=== PATIENT | female | born 1940 | race Caucasian/White ===

== ENCOUNTER 2017-09-10 12:56 | Emergency (ER) | payer OTHER ==
[~2017-09-10] VITALS: Ht 167.6 cm; Wt 76.8 kg
[2017-09-10 13:12] VITALS: TEMP 36.6; Ht 167.6 cm; Wt 76.8 kg
[2017-09-10] MEDS ORDERED: SODIUM CHLORIDE 0.9% 1000ML 1,000 ML IV STA (13:24)
[2017-09-10] MEDS ORDERED: OPTIRAY 320 IV PRN (13:30)
[2017-09-10 13:48] LABS: BASO % 0.5 %; BASO ABS # 0.03 K/uL (0-0.2); EOS % 2.3 %; EOS ABS # 0.15 K/uL (0-0.5); HEMATOCRIT 26.6 % (37-47); HEMOGLOBIN 8.4 g/dL (12.0-16.0); IG# 0.01 K/uL (0.00-0.02); LYMPH % 14.5 %; LYMPH ABS # 0.96 K/uL (1.2-3.4); MEAN CELL VOLUME 86.4 fL (80-100); MEAN CORPUSCULAR HEMOGLOBIN 27.3 pg (25-34); MEAN CORPUSCULAR HGB CONC 31.6 g/dl (32-36); MEAN PLATELET VOLUME 9.2 fL (7.4-10.4); MONO % 10.1 %; MONO ABS # 0.67 K/uL (0.11-0.59); NEUT % 72.4 %; PLATELET COUNT 232 K/uL (130-400); RED CELL DISTRIBUTION WIDTH SD 51.3 fL (36.4-46.3); WHITE BLOOD COUNT 6.62 K/uL (4.8-10.8)
[2017-09-10] MEDS ORDERED: MULT-506 PO (13:53)
[2017-09-10] MEDS ORDERED: SIMV5TAB2 PO (13:53)
[2017-09-10 14:05] LABS: PTT PATIENT 22.7 SECONDS (21.0-31.0)
[2017-09-10 14:16] LABS: ALBUMIN 3.7 gm/dl (3.4-5.0); ALKALINE PHOSPHATASE 72 U/L (45-117); ALT/SGPT 18 U/L (12-78); AST/SGOT 11 U/L (15-37); BLOOD UREA NITROGEN 17 mg/dl (7-18); CALCIUM 8.7 mg/dl (8.5-10.1); CARBON DIOXIDE 22 mmol/L (21-32); CREATININE 0.68 mg/dl (0.60-1.20); GLUCOSE 93 mg/dl (70-99); LIPASE 137 U/L (73-393); POTASSIUM 3.5 mmol/L (3.5-5.1); SODIUM 143 mmol/L (136-145)
--- NOTE | 2017-09-10 14:40 | DIAGNOSTIC IMAGING REPORT ---
R VENOUS DOPP LOWER EXT UNILAT HISTORY: 76 years-old Female Pt c/o Rt leg swelling, + ddimer acute pain and swelling of the right lower extremity COMPARISON: None available TECHNIQUE: Multiple real-time sonographic images of the right lower extremity deep venous structures were obtained assessing grayscale appearance, color and spectral flow FINDINGS: There is normal flow, compressibility, phasicity and augmentation of the right lower extremity deep venous structures. IMPRESSION: No sonographic evidence of deep venous thrombosis. The above report was generated using voice recognition software. It may contain grammatical, syntax or spelling errors. Electronically signed by: Nick Owens M.D. 09/10/2017 2:38 PM Dictated Date/Time: 09/10/2017 2:37 PM
--- NOTE | 2017-09-10 15:28 | DIAGNOSTIC IMAGING REPORT ---
(CHEST FOR PE) ANGIO WITH CT DOSE: 280.16 mGy.cm HISTORY: 76 years-old Female presents with acute shortness of breath. TECHNIQUE: Multiple CTA images of the chest were obtained after the intravenous administration of 93 ml Optiray 320. Coronal and sagittal MIPS were obtained from the axial data set and were submitted for review. All measurements were obtained according to NASCET criteria. A dose lowering technique was utilized adhering to the principles of ALARA. COMPARISON: Duplex venous Doppler study of same day. FINDINGS: CTA: Mild multichamber cardiac enlargement. Three-vessel distribution of coronary arterial disease. Moderate mixed plaquing of the thoracic aorta without aneurysm or dissection identified. The pulmonary arterial tree is opacified to level of the proximal subsegmental branches and demonstrates no focal filling defects to suggest pulmonary thromboembolic disease. CT CHEST: Heterogeneous appearance of the thyroid with 10 mm right thyroid nodule. No pathologically enlarged lymph nodes identified. 9 mm right hilar and pretracheal lymph nodes are likely reactive. Moderate upper lobe predominant emphysema without pneumothorax or pleural effusion. Subsegmental dependent ground glass opacities suggest atelectasis. Subpleural cystic changes are noted within the basal lower lobes. No lobar airspace consolidation. No suspicious nodules or masses identified. 5 mm. Fissural lymph node is seen adjacent to the right middle lobe. Central airways appear patent. No acute process of the imaged upper abdomen. Mildly motion degraded exam. Asymmetric increased density about the right breast superior quadrant soft tissues are otherwise unremarkable. Bones are intact. No acute fracture identified. Multilevel discogenic degenerative changes and facet arthropathy. Levoscoliosis of the mid to lower thoracic spine. IMPRESSION: 1. Cardiomegaly without acute aortic pathology or evidence of pulmonary thromboembolic disease. 2. Emphysema without lobar airspace consolidation. 3. Subsegmental bibasilar atelectasis. The above report was generated using voice recognition software. It may contain grammatical, syntax or spelling errors. Electronically signed by: Nick Owens M.D. 09/10/2017 3:27 PM Dictated Date/Time: 09/10/2017 3:19 PM
[2017-09-10 15:45] VITALS: BP 179/68; PULSE 76; O2SAT 96
[2017-09-11 09:31] LABS: ISTAT IONIZED CALCIUM 1.17 mmol/l (1.12-1.32); ISTAT POTASSIUM 3.5 mEq/L (3.3-5.0); ISTAT SODIUM 142 mEq/L (135-144)
--- NOTE | 2017-09-22 17:05 | EMERGENCY ROOM VISIT NOTE ---
History Report prepared by Melibbree: David Neville Under the Supervision of: Dr. El Kinsey M.D. First contact with patient: 13:16 Chief Complaint: OTHER COMPLAINT Stated Complaint: LOW BLOOD LEVEL,CLOT INDICATORS HIGH History of Present Illness The patient is a 76 year old female who presents to the Emergency Room for evaluation of constant anemia. She had blood drawn yesterday due to her legs feeling weak. The patient was called today with her results. She was told that her hemoglobin was 8.4 (down from 11.3 on 08/18), and her D-dimer was elevated. The patient notes that her right foot has been swollen this week, but it improved yesterday. She currently complains of shortness of breath and a cough. She denies chest pain or abdominal pain. The patient is not on any blood thinning medication. She notes that she is on supplemental iron and typically has dark stools. Source of History: patient Onset: Yesterday Symptom Intensity: 8.4 Quality: other (Anemia) Timing: constant Associated Symptoms: + cough, + SOB, + weakness (legs), No chest pain, No abdominal pain Review of Systems See HPI for pertinent positives & negatives. A total of 10 systems reviewed and were otherwise negative. Past Medical & Surgical Medical Problems: (1) Anemia (2) HLD (hyperlipidemia) (3) HTN (hypertension) Family History No pertinent family history stated. Social History Smoking Status: Current Every Day Smoker Marital Status: Housing Status: lives with significant other Current/Historical Medications Scheduled Multivitamin (Multivitamin), 1 TAB PO DAILY Simvastatin (Zocor), Unknown Dose PO QPM Allergies Coded Allergies: No Known Allergies (Unverified , 04/15/13) Physical Exam Vital Signs Date Time Temp Pulse Resp B/P (MAP) Pulse Ox O2 Delivery O2 Flow Rate FiO2 09/10/17 15:45 76 20 179/68 96 09/10/17 15:17 74 20 174/86 96 Room Air 09/10/17 13:41 77 09/10/17 13:36 Room Air 09/10/17 13:12 36.6 90 20 178/74 96 Room Air Physical Exam GENERAL: Awake, alert, well-appearing, in no acute distress HENT: Normocephalic, atraumatic. Oropharynx unremarkable. EYES: Normal conjunctiva. Sclera non-icteric. NECK: Supple. No nuchal rigidity. FROM. No JVD. RESPIRATORY: Clear to auscultation. CARDIAC: Regular rate, normal rhythm. Extremities warm and well perfused. Pulses equal. ABDOMEN: Soft, non-distended. No tenderness to palpation. No rebound or guarding. No masses. RECTAL: Deferred. MUSCULOSKELETAL: Chest examination reveals no tenderness. The back is symmetrical on inspection without obvious abnormality. There is no CVA tenderness to palpation. No joint edema. LOWER EXTREMITIES: Calves are equal size bilaterally and non-tender. No edema. No discoloration. NEURO: Normal sensorium. No sensory or motor deficits noted. SKIN: No rash or jaundice noted. Medical Decision & Procedures ER Provider Diagnostic Interpretation: (CHEST FOR PE) ANGIO WITH CT DOSE: 280.16 mGy.cm HISTORY: 76 years-old Female presents with acute shortness of breath. TECHNIQUE: Multiple CTA images of the chest were obtained after the intravenous administration of 93 ml Optiray 320. Coronal and sagittal MIPS were obtained from the axial data set and were submitted for review. All measurements were obtained according to NASCET criteria. A dose lowering technique was utilized adhering to the principles of ALARA. COMPARISON: Duplex venous Doppler study of same day. FINDINGS: CTA: Mild multichamber cardiac enlargement. Three-vessel distribution of coronary arterial disease. Moderate mixed plaquing of the thoracic aorta without aneurysm or dissection identified. The pulmonary arterial tree is opacified to level of the proximal subsegmental branches and demonstrates no focal filling defects to suggest pulmonary thromboembolic disease. CT CHEST: Heterogeneous appearance of the thyroid with 10 mm right thyroid nodule. No pathologically enlarged lymph nodes identified. 9 mm right hilar and pretracheal lymph nodes are likely reactive. Moderate upper lobe predominant emphysema without pneumothorax or pleural effusion. Subsegmental dependent ground glass opacities suggest atelectasis. Subpleural cystic changes are noted within the basal lower lobes. No lobar airspace consolidation. No suspicious nodules or masses identified. 5 mm. Fissural lymph node is seen adjacent to the right middle lobe. Central airways appear patent. No acute process of the imaged upper abdomen. Mildly motion degraded exam. Asymmetric increased density about the right breast superior quadrant soft tissues are otherwise unremarkable. Bones are intact. No acute fracture identified. Multilevel discogenic degenerative changes and facet arthropathy. Levoscoliosis of the mid to lower thoracic spine. IMPRESSION: 1. Cardiomegaly without acute aortic pathology or evidence of pulmonary thromboembolic disease. 2. Emphysema without lobar airspace consolidation. 3. Subsegmental bibasilar atelectasis. The above report was generated using voice recognition software. It may contain grammatical, syntax or spelling errors. Electronically signed by: Nick Owens M.D. 09/10/2017 3:27 PM Dictated Date/Time: 09/10/2017 3:19 PM R VENOUS DOPP LOWER EXT UNILAT HISTORY: 76 years-old Female Pt c/o Rt leg swelling, + ddimer acute pain and swelling of the right lower extremity COMPARISON: None available TECHNIQUE: Multiple real-time sonographic images of the right lower extremity deep venous structures were obtained assessing grayscale appearance, color and spectral flow FINDINGS: There is normal flow, compressibility, phasicity and augmentation of the right lower extremity deep venous structures. IMPRESSION: No sonographic evidence of deep venous thrombosis. The above report was generated using voice recognition software. It may contain grammatical, syntax or spelling errors. Electronically signed by: Nick Owens M.D. 09/10/2017 2:38 PM Dictated Date/Time: 09/10/2017 2:37 PM Laboratory Results 09/10/17 13:37 Red Blood Count 3.08, Mean Corpuscular Volume 86.4, Mean Corpuscular Hemoglobin 27.3, Mean Corpuscular Hemoglobin Concent 31.6, Mean Platelet Volume 9.2, Neutrophils (%) (Auto) 72.4, Lymphocytes (%) (Auto) 14.5, Monocytes (%) (Auto) 10.1, Eosinophils (%) (Auto) 2.3, Basophils (%) (Auto) 0.5, Neutrophils # (Auto ) 4.80, Lymphocytes # (Auto) 0.96, Monocytes # (Auto) 0.67, Eosinophils # (Auto ) 0.15, Basophils # (Auto) 0.03 09/10/17 13:37 Test 09/10/17 13:37 09/10/17 13:41 09/10/17 15:27 White Blood Count 6.62 K/uL (4.8-10.8) Red Blood Count 3.08 M/uL (4.2-5.4) Hemoglobin 8.4 g/dL (12.0-16.0) Hematocrit 26.6 % (37-47) Mean Corpuscular Volume 86.4 fL (80-100) Mean Corpuscular Hemoglobin 27.3 pg (25-34) Mean Corpuscular Hemoglobin Concent 31.6 g/dl (32-36) Platelet Count 232 K/uL (130-400) Mean Platelet Volume 9.2 fL (7.4-10.4) Neutrophils (%) (Auto) 72.4 % Lymphocytes (%) (Auto) 14.5 % Monocytes (%) (Auto) 10.1 % Eosinophils (%) (Auto) 2.3 % Basophils (%) (Auto) 0.5 % Neutrophils # (Auto) 4.80 K/uL (1.4-6.5) Lymphocytes # (Auto) 0.96 K/uL (1.2-3.4) Monocytes # (Auto) 0.67 K/uL (0.11-0.59) Eosinophils # (Auto) 0.15 K/uL (0-0.5) Basophils # (Auto) 0.03 K/uL (0-0.2) RDW Standard Deviation 51.3 fL (36.4-46.3) RDW Coefficient of Variation 16.0 % (11.5-14.5) Immature Granulocyte % (Auto) 0.2 % Immature Granulocyte # (Auto) 0.01 K/uL (0.00-0.02) Red Blood Cell Morphology Unremarkable Prothrombin Time 10.5 SECONDS (9.0-12.0) Prothromb Time International Ratio 1.0 (0.9-1.1) Activated Partial Thromboplast Time 22.7 SECONDS (21.0-31.0) Partial Thromboplastin Ratio 0.9 Est Creatinine Clear Calc Drug Dose 75.9 ml/min Estimated GFR () 99.9 Estimated GFR (Non- 86.2 BUN/Creatinine Ratio 24.8 (10-20) Calcium Level 8.7 mg/dl (8.5-10.1) Total Bilirubin 0.3 mg/dl (0.2-1) Direct Bilirubin < 0.1 mg/dl (0-0.2) Aspartate Amino Transf (AST/SGOT) 11 U/L (15-37) Alanine Aminotransferase (ALT/SGPT) 18 U/L (12-78) Alkaline Phosphatase 72 U/L (45-117) Total Protein 7.0 gm/dl (6.4-8.2) Albumin 3.7 gm/dl (3.4-5.0) Lipase 137 U/L (73-393) Bedside Hemoglobin 8.5 g/dl (12.0-16.0) Bedside Hematocrit 25 % (37-47) Bedside Sodium 142 mEq/L (135-144) Bedside Potassium 3.5 mEq/L (3.3-5.0) Bedside Chloride 110 mEq/L (101-112) Bedside Total CO2 21 mEq/l (24-31) Anion Gap 16.0 mmol/L (16-25) Bedside Blood Urea Nitrogen 17 mg/dl (7-18) Bedside Creatinine mg/dl (0.6-1.3) Bedside Glucose (other) 98 mg/dl (70-99) Bedside Ionized Calcium ([place]) 1.17 mmol/l (1.12-1.32) Urine Color YELLOW Urine Appearance CLEAR (CLEAR) Urine pH 6.5 (4.5-7.5) Urine Specific [place] 1.025 (1.000-1.030) Urine Protein NEG (NEG) Urine Glucose (UA) NEG (NEG) Urine Ketones NEG (NEG) Urine Occult Blood TRACE (NEG) Urine Nitrite NEG (NEG) Urine Bilirubin NEG (NEG) Urine Urobilinogen NEG (NEG) Urine Leukocyte Esterase NEG (NEG) Urine WBC (Auto) 1-5 /hpf (0-5) Urine RBC (Auto) 0-4 /hpf (0-4) Urine Hyaline Casts (Auto) 0 /lpf (0-5) Urine Epithelial Cells (Auto) 5-10 /lpf (0-5) Urine Bacteria (Auto) NEG (NEG) Labs reviewed by ED physician. Medications Administered Medications (Trade) Dose Ordered Sig/Lisa Route Start Time Stop Time Status Last Admin Dose Admin Sodium Chloride 1,000 ml @ 999 mls/hr Q1H1M STAT IV 09/10/17 13:24 09/10/17 14:24 DC 09/10/17 13:24 999 MLS/HR ED Course 1317: Past medical records reviewed. The patient was evaluated in room B11A. A complete history and physical examination was performed. Medical Decision Differential diagnosis: Etiologies such as anemia, GI bleed, infections, CHF, cardiac ischemia, pulmonary embolism, musculoskeletal, gastrointestinal, as well as others were entertained. This is a 76-year-old female who presents emergency department complaining of elevation of the d-dimer. Patient was sent to the emergency room by the primary care physician over concerns about the elevation. The patient has no complaints. He was sent for an ultrasound as well as a CTA which does not show any evidence of a DVT or PE. Based on this I feel the patient can be safely discharged home follow-up with a primary care physician. Patient and family were in agreement with the treatment plan. Patient is going to follow-up with the primary care physician for her blood counts and was in agreement with the treatment plan. Medication Reconcilliation Current Medication List: was personally reviewed by me Blood Pressure Screening Patient's blood pressure: Elevated blood pressure Blood pressure disposition: Referred to PCP Impression Primary Impression: Anemia Scribe Attestation The scribe's documentation has been prepared under my direction and personally reviewed by me in its entirety. I confirm that the note above accurately reflects all work, treatment, procedures, and medical decision making performed by me. Departure Information Dispostion Home / Self-Care Referrals Jennie Oswald M.D. (PCP) Patient Instructions My [facility] Problem Qualifiers Primary Impression: Anemia Anemia type: unspecified type Qualified Codes: D64.9 - Anemia, unspecified
== END 2017-09-10 15:49 | disposition home or self-care (01) ==
LOC: C.EDB 12:57
DX: D64.9 Anemia, unspecified (principal); E78.5 Hyperlipidemia, unspecified; I10 Essential (primary) hypertension; F17.210 Nicotine dependence, cigarettes, uncomplicated; Z79.899 Other long term (current) drug therapy

== ENCOUNTER 2022-02-18 18:54 | Inpatient (IN) ==
[2022-02-18] MEDS ORDERED: MAGNESIUM SULFATE / D5W 1 GM/100 ML BAG IV STA (19:55)
[2022-02-18] MEDS ORDERED: SODIUM CHLORIDE 0.9% 1000ML 1,000 ML IV ONE (19:55)
[2022-02-18] MEDS ORDERED: ONDANSETRON INJ 2 MG/ML 2 ML VIAL IV STA (19:55)
--- NOTE | 2022-02-18 20:00 | Emergency Department Note ---
Impression & Plan Hypokalemia, Anemia, Weakness, Elevated troponin I level, Urinary tract infection ED Provider Note NAME: WENDY GANN AGE: 81 SEX: F : 1940 ARRIVES VIA: Walk-In INFORMANT: Patient, ED PROVIDER(S): René Arriaga DO CHIEF COMPLAINT: Abnormal labs HPI: The patient is a 81-year-old female who [facility] for an evaluation of weakness. The patient states that she has a history of rectal cancer. She has been having problems with nausea vomiting and diarrhea. She gets IV infusions of potassium with the cancer clinic. She was noted to have a very low potassium. They were going to do eye fusions in the cancer center but she was sent to the emergency department because of the degree of hypokalemia. She denies having any chest pain. She denies having any difficulty breathing. She states that she has been compliant with her medications otherwise. She does have a copy of her labs and her potassium this afternoon was 2.2. She does take Lasix. He states that she has been compliant with her outpatient medication otherwise. The patient also complains of lower extremity swelling. ROS: See above HPI for pertinent positives & negatives. A total of 10 systems reviewed and were otherwise negative. PAST MEDICAL HISTORY: See Below PAST SURGICAL HISTORY: See Below FAMILY HISTORY: See Below SOCIAL HISTORY: See Below HOME MEDICATIONS: See Below ALLERGIES: See Below VITALS: See Below PHYSICAL EXAMINATION: GENERAL: Patient is awake alert in no acute distress patient is resting comfortably and showing no signs of anxiety EYES: The conjunctivae are clear. The pupils are round and reactive. EARS, NOSE, MOUTH AND THROAT: The nose is without any evidence of any deformity. Mucous membranes are moist. Tongue is midline. NECK: The neck is nontender and supple. RESPIRATORY: Normal respiratory effort is noted there is no evidence of wheezing rhonchi or rales CARDIOVASCULAR: Regular rate and rhythm noted there no murmurs rubs or gallops normal S1 normal S2. GASTROINTESTINAL: The abdomen is mildly distended. There is no tenderness guarding or rigidity. SKIN: Trace pedal edema was noted bilaterally. NEUROLOGIC: Patient is awake alert and oriented x3. MEDICAL DECISION MAKING: Patient is a 81-year-old female who presented to the emergency department with generalized weakness. The patient's been having problems with diarrhea and nausea. She is currently being treated for rectal cancer. The patient was being managed as an outpatient by her primary oncology group however she was not doing well and was referred to the emergency department. She was treated with IV fluids IV magnesium and IV potassium in the emergency department. She was also started on an IV antibiotic for presumed urinary tract infection noted on urinalysis. I discussed patient's laboratory and radiographic studies with her. [facility] have agreed to evaluate the patient in the emergency department for further disposition. Triage Nursing notes reviewed. Prior medical records reviewed Vital Signs: reviewed and remarkable for her blood pressure and hypoxia. Differential diagnosis: Infection, dehydration, metabolic abnormality, hypo/hyperglycemia, electrolyte disturbance, anemia, hypoxia, cardiac sources, intracerebral event, toxicologic, neurologic, as well as other pathologies. ER treatment provided: See below Diagnostics interpreted by me: ECG: EKG was obtained in the emergency department. My interpretation is sinus bradycardia 58 bpm. There were no PVCs noted. Right bundle branch block pattern was appreciated. This was compared to a tracing from from November 04, 2019. No changes were noted. Cardiac Monitoring: An order was placed for continuous cardiac monitoring. The monitor shows a rate of 62 bpm with sinus rhythm. Laboratory studies: As stated above and show below. Imaging studies: See below Consultation(s): I discussed this case with Dr. Arreaga who [facility]. Past Med/Surg History Medical History Anemia IRON INFUSIONS, follows with [facility] heme/onc Anxiety Degenerative scoliosis Hiatal hernia HLD (hyperlipidemia) HTN (hypertension) Hx of basal cell carcinoma IgM lambda paraproteinemia Left ventricular outflow tract obstruction follows with [facility] cardio Malignant neoplasm of anus Mitral regurgitation severe, follows with [facility] cardiology Pulmonary hypertension 47 mmHg Rectal cancer NEW DX>REASON FOR PORT Spinal stenosis Surgical History History of cataract surgery RT/LEFT History of colonoscopy History of esophagogastroduodenoscopy (EGD) History of tonsillectomy History of tooth extraction Hx of section X 2 Hx of thyroid cyst Family History Mother Heart disease Hypertension Cancer Brain tumor, in-operable. 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 Feels Safe at Home: Yes Assistive Devices: Cane, Denture - Upper, Denture - Lower and Glasses Allergies Allergies Allergy/AdvReac Type Severity Reaction Status Date / Time No Known Allergies Allergy Verified 01/31/22 11:49 Home Meds Home Medications Medication Instructions Recorded Confirmed sertraline 100 mg tablet (Zoloft) 100 mg PO QAM 03/05/19 02/18/22 simvastatin 20 mg tablet (Zocor) 20 mg PO HS 03/25/19 02/18/22 indapamide 1.25 mg tablet 1.25 mg PO QAM 11/14/19 02/18/22 omeprazole 20 mg tablet,delayed 20 mg PO QAM 12/22/21 02/18/22 release acetaminophen 500 mg capsule 500 mg PO Q4 PRN Pain 12/27/21 02/18/22 metoprolol succinate 25 mg 37.5 mg PO QAM 12/30/21 02/18/22 tablet,extended release 24 hr (Toprol XL) ondansetron HCl 8 mg tablet 8 mg PO Q8H PRN Nausea 02/07/22 02/18/22 prochlorperazine maleate 10 mg 10 mg PO Q6H PRN Nausea 02/07/22 02/18/22 tablet (Compazine) dexamethasone 4 mg tablet 4 mg PO AMHS 02/18/22 02/18/22 furosemide 20 mg tablet 20 mg PO QAM PRN swelling 02/18/22 02/18/22 lidocaine 5 % topical ointment 1 applic topical TID PRN Pain 02/18/22 02/18/22 lidocaine-prilocaine 2.5 %-2.5 % 1 applic topical UD 02/18/22 02/18/22 topical cream morphine 60 mg tablet,extended 60 mg PO AMHS 02/18/22 02/18/22 release multivitamin 1 tab PO QAM 02/18/22 02/18/22 oxycodone 20 mg tablet 20 mg PO Q4 PRN Pain, Severe 02/18/22 02/18/22 polyethylene glycol 3350 17 gram 17 g PO DAILY 02/18/22 02/18/22 oral powder packet (Miralax) potassium chloride 20 mEq oral 20 meq PO QAM 02/18/22 02/18/22 packet Previous Rx's Medication Instructions Recorded silver sulfadiazine 1 % topical 1 applic topical BID PRN wound 02/14/22 cream (Silvadene) healing #85 grams Results & Data (ED) Vital Signs Vital Signs - 24 hr 02/18/22 19:09 02/18/22 20:31 02/18/22 20:31 Temperature 36.5 C Temperature Source Temporal Artery Scan Pulse Rate 55 L Pulse Rate [Finger] 64 Respiratory Rate 18 14 Respiratory Effort / Characteristics Non-Labored Spontaneous Respiratory Depth Normal Respiratory Pattern Regular Blood Pressure 125/61 Blood Pressure [Right Arm] 154/60 H Blood Pressure Mean 82 Blood Pressure Mean [Right Arm] 91 Blood Pressure Position Sitting Pulse Oximetry 97 95 96 Oxygen Delivery Method Room Air Room Air Oxygen Flow Rate Sepsis Recent Fever Within 48 Hours No Sepsis New/Unexplained Change in Mental Status N/A Sepsis Action Taken by Nursing No Action Required Oxygen Flow Rate - Titration Pulse Oximetry Post Tiitration 02/18/22 22:24 02/18/22 22:27 Temperature Temperature Source Pulse Rate Pulse Rate [Finger] 62 Respiratory Rate 16 Respiratory Effort / Characteristics Non-Labored Spontaneous Respiratory Depth Normal Respiratory Pattern Regular Blood Pressure Blood Pressure [Right Arm] 112/52 L Blood Pressure Mean Blood Pressure Mean [Right Arm] 72 Blood Pressure Position Pulse Oximetry 87 L Oxygen Delivery Method Nasal Cannula Oxygen Flow Rate 0 Sepsis Recent Fever Within 48 Hours Sepsis New/Unexplained Change in Mental Status Sepsis Action Taken by Nursing Oxygen Flow Rate - Titration 2.5 Pulse Oximetry Post Tiitration 93 Home Medications Current Medication List: was personally reviewed by me Laboratory Data Attestation: I reviewed the patient's lab results. Result diagrams: 02/18/22 20:11 02/18/22 20:11 Lab Results 11/02/18/22 02/18/22 Range/Units 20:11 20:11 20:11 WBC 3.13 L (4.8-10.8) K/ul RBC 3.03 L (3.93-5.22) M/uL Hgb 8.9 L (12.0-16.0) g/dl Hct 26.7 L (34.1-44.9) % MCV 88.1 (80.0-100.0) fL MCH 29.4 (25.0-34.0) pg MCHC 33.3 (32.0-36.0) g/dL RDW Std Deviation 57.6 H (36.4-46.3) fL RDW Coeff of Olaf 18.7 H (11.5-14.5) % Plt Count 198 (130-400) K/uL MPV 9.4 (9.4-12.3) fL Immature Gran % (Auto) 0.3 % Neut % (Auto) 95.5 % Lymph % (Auto) 1.6 % [place] % (Auto) 2.6 % Eos % (Auto) 0.0 % Baso % (Auto) 0.0 % Neut # (Auto) 2.99 (1.4-6.5) K/uL Lymph # (Auto) 0.05 L (1.2-3.4) K/uL [place] # (Auto) 0.08 L (0.24-0.82) K/uL Eos # (Auto) 0.00 (0-0.50) K/uL Baso # (Auto) 0.00 (0-0.2) K/uL Immature Gran # (Auto) 0.01 (0.00-0.02) K/uL PT 13.6 H (9.0-12.0) Seconds INR 1.3 H (0.9-1.1) APTT 27.7 (21.0-31.0) Seconds PTT Ratio 1.0 Sodium 138 (136-145) mmol/L Potassium 2.5 L* (3.5-5.1) mmol/L Chloride 98 (98-107) mmol/L Carbon Dioxide 27 (21-32) mmol/L Anion Gap 13 H (3-11) BUN 34 H (6-23) mg/dl Creatinine 1.26 H (0.6-1.2) mg/dl Est Cr Clr Drug Dosing 36.2 ml/min Est GFR ( Amer) 46.9 ml/min Est GFR (Non-Af Amer) 40.5 ml/min BUN/Creatinine Ratio 27.0 H (10-20) Glucose 124 H (70-99(Fasting)) mg/dl Lactate (0.4-2.0) mmol/L Calcium 7.3 L (8.5-10.1) mg/dl Magnesium 1.7 (1.7-2.4) mg/dl Total Bilirubin 0.6 (0.2-1.0) mg/dl AST 10 L (13-39) U/L ALT 6 L (7-52) U/L Alkaline Phosphatase 61 (34-104) U/L Total Creatine Kinase 50 (26-192) U/L Troponin I High Sens 47.2 H (0-14) pg/ml Total Protein 5.9 L (6.0-8.3) gm/dl Albumin 3.1 L (3.4-5.0) gm/dl Globulin 2.8 (2.5-4.0) gm/dl Albumin/Globulin Ratio 1.1 (0.9-2) TSH (0.300-4.500) uIu/ml Urine Color Urine Appearance (Clear) Urine pH (4.5-7.5) Ur Specific [place] (1.000-1.030) Urine Protein (Negative) Urine Glucose (UA) (Negative) Urine Ketones (Negative) Urine Blood (Negative) Urine Nitrite (Negative) Urine Bilirubin (Negative) Urine Urobilinogen (Negative) Ur Leukocyte Esterase (Negative) Urine RBC (0-4) /hpf Urine WBC (0-5) /hpf Ur Epithelial Cells (0-5) /lpf Urine Bacteria (Negative) Hyaline Casts (0-5) /lpf SARS-CoV-2, RNA, NAAT (NEGATIVE) 02/18/22 02/18/22 02/18/22 Range/Units 20:11 20:11 20:11 WBC (4.8-10.8) K/ul RBC (3.93-5.22) M/uL Hgb (12.0-16.0) g/dl Hct (34.1-44.9) % MCV (80.0-100.0) fL MCH (25.0-34.0) pg MCHC (32.0-36.0) g/dL RDW Std Deviation (36.4-46.3) fL RDW Coeff of Olaf (11.5-14.5) % Plt Count (130-400) K/uL MPV (9.4-12.3) fL Immature Gran % (Auto) % Neut % (Auto) % Lymph % (Auto) % [place] % (Auto) % Eos % (Auto) % Baso % (Auto) % Neut # (Auto) (1.4-6.5) K/uL Lymph # (Auto) (1.2-3.4) K/uL [place] # (Auto) (0.24-0.82) K/uL Eos # (Auto) (0-0.50) K/uL Baso # (Auto) (0-0.2) K/uL Immature Gran # (Auto) (0.00-0.02) K/uL PT (9.0-12.0) Seconds INR (0.9-1.1) APTT (21.0-31.0) Seconds PTT Ratio Sodium (136-145) mmol/L Potassium (3.5-5.1) mmol/L Chloride (98-107) mmol/L Carbon Dioxide (21-32) mmol/L Anion Gap (3-11) BUN (6-23) mg/dl Creatinine (0.6-1.2) mg/dl Est Cr Clr Drug Dosing ml/min Est GFR ( Amer) ml/min Est GFR (Non-Af Amer) ml/min BUN/Creatinine Ratio (10-20) Glucose (70-99(Fasting)) mg/dl Lactate 0.7 (0.4-2.0) mmol/L Calcium (8.5-10.1) mg/dl Magnesium (1.7-2.4) mg/dl Total Bilirubin (0.2-1.0) mg/dl AST (13-39) U/L ALT (7-52) U/L Alkaline Phosphatase (34-104) U/L Total Creatine Kinase (26-192) U/L Troponin I High Sens (0-14) pg/ml Total Protein (6.0-8.3) gm/dl Albumin (3.4-5.0) gm/dl Globulin (2.5-4.0) gm/dl Albumin/Globulin Ratio (0.9-2) TSH 1.425 (0.300-4.500) uIu/ml Urine Color Urine Appearance (Clear) Urine pH (4.5-7.5) Ur Specific [place] (1.000-1.030) Urine Protein (Negative) Urine Glucose (UA) (Negative) Urine Ketones (Negative) Urine Blood (Negative) Urine Nitrite (Negative) Urine Bilirubin (Negative) Urine Urobilinogen (Negative) Ur Leukocyte Esterase (Negative) Urine RBC (0-4) /hpf Urine WBC (0-5) /hpf Ur Epithelial Cells (0-5) /lpf Urine Bacteria (Negative) Hyaline Casts (0-5) /lpf SARS-CoV-2, RNA, NAAT NEGATIVE (NEGATIVE) 02/18/22 Range/Units 21:35 WBC (4.8-10.8) K/ul RBC (3.93-5.22) M/uL Hgb (12.0-16.0) g/dl Hct (34.1-44.9) % MCV (80.0-100.0) fL MCH (25.0-34.0) pg MCHC (32.0-36.0) g/dL RDW Std Deviation (36.4-46.3) fL RDW Coeff of Olaf (11.5-14.5) % Plt Count (130-400) K/uL MPV (9.4-12.3) fL Immature Gran % (Auto) % Neut % (Auto) % Lymph % (Auto) % [place] % (Auto) % Eos % (Auto) % Baso % (Auto) % Neut # (Auto) (1.4-6.5) K/uL Lymph # (Auto) (1.2-3.4) K/uL [place] # (Auto) (0.24-0.82) K/uL Eos # (Auto) (0-0.50) K/uL Baso # (Auto) (0-0.2) K/uL Immature Gran # (Auto) (0.00-0.02) K/uL PT (9.0-12.0) Seconds INR (0.9-1.1) APTT (21.0-31.0) Seconds PTT Ratio Sodium (136-145) mmol/L Potassium (3.5-5.1) mmol/L Chloride (98-107) mmol/L Carbon Dioxide (21-32) mmol/L Anion Gap (3-11) BUN (6-23) mg/dl Creatinine (0.6-1.2) mg/dl Est Cr Clr Drug Dosing ml/min Est GFR ( Amer) ml/min Est GFR (Non-Af Amer) ml/min BUN/Creatinine Ratio (10-20) Glucose (70-99(Fasting)) mg/dl Lactate (0.4-2.0) mmol/L Calcium (8.5-10.1) mg/dl Magnesium (1.7-2.4) mg/dl Total Bilirubin (0.2-1.0) mg/dl AST (13-39) U/L ALT (7-52) U/L Alkaline Phosphatase (34-104) U/L Total Creatine Kinase (26-192) U/L Troponin I High Sens (0-14) pg/ml Total Protein (6.0-8.3) gm/dl Albumin (3.4-5.0) gm/dl Globulin (2.5-4.0) gm/dl Albumin/Globulin Ratio (0.9-2) TSH (0.300-4.500) uIu/ml Urine Color [place] Urine Appearance Slightly Cloudy (Clear) Urine pH (4.5-7.5) Ur Specific [place] 1.008 (1.000-1.030) Urine Protein (Negative) Urine Glucose (UA) (Negative) Urine Ketones (Negative) Urine Blood (Negative) Urine Nitrite (Negative) Urine Bilirubin (Negative) Urine Urobilinogen (Negative) Ur Leukocyte Esterase (Negative) Urine RBC >30 H (0-4) /hpf Urine WBC >30 H (0-5) /hpf Ur Epithelial Cells 10-20 H (0-5) /lpf Urine Bacteria 2+ H (Negative) Hyaline Casts 0-5 (0-5) /lpf SARS-CoV-2, RNA, NAAT (NEGATIVE) Administered Medications Lactated Ringer's (Lr) 1,000 mls @ 50 mls/hr IV .Q20H STA Stop: 02/19/22 17:21 Last Admin: 02/18/22 21:55 Dose: 50 mls/hr Documented By: KERON Potassium Chloride (K Mario / Wtr) 10 meq in 100 mls @ 100 mls/hr IV Q1H JOHN; Protocol Stop: 02/19/22 06:14 Last Admin: 02/18/22 23:01 Dose: 100 mls/hr Documented By: TED Discontinued Medications Sodium Chloride (Nss 1000ml) 1,000 mls @ 999 mls/hr IV .Q1H1M ONE Stop: 02/18/22 20:55 Last Infusion: 02/18/22 21:55 Dose: 0 mls/hr Documented By: Admin: 02/18/22 20:15 Dose: 999 mls/hr Documented By: KERON Potassium Chloride (K Mario / Wtr) 10 meq in 100 mls @ 100 mls/hr IV Q1H JOHN; Protocol Stop: 02/18/22 21:59 Last Infusion: 02/18/22 23:00 Dose: 0 mls/hr Documented By: Admin: 02/18/22 21:25 Dose: 100 mls/hr Documented By: Infusion: 02/18/22 21:25 Dose: 0 mls/hr Documented By: Admin: 02/18/22 20:18 Dose: 100 mls/hr Documented By: KERON Magnesium Sulfate/Dextrose (Magnesium Sulfate / D5w) 1 gm in 100 mls @ 100 mls/hr IV NOW STA Stop: 02/18/22 20:54 Last Infusion: 02/18/22 21:25 Dose: 0 mls/hr Documented By: Admin: 02/18/22 20:18 Dose: 100 mls/hr Documented By: KERON Multi-Ingredient Mouthwash/Gargle (First - Mouthwash Blm 5 Ml Udp) 10 ml PO ONE ONE Stop: 02/18/22 20:25 Last Admin: 02/18/22 20:28 Dose: 10 ml Documented By: KERON Ondansetron HCl (Ondansetron Inj 2 Mg/Ml 2 Ml Vial) 4 mg IV NOW STA Stop: 02/18/22 19:56 Last Admin: 02/18/22 20:15 Dose: 4 mg Documented By: KERON Oxycodone HCl (Oxycodone Hcl Ir 5 Mg Tab (Immediate Release)) 5 mg PO NOW STA Stop: 02/18/22 20:25 Last Admin: 02/18/22 20:28 Dose: 5 mg Documented By: KERON Imaging Data Radiologist's Impression: Chest X-Ray 02/18/22 19:45 SINGLE VIEW CHEST CLINICAL HISTORY: Generalized weakness. FINDINGS: An AP, portable, upright chest radiograph is compared to study dated 12/27/2021. A right sided central venous infusion port is unchanged in position. The heart is enlarged noting atherosclerotic calcification of the thoracic aorta. The pulmonary vasculature is noncongested. Chronic interstitial thickening similar to previous. Scarring/atelectasis is noted at the lung bases. The lungs and pleural spaces are clear. No pneumothorax is seen. The skeletal structures are osteopenic. The bony thorax is grossly intact. IMPRESSION: No acute cardiopulmonary abnormality. ACT 112: Negative or not required by law. Electronically signed by: Taiwo Hinton M.D. 02/18/2022 10:07 PM Discharge Plan Visit Data Chief Complaint: Referred by Doctor Stated Complaint: SWOLLEN ANKLE, POTASSIUM INFUSION ED Provider: René Arriaga Discharge Problem: Hypokalemia, Anemia, Weakness, Elevated troponin I level, Urinary tract infection Patient Disposition: Being Evaluated by Hospitalist Forms Stand Alone Forms: My [facility] [place] [employer] Prescriptions Prescriptions: No Action simvastatin [Zocor] 20 mg tablet 20 mg PO HS ondansetron HCl 8 mg tablet 8 mg PO Q8H PRN (Reason: Nausea) prochlorperazine maleate [Compazine] 10 mg tablet 10 mg PO Q6H PRN (Reason: Nausea) silver sulfadiazine [Silvadene] 1 % cream 1 applic topical BID PRN (Reason: wound healing) Qty: 85 3RF Rx Instructions: apply a 1.5 mm thickness sertraline [Zoloft] 100 mg tablet 100 mg PO QAM indapamide 1.25 mg tablet 1.25 mg PO QAM omeprazole 20 mg Tablet,Delayed Release (Dr/Ec) 20 mg PO QAM acetaminophen 500 mg Capsule 500 mg PO Q4 PRN (Reason: Pain) Rx Instructions: alternate with ibuprofen metoprolol succinate [Toprol XL] 25 mg tablet extended release 24 hr 37.5 mg PO QAM Label Comments: TAKES 1.5 TAB QAM lidocaine-prilocaine 2.5-2.5 % cream 1 applic topical UD Rx Instructions: apply to skin over mediport and cover 1 hour prior to accessing dexamethasone 4 mg tablet 4 mg PO AMHS furosemide 20 mg tablet 20 mg PO QAM PRN (Reason: swelling) lidocaine 5 % ointment 1 applic topical TID PRN (Reason: Pain) morphine 60 mg tablet extended release 60 mg PO AMHS multivitamin [Multiple Vitamin] Tablet 1 tab PO QAM polyethylene glycol 3350 [Miralax] 17 gram Powder In Packet 17 g PO DAILY potassium chloride 20 mEq packet 20 meq PO QAM oxycodone 20 mg tablet 20 mg PO Q4 PRN (Reason: Pain, Severe) Referrals Referrals: Damian Kessler MD [Primary Care Provider] -
[2022-02-18] MEDS: POTASSIUM CHLORIDE / WTR 10 MEQ/100 ML PLCT IV SCH ×3 (20:18→23:01)
[2022-02-18 20:24] LABS: Hematocrit (blood only) 26.7 % (34.1-44.9); Hemoglobin 8.9 g/dl (12.0-16.0); Mean Corpuscular Hemoglobin 29.4 pg (25.0-34.0); Mean Corpuscular Hgb Conc 33.3 g/dL (32.0-36.0); Mean Corpuscular Volume 88.1 fL (80.0-100.0); Mean Platelet Volume 9.4 fL (9.4-12.3); Platelet Count 198 K/uL (130-400); RDW Coefficient of Variation 18.7 % (11.5-14.5); RDW Standard Deviation 57.6 fL (36.4-46.3); Red Blood Count 3.03 M/uL (3.93-5.22); White Blood Count 3.13 K/ul (4.8-10.8)
[2022-02-18] MEDS ORDERED: FIRST - Mouthwash BLM 5 ML UDP PO ONE (20:24)
[2022-02-18] MEDS ORDERED: oxyCODONE HCL IR 5 MG TAB (IMMEDIATE RELEASE) PO STA (20:24)
[2022-02-18 20:46] LABS: INR 1.3 (0.9-1.1); Partial Thromboplastin Time 27.7 Seconds (21.0-31.0); Prothrombin Time 13.6 Seconds (9.0-12.0)
[2022-02-18 20:59] LABS: Immature Granulocytes # (auto) 0.01 K/uL (0.00-0.02); Immature Granulocytes % (auto) 0.3 %; Lymphocytes # (auto) 0.05 K/uL (1.2-3.4); Lymphocytes % (auto) 1.6 %; Monocytes # (auto) 0.08 K/uL (0.24-0.82); Monocytes % (auto) 2.6 %; Neutrophils # (auto) 2.99 K/uL (1.4-6.5); Neutrophils % (auto) 95.5 %
[2022-02-18 21:07] LABS: Albumin Globulin Ratio 1.1 (0.9-2); Albumin Level 3.1 gm/dl (3.4-5.0); Bilirubin,Total 0.6 mg/dl (0.2-1.0); Calcium 7.3 mg/dl (8.5-10.1); Creatinine Clr Calc Pharmacy 36.2 ml/min; Est GFR (African American) 46.9 ml/min; Est GFR (Non-African American) 40.5 ml/min; Globulin 2.8 gm/dl (2.5-4.0); Magnesium 1.7 mg/dl (1.7-2.4); Potassium 2.5 mmol/L (3.5-5.1); Total Protein 5.9 gm/dl (6.0-8.3); Troponin I High Sensitivity 47.2 pg/ml (0-14)
[2022-02-18] MEDS ORDERED: LACTATED RINGER'S 1,000 ML IV STA (21:22)
--- NOTE | 2022-02-18 22:09 | XRay Report ---
SINGLE VIEW CHEST CLINICAL HISTORY: Generalized weakness. FINDINGS: An AP, portable, upright chest radiograph is compared to study dated 12/27/2021. A right berhane ed central venous infusion port is unchanged in position. The heart is enlarged noting atheroscleroti c calcification of the thoracic aorta. The pulmonary vasculature is noncongested. Chronic interstitia l thickening similar to previous. Scarring/atelectasis is noted at the lung bases. The lungs and pleu ral spaces are clear. No pneumothorax is seen. The skeletal structures are osteopenic. The bony thora x is grossly intact. IMPRESSION: No acute cardiopulmonary abnormality. ACT 112: Negative or not required by law. Electronically signed by: Taiwo Hinton M.D. 02/18/2022 10:07 PM
[2022-02-18 22:13] LABS: Appearance Urine Slightly Cloudy (Clear); Color Urine Orange; Specific Gravity Urine 1.008 (1.000-1.030)
[2022-02-18 22:15] LABS: Bacteria Urine 2+ (Negative); Hyaline Casts Urine 0-5 /lpf (0-5); RBC Urine >30 /hpf (0-4); WBC Urine >30 /hpf (0-5)
[2022-02-18] MEDS ORDERED: cefTRIAXone SODIUM 2,000 MG/70 ML BAG IV STA (23:04)
[2022-02-19] MEDS ORDERED: DOXYCYCLINE HYCLATE 100 MG in DEXTROSE 5% 100 ML IV STA (01:01)
--- NOTE | 2022-02-19 01:11 | History & Physical Report ---
Date of Service February 19, 2022 Assessment & Plan (1) Hypokalemia: Plan: Multifactorial : Poor p.o. intake secondary to chemo therapy related gastroenteritis, history anal cancer ongoing chemoradiation, rule out C. difficile Home diuretic Rx for hx LV outflow obstruction/valvular heart disease (severe MR, mild TR)/pulmonary hypertension contributory ARF secondary to illness, improved from last outpatient lab result Troponin elevation in the setting of abnormal kidney function, patient without chest pain/SOB symptoms Odynophagia secondary to chemotherapy rule out esophagitis Complicated UTI, no sepsis for now RLE cellulitis rule out DVT hypertension, slight elevated Hyperlipidemia on statin Rx chronic anemia, hemoglobin slightly lower than baseline Steroid-induced hyperglycemia rule out DM ongoing tobacco abuse Medical telemetry Replace potassium Stool C. difficile Monitor creatinine response to IVF Hold home diuretic for now until patient euvolemic Follow troponin, TTE if with progression GI consult Re: Odynophagia, history chemotherapy N.p.o. until patient seen by GI in anticipation of endoscopic procedure Urine CS, Ceftriaxone Doxycycline for RLE cellulitis LE Dopplers rule out DVT Check hemoglobin A1c Nicotine replacement therapy as needed DVT prophylaxis. Heparin subcu Full code Text document was generated using [employer] voice recognition software. It may contain grammatical or spelling errors. Kindly contact undersigned for clarification of any documentation item in question. History of Present Illness Chief Complaint: Nausea, vomiting, diarrhea Primary Care Provider: Damian Kessler MD History obtained from patient and records. Medical history significant for LV outflow obstruction, valvular heart disease (severe MR, mild TR), pulmonary hypertension, hypertension, hyperlipidemia, GERD, history anal cancer ongoing chemoradiation, chronic anemia (baseline hemoglobin 9), ongoing tobacco abuse. Patient started chemotherapy for anal cancer last month. Subsequent nausea, vomiting, watery diarrhea symptoms without abdominal pain. Mouth sores followed by odynophagia. No chest pain, no SOB. Hypokalemia on outpatient blood work. Patient would receive IV potassium replacement at the cancer clinic. Few days ago, patient noted increased swelling on both legs with some redness on the right leg. No weight gain as per patient. Patient also noted dysuria symptoms without fever or chills. Ceftriaxone administered at the ER for possible UTI. 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5 mg PO QAM 12/30/21 02/18/22 History tablet,extended release 24 hr (Toprol XL) ondansetron HCl 8 mg tablet 8 mg PO Q8H PRN Nausea 02/07/22 02/18/22 History prochlorperazine maleate 10 mg 10 mg PO Q6H PRN Nausea 02/07/22 02/18/22 History tablet (Compazine) silver sulfadiazine 1 % topical 1 applic topical BID PRN wound 02/14/22 02/18/22 Rx cream (Silvadene) healing #85 grams dexamethasone 4 mg tablet 4 mg PO AMHS 02/18/22 02/18/22 History furosemide 20 mg tablet 20 mg PO QAM PRN swelling 02/18/22 02/18/22 History lidocaine 5 % topical ointment 1 applic topical TID PRN Pain 02/18/22 02/18/22 History lidocaine-prilocaine 2.5 %-2.5 % 1 applic topical UD 02/18/22 02/18/22 History topical cream morphine 60 mg tablet,extended 60 mg PO AMHS 02/18/22 02/18/22 History release multivitamin 1 tab PO QAM 02/18/22 02/18/22 History oxycodone 20 mg tablet 20 mg PO Q4 PRN Pain, Severe 02/18/22 02/18/22 History polyethylene glycol 3350 17 gram 17 g PO DAILY 02/18/22 02/18/22 History oral powder packet (Miralax) potassium chloride 20 mEq oral 20 meq PO QAM 02/18/22 02/18/22 History packet Past Med/Surg History Medical History Anemia IRON INFUSIONS, follows with [facility] heme/onc Anxiety Degenerative scoliosis Hiatal hernia HLD (hyperlipidemia) HTN (hypertension) Hx of basal cell carcinoma IgM lambda paraproteinemia Left ventricular outflow tract obstruction follows with [facility] cardio Malignant neoplasm of anus Mitral regurgitation severe, follows with [facility] cardiology Pulmonary hypertension 47 mmHg Rectal cancer NEW DX>REASON FOR PORT Spinal stenosis Surgical History History of cataract surgery RT/LEFT History of colonoscopy History of esophagogastroduodenoscopy (EGD) History of tonsillectomy History of tooth extraction Hx of section X 2 Hx of thyroid cyst Family History Mother Heart disease Hypertension Cancer Brain tumor, in-operable. unsure if cancerous Father Stroke Other No family history of adverse response to anesthesia Social History Smoking Status: Current every day smoker Tobacco Type: Cigarettes packs per day: 0.5; Cigarettes Per Day: 10 CIG DAILY/ADVISED; Second Hand Exposure: No; Do You Dip or Chew Tobacco: No; Tobacco Cessation Education Requested by Patient: No Hx Alcohol Use: No Hx Substance Use: No Preferred Language: Czech Communication Ability: Effective Visual Impairment: No Limitations Hearing Ability: Normal Dry Man Required: No Beliefs That Will Affect Care: None marital status: Current Living Situation: Spouse Current Living Situation Comment: HAS END STAGE PARKINSON'S DISASE>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 Other Information That Helps Us Care for You: No Feels Safe at Home: Yes Safety Concerns: Feels Safe At This Time Assistive Devices: Cane, Denture - Upper, Denture - Lower and Glasses Review of Systems Review of Systems: As per HPI, all other systems reviewed and negative Physical Exam Physical Exam: GENERAL: uncomfortable, chronically ill, no respiratory distress SKIN: Pallor, warm HEENT: Pale palpebral conjunctivae, no ptosis, dry buccal mucosa NECK : Supple, no tenderness CHEST : Decreased breath sounds, no tenderness HEART : RRR, apical systolic murmur ABDOMEN: Some distention, nontender EXTREMITIES : Bilateral LE swelling, RLE erythema with minimal tenderness, no other conspicuous deformities noted NEUROLOGIC : Coherent, no facial asymmetry, no other gross focality Results & Data Results & Data ([facility]) Vital Signs (Past 12 Hours) Vital Signs Temp Pulse Pulse Resp BP BP Pulse Ox 02/19/22 01:00 67 02/18/22 23:05 64 16 134/54 L 96 02/18/22 22:27 87 L 02/18/22 22:24 62 16 112/52 L 02/18/22 20:31 96 02/18/22 20:31 64 14 154/60 H 95 02/18/22 19:09 36.5 C 55 L 18 125/61 97 O2 Del Method O2 Flow Rate 02/19/22 01:00 02/18/22 23:05 Nasal Cannula 2 02/18/22 22:27 Nasal Cannula 0 02/18/22 22:24 02/18/22 20:31 Room Air 02/18/22 20:31 02/18/22 19:09 Room Air Laboratory Results Laboratory Results WBC 3.13 K/ul (4.8-10.8) L 02/18/22 20:11 RBC 3.03 M/uL (3.93-5.22) L 02/18/22 20:11 Hgb 8.9 g/dl (12.0-16.0) L 02/18/22 20:11 Hct 26.7 % (34.1-44.9) L 02/18/22 20:11 MCV 88.1 fL (80.0-100.0) 02/18/22 20:11 MCH 29.4 pg (25.0-34.0) 02/18/22 20:11 MCHC 33.3 g/dL (32.0-36.0) 02/18/22 20:11 RDW Std Deviation 57.6 fL (36.4-46.3) H 02/18/22 20:11 RDW Coeff of Olaf 18.7 % (11.5-14.5) H 02/18/22 20:11 Plt Count 198 K/uL (130-400) 02/18/22 20:11 MPV 9.4 fL (9.4-12.3) 02/18/22 20:11 Immature Gran % (Auto) 0.3 % 02/18/22 20:11 Neut % (Auto) 95.5 % 02/18/22 20:11 Lymph % (Auto) 1.6 % 02/18/22 20:11 [place] % (Auto) 2.6 % 02/18/22 20:11 Eos % (Auto) 0.0 % 02/18/22 20:11 Baso % (Auto) 0.0 % 02/18/22 20:11 Neut # (Auto) 2.99 K/uL (1.4-6.5) 02/18/22 20:11 Lymph # (Auto) 0.05 K/uL (1.2-3.4) L 02/18/22 20:11 [place] # (Auto) 0.08 K/uL (0.24-0.82) L 02/18/22 20:11 Eos # (Auto) 0.00 K/uL (0-0.50) 02/18/22 20:11 Baso # (Auto) 0.00 K/uL (0-0.2) 02/18/22 20:11 Immature Gran # (Auto) 0.01 K/uL (0.00-0.02) 02/18/22 20:11 PT 13.6 Seconds (9.0-12.0) H 02/18/22 20:11 INR 1.3 (0.9-1.1) H 02/18/22 20:11 APTT 27.7 Seconds (21.0-31.0) 02/18/22 20:11 PTT Ratio 1.0 02/18/22 20:11 Sodium 138 mmol/L (136-145) 02/18/22 20:11 Potassium 2.5 mmol/L (3.5-5.1) L* 02/18/22 20:11 Chloride 98 mmol/L (98-107) 02/18/22 20:11 Carbon Dioxide 27 mmol/L (21-32) 02/18/22 20:11 Anion Gap 13 (3-11) H 02/18/22 20:11 BUN 34 mg/dl (6-23) H 02/18/22 20:11 Creatinine 1.26 mg/dl (0.6-1.2) H 02/18/22 20:11 Est Cr Clr Drug Dosing 36.2 ml/min 02/18/22 20:11 Est GFR ( Amer) 46.9 ml/min 02/18/22 20:11 Est GFR (Non-Af Amer) 40.5 ml/min 02/18/22 20:11 BUN/Creatinine Ratio 27.0 (10-20) H 02/18/22 20:11 Glucose 124 mg/dl (70-99(Fasting)) H 02/18/22 20:11 Lactate 0.7 mmol/L (0.4-2.0) 02/18/22 20:11 Calcium 7.3 mg/dl (8.5-10.1) L 02/18/22 20:11 Magnesium 1.7 mg/dl (1.7-2.4) 02/18/22 20:11 Total Bilirubin 0.6 mg/dl (0.2-1.0) 02/18/22 20:11 AST 10 U/L (13-39) L 02/18/22 20:11 ALT 6 U/L (7-52) L 02/18/22 20:11 Alkaline Phosphatase 61 U/L (34-104) 02/18/22 20:11 Total Creatine Kinase 50 U/L (26-192) 02/18/22 20:11 Troponin I High Sens 47.2 pg/ml (0-14) H 02/18/22 20:11 Total Protein 5.9 gm/dl (6.0-8.3) L 02/18/22 20:11 Albumin 3.1 gm/dl (3.4-5.0) L 02/18/22 20:11 Globulin 2.8 gm/dl (2.5-4.0) 02/18/22 20:11 Albumin/Globulin Ratio 1.1 (0.9-2) 02/18/22 20:11 TSH 1.425 uIu/ml (0.300-4.500) 02/18/22 20:11 Urine Color [place] 02/18/22 21:35 Urine Appearance Slightly Cloudy (Clear) 02/18/22 21:35 Urine pH (4.5-7.5) 02/18/22 21:35 Ur Specific [place] 1.008 (1.000-1.030) 02/18/22 21:35 Urine Protein (Negative) 02/18/22 21:35 Urine Glucose (UA) (Negative) 02/18/22 21:35 Urine Ketones (Negative) 02/18/22 21:35 Urine Blood (Negative) 02/18/22 21:35 Urine Nitrite (Negative) 02/18/22 21:35 Urine Bilirubin (Negative) 02/18/22 21:35 Urine Urobilinogen (Negative) 02/18/22 21:35 Ur Leukocyte Esterase (Negative) 02/18/22 21:35 Urine RBC >30 /hpf (0-4) H 02/18/22 21:35 Urine WBC >30 /hpf (0-5) H 02/18/22 21:35 Ur Epithelial Cells 10-20 /lpf (0-5) H 02/18/22 21:35 Urine Bacteria 2+ (Negative) H 02/18/22 21:35 Hyaline Casts 0-5 /lpf (0-5) 02/18/22 21:35 SARS-CoV-2, RNA, NAAT NEGATIVE (NEGATIVE) 02/18/22 20:11 Impressions Chest X-Ray 02/18/22 19:45 SINGLE VIEW CHEST CLINICAL HISTORY: Generalized weakness. FINDINGS: An AP, portable, upright chest radiograph is compared to study dated 12/27/2021. A right sided central venous infusion port is unchanged in position. The heart is enlarged noting atherosclerotic calcification of the thoracic aorta. The pulmonary vasculature is noncongested. Chronic interstitial thickening similar to previous. Scarring/atelectasis is noted at the lung bases. The lungs and pleural spaces are clear. No pneumothorax is seen. The skeletal structures are osteopenic. The bony thorax is grossly intact. IMPRESSION: No acute cardiopulmonary abnormality. ACT 112: Negative or not required by law. Electronically signed by: Taiwo Hinton M.D. 02/18/2022 10:07 PM Diagnostic Findings EKG as per my interpretation :rate 55, sinus bradycardia, normal axis, RBBB, T wave abnormalities inferolateral leads Code Status & VTE Plan VTE Prophylaxis Plan VTE Prophylaxis will be ordered: Yes
[2022-02-19] MEDS ORDERED: ACETAMINOPHEN SUSP 325 MG/10.15 ML UDC PO PRN (01:26)
[2022-02-19] MEDS: POTASSIUM CHLORIDE / WTR 10 MEQ/100 ML PLCT IV SCH ×9 (02:46→16:17)
[2022-02-19] MEDS: oxyCODONE HCL IR 5 MG TAB (IMMEDIATE RELEASE) PO PRN ×4 (02:47→23:19)
[2022-02-19] MEDS: FIRST - Mouthwash BLM 119 ML PO PRN ×3 (05:16→20:43)
[2022-02-19] MEDS ORDERED: HEPARIN SOD 5,000 UNIT/0.5 ML VIAL SQ SCH (06:00)
[2022-02-19 07:25] LABS: Hematocrit (blood only) 22.8 % (34.1-44.9); Hemoglobin 7.6 g/dl (12.0-16.0); Mean Corpuscular Hemoglobin 29.3 pg (25.0-34.0); Mean Corpuscular Hgb Conc 33.3 g/dL (32.0-36.0); Mean Platelet Volume 9.5 fL (9.4-12.3); Platelet Count 178 K/uL (130-400); RDW Coefficient of Variation 18.5 % (11.5-14.5); RDW Standard Deviation 56.8 fL (36.4-46.3); Red Blood Count 2.59 M/uL (3.93-5.22); White Blood Count 2.09 K/ul (4.8-10.8)
--- NOTE | 2022-02-19 07:47 | Ultrasound Report ---
BILATERAL LOWER EXTREMITY VENOUS DOPPLER CLINICAL HISTORY: leg swelling COMPARISON STUDY: Right lower extremity venous Doppler ultrasound September 10, 2017. Left lower extremit y venous Doppler ultrasound of October 31, 2015. TECHNIQUE: Sonography of the deep venous system of the bilateral lower extremities was performed. Co mpression and augmentation were evaluated. FINDINGS: The bilateral common femoral, superficial femoral and popliteal veins were compressible. A ugmentation was normal. Flow was shown within the deep calf vessels. IMPRESSION: No evidence of deep venous thrombus within the bilateral lower extremities. ACT 112: Negative or not required by law. Electronically signed by: Dion Dudley M.D. 02/19/2022 7:46 AM
[2022-02-19 07:48] LABS: BUN Creatinine Ratio 27.9 (10-20); Calcium 6.8 mg/dl (8.5-10.1); Est GFR (African American) 54.7 ml/min; Est GFR (Non-African American) 47.2 ml/min; Potassium 2.7 mmol/L (3.5-5.1)
[2022-02-19 07:51] LABS: Basophils # (auto) 0.01 K/uL (0-0.2); Basophils % (auto) 0.5 %; Eosinophils # (auto) 0.02 K/uL (0-0.50); Immature Granulocytes # (auto) 0.01 K/uL (0.00-0.02); Immature Granulocytes % (auto) 0.5 %; Lymphocytes % (auto) 4.8 %; Monocytes # (auto) 0.15 K/uL (0.24-0.82); Monocytes % (auto) 7.2 %; Poikilocytosis Present
[2022-02-19] MEDS ORDERED: NSS + 20MEQ KCL 20 MEQ/1,000 ML BAG IV SCH (08:30)
[2022-02-19] MEDS: METOPROLOL SUCC 25MG EXT REL TAB PO SCH (08:52)
[2022-02-19] MEDS: PANTOprazole 40 MG TAB PO SCH (09:00)
[2022-02-19] MEDS: MULTIVITAMIN TAB PO SCH (09:00)
[2022-02-19] MEDS: SERTRALINE HCL 100 MG TABLET PO SCH (09:00)
[2022-02-19] MEDS: dexAMETHasone 4 MG TAB PO SCH ×2 (09:00→21:11)
[2022-02-19 09:53] LABS: Estimated Average Glucose 123 mg/dl; Hemoglobin A1C 5.9 % (4.5-5.6)
[2022-02-19] MEDS: PROMETHAZINE HCL 6.25 MG in SODIUM CHLORIDE 0.9% 50 ML IV PRN ×2 (10:16→18:08)
[2022-02-19 12:36] LABS: BUN Creatinine Ratio 26.3 (10-20); Calcium 7.4 mg/dl (8.5-10.1); Est GFR (Non-African American) 45.7 ml/min; Magnesium 1.8 mg/dl (1.7-2.4); Potassium 3.4 mmol/L (3.5-5.1)
--- NOTE | 2022-02-19 13:00 | Gastrointestinal Consultation ---
Date of Consultation February 19, 2022 Assessment & Plan (1) Hypokalemia: (2) Weakness: (3) Urinary tract infection: (4) Malignant neoplasm of anus: (5) Mouth ulcers: 81 yo female on chemo for anal cancer with nausea, vomiting, diarrhea and painful mouth ulcers related to chemo. 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 She tells me that she has had ulcers in ehr mouth since starting chemo and they are painful and prevent her from wanting ot eat or drink. Using magic swizzle at home which provides some relief. Also having problems wiht edema in her legs and erythema of her right leg concerning for VTE. On abx for UTI as well. Asking for immodium for her diarrhea. Allergies Allergy/AdvReac Type Severity Reaction Status Date / Time No Known Allergies Allergy Verified 01/31/22 11:49 Home Medications Medication Instructions Recorded Confirmed Type sertraline 100 mg tablet (Zoloft) 100 mg PO QAM 03/05/19 02/18/22 History simvastatin 20 mg tablet (Zocor) 20 mg PO HS 03/25/19 02/18/22 History indapamide 1.25 mg tablet 1.25 mg PO QAM 11/14/19 02/18/22 History omeprazole 20 mg tablet,delayed 20 mg PO QAM 12/22/21 02/18/22 History release acetaminophen 500 mg capsule 500 mg PO Q4 PRN Pain 12/27/21 02/18/22 History metoprolol succinate 25 mg 37.5 mg PO QAM 12/30/21 02/18/22 History tablet,extended release 24 hr (Toprol XL) ondansetron HCl 8 mg tablet 8 mg PO Q8H PRN Nausea 02/07/22 02/18/22 History prochlorperazine maleate 10 mg 10 mg PO Q6H PRN Nausea 02/07/22 02/18/22 History tablet (Compazine) silver sulfadiazine 1 % topical 1 applic topical BID PRN wound 02/14/22 02/18/22 Rx cream (Silvadene) healing #85 grams dexamethasone 4 mg tablet 4 mg PO AMHS 02/18/22 02/18/22 History furosemide 20 mg tablet 20 mg PO QAM PRN swelling 02/18/22 02/18/22 History lidocaine 5 % topical ointment 1 applic topical TID PRN Pain 02/18/22 02/18/22 History lidocaine-prilocaine 2.5 %-2.5 % 1 applic topical UD 02/18/22 02/18/22 History topical cream morphine 60 mg tablet,extended 60 mg PO AMHS 02/18/22 02/18/22 History release multivitamin 1 tab PO QAM 02/18/22 02/18/22 History oxycodone 20 mg tablet 20 mg PO Q4 PRN Pain, Severe 02/18/22 02/18/22 History polyethylene glycol 3350 17 gram 17 g PO DAILY 02/18/22 02/18/22 History oral powder packet (Miralax) potassium chloride 20 mEq oral 20 meq PO QAM 02/18/22 02/18/22 History packet Patient History Medical History Anemia IRON INFUSIONS, follows with [facility] heme/onc Anxiety Degenerative scoliosis Hiatal hernia HLD (hyperlipidemia) HTN (hypertension) Hx of basal cell carcinoma IgM lambda paraproteinemia Left ventricular outflow tract obstruction follows with [facility] cardio Malignant neoplasm of anus Mitral regurgitation severe, follows with [facility] cardiology Pulmonary hypertension 47 mmHg Rectal cancer NEW DX>REASON FOR PORT Spinal stenosis Surgical History History of cataract surgery RT/LEFT History of colonoscopy History of esophagogastroduodenoscopy (EGD) History of tonsillectomy History of tooth extraction Hx of section X 2 Hx of thyroid cyst Family History Mother Heart disease Hypertension Cancer Brain tumor, in-operable. unsure if cancerous Father Stroke Other No family history of adverse response to anesthesia Social History Smoking Status: Current every day smoker Tobacco Type: Cigarettes packs per day: 0.5; Cigarettes Per Day: 10 CIG DAILY/ADVISED; Second Hand Exposure: No; Do You Dip or Chew Tobacco: No; Tobacco Cessation Education Requested by Patient: No Hx Alcohol Use: No Hx Substance Use: No Preferred Language: Tamazight Communication Ability: Effective Visual Impairment: No Limitations Hearing Ability: Normal Rotary Soil Stabilizer Required: No Beliefs That Will Affect Care: None marital status: Current Living Situation: Spouse Current Living Situation Comment: HAS END STAGE PARKINSON'S DISASE>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 Other Information That Helps Us Care for You: No Feels Safe at Home: Yes Safety Concerns: Feels Safe At This Time Assistive Devices: Cane, Denture - Upper, Denture - Lower and Glasses Review of Systems Review of Systems: All systems reviewed & are unremarkable except as noted in HPI & below Physical Exam Constitutional: WD/WN, vitals as above ENMT: Mouth: + oral mucosal abnormality (ulcers in posterior oropharynx) Respiratory: normal respiratory effort, lungs clear to auscultation Cardiovascular: Rate/Rhythm: regular rate + edema LE R>L Gastrointestinal (Abdomen): normal bowel sounds, soft, nontender, no hepatosplenomegaly Results & Data ([facility]) Vital Signs (Past 12 Hours) Vital Signs Temp Pulse Pulse Resp BP Pulse Ox O2 Del Method 02/19/22 10:50 36.3 C L 58 L 16 106/58 L 93 Room Air 02/19/22 07:44 36.3 C L 60 16 97/51 L 94 Room Air 02/19/22 02:15 54 L 02/19/22 02:15 Room Air 02/19/22 02:15 36.8 C 62 16 126/56 L 91 Room Air 02/19/22 01:00 67 (1) Urinary tract infection Hematuria presence: with hematuria Urinary tract infection type: site unspecified Qualified Code(s): N39.0 - Urinary tract infection, site not specified; R31.9 - Hematuria, unspecified
[2022-02-19] MEDS: POTASSIUM CHLORIDE PWD 20 MEQ PACK PO SCH (14:31)
[2022-02-19] MEDS: MoRPHine SULFATE CR 60 MG TABCR PO SCH ×2 (14:31→21:11)
--- NOTE | 2022-02-19 14:33 | Hospitalist Progress Note ---
Date of Service February 19, 2022 Assessment & Plan (1) Hypokalemia: Plan: Multifactorial : Likely secondary to nausea, vomiting, diarrhea, poor oral intake, likely secondary to chemotherapy induced side effects Home diuretic Rx for hx LV outflow obstruction/valvular heart disease (severe MR, mild TR)/pulmonary hypertension contributory -- Continue IV potassium replaced -- Creatinine 3.4 -- Gentle IV fluids -- Check stool panel, C. difficile Acute renal failure secondary to illness, improved from last outpatient lab result --Creatinine improved, now one-point Troponin elevation in the setting of abnormal kidney function, patient without chest pain/SOB symptoms --Troponin trended down from 47, now 43 Bilateral lower extremity edema, history of LV outflow obstruction/valvular heart disease -- Check echocardiogram --Possible component of cellulitis? On doxycycline IV --Possibly from Decadron? --DVT ruled out Odynophagia -- Likely secondary to chemotherapy induced mucositis --Oral care, Magic swizzle p.o. --Clear liquid diet Complicated UTI, no sepsis for now --Urine culture: Pending -- Ceftriaxone IV day #1 hypertension -- BP in the lower side Monitor closely Hyperlipidemia on statin Rx chronic anemia, hemoglobin slightly lower than baseline Neutropenia --Hemoglobin 8.9, now 7.6 Likely secondary to chemotherapy -- ANC 1800 -- Continue to monitor daily ongoing tobacco abuse DVT prophylaxis. Heparin subcu Full code Disposition Will order PT and OT evaluation plan of care discussed with patient in detail and at length all questions answered she is understanding, agreeable, comfortable with the plan of care Admission and Anticipated Discharge Date Admission Date: February 19, 2022 Subjective Follow-up for nausea, vomiting, diarrhea, hypokalemia, etc. Seen resting in bed, sleeping but easily awakened Appears weak, tired States that she is still having nausea, diarrhea, seems to be improving today the Only had 1 loose bowel movement today Still having some pain with swallowing no chest pain, dyspnea, palpitations, dizziness no fever/chills Review of Systems Review of Systems: all noted and negative except for above Physical Exam Physical Exam: General- oriented x 3, not in distress, speaks in sentences with no effort or accessory muscle use Head- atraumatic Eyes- PERRL, EOMI, anicteric ENT-positive erythematous area on the oropharyngeal region Dry tongue Neck- supple, no JVD, no adenopathy, no thyromegaly; carotids +2/2, no bruits appreciated Lungs- clear to auscultation bilaterally, no rales/wheezes Heart- normal rate, regular rhythm; positive grade 2 through 3 holosystolic murmur Abdomen- normal bowel sounds, nondistended, soft, nontender, no masses or hep atosplenomegaly Extremities-grade 1 lower leg edema, no erythema/warmth/tenderness Neuro- alert, oriented x 3; CN 2-12 grossly intact; motor 5/5 bilaterally;sensation 100% on all extremities; no other gross focal neurologic deficits Skin- warm & dry Results & Data Results & Data ([facility]) Vital Signs (Past 12 Hours) Vital Signs Temp Pulse Resp BP Pulse Ox O2 Del Method 02/19/22 10:50 36.3 C L 58 L 16 106/58 L 93 Room Air 02/19/22 07:44 36.3 C L 60 16 97/51 L 94 Room Air all noted and reviewed including below
[2022-02-19] MEDS: DOXYCYCLINE HYCLATE 100 MG in DEXTROSE 5% 100 ML IV SCH (15:14)
[2022-02-19] MEDS: HEPARIN SOD 5,000 UNIT/0.5 ML VIAL SQ SCH (17:24)
[2022-02-19] MEDS ORDERED: SIMVASTATIN 20 MG TAB PO SCH (21:00)
[2022-02-19] MEDS: LOPERAMIDE HCL 2 MG CAP PO PRN (21:11)
[2022-02-19] MEDS ORDERED: cefTRIAXone SODIUM 2,000 MG in DEXTROSE 5% 50 ML IV SCH (22:00)
[2022-02-19] MEDS ORDERED: LIDOCAINE 5% OINT 30 GM TUBE TOP PRN (22:47)
[2022-02-19] MEDS ORDERED: BENZOCAINE 20% AER SPR 82.5 GM CAN EXT PRN (23:12)
[2022-02-19] MEDS: PHENAZOPYRIDINE HCL 100 MG TAB PO PRN (23:21)
[2022-02-20] MEDS: DOXYCYCLINE HYCLATE 100 MG in DEXTROSE 5% 100 ML IV SCH ×2 (02:14→13:37)
[2022-02-20] MEDS: LOPERAMIDE HCL 2 MG CAP PO PRN ×3 (03:58→11:44)
[2022-02-20] MEDS: oxyCODONE HCL IR 5 MG TAB (IMMEDIATE RELEASE) PO PRN ×3 (04:02→17:39)
[2022-02-20] MEDS: HEPARIN SOD 5,000 UNIT/0.5 ML VIAL SQ SCH ×2 (05:36→16:54)
[2022-02-20] MEDS: FIRST - Mouthwash BLM 119 ML PO PRN ×2 (07:19→13:47)
[2022-02-20] MEDS: PROMETHAZINE HCL 6.25 MG in SODIUM CHLORIDE 0.9% 50 ML IV PRN (07:34)
[2022-02-20] MEDS: HEPARIN 100 UNIT/ML 5ML FLUSH FLUSH PRN ×2 (07:56→17:40)
[2022-02-20] MEDS: PHENAZOPYRIDINE HCL 100 MG TAB PO PRN (08:24)
[2022-02-20] MEDS: dexAMETHasone 4 MG TAB PO SCH (08:24)
[2022-02-20] MEDS: PANTOprazole 40 MG TAB PO SCH (08:24)
[2022-02-20] MEDS: METOPROLOL SUCC 25MG EXT REL TAB PO SCH (08:24)
[2022-02-20] MEDS: SERTRALINE HCL 100 MG TABLET PO SCH (08:24)
[2022-02-20] MEDS: MULTIVITAMIN TAB PO SCH (08:25)
[2022-02-20] MEDS: POTASSIUM CHLORIDE PWD 20 MEQ PACK PO SCH (08:27)
[2022-02-20 08:49] LABS: Hematocrit (blood only) 25.1 % (34.1-44.9); Hemoglobin 8.2 g/dl (12.0-16.0); Immature Granulocytes # (auto) 0.02 K/uL (0.00-0.02); Lymphocytes # (auto) 0.08 K/uL (1.2-3.4); Mean Corpuscular Hemoglobin 29.5 pg (25.0-34.0); Mean Corpuscular Hgb Conc 32.7 g/dL (32.0-36.0); Mean Corpuscular Volume 90.3 fL (80.0-100.0); Mean Platelet Volume 9.1 fL (9.4-12.3); Monocytes # (auto) 0.17 K/uL (0.24-0.82); Monocytes % (auto) 8.5 %; Neutrophils # (auto) 1.72 K/uL (1.4-6.5); Neutrophils % (auto) 86.5 %; Platelet Count 153 K/uL (130-400); RDW Coefficient of Variation 18.8 % (11.5-14.5); RDW Standard Deviation 58.7 fL (36.4-46.3); Red Blood Count 2.78 M/uL (3.93-5.22); White Blood Count 1.99 K/ul (4.8-10.8)
[2022-02-20] MEDS: MoRPHine SULFATE CR 60 MG TABCR PO SCH (09:11)
[2022-02-20 09:19] LABS: BUN Creatinine Ratio 29.9 (10-20); Calcium 6.9 mg/dl (8.5-10.1); Creatinine Clr Calc Pharmacy 57.7 ml/min; Est GFR (African American) 85.1 ml/min; Est GFR (Non-African American) 73.4 ml/min; Magnesium 1.8 mg/dl (1.7-2.4); Potassium 3.1 mmol/L (3.5-5.1)
[2022-02-20] MEDS ORDERED: POTASSIUM CHLORIDE 20 MEQ/15 ML UDC PO SCH (09:45)
--- NOTE | 2022-02-20 10:09 | Nephrology Consultation ---
Date of Consultation February 20, 2022 History of Present Illness Reason for Consultation: Hypokalemia Attending Physician: Matthew You MD History of Present Illness 81-year-old who was admitted with nausea vomiting and diarrhea. Past medical history of renal cancer with ongoing chemoradiation, valvular heart disease pulmonary hypertension hyperlipidemia GERD and ongoing tobacco use. Poor oral intake with sore mouth's and ondynophagia. Hypokalemia at least since 11/20, with potassium levels in late twos and early threes. She has been on indapamide and furosemide. Allergies Allergy/AdvReac Type Severity Reaction Status Date / Time No Known Allergies Allergy Verified 01/31/22 11:49 Home Medications Medication Instructions Recorded Confirmed Type sertraline 100 mg tablet (Zoloft) 100 mg PO QAM 03/05/19 02/18/22 History simvastatin 20 mg tablet (Zocor) 20 mg PO HS 03/25/19 02/18/22 History indapamide 1.25 mg tablet 1.25 mg PO QAM 11/14/19 02/18/22 History omeprazole 20 mg tablet,delayed 20 mg PO QAM 12/22/21 02/18/22 History release acetaminophen 500 mg capsule 500 mg PO Q4 PRN Pain 12/27/21 02/18/22 History metoprolol succinate 25 mg 37.5 mg PO QAM 12/30/21 02/18/22 History tablet,extended release 24 hr (Toprol XL) ondansetron HCl 8 mg tablet 8 mg PO Q8H PRN Nausea 02/07/22 02/18/22 History prochlorperazine maleate 10 mg 10 mg PO Q6H PRN Nausea 02/07/22 02/18/22 History tablet (Compazine) silver sulfadiazine 1 % topical 1 applic topical BID PRN wound 02/14/22 02/18/22 Rx cream (Silvadene) healing #85 grams dexamethasone 4 mg tablet 4 mg PO AMHS 02/18/22 02/18/22 History furosemide 20 mg tablet 20 mg PO QAM PRN swelling 02/18/22 02/18/22 History lidocaine 5 % topical ointment 1 applic topical TID PRN Pain 02/18/22 02/18/22 History lidocaine-prilocaine 2.5 %-2.5 % 1 applic topical UD 02/18/22 02/18/22 History topical cream morphine 60 mg tablet,extended 60 mg PO AMHS 02/18/22 02/18/22 History release multivitamin 1 tab PO QAM 02/18/22 02/18/22 History oxycodone 20 mg tablet 20 mg PO Q4 PRN Pain, Severe 02/18/22 02/18/22 History polyethylene glycol 3350 17 gram 17 g PO DAILY 02/18/22 02/18/22 History oral powder packet (Miralax) potassium chloride 20 mEq oral 20 meq PO QAM 02/18/22 02/18/22 History packet Patient History Medical History Anemia IRON INFUSIONS, follows with [facility] heme/onc Anxiety Degenerative scoliosis Hiatal hernia HLD (hyperlipidemia) HTN (hypertension) Hx of basal cell carcinoma IgM lambda paraproteinemia Left ventricular outflow tract obstruction follows with [facility] cardio Malignant neoplasm of anus Mitral regurgitation severe, follows with [facility] cardiology Pulmonary hypertension 47 mmHg Rectal cancer NEW DX>REASON FOR PORT Spinal stenosis Surgical History History of cataract surgery RT/LEFT History of colonoscopy History of esophagogastroduodenoscopy (EGD) History of tonsillectomy History of tooth extraction Hx of section X 2 Hx of thyroid cyst Family History Mother Heart disease Hypertension Cancer Brain tumor, in-operable. unsure if cancerous Father Stroke Other No family history of adverse response to anesthesia Social History Smoking Status: Current every day smoker Tobacco Type: Cigarettes packs per day: 0.5; Cigarettes Per Day: 10 CIG DAILY/ADVISED; Second Hand Exposure: No; Do You Dip or Chew Tobacco: No; Tobacco Cessation Education Requested by Patient: No Hx Alcohol Use: No Hx Substance Use: No Preferred Language: Iraqi Communication Ability: Effective Visual Impairment: No Limitations Hearing Ability: Normal Check Processor Required: No Beliefs That Will Affect Care: None marital status: Current Living Situation: Spouse Current Living Situation Comment: HAS END STAGE [employer] DISASE>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 Other Information That Helps Us Care for You: No Feels Safe at Home: Yes Safety Concerns: Feels Safe At This Time Assistive Devices: Cane and Glasses Physical Exam Physical Exam: Head- atraumatic ENT-positive erythematous area on the oropharyngeal region Neck- supple, no JVD, no adenopathy, no thyromegaly; carotids +2/2, no bruits appreciated Lungs- clear to auscultation bilaterally, no rales/wheezes Heart- normal rate, regular rhythm; positive grade 2 through 3 holosystolic murmur Abdomen- normal bowel sounds, nondistended, soft, nontender, no masses or hepatosplenomegaly Extremities-grade 1 lower leg edema, no erythema/warmth/tenderness Neuro- alert, oriented x 3; CN 2-12 grossly intact; motor 5/5 bilaterally;sensation 100% on all extremities; no other gross focal neurologic deficits Skin- warm & dry Results & Data ([facility]) Vital Signs (Past 12 Hours) Vital Signs Temp Pulse Pulse Resp BP Pulse Ox O2 Del Method 02/20/22 08:00 Room Air 02/20/22 09:00 60 02/20/22 07:41 36.7 C 60 18 118/61 92 Room Air 02/20/22 03:21 36.5 C 60 16 128/65 93 Room Air 02/20/22 01:38 52 L 02/19/22 23:56 36.3 C L 60 16 121/63 91 Room Air
[2022-02-20] MEDS: POTASSIUM CHLORIDE / WTR 10 MEQ/100 ML PLCT IV SCH ×3 (14:57→16:52)
[2022-02-20 15:21] VITALS: BP 127/71; TEMP 97.7; O2SAT 95
[2022-02-20] MEDS ORDERED: POTASSIUM CHLORIDE PWD 20 MEQ PACK PO ONE (15:48)
--- NOTE | 2022-02-20 17:25 | XRay Report ---
XR foot RT min 3V routine CLINICAL HISTORY: 2nd toe wound , r/o osteomyelitis COMPARISON STUDY: None. FINDINGS: The bones are osteopenic. No acute fracture or dislocation. The Lisfranc joint is intact. M ild degenerative changes within the interphalangeal joints and MTP joint. Soft tissue swelling within the second toe. No bony destruction to suggest an osteomyelitis. IMPRESSION: Soft tissue swelling within the right second toe. No evidence for osteomyelitis. ACT 112: Negative or not required by law. Electronically signed by: Jonas Anand M.D. 02/20/2022 5:23 PM
[2022-02-20 17:47] VITALS: PULSE 60
--- NOTE | 2022-02-20 18:17 | Hospitalist Progress Note ---
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 daily once diarrhea resolved Continue using Lasix as needed Repeat BMP and follow-up with PCP this week Diarrhea seems to be improving, as needed Imodium As needed Magic swizzle for oral mucositis ACUTE RENAL FAILURE SECONDARY TO DEHYDRATION --Creatinine back to baseline TROPONIN ELEVATION in the setting of abnormal kidney function, patient without chest pain/SOB symptoms --Troponin trended down from 47, now 43 RIGHT SECOND TOE ULCER, CELLULITIS --Wound culture: --Blood cultures: Pending -- Foot x-ray:Soft tissue swelling within the right second toe. No evidence for osteomyelitis. -- Given IV ceftriaxone plus doxycycline --Discussed extensively with patient, including need for further IV antibiotics, podiatry consultation But patient still adamantly prefers to be discharged home today, so she will be able to be with her on hospice services at home --Discussed risks involved including worsening of cellulitis, possible infection, possible amputation of toe/foot, sepsis, etc. Patient verbalized understanding and agreement, and states " I still choose to go home today" -- Discharge plan: Doxycycline 100 mg p.o. twice daily Cefdinir 30 mg p.o. twice daily Follow-up wound and blood cultures --Follow-up with PCP this week Bilateral lower extremity edema, history of LV outflow obstruction/valvular heart disease -- echocardiogram: EF more than 70%, severe pulmonary hypertension, severe mitral regurgitation --Possible component of cellulitis? Given doxycycline IV --Improving with IV antibiotics --DVT ruled out -- Management of diuretics per #1 diagnosis Odynophagia -- Likely secondary to chemotherapy induced mucositis --Oral care, Magic swizzle p.o. -- Transition to soft diet, seems to be improving gradually Possible UTI --Urine culture: Difficulty with collection -- Given ceftriaxone IV x2 days -- Discharged on cefdinir x10 days Hypertension -- Monitor as an outpatient Hyperlipidemia on statin Rx chronic anemia Neutropenia Likely secondary to chemotherapy --Hemoglobin 8.2 -- ANC 1700 -- Repeat CBC and follow-up with primary care physician this Ongoing tobacco abuse DVT prophylaxis. Heparin subcu Full code Disposition Patient prefers to be discharged to home today to be with his who is in hospice services at home Follow-up with PCP this week Follow-up with oncologist this week plan of care discussed with patient in detail and at length all questions answered she is understanding, agreeable, comfortable with the plan of care Admission and Anticipated Discharge Date Admission Date: February 19, 2022 Subjective Follow-up for nausea vomiting, diarrhea, hypokalemia, etc. Seen sitting up in bed, comfortable, not in distress States that she feels better today compared to yesterday Able to tolerate liquids today Had 4 loose bowel movements in the morning Still having some dysuria Denies fevers or chills, abdominal pain Adamantly requesting to be discharged today to be able to see her who is in hospice care at home Reevaluated in the afternoon States she continues to feel improved Able to tolerate mashed potatoes, broth Able to drink fluids Reporting second toe pain, right Reevaluated around 6 PM Still requesting to be discharged Review of Systems Review of Systems: all noted and negative except for above Physical Exam Physical Exam: General- oriented x 3, not in distress, speaks in sentences with no effort or accessory muscle use Eyes- anicteric Neck- no JVD Lungs- clear breath sounds bilaterally, no rales/wheezes Heart- normal rate, regular rhythm; no murmurs Abdomen- normal bowel sounds, nondistended, soft, nontender Extremities-mild lower extremity edema, mild erythema on the distal half of the right lower extremity Right second toe: Mild erythema, ulcer noted at lateral aspect, with whitish discharge, foul odor, Foot-mild erythema Neuro- alert, oriented x 3; no gross focal neurologic deficits Skin- warm & dry Results & Data Results & Data ([facility]) Vital Signs (Past 12 Hours) Vital Signs Temp Pulse Pulse Resp BP Pulse Ox O2 Del Method 02/20/22 18:15 36.5 C 60 18 127/71 95 02/20/22 17:44 36.5 C 60 18 127/71 95 02/20/22 15:20 52 L 02/20/22 15:20 36.5 C 60 18 127/71 95 Room Air 02/20/22 11:11 36.4 C L 52 L 16 146/68 H 93 Room Air 02/20/22 08:00 Room Air 02/20/22 09:00 60 02/20/22 07:41 36.7 C 60 18 118/61 92 Room Air all noted and reviewed including below
--- NOTE | 2022-02-20 19:40 | Discharge Summary ---
Discharge Summary Date of Service February 20, 2022 Notes For Next Care Provider Please monitor ulcer/cellulitis of right second toe CBC and BMP on follow-up with PCP this coming week Medication Changes From Visit Potassium 40 mg twice daily Aldactone 25 mg p.o. daily once diarrhea resolves Stop indapamide Cefdinir 300 mg p.o. twice daily x10 days Doxycycline 100 mg p.o. twice daily x10 days Admission HPI Per Admitting Provider History obtained from patient and records. Medical history significant for LV outflow obstruction, valvular heart disease (severe MR, mild TR), pulmonary hypertension, hypertension, hyperlipidemia, GERD, history anal cancer ongoing chemoradiation, chronic anemia (baseline hemoglobin 9), ongoing tobacco abuse. Patient started chemotherapy for anal cancer last month. Subsequent nausea, vomiting, watery diarrhea symptoms without abdominal pain. Mouth sores followed by odynophagia. No chest pain, no SOB. Hypokalemia on outpatient blood work. Patient would receive IV potassium replacement at the cancer clinic. Few days ago, patient noted increased swelling on both legs with some redness on the right leg. No weight gain as per patient. Patient also noted dysuria symptoms without fever or chills. Ceftriaxone administered at the ER for possible UTI. 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 Admission Exam Per Admitting Provider GENERAL: uncomfortable, chronically ill, no respiratory distress SKIN: Pallor, warm HEENT: Pale palpebral conjunctivae, no ptosis, dry buccal mucosa NECK : Supple, no tenderness CHEST : Decreased breath sounds, no tenderness HEART : RRR, apical systolic murmur ABDOMEN: Some distention, nontender EXTREMITIES : Bilateral LE swelling, RLE erythema with minimal tenderness, no other conspicuous deformities noted NEUROLOGIC : Coherent, no facial asymmetry, no other gross focality Principal Dx & Hospital Course #1 = Principal Diagnosis (1) Hypokalemia: HYPOKALEMIAMULTIFACTORIAL : LIKELY SECONDARY TO NAUSEA, VOMITING, DIARRHEA, POOR ORAL INTAKE, LIKELY SECONDARY TO CHEMOTHERAPY INDUCED SIDE EFFECTS HOME DIURETIC RX for hx LV outflow obstruction/valvular heart disease (severe MR, mild TR)/pulmonary hypertension contributory Given IV potassium Potassium increased to 3.1 Adamantly requesting to be discharged home Discussed with emt Recommend potassium 40 millequivalents twice a day Change indapamide to Aldactone 25 mg p.o. daily once diarrhea resolved Continue using Lasix as needed Repeat BMP and follow-up with PCP this week Diarrhea seems to be improving, as needed Imodium As needed Magic swizzle for oral mucositis ACUTE RENAL FAILURE SECONDARY TO DEHYDRATION --Creatinine back to baseline TROPONIN ELEVATION in the setting of abnormal kidney function, patient without chest pain/SOB symptoms --Troponin trended down from 47, now 43 RIGHT SECOND TOE ULCER, CELLULITIS --Wound culture: --Blood cultures: Pending -- Foot x-ray:Soft tissue swelling within the right second toe. No evidence for osteomyelitis. -- Given IV ceftriaxone plus doxycycline --Discussed extensively with patient, including need for further IV antibiotics, podiatry consultation But patient still adamantly prefers to be discharged home today, so she will be able to be with her on hospice services at home --Discussed risks involved with going home without proper evaluation and treatment as an inpatient, including worsening of cellulitis, possible bone infection, possible amputation of toe/foot, sepsis, etc. Patient verbalized understanding and agreement, and states " I still choose to go home today", " my needs me" -- Discharge plan: Doxycycline 100 mg p.o. twice daily x10 days Cefdinir 300 mg p.o. twice daily x10 days Follow-up wound and blood cultures --Follow-up with PCP this week BILATERAL LOWER EXTREMITY EDEMA, history of LV outflow obstruction/valvular heart disease -- echocardiogram: EF more than 70%, severe pulmonary hypertension, severe mitral regurgitation --Possible component of cellulitis? Given doxycycline IV --Improving with IV antibiotics --DVT ruled out -- Management of diuretics per #1 diagnosis ODYNOPHAGIA -- Likely secondary to chemotherapy induced mucositis --Oral care, Magic swizzle p.o. -- Transition to soft diet, seems to be improving gradually POSSIBLE UTI --Urine culture: Difficulty with collection -- Given ceftriaxone IV x2 days -- Discharged on cefdinir x10 days HYPERTENSION -- Monitor as an outpatient HYPERLIPIDEMIA on statin Rx CHRONIC ANEMIA NEUTROPENIA LIKELY SECONDARY TO CHEMOTHERAPY --Hemoglobin 8.2 -- ANC 1700 -- Repeat CBC and follow-up with primary care physician this DVT prophylaxis. Heparin subcu given Full code Disposition Patient prefers to be discharged to home today to be with his who is in hospice services at home Follow-up with PCP this week Follow-up with oncologist this week plan of care discussed with patient in detail and at length all questions answered she is understanding, agreeable, comfortable with the plan of care Discharge Exam General- oriented x 3, not in distress, speaks in sentences with no effort or accessory muscle use Eyes- anicteric Neck- no JVD Lungs- clear breath sounds bilaterally, no rales/wheezes Heart- normal rate, regular rhythm; no murmurs Abdomen- normal bowel sounds, nondistended, soft, nontender Extremities-mild lower extremity edema, mild erythema on the distal half of the right lower extremity Right second toe: Mild erythema, ulcer noted at lateral aspect, with whitish discharge, foul odor, Foot-mild erythema Neuro- alert, oriented x 3; no gross focal neurologic deficits Skin- warm & dry Updated Medication List Medication Instructions Recorded Confirmed Type sertraline 100 mg tablet (Zoloft) 100 mg PO QAM 03/05/19 02/18/22 History simvastatin 20 mg tablet (Zocor) 20 mg PO HS 03/25/19 02/18/22 History omeprazole 20 mg tablet,delayed 20 mg PO QAM 12/22/21 02/18/22 History release acetaminophen 500 mg capsule 500 mg PO Q4 PRN Pain 12/27/21 02/18/22 History metoprolol succinate 25 mg 37.5 mg PO QAM 12/30/21 02/18/22 History tablet,extended release 24 hr (Toprol XL) ondansetron HCl 8 mg tablet 8 mg PO Q8H PRN Nausea 02/07/22 02/18/22 History prochlorperazine maleate 10 mg 10 mg PO Q6H PRN Nausea 02/07/22 02/18/22 History tablet (Compazine) silver sulfadiazine 1 % topical 1 applic topical BID PRN wound 02/14/22 02/18/22 Rx cream (Silvadene) healing #85 grams dexamethasone 4 mg tablet 4 mg PO AMHS 02/18/22 02/18/22 History furosemide 20 mg tablet 20 mg PO QAM PRN swelling 02/18/22 02/18/22 History lidocaine 5 % topical ointment 1 applic topical TID PRN Pain 02/18/22 02/18/22 History lidocaine-prilocaine 2.5 %-2.5 % 1 applic topical UD 02/18/22 02/18/22 History topical cream morphine 60 mg tablet,extended 60 mg PO AMHS 02/18/22 02/18/22 History release multivitamin 1 tab PO QAM 02/18/22 02/18/22 History oxycodone 20 mg tablet 20 mg PO Q4 PRN Pain, Severe 02/18/22 02/18/22 History cefdinir 300 mg capsule 300 mg PO BID 10 days #20 caps 02/20/22 Rx doxycycline hyclate 100 mg capsule 100 mg PO BID 10 days #20 caps 02/20/22 Rx loperamide 2 mg capsule 2 mg PO UD PRN loose stool #20 caps 02/20/22 Rx potassium chloride 20 mEq oral 40 meq PO BID 10 days #30 ea 02/20/22 Rx packet spironolactone 25 mg tablet 25 mg PO DAILY #30 tabs 02/20/22 Rx (Aldactone) Hospital Stay Data Consultations 02/18/22 21:10 ED Decision to Admit Stat 02/19/22 01:09 Consult Gastroenterology Routine 02/20/22 16:10 Consult Podiatry Routine Diagnostic Imagining Performed Chest X-Ray 02/18/22 19:45 SINGLE VIEW CHEST CLINICAL HISTORY: Generalized weakness. FINDINGS: An AP, portable, upright chest radiograph is compared to study dated 12/27/2021. A right sided central venous infusion port is unchanged in position. The heart is enlarged noting atherosclerotic calcification of the thoracic aorta. The pulmonary vasculature is noncongested. Chronic interstitial thickening similar to previous. Scarring/atelectasis is noted at the lung bases. The lungs and pleural spaces are clear. No pneumothorax is seen. The skeletal structures are osteopenic. The bony thorax is grossly intact. IMPRESSION: No acute cardiopulmonary abnormality. ACT 112: Negative or not required by law. Electronically signed by: Taiwo Hinton M.D. 02/18/2022 10:07 PM Venous Doppler Study 02/19/22 01:02 BILATERAL LOWER EXTREMITY VENOUS DOPPLER CLINICAL HISTORY: leg swelling COMPARISON STUDY: Right lower extremity venous Doppler ultrasound September 10, 2017. Left lower extremity venous Doppler ultrasound of October 31, 2015. TECHNIQUE: Sonography of the deep venous system of the bilateral lower extremities was performed. Compression and augmentation were evaluated. FINDINGS: The bilateral common femoral, superficial femoral and popliteal veins were compressible. Augmentation was normal. Flow was shown within the deep calf vessels. IMPRESSION: No evidence of deep venous thrombus within the bilateral lower extr emities. ACT 112: Negative or not required by law. Electronically signed by: Dion Dudley M.D. 02/19/2022 7:46 AM Foot X-Ray 02/20/22 15:58 XR foot RT min 3V routine CLINICAL HISTORY: 2nd toe wound , r/o osteomyelitis COMPARISON STUDY: None. FINDINGS: The bones are osteopenic. No acute fracture or dislocation. The Lisfranc joint is intact. Mild degenerative changes within the interphalangeal joints and MTP joint. Soft tissue swelling within the second toe. No bony destruction to suggest an osteomyelitis. IMPRESSION: Soft tissue swelling within the right second toe. No evidence for osteomyelitis. ACT 112: Negative or not required by law. Electronically signed by: Jonas Anand M.D. 02/20/2022 5:23 PM Pending Results Patient Have Any Pending Studies at Discharge: Yes Discharge Instructions Given to Patient (Per Discharging Provider) PLEASE REFER TO YOUR NEW MEDICATION LIST AND FOLLOW INSTRUCTIONS CAREFULLY. YOUR NEW MEDICATIONS INCLUDE: Increase potassium powder supplement to 2 packets twice a day. Stop taking indapamide. Start Aldactone 25 mg daily instead, once you diarrhea subsides. Continue using Lasix as needed for leg swelling. Start taking doxycycline and cefdinir-antibiotics for right toe infection, possible urinary tract infection. Take a probiotic daily x1 month. You can use Imodium 1 capsule after each loose bowel movement. Do not take more than 4 capsules/day. Continue using Magic swizzle as needed for throat pain. Drink 1 bottle of boost 3 times a day. Continue to drink plenty of fluids. Stay with soft diet for at least 1 week. PLEASE CALL YOUR PRIMARY CARE PHYSICIAN OR RETURN TO THE ER IF WITH WORSENING OF SYMPTOMS, INCLUDING Persistent diarrhea, nausea/vomiting, poor oral intake, Increasing toe pain/swelling/discharge/bleeding/redness, Increasing foot or leg pain/swelling/redness, Fevers or chills, weakness, etc. FOLLOW UP WITH PRIMARY CARE PHYSICIAN THIS WEEK. THE [facility] WILL BE CALLING YOU SOON FOR THE APPOINTMENT. FOLLOW-UP WITH YOUR ONCOLOGIST SCHEDULED Total Time Total Time Spent Total Time Spent (In Minutes): >30 minutes
--- NOTE | 2022-02-20 21:48 | Electrocardiogram Report ---
Test Reason : Blood Pressure : / mmHG Vent. Rate : 058 BPM Atrial Rate : 058 BPM P-R Int : 198 ms QRS Dur : 144 ms QT Int : 532 ms P-R-T Axes : 097 072 -50 degrees QTc Int : 522 ms Poor data quality, interpretation may be adversely affected Sinus bradycardia Right bundle branch block T wave abnormality, consider inferolateral ischemia Abnormal ECG When compared with ECG of 04-NOV-2019 19:20, T wave inversion more evident in Inferior leads Confirmed by Luis Enrique Rhodes ([id number]) on 02/20/2022 9:47:41 PM Referred By: REFERRED SELF Confirmed By:Luis Enrique Rhodes
== END 2022-02-20 19:10 | disposition home or self-care (01) | DRG 641 ==
LOC: ED 18:54 → 2N 02-19 01:09
DX: E86.0 Dehydration; I10 Essential (primary) hypertension; Z95.828 Presence of other vascular implants and grafts; K13.79 Other lesions of oral mucosa; L03.031 Cellulitis of right toe; R73.9 Hyperglycemia, unspecified; C21.0 Malignant neoplasm of anus, unspecified; L97.519 Non-pressure chronic ulcer of other part of right foot with unspecified severity; T45.1X5A Adverse effect of antineoplastic and immunosuppressive drugs, initial encounter; D70.2 Other drug-induced agranulocytosis; E87.6 Hypokalemia; D64.9 Anemia, unspecified; E78.5 Hyperlipidemia, unspecified; F17.210 Nicotine dependence, cigarettes, uncomplicated; I27.20 Pulmonary hypertension, unspecified; Y92.009 Unspecified place in unspecified non-institutional (private) residence as the place of occurrence of the external cause; K52.1 Toxic gastroenteritis and colitis; N39.0 Urinary tract infection, site not specified; T38.0X5A Adverse effect of glucocorticoids and synthetic analogues, initial encounter; N17.9 Acute kidney failure, unspecified; R13.19 Other dysphagia; Z92.3 Personal history of irradiation; I08.1 Rheumatic disorders of both mitral and tricuspid valves

== ENCOUNTER 2022-03-02 17:18 | Inpatient (IN) ==
--- NOTE | 2022-03-02 17:37 | ED Triage Note ---
Date of Service March 02, 2022 History of Present Illness This patient was briefly evaluated while in triage. An abbreviated physical exam was performed. This patient is a 81-year-old Female with past medical history of anal cancer who presents to the ED for evaluation of nausea and diarrhea. Pt. found to have creatinine of 2.6 and was referred by Dr. Lester. Symptoms started 3 months ago. Physical Exam VITALS: Vitals are noted on the nurse's note and reviewed by myself. GENERAL: This is a 81 year old female, in no acute distress, nondiaphoretic, well-developed well-nourished. SKIN: No obvious rashes, edema, erythema HEAD: Normocephalic atraumatic. EYES: Conjunctivae without injection, sclerae without icterus. NECK: No JVD. LUNGS: No retractions or accessory muscle use. MUSCULOSKELETAL: Pt. presents in a wheelchair. Full ROM of all extremities. NEURO: Patient was alert and oriented to person place and time. No focal neurological deficits. Initial orders for labs and / or imaging were placed and patient was placed in the waiting area until a bed is available. Please see further documentation for the full ED course. MDM / Impression Impression Impression: KRISTIN (acute kidney injury), Malignant neoplasm of anus, Mouth ulcers, Leg swelling
[2022-03-02] MEDS ORDERED: SODIUM CHLORIDE 0.9% 1000ML 1,000 ML IV SCH (17:45)
[2022-03-02 18:10] LABS: Eosinophils # (auto) 0.06 K/uL (0-0.50); Eosinophils % (auto) 0.8 %; Hematocrit (blood only) 28.1 % (34.1-44.9); Hemoglobin 9.3 g/dl (12.0-16.0); Immature Granulocytes # (auto) 0.06 K/uL (0.00-0.02); Immature Granulocytes % (auto) 0.8 %; Lymphocytes # (auto) 0.08 K/uL (1.2-3.4); Mean Corpuscular Hemoglobin 30.1 pg (25.0-34.0); Mean Corpuscular Hgb Conc 33.1 g/dL (32.0-36.0); Mean Corpuscular Volume 90.9 fL (80.0-100.0); Mean Platelet Volume 9.2 fL (9.4-12.3); Monocytes # (auto) 0.64 K/uL (0.24-0.82); Monocytes % (auto) 8.1 %; Neutrophils # (auto) 7.11 K/uL (1.4-6.5); Neutrophils % (auto) 89.3 %; Platelet Count 159 K/uL (130-400); RDW Coefficient of Variation 22.4 % (11.5-14.5); Red Blood Count 3.09 M/uL (3.93-5.22); White Blood Count 7.95 K/ul (4.8-10.8)
[2022-03-02 18:20] LABS: INR 1.2 (0.9-1.1); Prothrombin Time 13.1 Seconds (9.0-12.0)
[2022-03-02 18:31] LABS: Acanthocytes 1+; Alanine Aminotransferase 19 U/L (7-52); Albumin Globulin Ratio 1.3 (0.9-2); Albumin Level 3.5 gm/dl (3.4-5.0); Alkaline Phosphatase 66 U/L (34-104); Anion Gap 15 (3-11); Anisocytosis Present; Aspartate Aminotransferase 26 U/L (13-39); BUN Creatinine Ratio 23.5 (10-20); Bilirubin,Total 0.6 mg/dl (0.2-1.0); Blood Urea Nitrogen 64 mg/dl (6-23); Calcium 8.2 mg/dl (8.5-10.1); Carbon Dioxide 21 mmol/L (21-32); Chloride 96 mmol/L (98-107); Echinocytes 1+; Est GFR (African American) 18.5 ml/min; Globulin 2.8 gm/dl (2.5-4.0); Glucose 107 mg/dl (70-99(Fasting)); Magnesium 2.2 mg/dl (1.7-2.4); Potassium 3.4 mmol/L (3.5-5.1); Sodium 132 mmol/L (136-145); Total Protein 6.3 gm/dl (6.0-8.3)
--- NOTE | 2022-03-02 18:49 | Emergency Department Note ---
Impression & Plan KRISTIN (acute kidney injury), Malignant neoplasm of anus, Mouth ulcers, Leg swelling ED Provider Note Provider: Elvis Stephen MD DATE OF SERVICE: 03/02/2022 CHIEF COMPLAINT: Dehydration HISTORY OF PRESENT ILLNESS: Patient is a 81-year-old female fortunate history of anal cancer recently finished chemotherapy and radiation reporting nausea and diarrhea. Referred by her doctor. Has been getting some outpatient IV fluid infusions but significant leg swelling has been hampering this. They have been trying to extend over longer times but still with some weeping of her legs. Reports mouth sores makes it difficult for her to eat or drink. Nausea but not really vomiting. Diarrhea. This has been persistent for some months. No other sick contacts. Does take Compazine and Zofran regularly at home. Pain regimen is controlling her pain and she denies any severe abdominal pain at this time. Requesting Magic swizzle for her mouth. Has not had any real solid food today. Sipping on water. No falls reported. No reports has had some dry cracking of her hands as well as some swelling and irritation to her toes. REVIEW OF SYSTEMS: A total of 10 review of systems was obtained and negative except as stated above in the HPI. PAST MEDICAL HISTORY: As noted above MEDICATIONS: Reviewed home medication list with the patient SOCIAL HISTORY: Smoker PHYSICAL EXAM: GENERAL: alert and oriented in no acute distress on stretcher Head: normocephalic and atraumatic EYES: No injection, discharge or icterus. NECK: Trachea midline. ENT: Mucous membranes pink and moist LUNGS: Airway patent. No retractions. Breath sounds clear with good air entry bilaterally. HEART: Regular rate and rhythm. With port in place and accessed. ABDOMEN: Soft and non-tender, without guarding or rebound SKIN: Acyanotic, warm, dry and as below EXTREMITIES: Patient with 1-2+ swelling of the bilateral lower extremities with some serous weeping bandage to the bilateral calves. There is some irritation to the bilateral second phalanges between the great toe and the second toe. Right great and left ulcerations with some slight erythema. No crepitus grossly appreciated. NEUROLOGICAL: No focal deficits. No aphasia. No facial droop or slurred speech. EKG: Significant baseline artifact, 54 bpm sinus bradycardia. T wave versions with some lateral ST depression noted in right bundle branch block. QTc 517. CONTINUOUS CARDIAC MONITORING: was ordered and showed a heart rate of 50s bpm in sinus bradycardia Patient's laboratory studies and imaging reviewed. Differential includes Gastroenteritis, food borne illness, infections, appendicitis, diverticulitis, inflammatory bowel disease, obstruction, GI bleed, biliary pathology, volvulus, as well as other pathologies. IMPRESSION/MEDICAL DECISION MAKING: Cancer unfortunately with significant nausea and diarrhea. Blood work today without significant leukocytosis. Mildly improved anemia. Evidence of acute kidney injury with a creatinine of 2.7 with some mild hyponatremia. Given some IV hydration 1 L normal saline but has swelling of the legs. Will give some amount of albumin to try to help prevent third spacing. Requesting Lasix will for her chronic mouth ulcerations and this was ordered as well as some Zofran. Has been chronically on this and will monitor. Given the KRISTIN discussed with her the need for further improvement of her renal status here given the difficulty she is been having and likely nephrology consultation. Does not appear septic. Fairly benign abdomen and no believe additional emergent imaging here in the ER as needed. Discussed with the hospitalist for further care. Surface culture from the toes was obtained as well as x-rays here and inflammatory markers. Prior evaluation 10 days ago while she was here has been reported. Will defer antibiotics until further testing and surface culture and x-rays without evidence by report of osteomyelitis. DIAGNOSIS: Acute kidney injury, nausea and vomiting, anal cancer, leg swelling DISPOSITION: Hospitalist will evaluate Patient was agreeable with this plan. Past Med/Surg History Medical History Anemia IRON INFUSIONS, follows with [facility] heme/onc Anxiety Degenerative scoliosis Hiatal hernia HLD (hyperlipidemia) HTN (hypertension) Hx of basal cell carcinoma IgM lambda paraproteinemia Left ventricular outflow tract obstruction follows with [facility] cardio Malignant neoplasm of anus Mitral regurgitation severe, follows with [facility] cardiology Pulmonary hypertension 47 mmHg Rectal cancer NEW DX>REASON FOR PORT Spinal stenosis Surgical History History of cataract surgery RT/LEFT History of colonoscopy History of esophagogastroduodenoscopy (EGD) History of tonsillectomy History of tooth extraction Hx of section X 2 Hx of thyroid cyst Family History Mother Heart disease Hypertension Cancer Brain tumor, in-operable. unsure if cancerous Father Stroke Other No family history of adverse response to anesthesia Social History Smoking Status: Current every day smoker Tobacco Type: Cigarettes packs per day: 0.5; Cigarettes Per Day: 5-6; Second Hand Exposure: No; Do You Dip or Chew Tobacco: No; Tobacco Cessation Education Requested by Patient: No Hx Alcohol Use: No Hx Substance Use: No Preferred Language: Fijian Communication Ability: Effective Visual Impairment: No Limitations Hearing Ability: Normal Auto Body Painter Required: No Beliefs That Will Affect Care: None marital status: Current Living Situation: Spouse Current Living Situation Comment: Lives with who is on hospice current occupational status: retired Other Information That Helps Us Care for You: No Feels Safe at Home: Yes Safety Concerns: Feels Safe At This Time Assistive Devices: Denture - Upper, Denture - Lower, Glasses and Walker Allergies Allergies Allergy/AdvReac Type Severity Reaction Status Date / Time No Known Allergies Allergy Verified 02/28/22 12:21 Home Meds Home Medications Medication Instructions Recorded Confirmed sertraline 100 mg tablet (Zoloft) 100 mg PO QAM 03/05/19 02/28/22 simvastatin 20 mg tablet (Zocor) 20 mg PO HS 03/25/19 02/28/22 omeprazole 20 mg tablet,delayed 20 mg PO QAM 12/22/21 02/28/22 release acetaminophen 500 mg capsule 500 mg PO Q4 PRN Pain 12/27/21 02/28/22 metoprolol succinate 25 mg 37.5 mg PO QAM 12/30/21 02/28/22 tablet,extended release 24 hr (Toprol XL) ondansetron HCl 8 mg tablet 8 mg PO Q8H PRN Nausea 02/07/22 02/28/22 prochlorperazine maleate 10 mg 10 mg PO Q6H PRN Nausea 02/07/22 02/28/22 tablet (Compazine) dexamethasone 4 mg tablet 4 mg PO AMHS 02/18/22 02/28/22 furosemide 20 mg tablet 20 mg PO QAM PRN swelling 02/18/22 02/28/22 lidocaine 5 % topical ointment 1 applic topical TID PRN Pain 02/18/22 02/28/22 lidocaine-prilocaine 2.5 %-2.5 % 1 applic topical UD 02/18/22 02/28/22 topical cream morphine 60 mg tablet,extended 60 mg PO AMHS 02/18/22 02/28/22 release multivitamin 1 tab PO QAM 02/18/22 02/28/22 oxycodone 20 mg tablet 20 mg PO Q4 PRN Pain, Severe 02/18/22 02/28/22 amoxicillin 500 mg capsule 500 mg PO TID 02/28/22 02/28/22 Previous Rx's Medication Instructions Recorded loperamide 2 mg capsule 2 mg PO UD PRN loose stool #20 caps 02/20/22 potassium chloride 20 mEq oral 40 meq PO BID 10 days #30 ea 02/20/22 packet spironolactone 25 mg tablet 25 mg PO DAILY #30 tabs 02/20/22 (Aldactone) silver sulfadiazine 1 % topical 1 applic topical TID PRN wound 02/28/22 cream (Silvadene) healing #85 grams Results & Data (ED) Vital Signs Vital Signs - 24 hr 03/02/22 17:36 03/02/22 19:00 03/02/22 19:29 Temperature 36.5 C Temperature Source Temporal Artery Scan Pulse Rate 54 L 56 L 56 L Pulse Rate from SpO2 Sensor 56 L Pulse Rhythm Regular Respiratory Rate 18 20 12 Respiratory Depth Normal Blood Pressure 101/48 L 137/36 L Blood Pressure Mean 65 69 Blood Pressure Position Sitting Pulse Oximetry 96 95 96 Oxygen Delivery Method Room Air Room Air Sepsis Recent Fever Within 48 Hours No Sepsis New/Unexplained Change in Mental Status No Sepsis Action Taken by Nursing No Action Required 03/02/22 19:30 03/02/22 19:30 03/02/22 20:00 Temperature Temperature Source Pulse Rate 57 L Pulse Rate from SpO2 Sensor 57 L Pulse Rhythm Respiratory Rate 12 Respiratory Depth Blood Pressure 113/46 L 119/45 L Blood Pressure Mean 68 69 Blood Pressure Position Pulse Oximetry 95 Oxygen Delivery Method Sepsis Recent Fever Within 48 Hours Sepsis New/Unexplained Change in Mental Status Sepsis Action Taken by Nursing 03/02/22 20:00 03/02/22 20:30 03/02/22 20:30 Temperature Temperature Source Pulse Rate 62 56 L Pulse Rate from SpO2 Sensor 61 56 L Pulse Rhythm Respiratory Rate 20 19 Respiratory Depth Blood Pressure 111/46 L Blood Pressure Mean 67 Blood Pressure Position Pulse Oximetry 97 98 Oxygen Delivery Method Sepsis Recent Fever Within 48 Hours Sepsis New/Unexplained Change in Mental Status Sepsis Action Taken by Nursing Laboratory Data Result diagrams: 03/02/22 17:55 03/02/22 22:54 Lab Results 03/02/22 03/02/22 03/02/22 Range/Units 17:55 17:55 17:55 WBC 7.95 (4.8-10.8) K/ul RBC 3.09 L (3.93-5.22) M/uL Hgb 9.3 L (12.0-16.0) g/dl Hct 28.1 L (34.1-44.9) % MCV 90.9 (80.0-100.0) fL MCH 30.1 (25.0-34.0) pg MCHC 33.1 (32.0-36.0) g/dL RDW Std Deviation 68.0 H (36.4-46.3) fL RDW Coeff of Olaf 22.4 H (11.5-14.5) % Plt Count 159 (130-400) K/uL MPV 9.2 L (9.4-12.3) fL Immature Gran % (Auto) 0.8 % Neut % (Auto) 89.3 % Lymph % (Auto) 1.0 % Cannon % (Auto) 8.1 % Eos % (Auto) 0.8 % Baso % (Auto) 0.0 % Neut # (Auto) 7.11 H (1.4-6.5) K/uL Lymph # (Auto) 0.08 L (1.2-3.4) K/uL Cannon # (Auto) 0.64 (0.24-0.82) K/uL Eos # (Auto) 0.06 (0-0.50) K/uL Baso # (Auto) 0.00 (0-0.2) K/uL Immature Gran # (Auto) 0.06 H (0.00-0.02) K/uL Anisocytosis Present Echinocytes 1+ Acanthocytes (Spur) 1+ ESR (0-30) mm/hr PT 13.1 H (9.0-12.0) Seconds INR 1.2 H (0.9-1.1) Sodium 132 L (136-145) mmol/L Potassium 3.4 L (3.5-5.1) mmol/L Chloride 96 L (98-107) mmol/L Carbon Dioxide 21 (21-32) mmol/L Anion Gap 15 H (3-11) BUN 64 H (6-23) mg/dl Creatinine 2.72 H (0.6-1.2) mg/dl Est Cr Clr Drug Dosing Not Reportable Est GFR ( Amer) 18.5 ml/min Est GFR (Non-Af Amer) 16.0 ml/min BUN/Creatinine Ratio 23.5 H (10-20) Glucose 107 H (70-99(Fasting)) mg/dl Calcium 8.2 L (8.5-10.1) mg/dl Magnesium 2.2 (1.7-2.4) mg/dl Total Bilirubin 0.6 (0.2-1.0) mg/dl AST 26 (13-39) U/L ALT 19 (7-52) U/L Alkaline Phosphatase 66 (34-104) U/L C-Reactive Protein (0-0.5) mg/dl Total Protein 6.3 (6.0-8.3) gm/dl Albumin 3.5 (3.4-5.0) gm/dl Globulin 2.8 (2.5-4.0) gm/dl Albumin/Globulin Ratio 1.3 (0.9-2) SARS-CoV-2, RNA, NAAT (NEGATIVE) 03/02/22 03/02/22 03/02/22 Range/Units 17:55 17:55 19:20 WBC (4.8-10.8) K/ul RBC (3.93-5.22) M/uL Hgb (12.0-16.0) g/dl Hct (34.1-44.9) % MCV (80.0-100.0) fL MCH (25.0-34.0) pg MCHC (32.0-36.0) g/dL RDW Std Deviation (36.4-46.3) fL RDW Coeff of Olaf (11.5-14.5) % Plt Count (130-400) K/uL MPV (9.4-12.3) fL Immature Gran % (Auto) % Neut % (Auto) % Lymph % (Auto) % Cannon % (Auto) % Eos % (Auto) % Baso % (Auto) % Neut # (Auto) (1.4-6.5) K/uL Lymph # (Auto) (1.2-3.4) K/uL Cannon # (Auto) (0.24-0.82) K/uL Eos # (Auto) (0-0.50) K/uL Baso # (Auto) (0-0.2) K/uL Immature Gran # (Auto) (0.00-0.02) K/uL Anisocytosis Echinocytes Acanthocytes (Spur) ESR 42 H (0-30) mm/hr PT (9.0-12.0) Seconds INR (0.9-1.1) Sodium (136-145) mmol/L Potassium (3.5-5.1) mmol/L Chloride (98-107) mmol/L Carbon Dioxide (21-32) mmol/L Anion Gap (3-11) BUN (6-23) mg/dl Creatinine (0.6-1.2) mg/dl Est Cr Clr Drug Dosing Est GFR ( Amer) ml/min Est GFR (Non-Af Amer) ml/min BUN/Creatinine Ratio (10-20) Glucose (70-99(Fasting)) mg/dl Calcium (8.5-10.1) mg/dl Magnesium (1.7-2.4) mg/dl Total Bilirubin (0.2-1.0) mg/dl AST (13-39) U/L ALT (7-52) U/L Alkaline Phosphatase (34-104) U/L C-Reactive Protein 4.73 H (0-0.5) mg/dl Total Protein (6.0-8.3) gm/dl Albumin (3.4-5.0) gm/dl Globulin (2.5-4.0) gm/dl Albumin/Globulin Ratio (0.9-2) SARS-CoV-2, RNA, NAAT NEGATIVE (NEGATIVE) Administered Medications Heparin Sodium (Porcine) (Heparin Sod 5,000 Unit/0.5 Ml Vial) 5,000 units SQ Q8 JOHN Stop: 04/01/22 21:59 Last Admin: 03/02/22 23:07 Dose: 5,000 units Documented By: BENJAMIN Lactated Ringer's (Lr) 1,000 mls @ 60 mls/hr IV .[id number] ONE Stop: 03/03/22 13:16 Last Admin: 03/02/22 21:03 Dose: 60 mls/hr Documented By: POOL Morphine Sulfate (Morphine Sulfate Cr 15 Mg Tabcr) 30 mg PO Q12 JOHN Stop: 03/16/22 22:34 Last Admin: 03/02/22 23:01 Dose: 30 mg Documented By: BENJAMIN Oxycodone HCl (Oxycodone Hcl Ir 5 Mg Tab (Immediate Release)) 5 - 10 mg PO QID PRN PRN Reason: Pain Stop: 03/16/22 22:32 Last Admin: 03/02/22 23:01 Dose: 10 mg Documented By: BENJAMIN Discontinued Medications Sodium Chloride (Nss 1000ml) 1,000 mls @ 999 mls/hr IV .[id number] JOHN Stop: 03/02/22 18:45 Last Infusion: 03/02/22 19:41 Dose: 0 mls/hr Documented By: Admin: 03/02/22 18:09 Dose: 999 mls/hr Documented By: PK Albumin Human (Albumin 25% 100 Ml) 25 gm in 100 mls @ 50 mls/hr IV ONE ONE Stop: 03/02/22 21:08 Last Infusion: 03/02/22 22:13 Dose: 0 mls/hr Documented By: Admin: 03/02/22 19:32 Dose: 50 mls/hr Documented By: POOL Multi-Ingredient Mouthwash/Gargle (First - Mouthwash Blm 5 Ml Udp) 5 ml PO ONE ONE Stop: 03/02/22 19:11 Last Admin: 03/02/22 19:32 Dose: 5 ml Documented By: POOL Ondansetron HCl (Ondansetron Inj 2 Mg/Ml 2 Ml Vial) 4 mg IV NOW STA Stop: 03/02/22 19:11 Last Admin: 03/02/22 19:32 Dose: 4 mg Documented By: POOL Potassium Chloride (Potassium Chloride Pwd 20 Meq Pack) 40 meq PO NOW STA Stop: 03/02/22 19:38 Last Admin: 03/02/22 20:25 Dose: 40 meq Documented By: POOL Imaging Data Radiologist's Impression: Chest X-Ray 03/02/22 19:39 XR chest 1V portable HISTORY: 81 years-old Female renla failure acute renal failure COMPARISON: Chest 02/18/2022 TECHNIQUE: AP view of the chest FINDINGS: Cardiac, is mildly enlarged. Right IJ Rezoyg-a-Ajim catheter appears stable. No pneumothorax, pleural effusion, airspace consolidation or overt pulmonary edema. Bones of the chest appear grossly intact. IMPRESSION: Cardiomegaly without acute process. ACT 112: Negative or not required by law. The above report was generated using voice recognition software. It may contain grammatical, syntax or spelling errors. Electronically signed by: Roberto Owens M.D. 03/02/2022 8:22 PM Foot X-Ray 03/02/22 19:55 XR foot RT min 3V routine HISTORY: 81 years-old Female wound on 2nd toe chronic wound of the right forefoot adjacent to the second toe. Clinical concern for osteomyelitis. COMPARISON: 02/20/2022 TECHNIQUE: 3 views of the right foot FINDINGS: Demineralized appearance of the bones. Mostly mild multifocal osteoarthritis. Extension of the metatarsal-phalangeal joints. Mild soft tissue swelling of the forefoot. No acute fracture, dislocation or osseous erosion. Spurring of the calcaneus. IMPRESSION: Stable exam from the 02/20/2022 study. Mild soft tissue swelling without evidence of osteomyelitis. ACT 112: Negative or not required by law. The above report was generated using voice recognition software. It may contain grammatical, syntax or spelling errors. Electronically signed by: Roberto Owens M.D. 03/02/2022 8:26 PM Discharge Plan Visit Data Chief Complaint: Referred by Doctor Stated Complaint: REFERRED BY DOC, HYDRATION, ED Provider: Elvis Stephen Discharge Problem: KRISTIN (acute kidney injury), Malignant neoplasm of anus, Mouth ulcers, Leg swelling Patient Disposition: Admitted As Inpatient Discharge Instructions Interventions: ED Discharge Assessment Last Done: 03/02/22 21:35
[2022-03-02] MEDS ORDERED: ALBUMIN 25% 100 mL 25 GM/100 ML VIAL IV ONE (19:09)
[2022-03-02] MEDS ORDERED: FIRST - Mouthwash BLM 5 ML UDP PO ONE (19:10)
[2022-03-02] MEDS ORDERED: ONDANSETRON INJ 2 MG/ML 2 ML VIAL IV STA (19:10)
[2022-03-02] MEDS ORDERED: POTASSIUM CHLORIDE PWD 20 MEQ PACK PO STA (19:37)
--- NOTE | 2022-03-02 20:24 | XRay Report ---
XR chest 1V portable HISTORY: 81 years-old Female renla failure acute renal failure COMPARISON: Chest 02/18/2022 TECHNIQUE: AP view of the chest FINDINGS: Cardiac, is mildly enlarged. Right IJ Prghcb-h-[id number] catheter appears stable. No pneumothorax, pleural effusion, airspace consolidation or overt pulmonary edema. Bones of the chest appear grossly intact. IMPRESSION: Cardiomegaly without acute process. ACT 112: Negative or not required by law. The above report was generated using voice recognition software. It may contain grammatical, syntax o r spelling errors. Electronically signed by: Roberto Owens M.D. 03/02/2022 8:22 PM
--- NOTE | 2022-03-02 20:27 | XRay Report ---
XR foot RT min 3V routine HISTORY: 81 years-old Female wound on 2nd toe chronic wound of the right forefoot adjacent to the se cond toe. Clinical concern for osteomyelitis. COMPARISON: 02/20/2022 TECHNIQUE: 3 views of the right foot FINDINGS: Demineralized appearance of the bones. Mostly mild multifocal osteoarthritis. Extension of the metata rsal-phalangeal joints. Mild soft tissue swelling of the forefoot. No acute fracture, dislocation or osseous erosion. Spurring of the calcaneus. IMPRESSION: Stable exam from the 02/20/2022 study. Mild soft tissue swelling without evidence of oste omyelitis. ACT 112: Negative or not required by law. The above report was generated using voice recognition software. It may contain grammatical, syntax o r spelling errors. Electronically signed by: Roberto Owens M.D. 03/02/2022 8:26 PM
--- NOTE | 2022-03-02 20:31 | History & Physical Report ---
Date of Service March 02, 2022 Assessment & Plan (1) KRISTIN (acute kidney injury): Plan: Multifactorial : low BP, possible ATN Decreased p.o. intake secondary to persistent nausea/dry heaving symptoms secondary to narcotics Aldactone contributory AGMA secondary to above RLE cellulitis/R second toe wound improving on current antibiotic regimen hx LV outflow obstruction/valvular heart disease (severe MR, mild TR)/pulmonary hypertension hx anal cancer status post chemotherapy/ongoing radiation Rx chronic cancer pain on narcotics daily steroid Rx for nausea symptoms hyperlipidemia on statin Rx chronic anemia, hemoglobin at baseline Prediabetes, hemoglobin A1c of 5.9 last visit ongoing tobacco abuse Medical telemetry Baseline UA, monitor creatinine response to IVF Hold BP meds and Aldactone for now given borderline BP Renal ultrasound if without improvement in kidney function Nephrology consult Re: ARF Appropriate dosing of narcotics for current kidney function. Patient informed that persistent nausea/dry heaving symptoms may be secondary to her home narcotics. Patient expressed interest in cutting down on dosage particularly long-acting morphine. Will request AM provider to discuss issue with patient's [facility] palliative care physician (Dr. Killian). Nephrology consult Re: ARF Continue amoxicillin and doxycycline course for RLE/toe cellulitis Nicotine replacement therapy as needed DVT prophylaxis. Heparin subcu Full code Text document was generated using Meican voice recognition software. It may contain grammatical or spelling errors. Kindly contact undersigned for clarification of any documentation item in question. History of Present Illness Chief Complaint: Abnormal blood work, low blood pressure Primary Care Provider: Damian Kessler MD History obtained from patient and records. Medical history significant for LV outflow obstruction, valvular heart disease (severe MR, mild TR), pulmonary hypertension, hypertension, hyperlipidemia, GERD, history anal cancer status post chemotherapy/ongoing radiation Rx, chronic cancer pain on narcotics, daily steroid Rx for nausea symptoms, chronic anemia (baseline hemoglobin 9), LE cellulitis ongoing antibiotic Rx, ongoing tobacco abuse. Last confinement 2 weeks ago for multifactorial ARF, hypokalemia and lower extremity cellulitis. Patient adamantly requested to be discharge after overnight stay be able to attend to her on home hospice. Patient discharged on doxycycline and cefdinir course for leg cellulitis Patient indapamide changed to Aldactone on discharge. Appetite okay but patient eating less from persistent nausea/dry heaving symptoms since discharge, no abdominal pain. No chest pain, no shortness of breath. Improved leg swelling with right second toe ulcer with fluid seepage. No fever, no chills. [place] [facility] [place] visits since discharge for IV hydration and potassium replacement. Patient seen by PCP at the office today. Worsening creatinine trend noted on outpatient blood work. Serum creatinine noted to be 2.6 Patient directed to ER for evaluation. 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 Normal course for R [id number] Allergies Allergy/AdvReac Type Severity Reaction Status Date / Time No Known Allergies Allergy Verified 02/28/22 12:21 Home Medications Medication Instructions Recorded Confirmed Type sertraline 100 mg tablet (Zoloft) 100 mg PO QAM 03/05/19 02/28/22 History omeprazole 20 mg tablet,delayed 20 mg PO QAM 12/22/21 02/28/22 History release acetaminophen 500 mg capsule 500 mg PO Q4 PRN Pain 12/27/21 02/28/22 History metoprolol succinate 25 mg 37.5 mg PO QAM 12/30/21 02/28/22 History tablet,extended release 24 hr (Toprol XL) ondansetron HCl 8 mg tablet 8 mg PO Q8H PRN Nausea 02/07/22 02/28/22 History prochlorperazine maleate 10 mg 10 mg PO Q6H PRN Nausea 02/07/22 02/28/22 History tablet (Compazine) dexamethasone 4 mg tablet 4 mg PO AMHS 02/18/22 02/28/22 History morphine 60 mg tablet,extended 60 mg PO AMHS 02/18/22 02/28/22 History release oxycodone 20 mg tablet 20 mg PO Q4 PRN Pain, Severe 02/18/22 02/28/22 History potassium chloride 20 mEq oral 40 meq PO BID 10 days #30 ea 02/20/22 02/28/22 Rx packet spironolactone 25 mg tablet 25 mg PO DAILY #30 tabs 02/20/22 02/28/22 Rx (Aldactone) amoxicillin 500 mg capsule 500 mg PO TID 02/28/22 02/28/22 History silver sulfadiazine 1 % topical 1 applic topical TID PRN wound 02/28/22 Rx cream (Silvadene) healing #85 grams Past Med/Surg History Medical History Anemia IRON INFUSIONS, follows with [facility] heme/onc Anxiety Degenerative scoliosis Hiatal hernia HLD (hyperlipidemia) HTN (hypertension) Hx of basal cell carcinoma IgM lambda paraproteinemia Left ventricular outflow tract obstruction follows with [facility] cardio Malignant neoplasm of anus Mitral regurgitation severe, follows with [facility] cardiology Pulmonary hypertension 47 mmHg Rectal cancer NEW DX>REASON FOR PORT Spinal stenosis Surgical History History of cataract surgery RT/LEFT History of colonoscopy History of esophagogastroduodenoscopy (EGD) History of tonsillectomy History of tooth extraction Hx of section X 2 Hx of thyroid cyst Family History Mother Heart disease Hypertension Cancer Brain tumor, in-operable. unsure if cancerous Father Stroke Other No family history of adverse response to anesthesia Social History Smoking Status: Current every day smoker Tobacco Type: Cigarettes packs per day: 0.5; Cigarettes Per Day: 5-6; Second Hand Exposure: No; Do You Dip or Chew Tobacco: No; Tobacco Cessation Education Requested by Patient: No Hx Alcohol Use: No Hx Substance Use: No Preferred Language: German Communication Ability: Effective Visual Impairment: No Limitations Hearing Ability: Normal Application Support Administrator Required: No Beliefs That Will Affect Care: None marital status: Current Living Situation: Spouse Current Living Situation Comment: Lives with who is on hospice current occupational status: retired How many Children do You have: 4 Other Information That Helps Us Care for You: No Feels Safe at Home: Yes Safety Concerns: Feels Safe At This Time Assistive Devices: Walker Review of Systems Review of Systems: As per HPI, all other systems reviewed and negative Physical Exam Physical Exam: GENERAL: chronically ill, no respiratory distress SKIN: Pallor, warm HEENT: Pale palpebral conjunctivae, no ptosis, dry buccal mucosa NECK : Supple, no tenderness CHEST : Decreased breath sounds, no tenderness HEART : Bradycardic, apical systolic murmur ABDOMEN: Some distention, nontender EXTREMITIES : Minimal bilateral LE erythema with minimal tenderness, right second toe swelling NEUROLOGIC : Coherent, no facial asymmetry, no other gross focality Results & Data Results & Data ([facility]) Vital Signs (Past 12 Hours) Vital Signs Temp Pulse Resp BP Pulse Ox O2 Del Method 03/02/22 19:29 56 L 12 137/36 L 96 03/02/22 19:00 56 L 20 95 Room Air 03/02/22 17:36 36.5 C 54 L 18 101/48 L 96 Room Air Laboratory Results Laboratory Results WBC 7.95 K/ul (4.8-10.8) 03/02/22 17:55 RBC 3.09 M/uL (3.93-5.22) L 03/02/22 17:55 Hgb 9.3 g/dl (12.0-16.0) L 03/02/22 17:55 Hct 28.1 % (34.1-44.9) L 03/02/22 17:55 MCV 90.9 fL (80.0-100.0) 03/02/22 17:55 MCH 30.1 pg (25.0-34.0) 03/02/22 17:55 MCHC 33.1 g/dL (32.0-36.0) 03/02/22 17:55 RDW Std Deviation 68.0 fL (36.4-46.3) H 03/02/22 17:55 RDW Coeff of Olaf 22.4 % (11.5-14.5) H 03/02/22 17:55 Plt Count 159 K/uL (130-400) 03/02/22 17:55 MPV 9.2 fL (9.4-12.3) L 03/02/22 17:55 Immature Gran % (Auto) 0.8 % 03/02/22 17:55 Neut % (Auto) 89.3 % 03/02/22 17:55 Lymph % (Auto) 1.0 % 03/02/22 17:55 Posey % (Auto) 8.1 % 03/02/22 17:55 Eos % (Auto) 0.8 % 03/02/22 17:55 Baso % (Auto) 0.0 % 03/02/22 17:55 Neut # (Auto) 7.11 K/uL (1.4-6.5) H 03/02/22 17:55 Lymph # (Auto) 0.08 K/uL (1.2-3.4) L 03/02/22 17:55 Posey # (Auto) 0.64 K/uL (0.24-0.82) 03/02/22 17:55 Eos # (Auto) 0.06 K/uL (0-0.50) 03/02/22 17:55 Baso # (Auto) 0.00 K/uL (0-0.2) 03/02/22 17:55 Immature Gran # (Auto) 0.06 K/uL (0.00-0.02) H 03/02/22 17:55 Anisocytosis Present 03/02/22 17:55 Echinocytes 1+ 03/02/22 17:55 Acanthocytes (Spur) 1+ 03/02/22 17:55 ESR 42 mm/hr (0-30) H 03/02/22 17:55 PT 13.1 Seconds (9.0-12.0) H 03/02/22 17:55 INR 1.2 (0.9-1.1) H 03/02/22 17:55 Sodium 132 mmol/L (136-145) L 03/02/22 17:55 Potassium 3.4 mmol/L (3.5-5.1) L 03/02/22 17:55 Chloride 96 mmol/L (98-107) L 03/02/22 17:55 Carbon Dioxide 21 mmol/L (21-32) 03/02/22 17:55 Anion Gap 15 (3-11) H 03/02/22 17:55 BUN 64 mg/dl (6-23) H 03/02/22 17:55 Creatinine 2.72 mg/dl (0.6-1.2) H 03/02/22 17:55 Est Cr Clr Drug Dosing Not Reportable 03/02/22 17:55 Est GFR ( Amer) 18.5 ml/min 03/02/22 17:55 Est GFR (Non-Af Amer) 16.0 ml/min 03/02/22 17:55 BUN/Creatinine Ratio 23.5 (10-20) H 03/02/22 17:55 Glucose 107 mg/dl (70-99(Fasting)) H 03/02/22 17:55 Calcium 8.2 mg/dl (8.5-10.1) L 03/02/22 17:55 Magnesium 2.2 mg/dl (1.7-2.4) 03/02/22 17:55 Total Bilirubin 0.6 mg/dl (0.2-1.0) 03/02/22 17:55 AST 26 U/L (13-39) 03/02/22 17:55 ALT 19 U/L (7-52) 03/02/22 17:55 Alkaline Phosphatase 66 U/L (34-104) 03/02/22 17:55 C-Reactive Protein 4.73 mg/dl (0-0.5) H 03/02/22 17:55 Total Protein 6.3 gm/dl (6.0-8.3) 03/02/22 17:55 Albumin 3.5 gm/dl (3.4-5.0) 03/02/22 17:55 Globulin 2.8 gm/dl (2.5-4.0) 03/02/22 17:55 Albumin/Globulin Ratio 1.3 (0.9-2) 03/02/22 17:55 SARS-CoV-2, RNA, NAAT NEGATIVE (NEGATIVE) 03/02/22 19:20 Impressions Chest X-Ray 03/02/22 19:39 XR chest 1V portable HISTORY: 81 years-old Female renla failure acute renal failure COMPARISON: Chest 02/18/2022 TECHNIQUE: AP view of the chest FINDINGS: Cardiac, is mildly enlarged. Right IJ [id number] catheter appears stable. No pneumothorax, pleural effusion, airspace consolidation or overt pulmonary edema. Bones of the chest appear grossly intact. IMPRESSION: Cardiomegaly without acute process. ACT 112: Negative or not required by law. The above report was generated using voice recognition software. It may contain grammatical, syntax or spelling errors. Electronically signed by: Roberto Owens M.D. 03/02/2022 8:22 PM Foot X-Ray 03/02/22 19:55 XR foot RT min 3V routine HISTORY: 81 years-old Female wound on 2nd toe chronic wound of the right forefoot adjacent to the second toe. Clinical concern for osteomyelitis. COMPARISON: 02/20/2022 TECHNIQUE: 3 views of the right foot FINDINGS: Demineralized appearance of the bones. Mostly mild multifocal osteoarthritis. Extension of the metatarsal-phalangeal joints. Mild soft tissue swelling of the forefoot. No acute fracture, dislocation or osseous erosion. Spurring of the calcaneus. IMPRESSION: Stable exam from the 02/20/2022 study. Mild soft tissue swelling without evidence of osteomyelitis. ACT 112: Negative or not required by law. The above report was generated using voice recognition software. It may contain grammatical, syntax or spelling errors. Electronically signed by: Roberto Owens M.D. 03/02/2022 8:26 PM Diagnostic Findings EKG as per my interpretation : Rate 55, sinus pericardia, SHAYLA, RBBB, T wave abnormalities inferior and lateral leads
[2022-03-02] MEDS ORDERED: LACTATED RINGER'S 1,000 ML IV ONE (20:37)
[2022-03-02] MEDS ORDERED: ACETAMINOPHEN 325 MG TAB PO PRN (21:58)
[2022-03-02] MEDS ORDERED: METOCLOPRAMIDE HCL INJ 5 MG/ML 2 ML VIAL IV PRN (22:34)
[2022-03-02] MEDS: MoRPHine SULFATE CR 15 MG TABCR PO SCH (23:01)
[2022-03-02] MEDS: oxyCODONE HCL IR 5 MG TAB (IMMEDIATE RELEASE) PO PRN (23:01)
[2022-03-02 23:04] LABS: Base Excess VBG -5.4 mEq/L; HCO3 VBG 21 mmol/L; Oxygen Saturation VBG < 60.0 %; PCO2 VBG 41 mmHg (38-50); PO2 VBG 22 mmHg; pH VBG 7.31 (7.36-7.41)
[2022-03-02] MEDS: HEPARIN SOD 5,000 UNIT/0.5 ML VIAL SQ SCH (23:07)
[2022-03-02 23:56] LABS: BUN Creatinine Ratio 23.2 (10-20); Calcium 7.8 mg/dl (8.5-10.1); Creatinine Clr Calc Pharmacy 16.7 ml/min; Est GFR (African American) 20.9 ml/min; Potassium 4.1 mmol/L (3.5-5.1)
[2022-03-03] MEDS: DICLOFENAC SOD 1% GEL 100 GM TUBE EXT PRN ×3 (02:14→20:25)
[2022-03-03] MEDS: HYDROmorphone INJ 0.5 MG/0.5 ML SYR IV PRN ×2 (03:31→19:55)
[2022-03-03] MEDS ORDERED: dexAMETHasone 4 MG in SYRINGE 0 ML IV ONE (03:45)
[2022-03-03] MEDS: HEPARIN SOD 5,000 UNIT/0.5 ML VIAL SQ SCH ×3 (04:55→23:12)
[2022-03-03] MEDS: oxyCODONE HCL IR 5 MG TAB (IMMEDIATE RELEASE) PO PRN ×5 (05:00→23:12)
[2022-03-03 08:20] LABS: Hematocrit (blood only) 24.8 % (34.1-44.9); Hemoglobin 8.2 g/dl (12.0-16.0); Mean Corpuscular Hemoglobin 29.8 pg (25.0-34.0); Mean Corpuscular Hgb Conc 33.1 g/dL (32.0-36.0); Mean Corpuscular Volume 90.2 fL (80.0-100.0); Mean Platelet Volume 9.2 fL (9.4-12.3); Platelet Count 135 K/uL (130-400); RDW Coefficient of Variation 22.6 % (11.5-14.5); Red Blood Count 2.75 M/uL (3.93-5.22); White Blood Count 5.19 K/ul (4.8-10.8)
[2022-03-03] MEDS: PROMETHAZINE HCL 12.5 MG in SODIUM CHLORIDE 0.9% 50 ML IV PRN ×2 (08:25→16:58)
[2022-03-03] MEDS: MoRPHine SULFATE CR 15 MG TABCR PO SCH ×2 (08:28→20:20)
[2022-03-03 08:44] LABS: BUN Creatinine Ratio 26.8 (10-20); Calcium 7.8 mg/dl (8.5-10.1); Creatinine Clr Calc Pharmacy 20.9 ml/min; Est GFR (African American) 24.9 ml/min; Est GFR (Non-African American) 21.5 ml/min; Potassium 3.9 mmol/L (3.5-5.1)
[2022-03-03 08:47] LABS: Echinocytes 1+; Eosinophils # (auto) 0.01 K/uL (0-0.50); Eosinophils % (auto) 0.2 %; Immature Granulocytes # (auto) 0.04 K/uL (0.00-0.02); Immature Granulocytes % (auto) 0.8 %; Lymphocytes # (auto) 0.06 K/uL (1.2-3.4); Lymphocytes % (auto) 1.2 %; Monocytes # (auto) 0.31 K/uL (0.24-0.82); Neutrophils # (auto) 4.77 K/uL (1.4-6.5); Neutrophils % (auto) 91.8 %; Polychromasia 1+
[2022-03-03] MEDS ORDERED: MoRPHine SULFATE CR 15 MG TABCR PO SCH (09:00)
[2022-03-03] MEDS: PANTOprazole 40 MG TAB PO SCH (09:07)
[2022-03-03] MEDS: DOXYCYCLINE HYCLATE 100 MG CAP PO SCH ×2 (09:07→20:20)
[2022-03-03] MEDS: SERTRALINE HCL 100 MG TABLET PO SCH (09:08)
[2022-03-03] MEDS: dexAMETHasone 4 MG TAB PO SCH ×2 (09:08→20:20)
[2022-03-03] MEDS: AMOXICILLIN 500 MG CAP PO SCH ×2 (09:08→20:20)
--- NOTE | 2022-03-03 09:15 | Nephrology Consultation ---
Date of Consultation March 03, 2022 Assessment & Plan (1) KRISTIN (acute kidney injury): improving severe KRISTIN difficult to stage b/c of progressive CKD since December in the setting of chronic hypokalemia (improving) and persistent hypotension since admission likely prerenal though challenging volume exam and complex heart disease complicate assessment Her baseline creatinine in late December was 0.8; in late January it was 1.2- 1.5; in February her creatinine has ranged 1.4-2.6 with lots of lability and K most often running in 2s. On presentation on 03/02 her creat/K were 2.7 and 3.4 respectively, improved to 2.1 and 3.9 03/03 AM -low threshold for cardiology consultation re need for diuretics and any other medical optimization given complex cardiac dz -hold diuretics for now > would continue LR at 60 ml/hr given hypotension (relative), renal function, minimal peripheral edema (though does have some dependent) -urinalysis ordered - no recent one on chart -hold diuretics now >>>pls order renal u/s History of Present Illness Reason for Consultation: KRISTIN Requesting Physician: Dr Sanders Attending Physician: Matthew You MD History of Present Illness 81 y/o F whom I'm asked to see for KRISTIN was admitted overnight for intensive management of nausea/diarrhea and lower extremity edema complicated by KRISTIN in the wake of recent chemotherapy for rectal CA. PMH includes anal cancer for which she recently finished chemotherapy and radiation, HTN, L ventricular outflow tract obstruction w/ severe MR/TR, chronic lower extremity edema from cardiac issues, plm HTN, HTN, active tobacco abuse. Admitted here 02/19-02/20 with KRISTIN, diuretic related hypokalemia, lower ex tremity swelling and cellulitis > she insisted on quick discharge d/t concerns about her who is on hospice at home. She was d/c home on aldactone and doxy/cefdinir. She has been getting IV potassium and IVF at [facility] infusion [facility]. Her baseline creatinine in late December was 0.8; in late January it was 1.2- 1.5; in February her creatinine has ranged 1.4-2.6 with lots of lability and K most often running in 2s. On presentation on 03/02 her creat/K were 2.7 and 3.4 respectively, improved to 2.1 and 3.9 this am. She had a liter of NS and a L of LR overnight She has mouth sores making it difficult to take po, including minimal po on day of admission. Also w/ chronic N and dry heaves. no abd pain, no sob, no palpitations or chest pain. noted on admission to have significant R 2nd toe ulcer Allergies Allergy/AdvReac Type Severity Reaction Status Date / Time No Known Allergies Allergy Verified 02/28/22 12:21 Home Medications Medication Instructions Recorded Confirmed Type sertraline 100 mg tablet (Zoloft) 100 mg PO QAM 03/05/19 02/28/22 History omeprazole 20 mg tablet,delayed 20 mg PO QAM 12/22/21 02/28/22 History release acetaminophen 500 mg capsule 500 mg PO Q4 PRN Pain 12/27/21 02/28/22 History metoprolol succinate 25 mg 37.5 mg PO QAM 12/30/21 02/28/22 History tablet,extended release 24 hr (Toprol XL) ondansetron HCl 8 mg tablet 8 mg PO Q8H PRN Nausea 02/07/22 02/28/22 History prochlorperazine maleate 10 mg 10 mg PO Q6H PRN Nausea 02/07/22 02/28/22 History tablet (Compazine) dexamethasone 4 mg tablet 4 mg PO AMHS 02/18/22 02/28/22 History morphine 60 mg tablet,extended 60 mg PO AMHS 02/18/22 02/28/22 History release oxycodone 20 mg tablet 20 mg PO Q4 PRN Pain, Severe 02/18/22 02/28/22 History potassium chloride 20 mEq oral 40 meq PO BID 10 days #30 ea 02/20/22 02/28/22 Rx packet spironolactone 25 mg tablet 25 mg PO DAILY #30 tabs 02/20/22 02/28/22 Rx (Aldactone) amoxicillin 500 mg capsule 500 mg PO TID 02/28/22 02/28/22 History silver sulfadiazine 1 % topical 1 applic topical TID PRN wound 02/28/22 Rx cream (Silvadene) healing #85 grams Patient History Medical History Anemia IRON INFUSIONS, follows with [facility] heme/onc Anxiety Degenerative scoliosis Hiatal hernia HLD (hyperlipidemia) HTN (hypertension) Hx of basal cell carcinoma IgM lambda paraproteinemia Left ventricular outflow tract obstruction follows with [facility] cardio Malignant neoplasm of anus Mitral regurgitation severe, follows with [facility] cardiology Pulmonary hypertension 47 mmHg Rectal cancer NEW DX>REASON FOR PORT Spinal stenosis Surgical History History of cataract surgery RT/LEFT History of colonoscopy History of esophagogastroduodenoscopy (EGD) History of tonsillectomy History of tooth extraction Hx of section X 2 Hx of thyroid cyst Family History Mother Heart disease Hypertension Cancer Brain tumor, in-operable. unsure if cancerous Father Stroke Other No family history of adverse response to anesthesia Social History Smoking Status: Current every day smoker Tobacco Type: Cigarettes packs per day: 0.5; Cigarettes Per Day: 5-6; Second Hand Exposure: No; Do You Dip or Chew Tobacco: No; Tobacco Cessation Education Requested by Patient: No Hx Alcohol Use: No Hx Substance Use: No Preferred Language: Danish Communication Ability: Effective Visual Impairment: No Limitations Hearing Ability: Normal Server Support Technician Required: No Beliefs That Will Affect Care: None marital status: Current Living Situation: Spouse Current Living Situation Comment: Lives with who is on hospice current occupational status: retired How many Children do You have: 4 Other Information That Helps Us Care for You: No Feels Safe at Home: Yes Safety Concerns: Feels Safe At This Time Assistive Devices: Walker Review of Systems Review of Systems: All systems reviewed & are unremarkable except as noted in HPI & below Physical Exam Constitutional: well developed and well nourished sitting in bed on RA Eyes: EOM intact bilaterally ENMT: Ears: no external ear abnormality Nose: no external nose abnormality Mouth: + dry oral mucous membranes Neck: no nuchal rigidity Respiratory: normal respiratory effort Auscultation: lungs clear to auscultation bilaterally and + diminished lung sounds (markedly) Cardiovascular: Rate/Rhythm: regular rate and regular rhythm Heart Sounds: + murmur Extremities: + edema (trace peripheral and 2+ dependent) Gastrointestinal (Abdomen): Inspection/Auscultation: normal bowel sounds Percussion/Palpation: abdomen soft; abdomen nontender Musculoskeletal: Extremities: strength 5/5 throughout Skin: no rashes, warm and dry + ulcer (R 2nd toe medial ) Neurologic: johnson, fluent speech, no tremor Psychiatric: Orientation: oriented x 3 Results & Data ([facility]) Vital Signs (Past 12 Hours) Vital Signs Temp Pulse Pulse Resp BP BP Pulse Ox 03/03/22 07:35 36.9 C 60 18 93/56 L 95 03/03/22 07:00 54 L 03/03/22 02:39 36.4 C L 59 L 18 109/58 L 95 03/02/22 23:50 54 L 03/02/22 22:19 36.2 C L 59 L 18 106/45 L 97 03/02/22 21:50 36.2 C L 59 L 20 106/45 L 97 03/02/22 21:35 56 L 20 96/48 L 96 03/02/22 21:02 96/38 L 03/02/22 21:02 57 L 17 100 03/02/22 21:00 58 L 11 L 99 03/02/22 21:00 93/39 L 03/02/22 21:00 56 L 20 96/38 L 100 O2 Del Method 03/03/22 07:35 Room Air 03/03/22 07:00 03/03/22 02:39 Room Air 03/02/22 23:50 03/02/22 22:19 Room Air 03/02/22 21:50 Room Air 03/02/22 21:35 Room Air 03/02/22 21:02 03/02/22 21:02 03/02/22 21:00 03/02/22 21:00 03/02/22 21:00 Room Air Laboratory Results 03/03/22 07:58 03/03/22 07:58 Diagnostic Findings cxr IMPRESSION: Cardiomegaly without acute process. R foot XR IMPRESSION: Stable exam from the 02/20/2022 study. Mild soft tissue swelling without evidence of osteomyelitis.
[2022-03-03] MEDS: ONDANSETRON INJ 2 MG/ML 2 ML VIAL IV PRN (12:53)
--- NOTE | 2022-03-03 17:06 | Hospitalist Progress Note ---
Date of Service March 03, 2022 Assessment & Plan (1) KRISTIN (acute kidney injury): Plan: Multifactorial : low BP, possible ATN Diarrhea in the setting of chemotherapy Poor intake, nausea, possibly secondary to narcotics? Aldactone contributory --Creatinine slightly improving to 2.1 -- On LR Nephrology on board -- We will discuss narcotic therapy with palliative care service at [facility] Right lower extremity edema, chronic In setting of severe mitral vegetation RLE cellulitis --Aldactone on hold secondary to acute renal failure -- On doxycycline R second toe wound improving on current antibiotic regimen -- Foot x-ray: No osteomyelitis --Podiatry service consulted --Wound care service consulted --Continue doxycycline Enterococcus UTI -- Continue amoxicillin hx LV outflow obstruction/valvular heart disease (severe MR, mild TR)/pulmonary hypertension hx anal cancer status post chemotherapy/ongoing radiation Rx chronic cancer pain on narcotics daily steroid Rx for nausea symptoms hyperlipidemia on statin Rx chronic anemia, hemoglobin at baseline Prediabetes, hemoglobin A1c of 5.9 last visit ongoing tobacco abuse DVT prophylaxis. Heparin subcu Full code Disposition Lives at home Prefers to be discharged to home when medically stable plan of care discussed with patient in detail and at length all questions answered She is understanding, agreeable, comfortable with the plan of care Admission and Anticipated Discharge Date Admission Date: March 02, 2022 Subjective Follow-up for acute renal failure, nausea/diarrhea, etc. Seen resting in bed, sitting up, not in distress, comfortable States she feels somewhat better today No diarrhea so far, no abdominal pain, nausea Tolerating food well Has bilateral lower extremity edema discomfort Denies pain over the right foot/toe no chest pain, dyspnea, palpitations, dizziness Review of Systems Review of Systems: all noted and negative except for above Physical Exam Physical Exam: General- oriented x 3, not in distress, speaks in sentences with no effort or accessory muscle use Eyes- anicteric Neck- no JVD Lungs- clear breath sounds bilaterally, no rales/wheezes Heart- normal rate, regular rhythm; no murmurs Abdomen- normal bowel sounds, nondistended, soft, nontender Extremities-bilateral lower extremity grade 1 edema; left lower leg: Mild erythema in the distal half, with open areas, seepage Right foot: Second toe-deep ulcer on the lateral aspect No bleeding, positive whitish discharge Neuro- alert, oriented x 3; no gross focal neurologic deficits Skin- warm & dry Results & Data Results & Data ([facility]) Vital Signs (Past 12 Hours) Vital Signs Temp Pulse Pulse Resp BP Pulse Ox O2 Del Method 03/03/22 16:02 36.5 C 61 16 99/48 L 94 Room Air 03/03/22 14:02 61 03/03/22 11:32 36.6 C 59 L 18 101/55 L 94 Room Air 03/03/22 07:35 36.9 C 60 18 93/56 L 95 Room Air 03/03/22 07:00 54 L all noted and reviewed including below
[2022-03-03] MEDS: LACTATED RINGER'S 1,000 ML IV SCH (18:43)
--- NOTE | 2022-03-03 19:04 | Electrocardiogram Report ---
Test Reason : Blood Pressure : / mmHG Vent. Rate : 054 BPM Atrial Rate : 054 BPM P-R Int : 110 ms QRS Dur : 178 ms QT Int : 546 ms P-R-T Axes : 101 100 241 degrees QTc Int : 517 ms Poor data quality, interpretation may be adversely affected Sinus bradycardia Right bundle branch block ST and T wave abnormality concerning for ischemia Abnormal ECG When compared with ECG of 18-FEB-2022 20:04, [place] interval has decreased QRS duration has increased Confirmed by Macario Bowen ([id number]) on 03/03/2022 7:04:06 PM Referred By: Arcelia Lester Confirmed By:Sergio Bowen
[2022-03-03] MEDS: LOPERAMIDE HCL 2 MG CAP PO PRN (20:20)
[2022-03-03] MEDS: FIRST - Mouthwash BLM 119 ML PO PRN (20:21)
[2022-03-03 20:22] LABS: Adenovirus F 40/41 PCR Not Detected (NotDetected); Astrovirus PCR Not Detected (NotDetected); Campylobacter PCR Not Detected (NotDetected); Cryptosporidium PCR Not Detected (NotDetected); Cyclospora cayetanensis PCR Not Detected (NotDetected); Entamoeba histolytica PCR Not Detected (NotDetected); Enteroaggregative E.coli(EAEC) Not Detected (NotDetected); Enteropathogenic E.coli (EPEC) Not Detected (NotDetected); Enterotoxigenic E.coli (ETEC) Not Detected (NotDetected); Giardia lamblia PCR Not Detected (NotDetected); Norovirus GI/GII PCR Not Detected (NotDetected); Plesiomonas shigelloides PCR Not Detected (NotDetected); Rotavirus A PCR Not Detected (NotDetected); Salmonella PCR Not Detected (NotDetected); Sapovirus PCR Not Detected (NotDetected); Shiga-like Toxin E.coli (STEC) Not Detected (NotDetected); Shigella/Enteroinvasive E.coli Not Detected (NotDetected); Vibrio cholerae PCR Not Detected (NotDetected); Vibrio species PCR Not Detected (NotDetected); Yersinia enterocolitica PCR Not Detected (NotDetected)
--- NOTE | 2022-03-03 20:28 | Orthopedic Consultation ---
Date of Consultation March 03, 2022 Assessment & Plan (1) Foot ulcer: Patient seen, evaluated, and treated. Patient Rx'd MRI r/o right second toe osteomyelitis. Patient may not be able to utilize contrast due to kidney disease. Patient MUST utilize inter-digital spacers for off loading at all times. Foam te mporarily dispensed between toes for off loading. Off loading is an important part of this Patients wound management. Thank you for allowing me to participate in the care of this Patient's management. History of Present Illness Attending Physician: Matthew You MD History of Present Illness Patient is a pleasant 81 year old female who is seen at bedside for bilateral foot wounds and right LE cellulitis. Patient has past medical history significant for LV outflow obstruction, valvular heart disease (severe MR, mild TR), pulmonary hypertension, hypertension, hyperlipidemia, GERD, history anal cancer status post chemotherapy/ongoing radiation Rx, chronic cancer pain on narcotics, daily steroid Rx for nausea symptoms, chronic anemia (baseline hemoglobin 9), LE cellulitis ongoing antibiotic Rx, ongoing tobacco abuse. Patient notes wounds on feet developed while undergoing chemotherapy. She was recently hospitalized 2 weeks ago and discharged on doxycycline and cefdinir course for leg cellulitis. There is concern due to right second toe wound probing to bone. Allergies Allergy/AdvReac Type Severity Reaction Status Date / Time No Known Allergies Allergy Verified 02/28/22 12:21 Home Medications Medication Instructions Recorded Confirmed Type sertraline 100 mg tablet (Zoloft) 100 mg PO QAM 03/05/19 02/28/22 History omeprazole 20 mg tablet,delayed 20 mg PO QAM 12/22/21 02/28/22 History release acetaminophen 500 mg capsule 500 mg PO Q4 PRN Pain 12/27/21 02/28/22 History metoprolol succinate 25 mg 37.5 mg PO QAM 12/30/21 02/28/22 History tablet,extended release 24 hr (Toprol XL) ondansetron HCl 8 mg tablet 8 mg PO Q8H PRN Nausea 02/07/22 02/28/22 History prochlorperazine maleate 10 mg 10 mg PO Q6H PRN Nausea 02/07/22 02/28/22 History tablet (Compazine) dexamethasone 4 mg tablet 4 mg PO AMHS 02/18/22 02/28/22 History morphine 60 mg tablet,extended 60 mg PO AMHS 02/18/22 02/28/22 History release oxycodone 20 mg tablet 20 mg PO Q4 PRN Pain, Severe 02/18/22 02/28/22 History potassium chloride 20 mEq oral 40 meq PO BID 10 days #30 ea 02/20/22 02/28/22 Rx packet spironolactone 25 mg tablet 25 mg PO DAILY #30 tabs 02/20/22 02/28/22 Rx (Aldactone) amoxicillin 500 mg capsule 500 mg PO TID 02/28/22 02/28/22 History silver sulfadiazine 1 % topical 1 applic topical TID PRN wound 02/28/22 Rx cream (Silvadene) healing #85 grams Patient History Medical History Anemia IRON INFUSIONS, follows with [facility] heme/onc Anxiety Degenerative scoliosis Hiatal hernia HLD (hyperlipidemia) HTN (hypertension) Hx of basal cell carcinoma IgM lambda paraproteinemia Left ventricular outflow tract obstruction follows with [facility] cardio Malignant neoplasm of anus Mitral regurgitation severe, follows with [facility] cardiology Pulmonary hypertension 47 mmHg Rectal cancer NEW DX>REASON FOR PORT Spinal stenosis Surgical History History of cataract surgery RT/LEFT History of colonoscopy History of esophagogastroduodenoscopy (EGD) History of tonsillectomy History of tooth extraction Hx of section X 2 Hx of thyroid cyst Family History Mother Heart disease Hypertension Cancer Brain tumor, in-operable. 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 Proximal to distal cooling. Musculoskeletal: no cyanosis or clubbing, extremities motor strength 5/5 Skin: Full thickness right and left hallux ulcerations. Full thickness right and left second toe ulcerations. Right second toe wound probes to bone. Erythema right second digit. Neurologic: Decreased epicritic sensation. Psychiatric: Orientation: alert and oriented x 3 Results & Data ([facility]) Vital Signs (Past 12 Hours) Vital Signs Temp Pulse Pulse Resp BP Pulse Ox O2 Del Method 03/03/22 16:02 36.5 C 61 16 99/48 L 94 Room Air 03/03/22 14:02 61 03/03/22 11:32 36.6 C 59 L 18 101/55 L 94 Room Air
[2022-03-04] MEDS: oxyCODONE HCL IR 5 MG TAB (IMMEDIATE RELEASE) PO PRN ×3 (05:38→21:27)
[2022-03-04] MEDS: HEPARIN SOD 5,000 UNIT/0.5 ML VIAL SQ SCH ×3 (05:46→21:28)
[2022-03-04 07:24] LABS: Appearance Urine Clear (Clear); Bilirubin Urine Negative (Negative); Blood Urine Trace (Negative); Color Urine Dark Yellow; Glucose Urine UA Negative (Negative); Ketones Urine Negative (Negative); Leukocyte Esterase Urine 2+ (Negative); Nitrite Urine Negative (Negative); Protein Urine Negative (Negative); Urobilinogen Urine Negative (Negative); WBC Urine Automated >30 /hpf (0-5)
[2022-03-04 07:50] LABS: Renal Epithelial Cells Urine 0-5 /lpf (0-5)
[2022-03-04 07:58] LABS: Bacteria Urine Automated 1+ (Negative)
--- NOTE | 2022-03-04 08:30 | Nephrology Progress Note ---
Date of Service March 04, 2022 Assessment & Plan (1) KRISTIN (acute kidney injury): Plan: improving severe KRISTIN difficult to stage b/c of progressive CKD since December in the setting of chronic hypokalemia (improving) and persistent hypotension since admission likely prerenal though challenging volume exam and complex heart disease complicate assessment Her baseline creatinine in late December was 0.8; in late January it was 1.2- 1.5; in February her creatinine has ranged 1.4-2.6 with lots of lability and K most often running in 2s. On presentation on 03/02 her creat/K were 2.7 and 3.4 respectively, improved to 2.1 and 3.9 03/03 AM -low threshold for cardiology consultation re need for diuretics and any other medical optimization given complex cardiac dz -hold diuretics for now > continue LR at 60 ml/hr given hypotension (relative), renal function, minimal peripheral edema (though does have some dependent) -urinalysis ordered - no recent one on chart; UA inflamed and possible UTI >f/u bmp from this am >> if for d/c, recommend lasix 20 mg every other day, spironolactone 12.5 mg daily, K 40 mEq po twice daily; labs per oncology every Mon / x 3 weeks bmp at least >would start diuretics tomorrow, not today >>recommend hospital d/c appt w/ nephro Cristino Diehl in 2-4 wks d/t progressive renal dysfunction >>>pls order renal u/s care coordinated w/ Dr You Admission and Anticipated Discharge Date Admission Date: March 02, 2022 Subjective no interval events. feels improved; edema controlled. concern for osteo on foot Review of Systems Review of Systems: All systems reviewed & are unremarkable except as noted in Subjective Physical Exam Constitutional: well developed and well nourished Eyes: EOM intact bilaterally ENMT: Ears: no external ear abnormality Nose: no external nose abnormality Mouth: + dry oral mucous membranes Neck: no nuchal rigidity Respiratory: normal respiratory effort Auscultation: lungs clear to auscultation bilaterally and + diminished lung sounds (markedly) Cardiovascular: Rate/Rhythm: regular rate and regular rhythm Heart Sounds: + murmur Extremities: + edema (trace peripheral and 2+ dependent) Gastrointestinal (Abdomen): Inspection/Auscultation: normal bowel sounds Percussion/Palpation: abdomen soft; abdomen nontender Musculoskeletal: Extremities: strength 5/5 throughout Skin: no rashes, warm and dry + ulcer (R 2nd toe medial ) Psychiatric: Orientation: oriented x 3 Results & Data ([facility]) Vital Signs (Past 12 Hours) Vital Signs Temp Pulse Pulse Resp BP BP Pulse Ox 03/04/22 07:00 57 L 03/04/22 07:28 36.6 C 68 20 124/64 94 03/04/22 04:00 36.8 C 64 18 108/52 L 95 03/04/22 01:35 61 03/04/22 00:34 36.2 C L 73 20 115/56 L 96 O2 Del Method 03/04/22 07:00 03/04/22 07:28 Room Air 03/04/22 04:00 Room Air 03/04/22 01:35 03/04/22 00:34 Room Air Laboratory Results 03/03/22 07:58 03/04/22 10:59
[2022-03-04] MEDS: MoRPHine SULFATE CR 15 MG TABCR PO SCH ×2 (08:45→20:17)
[2022-03-04] MEDS: LACTATED RINGER'S 1,000 ML IV SCH (08:46)
[2022-03-04] MEDS: DICLOFENAC SOD 1% GEL 100 GM TUBE EXT PRN (08:47)
[2022-03-04] MEDS: DOXYCYCLINE HYCLATE 100 MG CAP PO SCH (08:49)
[2022-03-04] MEDS: SERTRALINE HCL 100 MG TABLET PO SCH (08:49)
[2022-03-04] MEDS: dexAMETHasone 4 MG TAB PO SCH (08:49)
[2022-03-04] MEDS: PANTOprazole 40 MG TAB PO SCH (08:49)
[2022-03-04] MEDS: AMOXICILLIN 500 MG CAP PO SCH ×2 (08:49→20:18)
--- NOTE | 2022-03-04 09:16 | Magnetic Resonance Report ---
MR foot RT w/o con HISTORY: 81 years-old Female rule out osteomyelitis second toe chronic pain with soft tissue wound o f the right foot/second toe with possible osteomyelitis COMPARISON: Right foot radiographs 03/02/2022. TECHNIQUE: Multiplanar multisequence MRI of the right foot was obtained without the use of IV contras t. FINDINGS: Motion degraded exam. Diffuse atrophy of the intrinsic musculature suggestive of chronic denervation changes. Mostly mild multifocal osteoarthritis of the right foot. There is diffuse subcutaneous and d eep tissue edema of the foot. No fluid collection to suggest abscess. There is increased T2/STIR decr eased T1 signal involving the second middle phalanx. Bone marrow signal is otherwise preserved throug hout the foot. Extension of the metatarsal-phalangeal with flexion of the interphalangeal joints. The tendons and ligaments are not well evaluated. IMPRESSION: 1. Motion degraded exam. 2. Abnormal marrow signal within the second middle phalanx is suspicious for osteomyelitis. 3. Chronic denervation changes of the foot with diffuse subcutaneous and deep tissue edema. 4. No abscess. ACT 112: Negative or not required by law. The above report was generated using voice recognition software. It may contain grammatical, syntax o r spelling errors. Electronically signed by: Roberto Owens M.D. 03/04/2022 9:15 AM
[2022-03-04 12:21] LABS: BUN Creatinine Ratio 31.5 (10-20); Calcium 7.9 mg/dl (8.5-10.1); Creatinine Clr Calc Pharmacy 32.3 ml/min; Est GFR (African American) 46.5 ml/min; Est GFR (Non-African American) 40.1 ml/min; Potassium 3.6 mmol/L (3.5-5.1)
--- NOTE | 2022-03-04 14:42 | Ultrasound Report ---
US renal/blad retro comp CLINICAL HISTORY: acute renal failure TECHNIQUE: Multiple sonographic real-time images of the kidneys and bladder were obtained. COMPARISON: Comparison is made to CT abdomen pelvis 12/24/2021 FINDINGS: The right kidney measures 10.3 cm in length, and the left kidney measures 8.4 cm in length although t his may be an underestimate due to shadowing. The right kidney is normal in size, contour, cortical thickness, and echogenicity. No hydronephrosis is identified. No renal lesion is identified. No perinephric fluid collection is seen. The left renal cortex is diffusely echogenic in appearance, with diffuse cortical thinning. No hydron ephrosis is identified. No renal lesion is identified. No perinephric fluid collection is seen. The bladder is partially distended. No large intraluminal mass is seen. IMPRESSION: No evidence of hydronephrosis. The left kidney is echogenic and minimally decreased in size compared to the right, which can be seen in medical renal disease. ACT 112: Negative or not required by law. Electronically signed by: Milad Douglas M.D. 03/04/2022 2:41 PM
[2022-03-04] MEDS: DAPTOmycin 350 MG in SYRINGE 0 ML IV SCH (14:48)
--- NOTE | 2022-03-04 17:42 | Hospitalist Progress Note ---
Date of Service March 04, 2022 Assessment & Plan (1) KRISTIN (acute kidney injury): Plan: Multifactorial : low BP, possible ATN Diarrhea in the setting of chemotherapy Poor intake, nausea, possibly secondary to narcotics? Aldactone contributory --Creatinine slightly improving to 2.1--> 1.2 -- On LR Nephrology on board -- We will discuss narcotic therapy with palliative care service at [facility] Right lower extremity edema, chronic In setting of severe mitral vegetation RLE cellulitis --Aldactone on hold secondary to acute renal failure -- On doxycycline, cellulitis seems to be improving -- Outpatient diuretic recommendations per nephrology Possible right second toe osteomyelitis -- Foot x-ray: No osteomyelitis --Foot MRI: Second toe suspicious for osteomyelitis --Podiatry service consulted, recommend amputation of the toe, Dr. Vyas will discuss this with the patient --Wound care service consulted --Continue doxycycline Enterococcus UTI -- Continue amoxicillin hx LV outflow obstruction/valvular heart disease (severe MR, mild TR)/pulmonary hypertension hx anal cancer status post chemotherapy/ongoing radiation Rx chronic cancer pain on narcotics hyperlipidemia on statin Rx chronic anemia, hemoglobin at baseline Prediabetes, hemoglobin A1c of 5.9 last visit ongoing tobacco abuse DVT prophylaxis. Heparin subcu Full code Disposition Lives at home Prefers to be discharged to home when medically stable plan of care discussed with patient in detail and at length all questions answered She is understanding, agreeable, comfortable with the plan of care Admission and Anticipated Discharge Date Admission Date: March 02, 2022 Subjective Follow-up for acute renal failure, diarrhea, right toe ulcer, etc. Seen resting in bed, comfortable, not in distress States that she feels improved compared to admission Still reports right toe pain and foot pain Diarrhea improving, no nausea vomiting, tolerating food well Denies fevers or chills No other symptoms Review of Systems Review of Systems: all noted and negative except for above Physical Exam Physical Exam: General- oriented x 3, not in distress, speaks in sentences wit h no effort or accessory muscle use Eyes- anicteric Neck- no JVD Lungs- clear breath sounds bilaterally, no crackles, no wheezing Heart- normal rate, regular rhythm; no murmurs Abdomen- normal bowel sounds, nondistended, soft, nontender Extremities-mild lower extremity edema, positive erythema, warmth in the distal half of the left lower extremity, open areas with mild seepage Right foot-second toe, ulcer on the lateral aspect, no surrounding erythema/ edema Neuro- alert, oriented x 3; no gross focal neurologic deficits Skin- warm & dry Results & Data Results & Data ([facility]) Vital Signs (Past 12 Hours) Vital Signs Temp Pulse Pulse Resp BP Pulse Ox O2 Del Method 03/04/22 15:21 65 03/04/22 15:27 36.5 C 60 20 126/65 93 Room Air 03/04/22 11:10 36.5 C 64 20 115/64 93 Room Air 03/04/22 07:30 Room Air 03/04/22 07:00 57 L 03/04/22 07:28 36.6 C 68 20 124/64 94 Room Air all noted and reviewed including below
[2022-03-05] MEDS: HEPARIN SOD 5,000 UNIT/0.5 ML VIAL SQ SCH ×2 (05:04→14:50)
[2022-03-05 07:42] LABS: Hematocrit (blood only) 24.9 % (34.1-44.9); Hemoglobin 8.2 g/dl (12.0-16.0); Mean Corpuscular Hemoglobin 29.9 pg (25.0-34.0); Mean Corpuscular Hgb Conc 32.9 g/dL (32.0-36.0); Mean Corpuscular Volume 90.9 fL (80.0-100.0); Red Blood Count 2.74 M/uL (3.93-5.22); White Blood Count 4.54 K/ul (4.8-10.8)
[2022-03-05 07:43] LABS: Eosinophils # (auto) 0.13 K/uL (0-0.50); Eosinophils % (auto) 2.9 %; Immature Granulocytes # (auto) 0.07 K/uL (0.00-0.02); Immature Granulocytes % (auto) 1.5 %; Lymphocytes # (auto) 0.21 K/uL (1.2-3.4); Lymphocytes % (auto) 4.6 %; Mean Platelet Volume 9.7 fL (9.4-12.3); Monocytes # (auto) 0.56 K/uL (0.24-0.82); Monocytes % (auto) 12.3 %; Neutrophils # (auto) 3.57 K/uL (1.4-6.5); Neutrophils % (auto) 78.7 %; Platelet Count 130 K/uL (130-400); RDW Coefficient of Variation 23.7 % (11.5-14.5)
[2022-03-05] MEDS: AMOXICILLIN 500 MG CAP PO SCH ×3 (07:53→20:55)
[2022-03-05] MEDS: PANTOprazole 40 MG TAB PO SCH (07:53)
[2022-03-05] MEDS: MoRPHine SULFATE CR 15 MG TABCR PO SCH ×2 (07:53→20:55)
[2022-03-05] MEDS: SERTRALINE HCL 100 MG TABLET PO SCH (07:53)
[2022-03-05 08:07] LABS: Anisocytosis Present; Polychromasia 1+
--- NOTE | 2022-03-05 08:14 | Anesthesiology Consultation ---
Date of Service March 05, 2022 Assessment & Plan Chart Review Chart Review: Acceptable Risk for Surgery and Patient NOT seen in Pre Admission Testing Consults Requested none ASA ASA4 Proposed Anesthesia Anesthesia Type: MAC History Surgery Operation Date: 03/05/22 10:20 Proposed Procedures p Right 2nd Toe Amputation - Keenan Vyas, ESDRASM, [place] Height/Weight Height: 5 ft 5 in Weight: 64.8 kg Allergies Allergy/AdvReac Type Severity Reaction Status Date / Time No Known Allergies Allergy Verified 02/28/22 12:21 Medications Home Medications Medication Instructions Recorded Confirmed Last Taken sertraline 100 mg tablet (Zoloft) 100 mg PO QAM 03/05/19 02/28/22 12/26/21 12:00 omeprazole 20 mg tablet,delayed 20 mg PO QAM 12/22/21 02/28/22 12/26/21 12:00 release acetaminophen 500 mg capsule 500 mg PO Q4 PRN Pain 12/27/21 02/28/22 12/27/21 06:30 metoprolol succinate 25 mg 37.5 mg PO QAM 12/30/21 02/28/22 Unknown tablet,extended release 24 hr (Toprol XL) ondansetron HCl 8 mg tablet 8 mg PO Q8H PRN Nausea 02/07/22 02/28/22 Unknown prochlorperazine maleate 10 mg 10 mg PO Q6H PRN Nausea 02/07/22 02/28/22 Unknown tablet (Compazine) dexamethasone 4 mg tablet 4 mg PO AMHS 02/18/22 02/28/22 Unknown morphine 60 mg tablet,extended 60 mg PO AMHS 02/18/22 02/28/22 Unknown release oxycodone 20 mg tablet 20 mg PO Q4 PRN Pain, Severe 02/18/22 02/28/22 Unknown potassium chloride 20 mEq oral 40 meq PO BID 10 days #30 ea 02/20/22 02/28/22 Unknown packet spironolactone 25 mg tablet 25 mg PO DAILY #30 tabs 02/20/22 02/28/22 Unknown (Aldactone) amoxicillin 500 mg capsule 500 mg PO TID 02/28/22 02/28/22 Unknown silver sulfadiazine 1 % topical 1 applic topical TID PRN wound 02/28/22 Unknown cream (Silvadene) healing #85 grams Active Medications Generic Name Dose Route Start Last Admin Trade Name Freq PRN Reason Stop Dose Admin Amoxicillin 500 mg 03/04/22 21:00 03/05/22 07:53 Amoxicillin 500 Mg Cap PO 03/11/22 20:59 500 mg TID JOHN Administration Dexamethasone 4 mg 03/03/22 09:00 03/04/22 08:49 Dexamethasone 4 Mg Tab PO 04/02/22 08:59 4 mg AMHS JOHN Administration Diclofenac Sodium 2 gm 03/03/22 01:41 03/04/22 08:47 Diclofenac Sod 1% Gel 100 Gm Tube EXT 04/02/22 01:40 2 gm QID PRN Administration leg pain Protocol Heparin Sodium (Porcine) 5,000 units 03/02/22 22:00 03/05/22 05:04 Heparin Sod 5,000 Unit/0.5 Ml Vial SQ 04/01/22 21:59 Not Given Q8 JOHN Hydromorphone HCl 0.25 mg 03/03/22 01:41 03/03/22 19:55 Hydromorphone Inj 0.5 Mg/0.5 Ml Syr IV 03/17/22 01:40 0.25 mg Q6H PRN Administration Pain Promethazine HCl 12.5 mg/ 50.5 mls @ 202 mls/hr 03/03/22 03:32 03/03/22 17:13 Sodium Chloride IV 04/02/22 03:31 Infused Q6H PRN Infusion Nausea And Vomiting Daptomycin 350 mg/ Syringe 7 mls @ 3.5 mls/min 03/04/22 14:00 03/04/22 14:48 IV 04/15/22 12:59 3.5 mls/min Q24H JOHN Administration Protocol Loperamide HCl 2 mg 03/03/22 20:06 03/03/22 20:20 Loperamide Hcl 2 Mg Cap PO 04/02/22 20:05 2 mg UD PRN Administration Diarrhea Morphine Sulfate 30 mg 03/02/22 22:35 03/05/22 07:53 Morphine Sulfate Cr 15 Mg Tabcr PO 03/16/22 22:34 30 mg Q12 JOHN Administration Multi-Ingredient Mouthwash/Gargle 5 ml 03/03/22 17:07 03/03/22 20:21 First - Mouthwash Blm 119 Ml PO 04/02/22 17:14 5 ml Q6H PRN Administration pain from oral ulcers Ondansetron HCl 4 mg 03/03/22 12:37 03/03/22 12:53 Ondansetron Inj 2 Mg/Ml 2 Ml Vial IV 04/02/22 12:44 4 mg Q6H PRN Administration nausea/vomiting Oxycodone HCl 5 - 10 mg 03/02/22 22:33 03/04/22 21:27 Oxycodone Hcl Ir 5 Mg Tab (Immediate Release) PO 03/16/22 22:32 10 mg QID PRN Administration Pain Pantoprazole Sodium 40 mg 03/03/22 09:00 03/05/22 07:53 Pantoprazole 40 Mg Tab PO 04/02/22 08:59 40 mg QAM JOHN Administration Sertraline HCl 100 mg 03/03/22 09:00 03/05/22 07:53 Sertraline Hcl 100 Mg Tablet PO 04/02/22 08:59 100 mg QAM JOHN Administration Past Medical History Medical History Anemia IRON INFUSIONS, follows with [facility] heme/onc Anxiety Degenerative scoliosis Hiatal hernia HLD (hyperlipidemia) HTN (hypertension) Hx of basal cell carcinoma IgM lambda paraproteinemia Left ventricular outflow tract obstruction follows with [facility] cardio Malignant neoplasm of anus Mitral regurgitation severe, follows with [facility] cardiology Pulmonary hypertension 47 mmHg Rectal cancer NEW DX>REASON FOR PORT Spinal stenosis Exercise / Class Metabolic Activity III < 4 Walking/Shop/Light housework Past Family History Family History Mother Heart disease Hypertension Cancer Brain tumor, in-operable. unsure if cancerous Father Stroke Other No family history of adverse response to anesthesia Past Surgical History Surgical History History of cataract surgery RT/LEFT History of colonoscopy History of esophagogastroduodenoscopy (EGD) History of tonsillectomy History of tooth extraction Hx of section X 2 Hx of thyroid cyst Past Anesthesia History No Hx of Anesthesia Complications and No Family Hx of Anesthesia Complications History of PONV No Hx of PONV and No Hx of Motion Sickness Social History Smoking Status: Current every day smoker tobacco type: cigarettes Smoking cigarettes per day: 5-6 Do You Dip or Chew Tobacco: No Hx Alcohol Use: No Alcohol type: wine Hx Substance Use: No substance use type: does not use Physical Exam Vital Signs Last Vital Signs Temp 36.8 C 03/05/22 08:06 Pulse 94 H 03/05/22 08:06 Resp 18 03/05/22 08:06 BP 114/64 03/05/22 08:06 Pulse Ox 92 03/05/22 08:06 O2 Del Method 03/05/22 08:06 Testing Laboratory Results 03/05/22 07:23 PT 13.1 Seconds (9.0-12.0) H 03/02/22 17:55 INR 1.2 (0.9-1.1) H 03/02/22 17:55 Urine Color Dark Yellow 03/04/22 06:50 Urine Appearance Clear (Clear) 03/04/22 06:50 Urine pH 5.0 (4.5-7.5) 03/04/22 06:50 Ur Specific [place] 1.010 (1.000-1.030) 03/04/22 06:50 Urine Protein Negative (Negative) 03/04/22 06:50 Urine Glucose (UA) Negative (Negative) 03/04/22 06:50 Urine Ketones Negative (Negative) 03/04/22 06:50 Urine Nitrite Negative (Negative) 03/04/22 06:50 Ur Leukocyte Esterase 2+ (Negative) H 03/04/22 06:50 Urine WBC (Auto) >30 /hpf (0-5) H 03/04/22 06:50 Urine RBC (Auto) 5-10 /hpf (0-4) H 03/04/22 06:50 U Hyaline Cast (Auto) 1-5 /lpf (0-5) 03/04/22 06:50 U Epithel Cells (Auto) 10-20 /lpf (0-5) H 03/04/22 06:50 Urine Bacteria (Auto) 1+ (Negative) H 03/04/22 06:50 03/04/22 06:50 Urine Culture - Final Urine,Clean Catch Three types or organisms present, all moderate counts probable skin montrell. No further identifications or sensitivities to follow. 03/02/22 19:20 Gram Stain - Final Foot,Right Wound Culture - Preliminary Gram positive cocci Electrocardiogram Date: 03/02/22 Findings: + NSST changes, + SB @ (@ 54) and + RBBB Chest X-Ray Date: 03/02/22 Findings: + NAD Echocardiogram Date: 02/19/22 EF: > 70% hyperdynamic LV Function: normal RWMA: + none Other Findings: + atrial enlargement (LA severely dilated) and + LVH Valvular Disease: + MR (severe MR) TR-mild + dynamic outflow obstruction Peak LV outflow gradient 40 Torr + TAMELA MV severe Pulm. HTN Stress Test Date: 07/28/21 Type: nuclear Findings: + WNL Resting EF: 69%
[2022-03-05 09:04] LABS: BUN Creatinine Ratio 33.3 (10-20); Calcium 7.7 mg/dl (8.5-10.1); Creatinine Clr Calc Pharmacy 47.2 ml/min; Est GFR (African American) 73.4 ml/min; Est GFR (Non-African American) 63.4 ml/min; Potassium 3.4 mmol/L (3.5-5.1)
[2022-03-05] MEDS ORDERED: POTASSIUM CHLORIDE CRTAB 20 MEQ TABCR PO STA ×2 (09:52→12:12)
[2022-03-05] MEDS ORDERED: fentaNYL citrate 100 MCG/2 ML VIAL ONE (09:57)
[2022-03-05] MEDS ORDERED: LIDOCAINE 2% MPF LOCAL 5 ML VIAL INFIL ONE (09:57)
[2022-03-05] MEDS ORDERED: PROPOFOL IV EMULSION 10 MG/ML 20 ML VIAL IV ONE (09:57)
[2022-03-05] MEDS ORDERED: ONDANSETRON INJ 2 MG/ML 2 ML VIAL ONE (09:57)
[2022-03-05] MEDS ORDERED: PROMETHAZINE HCL INJ 25 MG/ML 1 ML VIAL ONE (10:02)
--- NOTE | 2022-03-05 10:09 | History & Physical Bridge Note ---
Date of Service March 05, 2022 History & Physical Bridge Note I have examined the patient, reviewed the History & Physical and in the interval since the performance of the History & Physical I have noted the following changes of clinical significance: no changes noted
--- NOTE | 2022-03-05 10:10 | Orthopedic Progress Note ---
Date of Service March 04, 2022 Assessment & Plan (1) Foot ulcer: Plan Patient seen, evaluated and treated. Reviewed MRI and MRI findings. Discussed recurrent right LE cellulitis and right second toe ulcer which probes to bone. Patient is actively receiving radiation therapy via oncology. At this time I am recommending amputation of second toe due to strong suspicion of osteomyelitis. I also recommend brief 2 week break from radiation therapy to allow healing from second to excision. This was discussed in detail and Patient agrees to treatment. Admission and Anticipated Discharge Date Admission Date: March 02, 2022 Subjective Patient seen at bedside this evening in no distress. She is resting comfortably and has no complaints. Review of Systems Review of Systems: All systems reviewed & are unremarkable except as noted in HPI & below Physical Exam Constitutional: WD/WN, vitals as above Musculoskeletal: no cyanosis or clubbing, extremities motor strength 5/5 Skin: Right second toe ulcer probes to bone. Psychiatric: Orientation: alert and oriented x 3 Results & Data ([facility]) Vital Signs (Past 12 Hours) Vital Signs Temp Pulse Pulse Resp BP BP Pulse Ox 03/05/22 08:35 68 03/05/22 06:16 82 03/05/22 08:06 36.8 C 94 H 18 114/64 92 03/05/22 04:25 85 03/05/22 03:39 36.3 C L 109 H 18 97/60 L 94 03/04/22 22:22 68 03/04/22 22:22 37 C 66 18 119/61 92 O2 Del Method 03/05/22 08:35 03/05/22 06:16 03/05/22 08:06 Room Air 03/05/22 04:25 03/05/22 03:39 Room Air 03/04/22 22:22 03/04/22 22:22 Room Air Diagnostic Findings FINDINGS: Motion degraded exam. Diffuse atrophy of the intrinsic musculature suggestive of chronic denervation changes. Mostly mild multifocal osteoarthritis of the right foot. There is diffuse subcutaneous and deep tissue edema of the foot. No fluid collection to suggest abscess. There is increased T2/STIR decreased T1 signal involving the second middle phalanx. Bone marrow signal is otherwise preserved throughout the foot. Extension of the metatarsal-phalangeal with flexion of the interphalangeal joints. The tendons and ligaments are not well evaluated. IMPRESSION: 1. Motion degraded exam. 2. Abnormal marrow signal within the second middle phalanx is suspicious for osteomyelitis. 3. Chronic denervation changes of the foot with diffuse subcutaneous and deep tissue edema. 4. No abscess.
[2022-03-05] MEDS ORDERED: BUPIVACAINE 0.5 % 5 MG/1 ML MPF 30ML VIAL ONE (10:19)
[2022-03-05] MEDS ORDERED: FLUMAZENIL 0.1 MG/1 ML 10 ML VIAL IV PRN (10:29)
[2022-03-05] MEDS ORDERED: HYDROmorphone INJ 1 MG/ML SYRINGE IV PRN (10:29)
[2022-03-05] MEDS ORDERED: NALOXONE HCL 0.4 MG/1 ML VIAL/CARP IV PRN (10:29)
[2022-03-05] MEDS ORDERED: LABETALOL HCL IV 5 MG/ML 20ML IV PRN (10:29)
[2022-03-05] MEDS ORDERED: ATROPINE SULFATE 0.1 MG/ML 10ML SYR IV PRN (10:29)
[2022-03-05] MEDS ORDERED: ONDANSETRON INJ 2 MG/ML 2 ML VIAL IV PRN (10:29)
[2022-03-05] MEDS ORDERED: ePHEDrine sulfate 50 MG/ML AMP IV PRN (10:29)
[2022-03-05] MEDS ORDERED: PROMETHAZINE HCL 12.5 MG in SODIUM CHLORIDE 0.9% 50 ML IV PRN (10:29)
[2022-03-05] MEDS ORDERED: fentaNYL citrate 100 MCG/2 ML VIAL IV PRN (10:29)
[2022-03-05] MEDS ORDERED: ESMOLOL HCL INJ 10 MG/ML 10ML VIAL IV ONE (10:46)
[2022-03-05] MEDS ORDERED: PHENYLEPHRINE HCL 10 MG/ML VIAL ONE (10:55)
[2022-03-05] MEDS ORDERED: METOPROLOL TARTRATE 1 MG/ML VIAL IV ONE (11:03)
--- NOTE | 2022-03-05 11:18 | Post Operative Brief Note ---
Immediate Post Op Note v1 Date of Surgery March 05, 2022 Pre & Post Diagnosis Operation Date: 03/05/22 10:20 Pre-Op Diagnosis: Right second toe osteomyelitis Post-Op Diagnosis: Right second toe osteomyelitis I identified the patient and participated in the time-out.: Yes Procedure Operation Date: 03/05/22 10:20 Actual Procedures p Right 2nd Toe Amputation(Right) - Keenan Vyas DPM, MS Surgeon Keenan Vyas DPM, MS Bottle Caser none Estimated Blood Loss 0 Findings Consistent with Post-Op Diagnosis necrotic
--- NOTE | 2022-03-05 11:48 | Anesthesiology Progress Note ---
Date of Service March 05, 2022 Anesthesia Post Procedure Vital Signs Vital Signs: Temp Pulse Pulse Pulse Resp BP BP 03/05/22 11:35 93 H 20 115/68 03/05/22 11:25 97 H 22 142/77 H 03/05/22 11:18 36.5 C 95 H 20 132/79 03/05/22 09:00 03/05/22 08:35 68 03/05/22 06:16 82 03/05/22 08:06 36.8 C 94 H 18 114/64 03/05/22 04:25 85 03/05/22 03:39 36.3 C L 109 H 18 97/60 L 03/04/22 20:00 03/04/22 22:22 68 03/04/22 22:22 37 C 66 18 119/61 03/04/22 19:31 36.6 C 66 18 115/52 L 03/04/22 15:21 65 03/04/22 15:27 36.5 C 60 20 126/65 Pulse Ox O2 Del Method O2 Flow Rate 03/05/22 11:35 94 Room Air 03/05/22 11:25 100 Oxymask 13 03/05/22 11:18 99 Oxymask 13 03/05/22 09:00 Room Air 03/05/22 08:35 03/05/22 06:16 03/05/22 08:06 92 Room Air 03/05/22 04:25 03/05/22 03:39 94 Room Air 03/04/22 20:00 Room Air 03/04/22 22:22 03/04/22 22:22 92 Room Air 03/04/22 19:31 92 Room Air 03/04/22 15:21 03/04/22 15:27 93 Room Air Pain Intensity Buttock: Pain Intensity: 8 Right Foot: Pain Intensity: 5 Transfer of Care Handoff Completed per policy Notes Mental Status: alert / awake / arousable Patient Amnestic to Procedure: Yes Nausea / Vomiting: adequately controlled Pain: adequately controlled Airway Patency, RR, SpO2: stable & adequate BP & HR: see Notes below (pt in new onset afib) Hydration State: stable & adequate Anesthetic Complications: no major complications apparent Notes: will speak w/ hospitalist
[2022-03-05] MEDS: HYDROmorphone INJ 0.5 MG/0.5 ML SYR IV PRN (12:44)
[2022-03-05] MEDS: METOPROLOL SUCC 25MG EXT REL TAB PO SCH (12:45)
[2022-03-05] MEDS ORDERED: PROMETHAZINE HCL 12.5 MG in SODIUM CHLORIDE 0.9% 50 ML IV STA (13:51)
--- NOTE | 2022-03-05 14:05 | Operative Report ---
Post Operative Report Pre & Post Diagnosis Operation Date: 03/05/22 10:20 Pre-Op Diagnosis: Right second toe osteomyelitis Post-Op Diagnosis: Right second toe osteomyelitis I identified the patient and participated in the time-out.: Yes Procedure Operation Date: 03/05/22 10:20 Actual Procedures p Right 2nd Toe Amputation(Right) - Keenan Vyas DPM, MS Surgeon Keenan Vyas DPM, MS Turnstile Attendant none Estimated Blood Loss 0 Findings Consistent with Post-Op Diagnosis none Specimens Second toe - Pathology Second toe - microbiology Description of Procedure History of present illness: Patient is a 81 year old female who is seen for treatment of osteomyelitis of the right second toe. Patient notes a second toe foot ulcer open for multiple weeks, and MRI (+) for osteomyelitis of the second toe of right foot. She consents to surgical amputation of right second toe. All questions answered. Discussed procedure in detail and postoperative recovery. All potential risks, benefits, complications, alternatives, rehab, potential for incomplete relief of symptoms, need for further surgery, DVT, PE, , persistent pain, swelling, scarring, weakness, neurovascular, wound complications and potential for amputations were discussed with patient. Unwanted outcomes such as, but not limited to were reviewed including under correction, overcorrection, return of deformity, infection. All questions were answered. Patient has decided to proceed with procedure as indicated. Preoperative diagnosis: right second toe ulcer with osteomyelitis Postoperative diagnosis: same Name of operation: 1.) Right second toe amputation Surgeon Dr. Vyas Turnstile Attendant: None Anesthesia: local with monitored anesthesia care Hemostasis: pneumatic ankle tourniquet Estimated blood loss: minimal Procedure in detail: Under mild sedation the patient was brought in the operating room placed on the operating table in supine position. A pneumatic ankle tourniquet was then placed about the patient's right ankle. Following IV sedation the foot was then prepped scrubbed and draped in usual aseptic manner. An Esmarch bandage was utilized to exsanguinate the patient's right foot and the pneumatic ankle tourniquet was then inflated. Attention was then directed to a nonhealing diabetic ulcer on the distal aspect of the right second toe. A tear drop incision was created utilizing a sharp, sterile, #15 blade. The incision which was deepened through subcutaneous tissue using sharp blunt dissection. Care was taken to identify and retract all vital neurovascular structures. All bleeders were ligated and cauterized necessary. At this time the right second toe was removed at the metatarsal phalangeal joint and placed on the back table. Exposed bone from the ulcer was sent to microbiology. The remainder of the right second toe was sent to pathology. Copious amounts of sterile normal saline were utilized to flush the incision site. The skin was then primarily closed utilizing 4-0 nylon in horizontal suture mattress techniques as well as simple suture closure. Upon completion of the procedure the incision was dressed with Betadine soaked Adaptic followed by sterile compressive dressing consisting of 4 x 4's Arnulfo Kerlix ABD the pneumatic ankle tourniquet was inflated and a prompt hyperemic response was noted to remaining digits of the right foot. An Reg wrap was then applied. The Patient tolerated the procedure and anesthesia well. She was transferred to recovery room vital signs stable and vascular status intact all toes of the right foot following. Following ostoperative monitoring the patient will be re- admitted to the floor resuming preoperative orders. Please contact Dr. Vyas for all postoperative care if any problems arise . I attest to the content of the Intraoperative Record and any orders documented therein. Any exceptions are noted below.
--- NOTE | 2022-03-05 14:48 | Electrocardiogram Report ---
Test Reason : Blood Pressure : / mmHG Vent. Rate : 093 BPM Atrial Rate : 250 BPM P-R Int : 000 ms QRS Dur : 128 ms QT Int : 384 ms P-R-T Axes : 000 062 -05 degrees QTc Int : 477 ms Poor data quality, interpretation may be adversely affected Atrial fibrillation with premature ventricular or aberrantly conducted complexes Right bundle branch block Abnormal ECG When compared with ECG of 02-MAR-2022 17:48, Significant changes have occurred Confirmed by René Baugh ([id number]) on 03/05/2022 2:48:07 PM Referred By: Arcelia Lester Confirmed By:René Baugh
[2022-03-05] MEDS: DAPTOmycin 350 MG in SYRINGE 0 ML IV SCH (14:50)
--- NOTE | 2022-03-05 14:54 | Electrocardiogram Report ---
Test Reason : Blood Pressure : / mmHG Vent. Rate : 120 BPM Atrial Rate : 129 BPM P-R Int : 080 ms QRS Dur : 132 ms QT Int : 326 ms P-R-T Axes : 084 071 -47 degrees QTc Int : 460 ms Poor data quality, interpretation may be adversely affected Atrial fibrillation with rapid ventricular response Right bundle branch block T wave abnormality, consider inferolateral ischemia Abnormal ECG When compared with ECG of 05-MAR-2022 11:29, (unconfirmed) T wave inversion more evident in Inferior leads Confirmed by René Baugh ([id number]) on 03/05/2022 2:54:14 PM Referred By: Arcelia Lester Confirmed By:Reén Baugh
--- NOTE | 2022-03-05 17:52 | Hospitalist Progress Note ---
Date of Service March 05, 2022 Assessment & Plan (1) KRISTIN (acute kidney injury): Plan: Diarrhea in the setting of chemotherapy Poor intake, nausea, possibly secondary to narcotics? In the setting of diuretic use or right lower extremity edema --Creatinine improved from 2.1, now 0.8 -- Was given IV fluids Nephrology on board -- Hold off on diuretics for now Reevaluate in the morning Right lower extremity edema, chronic In setting of severe mitral vegetation RLE cellulitis --Aldactone on hold secondary to acute renal failure -- On doxycycline, cellulitis seems to be improving -- Outpatient diuretic recommendations per nephrology Right second toe osteomyelitis --Foot MRI: Second toe suspicious for osteomyelitis -- 03/05: Status post right second toe amputation --Continue doxycycline ID consulted --PT and OT evaluation Enterococcus UTI -- Continue amoxicillin New onset atrial fibrillation, paroxysmal? hx LV outflow obstruction/valvular heart disease (severe MR, mild TR)/pulmonary hypertension --Converted to sinus rhythm this afternoon --Echocardiogram performed 2 weeks ago during previous admission --Patient usually on metoprolol succinate 37.5 mg p.o. daily Blood pressure on the lower side Reduced to 25 mg p.o. daily for now --Cardiology service consulted hx anal cancer status post chemotherapy/ongoing radiation Rx chronic cancer pain on narcotics --Morphine decreased to 30 mg to avoid side effects hyperlipidemia -- on statin Rx chronic anemia, hemoglobin at baseline Prediabetes, hemoglobin A1c of 5.9 last visit ongoing tobacco abuse DVT prophylaxis. Heparin subcu Full code Disposition Lives at home Prefers to be discharged to home when medically stable plan of care discussed with patient in detail and at length all questions answered She is understanding, agreeable, comfortable with the plan of care Admission and Anticipated Discharge Date Admission Date: March 02, 2022 Subjective Follow-up for acute kidney injury in the setting of diarrhea from chemotherapy, osteomyelitis right second toe, etc. Patient converted to A. fib heart rate 120s from 3:30 to 8:30 AM, then converted to sinus rhythm Later in the morning, as per anesthesiologist, patient also was in A. fib repeat 120 while in surgery, required metoprolol 5 mg IV Status post right second toe amputation this afternoon Upon arrival to medical surgical floor, patient again converted to normal sinus rhythm Seen resting in bed, sleeping but easily awakened States she feels okay overall except for bilateral foot pain, right greater than left Denies chest pain, shortness of breath, palpitations, dizziness Having some nausea, but no abdominal pain No diarrhea No other symptoms Review of Systems Review of Systems: all noted and negative except for above Physical Exam Physical Exam: General- oriented x 3, not in distress, speaks in sentences with no effort or accessory muscle use Eyes- anicteric Neck- no JVD Lungs- clear breath sounds bilaterally, no rales/wheezes Heart- normal rate, regular rhythm; no murmurs Abdomen- normal bowel sounds, nondistended, soft, nontender Extremities- no pretibial edema, no calf tenderness Erythema on the left lower extremity improving, Mild seepage noted Right foot: Dressing in place, no bleeding or discharge Neuro- alert, oriented x 3; no gross focal neurologic deficits Skin- warm & dry Results & Data Results & Data ([facility]) Vital Signs (Past 12 Hours) Vital Signs Temp Pulse Pulse Pulse Resp BP BP 03/05/22 16:52 69 03/05/22 15:38 36.8 C 71 19 101/50 L 03/05/22 13:30 36.7 C 71 18 96/54 L 03/05/22 13:10 67 03/05/22 12:30 126 H 03/05/22 12:30 36.8 C 108 H 18 121/70 03/05/22 12:58 36.7 C 92 H 18 112/68 03/05/22 12:15 36.7 C 120 H 19 119/62 03/05/22 12:00 87 14 101/58 L 03/05/22 11:45 36.4 C L 92 H 15 112/62 03/05/22 11:35 93 H 20 115/68 03/05/22 11:25 97 H 22 142/77 H 03/05/22 11:18 36.5 C 95 H 20 132/79 03/05/22 09:00 03/05/22 08:35 68 03/05/22 06:16 82 03/05/22 08:06 36.8 C 94 H 18 114/64 Pulse Ox O2 Del Method O2 Flow Rate 03/05/22 16:52 03/05/22 15:38 94 Room Air 03/05/22 13:30 93 Room Air 03/05/22 13:10 03/05/22 12:30 12/03/22 12:30 94 Room Air 03/05/22 12:58 95 Room Air 03/05/22 12:15 92 Room Air 03/05/22 12:00 93 Room Air 03/05/22 11:45 93 Room Air 03/05/22 11:35 94 Room Air 03/05/22 11:25 100 Oxymask 13 03/05/22 11:18 99 Oxymask 13 03/05/22 09:00 Room Air 03/05/22 08:35 03/05/22 06:16 03/05/22 08:06 92 Room Air all noted and reviewed including below
[2022-03-05] MEDS ORDERED: MAGNESIUM SULFATE / D5W 1 GM/100 ML BAG IV ONE (18:25)
[2022-03-06] MEDS: oxyCODONE HCL IR 5 MG TAB (IMMEDIATE RELEASE) PO PRN ×4 (03:09→22:55)
[2022-03-06] MEDS: HYDROmorphone INJ 0.5 MG/0.5 ML SYR IV PRN (04:12)
[2022-03-06 08:13] LABS: Basophils # (auto) 0.01 K/uL (0-0.2); Basophils % (auto) 0.2 %; Eosinophils # (auto) 0.19 K/uL (0-0.50); Eosinophils % (auto) 3.8 %; Hemoglobin 8.1 g/dl (12.0-16.0); Immature Granulocytes # (auto) 0.06 K/uL (0.00-0.02); Immature Granulocytes % (auto) 1.2 %; Lymphocytes # (auto) 0.13 K/uL (1.2-3.4); Lymphocytes % (auto) 2.6 %; Mean Corpuscular Hemoglobin 30.5 pg (25.0-34.0); Mean Corpuscular Hgb Conc 32.4 g/dL (32.0-36.0); Mean Platelet Volume 9.9 fL (9.4-12.3); Neutrophils # (auto) 3.99 K/uL (1.4-6.5); Neutrophils % (auto) 80.2 %; Platelet Count 133 K/uL (130-400); RDW Coefficient of Variation 24.5 % (11.5-14.5); RDW Standard Deviation 80.3 fL (36.4-46.3); Red Blood Count 2.66 M/uL (3.93-5.22); White Blood Count 4.98 K/ul (4.8-10.8)
[2022-03-06] MEDS: PANTOprazole 40 MG TAB PO SCH (08:33)
[2022-03-06] MEDS: SERTRALINE HCL 100 MG TABLET PO SCH (08:33)
[2022-03-06] MEDS: MoRPHine SULFATE CR 15 MG TABCR PO SCH ×2 (08:33→20:50)
[2022-03-06] MEDS: METOPROLOL SUCC 25MG EXT REL TAB PO SCH ×2 (08:34→21:08)
[2022-03-06] MEDS: AMOXICILLIN 500 MG CAP PO SCH ×3 (08:34→20:50)
[2022-03-06 08:40] LABS: BUN Creatinine Ratio 29.4 (10-20); Calcium 7.6 mg/dl (8.5-10.1); Creatinine Clr Calc Pharmacy 60.4 ml/min; Est GFR (African American) 96.4 ml/min; Est GFR (Non-African American) 83.2 ml/min
[2022-03-06 08:42] LABS: Anisocytosis Present
[2022-03-06] MEDS ORDERED: SODIUM CHLORIDE 0.9% 500 ML IV SCH (11:45)
--- NOTE | 2022-03-06 11:46 | Cardiology Consultation ---
Date of Consultation March 06, 2022 Assessment & Plan (1) Paroxysmal atrial fibrillation: (2) Hypokalemia: (3) Left ventricular outflow tract obstruction: (4) KRISTIN (acute kidney injury): Plan Very complex 81-year-old female with multiple ongoing issues including anal carcinoma with radiation therapy Chronic issues include renal insufficiency with recent acute on chronic failure Hyperdynamic LV function with LV outflow tract obstruction, mitral insufficiency and pulmonary hypertension Now referred after episode of atrial fibrillation with rapid response the postoperative setting status post right second toe amputation. Beta-puja had been held then restarted with lower dose due to transient hypotension patient hypokalemic at the time of arrhythmia 1. Paroxysmal atrial fibrillation: Now remaining in sinus rhythm status post spontaneous conversion. Complex issues and management given underlying conduction disease hypertrophic LV disease Patient with substantial risk for thromboembolic phenomena in the setting of atrial fibrillation with LV outflow tract obstruction and left atrial dilatation. Would recommend anticoagulation likely Eliquis 2.5 mg twice per day given renal insufficiency. We will need to follow closely for bleeding complications Would continue beta-puja with metoprolol succinate 25 mg a.m. 12.5 mg p.m. Keep potassium greater than 4 Patient at risk for recurrence of atrial fibrillation but would not initiate antiarrhythmic therapy at this time History of Present Illness Reason for Consultation: Paroxysmal atrial fibrillation Requesting Physician: Dr. You Attending Physician: Matthew You MD History of Present Illness Patient is a 81-year-old female with complex issues which include 1. Transient postoperative atrial fibrillation with spontaneous conversion to sinus rhythm 2. 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 Acute on chronic renal insufficiency 4. Left ventricular outflow tract obstruction, secondary to hyperdynamic left ventricular function and left ventricular hypertrophy 5. Severe mitral regurgitation secondary to dynamic LVOT obstructed and systolic anterior motion 6. Severe pulmonary hypertension secondary to valvular disease 7. Anal carcinoma with ongoing radiation therapy 8. Chronic tobacco use Patient is referred for evaluation. Complex recent hospitalizations and admissions noted with lower extremity edema, cellulitis, hypokalemia and acute renal insufficiency. Readmitted once again with renal insufficiency and multiple issues including ulcerated toe on 03/02/2022 Patient underwent toe amputation yesterday but developed atrial fibrillation postoperatively with spontaneous conversion to sinus rhythm. No prior history of arrhythmias TIA or stroke High thromboembolic risk in the setting of LV outflow tract obstruction She denies any bleeding issues. Currently no fevers or chills. Complaining of pain in her foot Marked anxiety regarding illness of her Appetite fair able to take medications without difficulty. Prior lower extremity edema improved Allergies Allergy/AdvReac Type Severity Reaction Status Date / Time No Known Allergies Allergy Verified 02/28/22 12:21 Home Medications Medication Instructions Recorded Confirmed Type sertraline 100 mg tablet (Zoloft) 100 mg PO QAM 03/05/19 02/28/22 History omeprazole 20 mg tablet,delayed 20 mg PO QAM 12/22/21 02/28/22 History release acetaminophen 500 mg capsule 500 mg PO Q4 PRN Pain 12/27/21 02/28/22 History metoprolol succinate 25 mg 37.5 mg PO QAM 12/30/21 02/28/22 History tablet,extended release 24 hr (Toprol XL) ondansetron HCl 8 mg tablet 8 mg PO Q8H PRN Nausea 02/07/22 02/28/22 History prochlorperazine maleate 10 mg 10 mg PO Q6H PRN Nausea 02/07/22 02/28/22 History tablet (Compazine) dexamethasone 4 mg tablet 4 mg PO AMHS 02/18/22 02/28/22 History morphine 60 mg tablet,extended 60 mg PO AMHS 02/18/22 02/28/22 History release oxycodone 20 mg tablet 20 mg PO Q4 PRN Pain, Severe 02/18/22 02/28/22 History potassium chloride 20 mEq oral 40 meq PO BID 10 days #30 ea 02/20/22 02/28/22 Rx packet spironolactone 25 mg tablet 25 mg PO DAILY #30 tabs 02/20/22 02/28/22 Rx (Aldactone) amoxicillin 500 mg capsule 500 mg PO TID 02/28/22 02/28/22 History silver sulfadiazine 1 % topical 1 applic topical TID PRN wound 02/28/22 Rx cream (Silvadene) healing #85 grams Patient History Medical History Anemia IRON INFUSIONS, follows with [facility] heme/onc Anxiety Degenerative scoliosis Hiatal hernia HLD (hyperlipidemia) HTN (hypertension) Hx of basal cell carcinoma 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 unsure if cancerous Father Stroke Other No family history of adverse response to anesthesia Social History Smoking Status: Current every day smoker Tobacco Type: Cigarettes packs per day: 0.5; Cigarettes Per Day: 5-6; Second Hand Exposure: No; Do You Dip or Chew Tobacco: No; Tobacco Cessation Education Requested by Patient: No Hx Alcohol Use: No Hx Substance Use: No Preferred Language: French Communication Ability: Effective Visual Impairment: No Limitations Hearing Ability: Normal Glass Loading Equipment Tender Required: No Beliefs That Will Affect Care: None marital status: Current Living Situation: Spouse Current Living Situation Comment: Lives with who is on hospice current occupational status: retired How many Children do You have: 4 Other Information That Helps Us Care for You: No Feels Safe at Home: Yes Safety Concerns: Feels Safe At This Time Assistive Devices: Walker Review of Systems Review of Systems: All systems reviewed & are unremarkable except as noted in HPI & below Physical Exam Constitutional: + ill appearing and + thin; no acute distress Eyes: PERRL, conjunctivae normal, anicteric sclerae ENMT: external ear and nose normal, oropharynx normal Neck: trachea midline, no thyromegaly Respiratory: normal respiratory effort, lungs clear to auscultation Cardiovascular: Rate/Rhythm: regular rate and regular rhythm Heart Sounds: normal S1, normal S2 and + murmur Vessels: no JVD Gastrointestinal (Abdomen): normal bowel sounds, soft, nontender, no hepatosplenomegaly Musculoskeletal: Right foot bandage Results & Data ([facility]) Vital Signs (Past 12 Hours) Vital Signs Temp Pulse Pulse Resp BP BP Pulse Ox 03/06/22 10:32 62 03/06/22 07:48 36.7 C 64 16 114/56 L 91 03/06/22 03:43 36.3 C L 62 18 112/55 L 93 O2 Del Method 03/06/22 10:32 03/06/22 07:48 Room Air 03/06/22 03:43 Room Air Laboratory Results Laboratory Results - last 24 hr 03/06/22 03/06/22 03/06/22 07:34 07:34 07:34 WBC 4.98 RBC 2.66 L Hgb 8.1 L Hct 25.0 L MCV 94.0 MCH 30.5 MCHC 32.4 RDW Std Deviation 80.3 H RDW Coeff of Olaf 24.5 H Plt Count 133 MPV 9.9 Immature Gran % (Auto) 1.2 Neut % (Auto) 80.2 Lymph % (Auto) 2.6 Merrick % (Auto) 12.0 Eos % (Auto) 3.8 Baso % (Auto) 0.2 Neut # (Auto) 3.99 Lymph # (Auto) 0.13 L Merrick # (Auto) 0.60 Eos # (Auto) 0.19 Baso # (Auto) 0.01 Immature Gran # (Auto) 0.06 H Anisocytosis Present Sodium 142 Potassium 4.0 Chloride 111 H Carbon Dioxide 27 Anion Gap 4 BUN 20 Creatinine 0.68 Est Cr Clr Drug Dosing 60.4 Est GFR ( Amer) 96.4 Est GFR (Non-Af Amer) 83.2 BUN/Creatinine Ratio 29.4 H Glucose 86 Calcium 7.6 L Magnesium 1.5 L
[2022-03-06] MEDS: DAPTOmycin 350 MG in SYRINGE 0 ML IV SCH (13:37)
[2022-03-06] MEDS: APIXABAN 2.5 MG TAB PO SCH ×2 (13:37→22:51)
--- NOTE | 2022-03-06 15:23 | Hospitalist Progress Note ---
Date of Service March 06, 2022 Assessment & Plan (1) KRISTIN (acute kidney injury): Plan: Diarrhea in the setting of chemotherapy Poor intake, nausea, possibly secondary to narcotics? In the setting of diuretic use or right lower extremity edema --Creatinine improved from 2.1, now 0.8 -- Was given IV fluids Nephrology on board -- Hold off on diuretics for now Reevaluate in the morning Right lower extremity edema, chronic In setting of severe mitral vegetation RLE cellulitis --Aldactone on hold secondary to acute renal failure -- On daptomycin, cellulitis seems to be improving -- Outpatient diuretic recommendations per nephrology Right second toe osteomyelitis --Foot MRI: Second toe suspicious for osteomyelitis -- 03/05: Status post right second toe amputation -- Continue Dapto for now ID consulted --PT and OT evaluation Enterococcus UTI -- Continue amoxicillin New onset atrial fibrillation, paroxysmal? hx LV outflow obstruction/valvular heart disease (severe MR, mild TR)/pulmonary hypertension --Converted to sinus rhythm this afternoon --Echocardiogram performed 2 weeks ago during previous admission --Patient usually on metoprolol succinate 37.5 mg p.o. daily Blood pressure on the lower side Reduced to 25 mg p.o. daily for now --Cardiology service consulted started Eliquis 2.5mg BID additional Metoprolol XL 12.5mg po at PM hx anal cancer status post chemotherapy/ongoing radiation Rx chronic cancer pain on narcotics --Morphine decreased to 30 mg to avoid side effects hyperlipidemia -- on statin Rx chronic anemia, hemoglobin at baseline Prediabetes, hemoglobin A1c of 5.9 last visit ongoing tobacco abuse DVT prophylaxis. Heparin subcu Full code Disposition Lives at home Prefers to be discharged to home when medically stable plan of care discussed with patient in detail and at length all questions answered She is understanding, agreeable, comfortable with the plan of care Admission and Anticipated Discharge Date Admission Date: March 02, 2022 Subjective ff up for acute renal failure etc seen resting in bed, sitting up states she feels fine overall has pain on BL toes no chest pain, dyspnea, palpitations, dizziness no problems voiding Review of Systems Review of Systems: all noted and negative except for above Physical Exam Physical Exam: General- oriented x 3, not in distress, speaks in sentences with no effort or accessory muscle use Eyes- anicteric Neck- no JVD Lungs- clear breath sounds bilaterally, no rales/wheezes Heart- normal rate, regular rhythm; no murmurs Abdomen- normal bowel sounds, nondistended, soft, nontender Extremities-edema resolved erythema on the LLE improving dressing on the R foot no bleeding/discharge Neuro- alert, oriented x 3; no gross focal neurologic deficits Skin- warm & dry Results & Data Results & Data ([facility]) Vital Signs (Past 12 Hours) Vital Signs Temp Pulse Pulse Resp BP BP Pulse Ox 03/06/22 14:59 36.8 C 64 19 115/57 L 94 03/06/22 13:21 64 19 94/46 L 94 03/06/22 12:15 37.1 C 62 16 87/48 L 90 03/06/22 10:32 62 03/06/22 07:48 36.7 C 64 16 114/56 L 91 03/06/22 03:43 36.3 C L 62 18 112/55 L 93 O2 Del Method 03/06/22 14:59 Room Air 03/06/22 13:21 Room Air 03/06/22 12:15 Room Air 03/06/22 10:32 03/06/22 07:48 Room Air 03/06/22 03:43 Room Air all noted and reviewed including below
[2022-03-06] MEDS ORDERED: ALBUMIN 25% 100 mL 25 GM/100 ML VIAL IV ONE (21:16)
[2022-03-07] MEDS ORDERED: dexAMETHasone 4 MG in SYRINGE 0 ML IV ONE (01:39)
--- NOTE | 2022-03-07 01:39 | Communication Note ---
Date of Service: March 07, 2022 Made aware of by RN of patient SBP 90s. Patient comfortable as per RN. BP unimproved after NSS and albumin. Lactic acid within normal limits. AP Hypotension ? New patient baseline ? Possible adrenal insufficiency (Patient on Decadron twice daily Home Rx for nausea/emesis symptoms on admission.) Decadron 1 dose now for possible adrenal insufficiency Patient may need steroid taper.
[2022-03-07] MEDS: AMOXICILLIN 500 MG CAP PO SCH ×3 (08:50→20:03)
[2022-03-07] MEDS: MoRPHine SULFATE CR 15 MG TABCR PO SCH ×2 (08:50→22:04)
[2022-03-07] MEDS: SERTRALINE HCL 100 MG TABLET PO SCH (08:51)
[2022-03-07] MEDS: METOPROLOL SUCC 25MG EXT REL TAB PO SCH ×2 (08:51→22:04)
[2022-03-07] MEDS: APIXABAN 2.5 MG TAB PO SCH ×2 (08:51→20:03)
[2022-03-07] MEDS: PANTOprazole 40 MG TAB PO SCH (08:51)
[2022-03-07 09:17] LABS: Eosinophils # (auto) 0.02 K/uL (0-0.50); Eosinophils % (auto) 0.4 %; Hematocrit (blood only) 24.8 % (34.1-44.9); Immature Granulocytes # (auto) 0.05 K/uL (0.00-0.02); Immature Granulocytes % (auto) 1.1 %; Lymphocytes # (auto) 0.06 K/uL (1.2-3.4); Lymphocytes % (auto) 1.3 %; Mean Platelet Volume 9.4 fL (9.4-12.3); Monocytes # (auto) 0.34 K/uL (0.24-0.82); Monocytes % (auto) 7.3 %; Neutrophils # (auto) 4.18 K/uL (1.4-6.5); Neutrophils % (auto) 89.9 %; Platelet Count 112 K/uL (130-400); White Blood Count 4.65 K/ul (4.8-10.8)
--- NOTE | 2022-03-07 09:29 | Radiation OncologyConsultation ---
Date of Consultation March 07, 2022 Assessment & Plan (1) Anal cancer: This is a 81-year-old woman with diagnosis of stage III anal carcinoma. Has been undergoing radiation and chemotherapy. She has received 27 of a planned 33 fractions. Chemotherapy comprised of mitomycin and 5-FU. She has been having i ssues with radiation dermatitis. She did have a break in treatment. She has had issues with diarrhea and was admitted with acute kidney injury. BUN and creatinine are improving. Radiation dermatitis is slowly improving. She does continue to have a significant amount of pain. She currently is not in favor of restarting treatment. She stated she may want to complete therapy if she improves and with further information. Instrumentation Engineer had recommended a 2-week break. This will need to be reviewed with him in regards to restarting should she decide to restart treatment. Plan ATTENDING ADDENDUM Assessment: Ms. Landa is a 81-year-old female with locally advanced anal squamous cell carcinoma. The patient has been receiving pelvic radiation therapy with concurrent chemotherapy and has received 27 out of a planned 30-33 fractions. The patient has been admitted to the hospital due to osteomyelitis involving her right foot which did lead to an amputation during this hospital course. We have been asked to evaluate the patient regarding continuation of the patient's radiation therapy. Treatment Options: 1. Discontinuation of therapy. 2. Continue radiation therapy. I did speak with Dr. Vyas from podiatry who did defer to us regarding continuation of radiation therapy. 3. Treatment break followed by continuation of radiation therapy. Plan: We will follow-up with the patient tomorrow to further discuss if the patient would like to continue to proceed with radiation therapy. I did explain to her that it is best to avoid any significant treatment breaks to derive maximal effect from treatment. However, I did explain to her that it is reasonable for her to request taking a treatment break given the fact that the patient has been through so much. I did explain to her that if she does take a treatment break, we may need to increase the overall length of her treatment course to account for a treatment gap. Although I did discourage discontinuing therapy, I did understand how the patient may feel regarding not wanting any further therapy. History of Present Illness Reason for Consultation: To discuss radiation therapy. Requesting Physician: Matthew You MD Attending Physician: Matthew You MD History of Present Illness 08/2021. Development of anal mass with associated pain. Initially treated as hemorrhoids. 11/15/2021. Colorectal surgery consultation with Dr. Hill. Exam reveals large ulcerated perianal mass extending into the anal canal. Fixed and firm. Recommendation is for concurrent chemotherapy and radiation therapy. Referrals placed. 12/08/2021. Anorectal examination under anesthesia and incisional biopsy by Dr. Hill. Findings: Perianal ulcer appears to extend into the anal canal and into the introitus anteriorly. Ulcer was involving the anterior half of the anal canal and extending on either side laterally. Biopsy revealed squamous cell carcinoma, moderately differentiated, p16 positive. 12/21/2021. Medical oncology consultation with Dr. Vick Lester. Completion of staging work-up. Recommendation of combined radiation and chemotherapy. Radiation oncology referral placed. 12/24/2021 CT of chest abdomen and pelvis. 1. Possible bone island in the T3 vertebral body. Follow-up bone scan as indicated advised to exclude metastasis. 2. Thyroid nodules as noted. 3. Otherwise no definitive measurable malignancy 4. Emphysema and possible pulmonary arterial hypertension. 5. Additional findings as noted. 1. Unchanged anal region neoplasm and metastatic inguinal adenopathy larger on the left. No other definitive measurable malignancy 2. Additional findings as noted. 12/24/2021. MRI of the pelvis. T4 anal tumor with metastatic inguinal lymphadenopathy.Stage [id number]. Stage IIIC. 01/17/2022. Initiation of combined radiation and chemotherapy. Chemotherapy comprised of mitomycin and 5-FU. Patient did develop radiation dermatitis. She had a 1 week break from 02/18/2022-02/23/2022. She resumed treatment 02/28/2022. She has had ongoing issues with ulcerations of the toes. She was admitted with osteomyelitis and had an amputation of the right second toe. This procedure took place on 12/27/2021. She has been steadily recuperating. She continues to have issues with radiation dermatitis. She can have a pain level of 5-6 in the perianal area. She also had changes of the groin. These areas have been improving. She was admitted with an acute kidney injury. BUN and creatinine steadily improving. She was having diarrhea. This has improved. Allergies Allergy/AdvReac Type Severity Reaction Status Date / Time No Known Allergies Allergy Verified 02/28/22 12:21 Home Medications Medication Instructions Recorded Confirmed Type sertraline 100 mg tablet (Zoloft) 100 mg PO QAM 03/05/19 02/28/22 History omeprazole 20 mg tablet,delayed 20 mg PO QAM 12/22/21 02/28/22 History release acetaminophen 500 mg capsule 500 mg PO Q4 PRN Pain 12/27/21 02/28/22 History metoprolol succinate 25 mg 37.5 mg PO QAM 12/30/21 02/28/22 History tablet,extended release 24 hr (Toprol XL) ondansetron HCl 8 mg tablet 8 mg PO Q8H PRN Nausea 02/07/22 02/28/22 History prochlorperazine maleate 10 mg 10 mg PO Q6H PRN Nausea 02/07/22 02/28/22 History tablet (Compazine) dexamethasone 4 mg tablet 4 mg PO AMHS 02/18/22 02/28/22 History morphine 60 mg tablet,extended 60 mg PO AMHS 02/18/22 02/28/22 History release oxycodone 20 mg tablet 20 mg PO Q4 PRN Pain, Severe 02/18/22 02/28/22 History potassium chloride 20 mEq oral 40 meq PO BID 10 days #30 ea 02/20/22 02/28/22 Rx packet spironolactone 25 mg tablet 25 mg PO DAILY #30 tabs 02/20/22 02/28/22 Rx (Aldactone) amoxicillin 500 mg capsule 500 mg PO TID 02/28/22 02/28/22 History silver sulfadiazine 1 % topical 1 applic topical TID PRN wound 02/28/22 Rx cream (Silvadene) healing #85 grams Patient History Medical History Anemia IRON INFUSIONS, follows with [facility] heme/onc Anxiety Degenerative scoliosis Hiatal hernia HLD (hyperlipidemia) HTN (hypertension) Hx of basal cell carcinoma IgM lambda paraproteinemia Left ventricular outflow tract obstruction follows with [facility] cardio Malignant neoplasm of anus Mitral regurgitation severe, follows with [facility] cardiology Pulmonary hypertension 47 mmHg Rectal cancer NEW DX>REASON FOR PORT Spinal stenosis Surgical History History of cataract surgery RT/LEFT History of colonoscopy History of esophagogastroduodenoscopy (EGD) History of tonsillectomy History of tooth extraction Hx of section X 2 Hx of thyroid cyst Family History Mother Heart disease Hypertension Cancer Brain tumor, in-operable. unsure if cancerous Father Stroke Other No family history of adverse response to anesthesia Social History Smoking Status: Current every day smoker Tobacco Type: Cigarettes packs per day: 0.5; Cigarettes Per Day: 5-6; Second Hand Exposure: No; Do You Dip or Chew Tobacco: No; Tobacco Cessation Education Requested by Patient: No Hx Alcohol Use: No Hx Substance Use: No Preferred Language: Singaporean Communication Ability: Effective Visual Impairment: No Limitations Hearing Ability: Normal Streaming Media Specialist Required: No Beliefs That Will Affect Care: None marital status: Current Living Situation: Spouse Current Living Situation Comment: Lives with who is on hospice current occupational status: retired How many Children do You have: 4 Other Information That Helps Us Care for You: No Feels Safe at Home: Yes Safety Concerns: Feels Safe At This Time Assistive Devices: Walker Review of Systems Review of Systems: 13 point review of systems completed findings negative other than what are mentioned in the history of present illness. Physical Exam Constitutional: WD/WN, vitals as above Eyes: PERRL, conjunctivae normal, anicteric sclerae Neck: trachea midline, no thyromegaly Respiratory: normal respiratory effort, lungs clear to auscultation Cardiovascular: RRR, no murmur, no edema Gastrointestinal (Abdomen): normal bowel sounds, soft, nontender, no hepatosplenomegaly Musculoskeletal: Wound dressing in place. Status post amputation of the right second toe. Skin: no rashes, warm and dry Healing radiation dermatitis of the groins. Patient declined perianal examination. Neurologic: Normal strength and coordination. Psychiatric: A+Ox3, euthymic affect Time Spent Midlevel I spent 10 minutes in preparation for this follow up evaluation including r eviewing all the clinical records, reviewing laboratory studies, pathology reports and imaging results. I spent [30] minutes with direct face to face interaction with the patient and/or family including performing a physical exam and answering all questions. I spent [10] minutes documenting this patient's visit.
[2022-03-07 09:40] LABS: Anisocytosis Present; Mean Corpuscular Hemoglobin 30.2 pg (25.0-34.0); Mean Corpuscular Hgb Conc 32.3 g/dL (32.0-36.0); Mean Corpuscular Volume 93.6 fL (80.0-100.0); RDW Coefficient of Variation 24.8 % (11.5-14.5); Red Blood Count 2.65 M/uL (3.93-5.22)
[2022-03-07 10:00] LABS: BUN Creatinine Ratio 23.9 (10-20); Calcium 7.6 mg/dl (8.5-10.1); Creatinine Clr Calc Pharmacy 57.8 ml/min; Est GFR (African American) 93.9 ml/min; Potassium 4.2 mmol/L (3.5-5.1)
--- NOTE | 2022-03-07 12:06 | Cardiology Progress Note ---
Date of Service March 07, 2022 Assessment & Plan (1) Paroxysmal atrial fibrillation: (2) Hypokalemia: (3) Left ventricular outflow tract obstruction: (4) KRISTIN (acute kidney injury): Plan Very complex 81-year-old female with multiple ongoing issues including anal carcinoma with radiation therapy Chronic issues include renal insufficiency with recent acute on chronic failure Hyperdynamic LV function with LV outflow tract obstruction, mitral insufficiency and pulmonary hypertension Now referred after episode of atrial fibrillation with rapid response the postoperative setting status post right second toe amputation. Beta-puja had been held then restarted with lower dose due to transient hypotension patient hypokalemic at the time of arrhythmia 1. Paroxysmal atrial fibrillation: Now remaining in sinus rhythm status post spontaneous conversion. Complex issues and management given underlying conduction disease hypertrophic LV disease Patient with substantial risk for thromboembolic phenomena in the setting of atrial fibrillation with LV outflow tract obstruction and left atrial dilatation. Would recommend anticoagulation likely Eliquis 2.5 mg twice per day given renal insufficiency. We will need to follow closely for bleeding complications Would continue beta-puja with metoprolol succinate 25 mg a.m. 12.5 mg p.m. Keep potassium greater than 4 Patient at risk for recurrence of atrial fibrillation but would not initiate antiarrhythmic therapy at this time 03/07/2022 Patient stable from cardiac standpoint with blood pressures to be followed closely. Does require beta-puja for control of LV outflow tract obstruction and reduce risk of atrial fibrillation Currently on anticoagulation with Eliquis Admission and Anticipated Discharge Date Admission Date: March 02, 2022 Subjective Patient seen and examined, chart, medications, telemetry reviewed. Patient denies any acute cardiac complaints though blood pressure is notably lower last night. Evening dose of metoprolol held. No significant symptoms was treated with corticosteroids due to possible adrenal insufficiency. Blood pressures improved this morning No bleeding difficulties. Telemetry without further arrhythmia no bradycardia or tachyarrhythmia Review of Systems Review of Systems: All systems reviewed & are unremarkable except as noted in Subjective Physical Exam Constitutional: + ill appearing and + thin; no acute distress Eyes: PERRL, conjunctivae normal, anicteric sclerae ENMT: external ear and nose normal, oropharynx normal Neck: trachea midline, no thyromegaly Respiratory: normal respiratory effort, lungs clear to auscultation Cardiovascular: Rate/Rhythm: regular rate and regular rhythm Heart Sounds: normal S1, normal S2 and + murmur Vessels: no JVD Gastrointestinal (Abdomen): normal bowel sounds, soft, nontender, no hepatosplenomegaly Results & Data ([facility]) Vital Signs (Past 12 Hours) Vital Signs Temp Pulse Pulse Resp BP BP Pulse Ox 03/07/22 11:23 60 03/07/22 08:02 36.3 C L 64 16 117/57 L 90 03/07/22 04:28 36.6 C 63 18 94/52 L 90 O2 Del Method 03/07/22 11:23 03/07/22 08:02 Room Air 03/07/22 04:28 Room Air Laboratory Results Laboratory Results - last 24 hr 03/06/22 03/07/22 03/07/22 21:30 08:58 08:58 WBC 4.65 L RBC 2.65 L Hgb 8.0 L Hct 24.8 L MCV 93.6 MCH 30.2 MCHC 32.3 RDW Std Deviation 81.0 H RDW Coeff of Olaf 24.8 H Plt Count 112 L MPV 9.4 Immature Gran % (Auto) 1.1 Neut % (Auto) 89.9 Lymph % (Auto) 1.3 [place] % (Auto) 7.3 Eos % (Auto) 0.4 Baso % (Auto) 0.0 Neut # (Auto) 4.18 Lymph # (Auto) 0.06 L [place] # (Auto) 0.34 Eos # (Auto) 0.02 Baso # (Auto) 0.00 Immature Gran # (Auto) 0.05 H Anisocytosis Present Sodium 141 Potassium 4.2 Chloride 110 H Carbon Dioxide 28 Anion Gap 3 BUN 17 Creatinine 0.71 Est Cr Clr Drug Dosing 57.8 Est GFR ( Amer) 93.9 Est GFR (Non-Af Amer) 81.0 BUN/Creatinine Ratio 23.9 H Glucose 141 H Lactate 1.3 Calcium 7.6 L
[2022-03-07] MEDS: oxyCODONE HCL IR 5 MG TAB (IMMEDIATE RELEASE) PO PRN ×2 (14:09→20:03)
--- NOTE | 2022-03-07 20:02 | Hospitalist Progress Note ---
Date of Service March 07, 2022 Assessment & Plan (1) KRISTIN (acute kidney injury): Plan: Diarrhea in the setting of chemotherapy Poor intake, nausea, possibly secondary to narcotics? In the setting of diuretic use or right lower extremity edema --Creatinine improved from 2.1, now 0.8 -- Was given IV fluids Nephrology on board -- Hold off on diuretics for now as patient appears to be on the dry side Reevaluate in the morning Right lower extremity edema, chronic In setting of severe mitral vegetation RLE cellulitis --Aldactone on hold secondary to acute renal failure -- Given daptomycin, cellulitis improved -- Outpatient diuretic recommendations per nephrology Right second toe osteomyelitis --Foot MRI: Second toe suspicious for osteomyelitis -- 03/05: Status post right second toe amputation -- Given daptomycin IV ID consulted, recommend DC antibiotics after toe amputation --PT and OT evaluation Enterococcus UTI -- Completed amoxicillin New onset atrial fibrillation, paroxysmal? hx LV outflow obstruction/valvular heart disease (severe MR, mild TR)/pulmonary hypertension --Converted to sinus rhythm this afternoon --Echocardiogram performed 2 weeks ago during previous admission --Patient usually on metoprolol succinate 37.5 mg p.o. daily Blood pressure on the lower side Reduced to 25 mg p.o. daily for now --Cardiology service consulted started Eliquis 2.5mg BID additional Metoprolol XL 12.5mg po at PM -- BP low last night, metoprolol at p.m. held Continue to monitor for now -- We will discuss with cardiology regarding diuretic management hx anal cancer status post chemotherapy/ongoing radiation Rx chronic cancer pain on narcotics --Morphine decreased to 30 mg to avoid side effects hyperlipidemia -- on statin Rx chronic anemia, hemoglobin at baseline Prediabetes, hemoglobin A1c of 5.9 last visit ongoing tobacco abuse DVT prophylaxis. Heparin subcu Full code Disposition Lives at home Prefers to be discharged to home when medically stable plan of care discussed with patient in detail and at length all questions answered She is understanding, agreeable, comfortable with the plan of care Admission and Anticipated Discharge Date Admission Date: March 02, 2022 Subjective Follow-up for acute renal failure, cellulitis, etc. Seen resting in bed, comfortable States bilateral foot and leg pain is improving Denies shortness of breath, cough, chest pain No diarrhea, tolerating diet well No other symptom Review of Systems Review of Systems: all noted and negative except for above Physical Exam Physical Exam: General- oriented x 3, not in distress, speaks in sentences with no effort or accessory muscle use Eyes- anicteric Neck- no JVD Lungs- clear breath sounds bilaterally, no crackles or wheezing Heart- normal rate, regular rhythm; no murmurs Abdomen- normal bowel sounds, nondistended, soft, nontender Extremities- no pretibial edema, erythema on the left lower leg much improved, no calf tenderness Right foot: Dressing in place no bleeding or discharge Left foot: Dressing in place over the right big toe, no bleeding or discharge Neuro- alert, oriented x 3; no gross focal neurologic deficits Skin- warm & dry Results & Data Results & Data ([facility]) Vital Signs (Past 12 Hours) Vital Signs Temp Pulse Pulse Resp BP BP Pulse Ox 03/07/22 19:57 36.4 C L 64 18 104/54 L 92 03/07/22 15:44 59 L 03/07/22 14:59 36.7 C 57 L 20 94/53 L 92 03/07/22 14:14 36.9 C 61 19 104/52 L 93 03/07/22 11:23 60 03/07/22 08:02 36.3 C L 64 16 117/57 L 90 O2 Del Method 03/07/22 19:57 Room Air 03/07/22 15:44 03/07/22 14:59 Room Air 03/07/22 14:14 Room Air 03/07/22 11:23 03/07/22 08:02 Room Air all noted and reviewed including below
[2022-03-08] MEDS: oxyCODONE HCL IR 5 MG TAB (IMMEDIATE RELEASE) PO PRN ×3 (03:13→19:03)
[2022-03-08] MEDS: APIXABAN 2.5 MG TAB PO SCH ×2 (08:35→19:53)
[2022-03-08] MEDS: METOPROLOL SUCC 25MG EXT REL TAB PO SCH ×3 (08:36→20:18)
[2022-03-08] MEDS: SERTRALINE HCL 100 MG TABLET PO SCH (08:36)
[2022-03-08] MEDS: AMOXICILLIN 500 MG CAP PO SCH ×3 (08:36→19:55)
[2022-03-08] MEDS: PANTOprazole 40 MG TAB PO SCH (08:36)
[2022-03-08] MEDS: MoRPHine SULFATE CR 15 MG TABCR PO SCH ×2 (08:42→21:30)
[2022-03-08 09:50] LABS: Hematocrit (blood only) 25.7 % (34.1-44.9); Hemoglobin 8.1 g/dl (12.0-16.0); Mean Corpuscular Hemoglobin 30.1 pg (25.0-34.0); Mean Corpuscular Hgb Conc 31.5 g/dL (32.0-36.0); Mean Corpuscular Volume 95.5 fL (80.0-100.0); Platelet Count 119 K/uL (130-400); RDW Standard Deviation 82.6 fL (36.4-46.3); Red Blood Count 2.69 M/uL (3.93-5.22); White Blood Count 4.94 K/ul (4.8-10.8)
[2022-03-08 10:05] LABS: Basophils # (auto) 0.01 K/uL (0-0.2); Basophils % (auto) 0.2 %; Eosinophils # (auto) 0.19 K/uL (0-0.50); Eosinophils % (auto) 3.8 %; Lymphocytes # (auto) 0.17 K/uL (1.2-3.4); Lymphocytes % (auto) 3.4 %; Monocytes # (auto) 0.53 K/uL (0.24-0.82); Monocytes % (auto) 10.7 %; Neutrophils # (auto) 3.94 K/uL (1.4-6.5); Neutrophils % (auto) 79.9 %; Polychromasia 1+
--- NOTE | 2022-03-08 10:20 | Cardiology Progress Note ---
Date of Service March 08, 2022 Assessment & Plan (1) Paroxysmal atrial fibrillation: (2) Hypokalemia: (3) Left ventricular outflow tract obstruction: (4) KRISTIN (acute kidney injury): Plan Very complex 81-year-old female with multiple ongoing issues including anal carcinoma with radiation therapy Chronic issues include renal insufficiency with recent acute on chronic failure Hyperdynamic LV function with LV outflow tract obstruction, mitral insufficiency and pulmonary hypertension Now referred after episode of atrial fibrillation with rapid response the postoperative setting status post right second toe amputation. Beta-puja had been held then restarted with lower dose due to transient hypotension patient hypokalemic at the time of arrhythmia Paroxysmal atrial fibrillation: Now remaining in sinus rhythm status post spontaneous conversion. Complex issues and management given underlying conduction disease hypertrophic LV disease Patient with substantial risk for thromboembolic phenomena in the setting of atrial fibrillation with LV outflow tract obstruction and left atrial dilatation. Would recommend anticoagulation likely Eliquis 2.5 mg twice per day given renal insufficiency. We will need to follow closely for bleeding complications Would continue beta-puja with metoprolol succinate 25 mg a.m. 12.5 mg p.m. Keep potassium greater than 4 Patient at risk for recurrence of atrial fibrillation but would not initiate antiarrhythmic therapy at this time 03/08/22: Metoprolol held for HR around 60 and borderline low BP readings last night and this morning. Discussed with nursing staff. Hold parameters changed to HR < 50. Metoprolol to be given this morning as prescribed. Continue Eliquis 2.5 mg BID. Replace magnesium. Recommend podiatry/ortho f/u prior to discharge and Needs PT/OT prior to discharge Case discussed with Dr. Blanton Admission and Anticipated Discharge Date Admission Date: March 02, 2022 Supervising Physician Co-Signing Physician Notes Patient was seen and examined, evaluation as above. Cardiac status stable but requires ongoing metoprolol/beta-puja usage due to hyperdynamic obstruction. Obstruction worsens mitral insufficiency and recurrent heart failure Would continue metoprolol succinate 25 mg daily Continue spironolactone twice weekly for additional fluid management Anticoagulation initiated due to paroxysmal atrial fibrillation with planned dosing of Eliquis 2.5 mg twice per day Orthopedic/podiatry issues will need to be addressed Subjective Patient resting in bed comfortably. She denies acute cardiac concerns. No chest pain, dyspnea, palpitations or dizziness. She is frustrated that "nothing is being done". She is concerned with her right foot since toe amputation. Still bandaged. Review of Systems Review of Systems: All systems reviewed & are unremarkable except as noted in HPI & below Physical Exam Constitutional: + ill appearing and + thin; no acute distress Eyes: PERRL, conjunctivae normal, anicteric sclerae ENMT: external ear and nose normal, oropharynx normal Neck: trachea midline, no thyromegaly Respiratory: normal respiratory effort, lungs clear to auscultation Cardiovascular: Rate/Rhythm: regular rate and regular rhythm Heart Sounds: normal S1, normal S2 and + murmur Vessels: no JVD Gastrointestinal (Abdomen): normal bowel sounds, soft, nontender, no hepatosplenomegaly Psychiatric: A+Ox3, euthymic affect Results & Data ([facility]) Vital Signs (Past 12 Hours) Vital Signs Temp Pulse Pulse Resp BP Pulse Ox O2 Del Method 03/08/22 08:00 36.5 C 60 18 117/55 L 92 Room Air 03/08/22 07:27 56 L 03/07/22 22:23 60 03/08/22 04:24 36.6 C 63 18 95/55 L 92 Room Air Laboratory Results CBC 03/08/22 Range/Units 09:07 WBC 4.94 (4.8-10.8) K/ul RBC 2.69 L (3.93-5.22) M/uL Hgb 8.1 L (12.0-16.0) g/dl Hct 25.7 L (34.1-44.9) % Plt Count 119 L (130-400) K/uL Neut # (Auto) 3.94 (1.4-6.5) K/uL Lymph # (Auto) 0.17 L (1.2-3.4) K/uL [place] # (Auto) 0.53 (0.24-0.82) K/uL Eos # (Auto) 0.19 (0-0.50) K/uL Baso # (Auto) 0.01 (0-0.2) K/uL Intake and Output 03/07/22 03/08/22 03/08/22 22:59 06:59 14:59 Intake Total 150 / 480 120 / 480 Output Total 401 / 401 Balance -251 / 79 120 / 79 Intake: Oral 150 / 480 120 / 480 Output: Urine 400 / 400 # Bowel Movements 1 / Other: Weight 68.2 kg Weight Measurement Method Built in [facility] Diagnostic Findings telemetry reviewed: NSR in the 60's. No recurrent afib Medications Administered Current Inpatient Medications Acetaminophen (Acetaminophen 325 Mg Tab) 650 mg PO Q4H PRN PRN Reason: Pain or Fever Stop: 04/01/22 21:57 Amoxicillin (Amoxicillin 500 Mg Cap) 500 mg PO TID JOHN Stop: 03/11/22 20:59 Last Admin: 03/08/22 08:36 Dose: 500 mg Apixaban (Apixaban 2.5 Mg Tab) 2.5 mg PO BID [facility] Stop: 04/05/22 12:14 Last Admin: 03/08/22 08:35 Dose: 2.5 mg Diclofenac Sodium (Diclofenac Sod 1% Gel 100 Gm Tube) 2 gm EXT QID PRN; Protocol PRN Reason: leg pain Stop: 04/02/22 01:40 Last Admin: 03/04/22 08:47 Dose: 2 gm Heparin Sodium (Porcine) (Heparin Sod 5,000 Unit/0.5 Ml Vial) 5,000 units SQ Q8 JOHN Stop: 04/01/22 21:59 Last Admin: 03/05/22 14:50 Dose: 5,000 units Hydromorphone HCl (Hydromorphone Inj 0.5 Mg/0.5 Ml Syr) 0.25 mg IV Q6H PRN PRN Reason: Pain Stop: 03/17/22 01:40 Last Admin: 03/06/22 04:12 Dose: 0.25 mg Promethazine HCl 12.5 mg/ (Sodium Chloride) 50.5 mls @ 202 mls/hr IV Q6H PRN PRN Reason: Nausea And Vomiting Stop: 04/02/22 03:31 Last Infusion: 03/03/22 17:13 Dose: Infused Loperamide HCl (Loperamide Hcl 2 Mg Cap) 2 mg PO UD PRN PRN Reason: Diarrhea Stop: 04/02/22 20:05 Last Admin: 03/03/22 20:20 Dose: 2 mg Magnesium Oxide (Magnesium Oxide 400 Mg Tab) 400 mg PO QAM [facility] Stop: 04/07/22 09:14 Metoprolol Succinate (Metoprolol Succ 25mg Ext Rel Tab) 25 mg PO QAM [facility] Stop: 04/04/22 09:59 Last Admin: 03/07/22 08:51 Dose: 25 mg Metoprolol Succinate (Metoprolol Succ 25mg Ext Rel Tab) 12.5 mg PO QPM [facility] Stop: 04/05/22 20:59 Last Admin: 03/07/22 22:04 Dose: Not Given Morphine Sulfate (Morphine Sulfate Cr 15 Mg Tabcr) 30 mg PO Q12 JOHN Stop: 03/16/22 22:34 Last Admin: 03/08/22 08:42 Dose: 30 mg Multi-Ingredient Mouthwash/Gargle (First - Mouthwash Blm 119 Ml) 5 ml PO Q6H PRN PRN Reason: pain from oral ulcers Stop: 04/02/22 17:14 Last Admin: 03/03/22 20:21 Dose: 5 ml Ondansetron HCl (Ondansetron Inj 2 Mg/Ml 2 Ml Vial) 4 mg IV Q6H PRN PRN Reason: nausea/vomiting Stop: 04/02/22 12:44 Last Admin: 03/03/22 12:53 Dose: 4 mg Oxycodone HCl (Oxycodone Hcl Ir 5 Mg Tab (Immediate Release)) 5 - 10 mg PO QID PRN PRN Reason: Pain Stop: 03/16/22 22:32 Last Admin: 03/08/22 03:13 Dose: 10 mg Pantoprazole Sodium (Pantoprazole 40 Mg Tab) 40 mg PO QAM [facility] Stop: 04/02/22 08:59 Last Admin: 03/08/22 08:36 Dose: 40 mg Sertraline HCl (Sertraline Hcl 100 Mg Tablet) [facility] Stop: 04/02/22 08:59 Last Admin: 03/08/22 08:36 Dose: 100 mg
[2022-03-08 10:43] LABS: BUN Creatinine Ratio 21.4 (10-20); Calcium 7.8 mg/dl (8.5-10.1); Creatinine Clr Calc Pharmacy 58.6 ml/min; Est GFR (African American) 95.5 ml/min; Est GFR (Non-African American) 82.4 ml/min
[2022-03-08] MEDS: MAGNESIUM OXIDE 400 MG TAB PO SCH (11:01)
--- NOTE | 2022-03-08 11:11 | Radiation Oncology Progress Nt ---
Date of Service March 08, 2022 Assessment & Plan (1) Anal cancer: Plan: Patient does feel steadily improved in regards to the radiation dermatitis. She stated that she would like to restart treatment. She wants to take this 1 day at a time. We discussed that she may stop treatment at any point in time. She has only 6 remaining fractions. Should she have development of increased pain the treatment will be stopped. She will have an on treatment visit today when she returns to our office. We discussed that should she be transferred to [facility], she could continue her treatments. We discussed the efficacy of treatment should the break be extended to more than 2 weeks. We will have her brought down today to our office for treatment. I did ask her nurse about dressing changes for her feet. They will check into that with orthopedics. Plan ATTENDING ADDENDUM I have reviewed this note and agree with plan and recommendations. Plan to continue radiation therapy on a daily basis. Admission and Anticipated Discharge Date Admission Date: March 02, 2022 Supervising Physician Co-Signing Physician Notes Midlevel I spent 5 minutes in preparation for this follow up evaluation including reviewing all the clinical records, reviewing laboratory studies, pathology reports and imaging results. I spent [20] minutes with direct face to face interaction with the patient and/or family including performing a physical exam and answering all questions. I spent 5 minutes documenting this patient's visit. Subjective 81-year-old white female admitted due to acute kidney injury. Osteomyelitis of the second toe of the right foot. Status post amputation. She had been receiving radiation therapy for anal cancer. This had been held due to radiation dermatitis. She is concerned this morning as to when she will have the dressings changed on her feet. Review of Systems Review of Systems: Unchanged. Physical Exam Constitutional: WD/WN, vitals as above Eyes: PERRL, conjunctivae normal, anicteric sclerae Neck: trachea midline, no thyromegaly Respiratory: normal respiratory effort, lungs clear to auscultation Cardiovascular: RRR, no murmur, no edema Gastrointestinal (Abdomen): normal bowel sounds, soft, nontender, no hepatosplenomegaly Musculoskeletal: Wound dressing in place. Status post amputation of the right second toe. Skin: no rashes, warm and dry Healing radiation dermatitis of the groins. Perianal examination by Dr. Lester yesterday shows improvement of radiation dermatitis. Neurologic: Normal strength and coordination. Psychiatric: A+Ox3, euthymic affect Results & Data ([facility]) Vital Signs (Past 12 Hours) Vital Signs Temp Pulse Pulse Resp BP Pulse Ox O2 Del Method 03/08/22 08:00 36.5 C 60 18 117/55 L 92 Room Air 03/08/22 07:27 56 L 03/08/22 04:24 36.6 C 63 18 95/55 L 92 Room Air
--- NOTE | 2022-03-08 13:44 | Orthopedic Progress Note ---
Date of Service March 08, 2022 Assessment & Plan (1) Foot ulcer: Plan: Patient seen, evaluated, and treated Dispensed interdigital spacers with instructions on use. Patient to keep incision site clean and dry. Patient is weight bearing as tolerated in surgical shoe. Patient will follow up in 2 weeks for suture removal or call sooner if symptoms arise. Admission and Anticipated Discharge Date Admission Date: March 02, 2022 Subjective Patient seen at bedside in no distress. She is resting comfortably and has no complaints. Review of Systems Review of Systems: All systems reviewed & are unremarkable except as noted in HPI & below Physical Exam Constitutional: WD/WN, vitals as above Musculoskeletal: no cyanosis or clubbing, extremities motor strength 5/5 No pain on palpation to calf muscles. Skin: Right foot amputation site well coapted. No signs on infection. Psychiatric: Orientation: alert and oriented x 3 Results & Data ([facility]) Vital Signs (Past 12 Hours) Vital Signs Temp Pulse Pulse Resp BP Pulse Ox O2 Del Method 03/08/22 12:00 36.7 C 73 19 107/56 L 94 Room Air 03/08/22 08:00 36.5 C 60 18 117/55 L 92 Room Air 03/08/22 07:27 56 L 03/08/22 04:24 36.6 C 63 18 95/55 L 92 Room Air
--- NOTE | 2022-03-08 19:36 | Hospitalist Progress Note ---
Date of Service March 08, 2022 delayed entry date of service noted above Assessment & Plan (1) KRISTIN (acute kidney injury): Plan: Acute kidney injury Diarrhea in the setting of chemotherapy Poor intake, nausea, possibly secondary to narcotics? In the setting of diuretic use or right lower extremity edema --Creatinine improved rather quickly with IV fluids from 2.1, now 0.8 Nephrology service consult consulted -- Diarrhea resolved Patient's oral intake also much better Morphine ER reduced to 30 mg to prevent GI symptoms Right lower extremity edema, chronic In setting of severe mitral vegetation RLE cellulitis --Aldactone held secondary to acute renal failure -- Given daptomycin, and doxycycline: cellulitis resolved --Per cardiology service, Aldactone 25 mg p.o. daily twice a week Repeat BMP in 1 week to monitor renal function and potassium Right second toe osteomyelitis --Foot MRI: Second toe suspicious for osteomyelitis -- 03/05: Status post right second toe amputation by Dr. Keenan Vyas -- Given daptomycin IV ID consulted, discussed with Dr. Hermosillo , recommend DC antibiotics after toe amputation -- Patient doing well postoperatively -- Per Dr. Keenan Vyas: Dispensed interdigital spacers with instructions on use. Patient to keep incision site clean and dry. Patient is weight bearing as tolerated in surgical shoe. Patient will follow up in 2 weeks for suture removal or call sooner if symptoms arise. Enterococcus UTI -- Completed amoxicillin course New onset atrial fibrillation, paroxysmal hx LV outflow obstruction/valvular heart disease (severe MR, mild TR)/pulmonary hypertension --Converted to sinus rhythm this afternoon --Echocardiogram performed 2 weeks ago during previous admission --Patient usually on metoprolol succinate 37.5 mg p.o. daily Blood pressure on the lower side --Cardiology service consulted started Eliquis 2.5mg BID Reduced to 25 mg p.o. daily for now -- Patient currently in sinus rhythm -- Monitor for bleeding while on Eliquis -- Follow-up with cardiology in 2 weeks hx anal cancer status post chemotherapy/ongoing radiation Rx chronic cancer pain on narcotics --Morphine decreased to 30 mg to avoid side effects hyperlipidemia -- on statin Rx chronic anemia, hemoglobin at baseline Prediabetes, hemoglobin A1c of 5.9 last visit ongoing tobacco abuse DVT prophylaxis. Heparin subcu Full code Disposition Lives at home Planning to transition to [facility], PT and OT pending plan of care discussed with patient in detail and at length all questions answered She is understanding, agreeable, comfortable with the plan of care Admission and Anticipated Discharge Date Admission Date: March 02, 2022 Subjective ff up for acute renal failure, etc Seen resting in bed, sitting up, watching TV, comfortable States she feels fine overall Bilateral feet pain is improved compared to yesterday No chest pain, shortness of breath, fevers or chills buttock area with mild discomfort No other symptom Review of Systems Review of Systems: all noted and negative except for above Physical Exam Physical Exam: General- oriented x 3, not in distress, speaks in sentences with no effort or accessory muscle use Eyes- anicteric Neck- no JVD Lungs- clear BS bilaterally, no rales/wheezes Heart- normal rate, regular rhythm; no murmurs Abdomen- normal bowel sounds, nondistended, soft, no tenderness Extremities-no lower extremity edema, erythema on the left lower extremity resolved, mild tenderness Right foot-surgical site healing well, sutures intact, no bleeding or discharge Left foot-no edema, erythema/tenderness Neuro- alert, oriented x 3; no gross focal neurologic deficits Skin- warm & dry Results & Data Results & Data ([facility]) Vital Signs (Past 12 Hours) Vital Signs Temp Pulse Resp BP Pulse Ox O2 Del Method 03/08/22 15:23 36.5 C 54 L 18 95/55 L 92 Room Air 03/08/22 12:00 36.7 C 73 19 107/56 L 94 Room Air 03/08/22 08:00 36.5 C 60 18 117/55 L 92 Room Air all noted and reviewed including below
[2022-03-09] MEDS: oxyCODONE HCL IR 5 MG TAB (IMMEDIATE RELEASE) PO PRN ×3 (01:28→17:00)
[2022-03-09] MEDS: AMOXICILLIN 500 MG CAP PO SCH (07:36)
[2022-03-09] MEDS: PANTOprazole 40 MG TAB PO SCH (07:36)
[2022-03-09] MEDS: APIXABAN 2.5 MG TAB PO SCH ×2 (07:36→22:17)
[2022-03-09] MEDS: METOPROLOL SUCC 25MG EXT REL TAB PO SCH (07:36)
[2022-03-09] MEDS: MAGNESIUM OXIDE 400 MG TAB PO SCH (07:36)
[2022-03-09] MEDS: SERTRALINE HCL 100 MG TABLET PO SCH (07:37)
[2022-03-09] MEDS: MoRPHine SULFATE CR 15 MG TABCR PO SCH ×2 (07:38→22:17)
--- NOTE | 2022-03-09 09:43 | Cardiology Progress Note ---
Date of Service March 09, 2022 Assessment & Plan (1) Paroxysmal atrial fibrillation: (2) Hypokalemia: (3) Left ventricular outflow tract obstruction: (4) KRISTIN (acute kidney injury): Plan Very complex 81-year-old female with multiple ongoing issues including anal carcinoma with radiation therapy Chronic issues include renal insufficiency with recent acute on chronic failure Hyperdynamic LV function with LV outflow tract obstruction, mitral insufficiency and pulmonary hypertension Now referred after episode of atrial fibrillation with rapid response the postoperative setting status post right second toe amputation. Beta-puja had been held then restarted with lower dose due to transient hypotension patient hypokalemic at the time of arrhythmia Paroxysmal atrial fibrillation: Now remaining in sinus rhythm status post spontaneous conversion. Complex issues and management given underlying conduction disease hypertrophic LV disease Patient with substantial risk for thromboembolic phenomena in the setting of atrial fibrillation with LV outflow tract obstruction and left atrial dilatation. Would recommend anticoagulation likely Eliquis 2.5 mg twice per day given renal insufficiency. We will need to follow closely for bleeding complications Would continue beta-puja. Evening metoprolol has been held due to bradycardia and low BP repeatedly. Continue metoprolol 25 mg in AM. Evening dose discontinued Keep potassium greater than 4. Supplement magnesium and yanet > 2.0 Patient at risk for recurrence of atrial fibrillation but would not initiate antiarrhythmic therapy at this time Resume spironolactone 25 mg on discharge 2 days per week Case discussed with Dr. Blanton. Stable cardiac symptoms and acceptable for discharge when medically stable. PT/OT recommended and consider rehab vs SNF. Will sign off. Please contact reinforcing metal worker area development consultant with additional questions or concerns. Admission and Anticipated Discharge Date Admission Date: March 02, 2022 Supervising Physician Co-Signing Physician Notes Patient was seen and examined, chart, medications telemetry reviewed. Assessment and plan as well outlined above. Cardiac status is stable without further atrial arrhythmias on telemetry. Tolerating anticoagulation to date Will continue metoprolol succinate 25 mg/day Spironolactone 2 days/week for additional diuretic Predominant limitations at this time orthopedic Call with any questions or concerns Subjective Patient resting in bed comfortably. Reports feeling "better". Anxious for discharge. Needing assistance for ambulation. She is hoping to go home as her is on hospice. She denies cardiac complaints today Review of Systems Review of Systems: All systems reviewed & are unremarkable except as noted in HPI & below Physical Exam Constitutional: + ill appearing and + thin; no acute distress Eyes: PERRL, conjunctivae normal, anicteric sclerae ENMT: external ear and nose normal, oropharynx normal Neck: trachea midline, no thyromegaly Respiratory: normal respiratory effort, lungs clear to auscultation Cardiovascular: Rate/Rhythm: regular rate and regular rhythm Heart Sounds: normal S1, normal S2 and + murmur Vessels: no JVD Gastrointestinal (Abdomen): normal bowel sounds, soft, nontender, no hepatosplenomegaly Psychiatric: A+Ox3, euthymic affect Results & Data ([facility]) Vital Signs (Past 12 Hours) Vital Signs Temp Pulse Pulse Resp BP BP Pulse Ox 03/09/22 07:42 36.7 C 59 L 18 116/74 93 03/09/22 07:03 56 L 03/09/22 04:04 36.4 C L 62 18 106/60 92 03/09/22 01:27 66 120/58 L 03/08/22 22:21 61 03/08/22 23:04 37.1 C 60 16 91/50 L 90 O2 Del Method 03/09/22 07:42 Room Air 03/09/22 07:03 03/09/22 04:04 Room Air 03/09/22 01:27 03/08/22 22:21 03/08/22 23:04 Room Air Laboratory Results CBC 03/08/22 Range/Units 09:07 WBC 4.94 (4.8-10.8) K/ul RBC 2.69 L (3.93-5.22) M/uL Hgb 8.1 L (12.0-16.0) g/dl Hct 25.7 L (34.1-44.9) % Plt Count 119 L (130-400) K/uL Neut # (Auto) 3.94 (1.4-6.5) K/uL Lymph # (Auto) 0.17 L (1.2-3.4) K/uL Dickey # (Auto) 0.53 (0.24-0.82) K/uL Eos # (Auto) 0.19 (0-0.50) K/uL Baso # (Auto) 0.01 (0-0.2) K/uL Comprehensive Metabolic Panel 03/08/22 Range/Units 09:07 Sodium 143 (136-145) mmol/L Potassium 4.0 (3.5-5.1) mmol/L Chloride 111 H (98-107) mmol/L Carbon Dioxide 26 (21-32) mmol/L BUN 15 (6-23) mg/dl Creatinine 0.70 (0.6-1.2) mg/dl Glucose 89 (70-99(Fasting)) mg/dl Calcium 7.8 L (8.5-10.1) mg/dl Intake and Output 03/08/22 03/09/22 03/09/22 22:59 06:59 14:59 Intake Total 150 / 350 100 / 350 Balance 150 / 350 100 / 350 Intake: Oral 150 / 350 100 / 350 Other: Weight 66.7 kg Weight Measurement Method Built in [facility] Diagnostic Findings Telemetry reviewed: NSR and sinus bradycardia in the 50-60 bpm range. No pauses. No recurrent atrial fibrillation Medications Administered Current Inpatient Medications Acetaminophen (Acetaminophen 325 Mg Tab) 650 mg PO Q4H PRN PRN Reason: Pain or Fever Stop: 04/01/22 21:57 Apixaban (Apixaban 2.5 Mg Tab) 2.5 mg PO BID [facility] Stop: 04/05/22 12:14 Last Admin: 03/09/22 07:36 Dose: 2.5 mg Diclofenac Sodium (Diclofenac Sod 1% Gel 100 Gm Tube) 2 gm EXT QID PRN; Protocol PRN Reason: leg pain Stop: 04/02/22 01:40 Last Admin: 03/04/22 08:47 Dose: 2 gm Heparin Sodium (Porcine) (Heparin Sod 5,000 Unit/0.5 Ml Vial) 5,000 units SQ Q8 [facility] Stop: 04/01/22 21:59 Last Admin: 03/05/22 14:50 Dose: 5,000 units Hydromorphone HCl (Hydromorphone Inj 0.5 Mg/0.5 Ml Syr) 0.25 mg IV Q6H PRN PRN Reason: Pain Stop: 03/17/22 01:40 Last Admin: 03/06/22 04:12 Dose: 0.25 mg Promethazine HCl 12.5 mg/ (Sodium Chloride) 50.5 mls @ 202 mls/hr IV Q6H PRN PRN Reason: Nausea And Vomiting Stop: 04/02/22 03:31 Last Infusion: 03/03/22 17:13 Dose: Infused Loperamide HCl (Loperamide Hcl 2 Mg Cap) 2 mg PO UD PRN PRN Reason: Diarrhea Stop: 04/02/22 20:05 Last Admin: 03/03/22 20:20 Dose: 2 mg Magnesium Oxide (Magnesium Oxide 400 Mg Tab) 400 mg PO [facility] Stop: 04/07/22 09:14 Last Admin: 03/09/22 07:36 Dose: 400 mg Metoprolol Succinate (Metoprolol Succ 25mg Ext Rel Tab) 25 mg PO [facility] Stop: 04/04/22 09:59 Last Admin: 03/09/22 07:36 Dose: 25 mg Morphine Sulfate (Morphine Sulfate Cr 15 Mg Tabcr) 30 mg PO Q12 [facility] Stop: 03/16/22 22:34 Last Admin: 03/09/22 07:38 Dose: 30 mg Multi-Ingredient Mouthwash/Gargle (First - Mouthwash Blm 119 Ml) 5 ml PO Q6H PRN PRN Reason: pain from oral ulcers Stop: 04/02/22 17:14 Last Admin: 03/03/22 20:21 Dose: 5 ml Ondansetron HCl (Ondansetron Inj 2 Mg/Ml 2 Ml Vial) 4 mg IV Q6H PRN PRN Reason: nausea/vomiting Stop: 04/02/22 12:44 Last Admin: 03/03/22 12:53 Dose: 4 mg Oxycodone HCl (Oxycodone Hcl Ir 5 Mg Tab (Immediate Release)) 5 - 10 mg PO QID PRN PRN Reason: Pain Stop: 03/16/22 22:32 Last Admin: 03/09/22 01:28 Dose: 10 mg Pantoprazole Sodium (Pantoprazole 40 Mg Tab) 40 mg PO [facility] Stop: 04/02/22 08:59 Last Admin: 03/09/22 07:36 Dose: 40 mg Sertraline HCl (Sertraline Hcl 100 Mg Tablet) 100 mg PO [facility] Stop: 04/02/22 08:59 Last Admin: 03/09/22 07:37 Dose: 100 mg
[2022-03-09 09:48] LABS: Basophils # (auto) 0.01 K/uL (0-0.2); Basophils % (auto) 0.2 %; Eosinophils # (auto) 0.18 K/uL (0-0.50); Hematocrit (blood only) 26.8 % (34.1-44.9); Hemoglobin 8.6 g/dl (12.0-16.0); Immature Granulocytes # (auto) 0.06 K/uL (0.00-0.02); Lymphocytes # (auto) 0.13 K/uL (1.2-3.4); Lymphocytes % (auto) 2.2 %; Mean Corpuscular Hemoglobin 30.5 pg (25.0-34.0); Mean Corpuscular Hgb Conc 32.1 g/dL (32.0-36.0); Mean Platelet Volume 9.9 fL (9.4-12.3); Monocytes # (auto) 0.67 K/uL (0.24-0.82); Monocytes % (auto) 11.2 %; Neutrophils # (auto) 4.91 K/uL (1.4-6.5); Neutrophils % (auto) 82.4 %; Platelet Count 128 K/uL (130-400); RDW Coefficient of Variation 24.6 % (11.5-14.5); RDW Standard Deviation 82.1 fL (36.4-46.3); Red Blood Count 2.82 M/uL (3.93-5.22); White Blood Count 5.96 K/ul (4.8-10.8)
[2022-03-09] MEDS ORDERED: SPIRONOLACTONE 25 MG TAB PO ONE (10:15)
[2022-03-09] MEDS ORDERED: SPIRONOLACTONE 12.5 MG TAB PO ONE (10:15)
[2022-03-09 10:20] LABS: BUN Creatinine Ratio 20.6 (10-20); Calcium 7.9 mg/dl (8.5-10.1); Creatinine Clr Calc Pharmacy 65.2 ml/min; Est GFR (African American) 98.9 ml/min; Est GFR (Non-African American) 85.3 ml/min; Potassium 4.2 mmol/L (3.5-5.1)
[2022-03-09 10:24] LABS: Polychromasia 1+
--- NOTE | 2022-03-09 10:43 | Hospitalist Progress Note ---
Date of Service March 09, 2022 Assessment & Plan (1) KRISTIN (acute kidney injury): Plan: Acute kidney injury Diarrhea in the setting of chemotherapy Poor intake, nausea, possibly secondary to narcotics? In the setting of diuretic use or right lower extremity edema --Creatinine improved rather quickly with IV fluids from 2.1, now 0.8 Nephrology service consult consulted -- Diarrhea resolved Patient's oral intake also much better Morphine ER reduced to 30 mg to prevent GI symptoms Right lower extremity edema, chronic In setting of severe mitral vegetation RLE cellulitis --Aldactone held secondary to acute renal failure -- Given daptomycin, and doxycycline: cellulitis resolved --Per cardiology service, Aldactone 25 mg p.o. daily twice a week Repeat BMP in 1 week to monitor renal function and potassium Right second toe osteomyelitis --Foot MRI: Second toe suspicious for osteomyelitis -- 03/05: Status post right second toe amputation by Dr. Keenan Vyas -- Given daptomycin IV ID consulted, discussed with Dr. Hermosillo , recommend DC antibiotics after toe amputation -- Patient doing well postoperatively -- Per Dr. Keenan Vyas: Dispensed interdigital spacers with instructions on use. Patient to keep incision site clean and dry. Patient is weight bearing as tolerated in surgical shoe. Patient will follow up in 2 weeks for suture removal or call sooner if symp toms arise. Enterococcus UTI -- Completed amoxicillin course New onset atrial fibrillation, paroxysmal hx LV outflow obstruction/valvular heart disease (severe MR, mild TR)/pulmonary hypertension --Converted to sinus rhythm this afternoon --Echocardiogram performed 2 weeks ago during previous admission --Patient usually on metoprolol succinate 37.5 mg p.o. daily Blood pressure on the lower side --Cardiology service consulted started Eliquis 2.5mg BID Reduced to metoprolol XL 25 mg p.o. daily for now -- Patient currently in sinus rhythm -- Monitor for bleeding while on Eliquis -- Follow-up with cardiology in 2 weeks hx anal cancer status post chemotherapy/ongoing radiation Rx chronic cancer pain on narcotics --Morphine decreased to 30 mg to avoid side effects -- Evaluated by radiation oncology service was admitted Examination revealing perineal dermatitis improving per Dr. Lester Continue daily skin care, including protective cream --Patient underwent 2 sessions of radiation while admitted, 4 more remaining sessions per radiation oncology hyperlipidemia -- on statin Rx chronic anemia, hemoglobin at baseline Prediabetes, hemoglobin A1c of 5.9 last visit ongoing tobacco abuse DVT prophylaxis. Heparin subcu Full code Disposition Lives at home Planning to transition to [facility], PT and OT pending plan of care discussed with patient in detail and at length all questions answered She is understanding, agreeable, comfortable with the plan of care Admission and Anticipated Discharge Date Admission Date: March 02, 2022 Subjective Follow-up for acute renal failure, diarrhea, second toe of the right foot osteomyelitis, status post amputation, anal cancer on chemo/radiation therapy, etc. Seen resting in bed, sitting up, watching TV, not in distress Comfortable States she feels fine overall Minimal discomfort over bilateral feet, surgical site Similar leg tenderness No shortness of breath, chest pain, palpitations, dizziness No fevers or chills Appetite is okay, tolerating food well No diarrhea No other symptoms States she is ready for discharge today, anticipating discharge to [facility] Review of Systems Review of Systems: all noted and negative except for above Physical Exam Physical Exam: General- oriented x 3, not in distress, speaks in sentences with no effort or accessory muscle use Eyes- anicteric Neck- no JVD Lungs- clear breath sounds bilaterally, no crackles or wheezing Heart- normal rate, regular rhythm; no murmurs Abdomen- normal bowel sounds, nondistended, soft, nontender Extremities- no pretibial edema, no calf tenderness Bilateral lower extremity edema-trace edema noted, skin wrinkling, no erythema, no tenderness No warmth Right foot-surgical site healing well, sutures intact, no bleeding or discharge No bipedal edema Neuro- alert, oriented x 3; no gross focal neurologic deficits Skin- warm & dry Results & Data Results & Data ([facility]) Vital Signs (Past 12 Hours) Vital Signs Temp Pulse Pulse Resp BP BP Pulse Ox 03/09/22 07:42 36.7 C 59 L 18 116/74 93 03/09/22 07:03 56 L 03/09/22 04:04 36.4 C L 62 18 106/60 92 03/09/22 01:27 66 120/58 L 03/08/22 23:04 37.1 C 60 16 91/50 L 90 O2 Del Method 03/09/22 07:42 Room Air 03/09/22 07:03 03/09/22 04:04 Room Air 03/09/22 01:27 12/06/22 23:04 Room Air all noted and reviewed including below
--- NOTE | 2022-03-09 11:13 | Discharge Summary ---
Discharge Summary Date of Service March 09, 2022 Notes For Next Care Provider Please repeat basic metabolic profile and CBC on follow-up visit 1 week postdischarge. Titrate Aldactone accordingly depending on volume status, renal function. Patient started on Eliquis for paroxysmal A. fib, monitor hemoglobin. Metoprolol XL reduced to 25 mg p.o. daily as blood pressure on the lower side. Morphine extended release reduced to to prevent GI symptoms. Medication Changes From Visit Aldactone 25 mg daily reduced to twice a week, Tuesdays and Saturdays. Metoprolol XL 37.5 mg daily reduced to 25 mg daily Morphine extended release 60 mg twice daily reduced to 30 mg twice daily New medications: Eliquis 2.5 mg p.o. twice daily Magnesium supplement daily Admission HPI Per Admitting Provider History obtained from patient and records. Medical history significant for LV outflow obstruction, valvular heart disease (severe MR, mild TR), pulmonary hypertension, hypertension, hyperlipidemia, GERD, history anal cancer status post chemotherapy/ongoing radiation Rx, chronic cancer pain on narcotics, daily steroid Rx for nausea symptoms, chronic anemia (baseline hemoglobin 9), LE cellulitis ongoing antibiotic Rx, ongoing tobacco abuse. Last confinement 2 weeks ago for multifactorial ARF, hypokalemia and lower extremity cellulitis. Patient adamantly requested to be discharge after overnight stay be able to attend to her on home hospice. Patient discharged on doxycycline and cefdinir course for leg cellulitis Patient indapamide changed to Aldactone on discharge. Appetite okay but patient eating less from persistent nausea/dry heaving symptoms since discharge, no abdominal pain. No chest pain, no shortness of breath. Improved leg swelling with right second toe ulcer with fluid seepage. No fever, no chills. Outpatient [facility] [place] Hematology/Oncology treatment unit visits since discharge for IV hydration and potassium replacement. Patient seen by PCP at the office today. Worsening creatinine trend noted on outpatient blood work. Serum creatinine noted to be 2.6 Patient directed to ER for evaluation. 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 Normal course for R [id number] Admission Exam Per Admitting Provider GENERAL: chronically ill, no respiratory distress SKIN: Pallor, warm HEENT: Pale palpebral conjunctivae, no ptosis, dry buccal mucosa NECK : Supple, no tenderness CHEST : Decreased breath sounds, no tenderness HEART : Bradycardic, apical systolic murmur ABDOMEN: Some distention, nontender EXTREMITIES : Minimal bilateral LE erythema with minimal tenderness, right second toe swelling NEUROLOGIC : Coherent, no facial asymmetry, no other gross focality Principal Dx & Hospital Course #1 = Principal Diagnosis (1) KRISTIN (acute kidney injury): Acute kidney injury Diarrhea in the setting of chemotherapy Poor intake, nausea, possibly secondary to narcotics? In the setting of diuretic use or right lower extremity edema --Creatinine improved rather quickly with IV fluids from 2.1, now 0.8 Nephrology service consult consulted -- Diarrhea resolved Patient's oral intake also much better Morphine ER reduced to 30 mg to prevent GI symptoms Right lower extremity edema, chronic In setting of severe mitral vegetation RLE cellulitis --Aldactone held secondary to acute renal failure -- Given daptomycin, and doxycycline: cellulitis resolved --Per cardiology service, Aldactone 25 mg p.o. daily twice a week Repeat BMP in 1 week to monitor renal function and potassium Right second toe osteomyelitis --Foot MRI: Second toe suspicious for osteomyelitis -- 03/05: Status post right second toe amputation by Dr. Keenan Vyas -- Given daptomycin IV ID consulted, discussed with Dr. Hermosillo , recommend DC antibiotics after toe amputation -- Patient doing well postoperatively -- Per Dr. Keenan Vyas: Dispensed interdigital spacers with instructions on use. Patient to keep incision site clean and dry. Patient is weight bearing as tolerated in surgical shoe. Patient will follow up in 2 weeks for suture removal or call sooner if symptoms arise. Enterococcus UTI -- Completed amoxicillin course New onset atrial fibrillation, paroxysmal hx LV outflow obstruction/valvular heart disease (severe MR, mild TR)/pulmonary hypertension --Patient developed atrial fibrillation while admitted --Converted to sinus rhythm with IV metoprolol --Echocardiogram performed 2 weeks ago during previous admission --Patient usually on metoprolol succinate 37.5 mg p.o. daily Blood pressure on the lower side --Cardiology service consulted started Eliquis 2.5mg BID Reduced to metoprolol XL 25 mg p.o. daily for now -- Patient currently in sinus rhythm -- Monitor for bleeding while on Eliquis -- Follow-up with cardiology in 2 weeks History of anal cancer status post chemotherapy/ongoing radiation Rx Chronic cancer pain on narcotics -- Morphine decreased to 30 mg to avoid GI side effects -- Evaluated by radiation oncology service was admitted Examination revealing perineal dermatitis improving per Dr. Lester Continue daily skin care, including protective cream --Patient underwent 2 sessions of radiation while admitted, 4 more remaining sessions per radiation oncology Chronic anemia, hemoglobin at baseline -- Monitor hemoglobin closely while on Eliquis Prediabetes -- hemoglobin A1c of 5.9 last visit ongoing tobacco abuse DVT prophylaxis. Heparin subcu Full code Disposition: Lives at home Planning to transition to [facility], PT and OT pending plan of care discussed with patient in detail and at length all questions answered She is understanding, agreeable, comfortable with the plan of care Discharge Exam General- oriented x 3, not in distress, speaks in sentences with no effort or accessory muscle use Eyes- anicteric Neck- no JVD Lungs- clear breath sounds bilaterally, no rales/wheezes Heart- normal rate, regular rhythm; no murmurs Abdomen- normal bowel sounds, nondistended, soft, nontender Extremities-bilateral lower extremity grade 1 edema; left lower leg: Mild erythema in the distal half, with open areas, seepage Right foot: Second toe-deep ulcer on the lateral aspect No bleeding, positive whitish discharge Neuro- alert, oriented x 3; no gross focal neurologic deficits Skin- warm & dry Updated Medication List Medication Instructions Recorded Confirmed Type sertraline 100 mg tablet (Zoloft) 100 mg PO QAM 03/05/19 02/28/22 History omeprazole 20 mg tablet,delayed 20 mg PO QAM 12/22/21 02/28/22 History release acetaminophen 500 mg capsule 500 mg PO Q4 PRN Pain 12/27/21 02/28/22 History metoprolol succinate 25 mg 37.5 mg PO QAM 12/30/21 02/28/22 History tablet,extended release 24 hr (Toprol XL) ondansetron HCl 8 mg tablet 8 mg PO Q8H PRN Nausea 02/07/22 02/28/22 History prochlorperazine maleate 10 mg 10 mg PO Q6H PRN Nausea 02/07/22 02/28/22 History tablet (Compazine) dexamethasone 4 mg tablet 4 mg PO AMHS 02/18/22 02/28/22 History morphine 60 mg tablet,extended 60 mg PO AMHS 02/18/22 02/28/22 History release oxycodone 20 mg tablet 20 mg PO Q4 PRN Pain, Severe 02/18/22 02/28/22 History potassium chloride 20 mEq oral 40 meq PO BID 10 days #30 ea 02/20/22 02/28/22 Rx packet spironolactone 25 mg tablet 25 mg PO DAILY #30 tabs 02/20/22 02/28/22 Rx (Aldactone) amoxicillin 500 mg capsule 500 mg PO TID 02/28/22 02/28/22 History silver sulfadiazine 1 % topical 1 applic topical TID PRN wound 02/28/22 Rx cream (Silvadene) healing #85 grams apixaban 2.5 mg tablet (Eliquis) 2.5 mg PO BID 30 days #60 tabs 03/09/22 Rx magnesium oxide 400 mg (241.3 mg 400 mg PO QAM #30 tabs 03/09/22 Rx magnesium) tablet morphine 15 mg tablet,extended 30 mg PO Q12 #14 tabs 03/09/22 Rx release Hospital Stay Data Consultations 03/02/22 19:42 ED Decision to Admit Stat 03/03/22 01:41 Consult Nephrology Routine 03/03/22 07:30 Consult Podiatry Routine 03/04/22 12:47 Consult Infectious Diseases Routine 03/05/22 14:56 Consult Cardiology Routine 03/07/22 08:13 Consult Radiation Oncology Routine Procedures Performed Operation Date: 03/05/22 10:20 Actual Procedures p Right 2nd Toe Amputation(Right) - Keenan Vyas, ESDRASM, MS Diagnostic Imagining Performed Chest X-Ray 03/02/22 19:39 XR chest 1V portable HISTORY: 81 years-old Female renla failure acute renal failure COMPARISON: Chest 02/18/2022 TECHNIQUE: AP view of the chest FINDINGS: Cardiac, is mildly enlarged. Right IJ [id number] catheter appears stable. No pneumothorax, pleural effusion, airspace consolidation or overt pulmonary edema. Bones of the chest appear grossly intact. IMPRESSION: Cardiomegaly without acute process. ACT 112: Negative or not required by law. The above report was generated using voice recognition software. It may contain grammatical, syntax or spelling errors. Electronically signed by: Roberto Owens M.D. 03/02/2022 8:22 PM Foot X-Ray 03/02/22 19:55 XR foot RT min 3V routine HISTORY: 81 years-old Female wound on 2nd toe chronic wound of the right forefoot adjacent to the second toe. Clinical concern for osteomyelitis. COMPARISON: 02/20/2022 TECHNIQUE: 3 views of the right foot FINDINGS: Demineralized appearance of the bones. Mostly mild multifocal osteoarthritis. Extension of the metatarsal-phalangeal joints. Mild soft tissue swelling of the forefoot. No acute fracture, dislocation or osseous erosion. Spurring of the calcaneus. IMPRESSION: Stable exam from the 02/20/2022 study. Mild soft tissue swelling without evidence of osteomyelitis. ACT 112: Negative or not required by law. The above report was generated using voice recognition software. It may contain grammatical, syntax or spelling errors. Electronically signed by: Roberto Owens M.D. 03/02/2022 8:26 PM Foot MRI 03/03/22 20:13 MR foot RT w/o con HISTORY: 81 years-old Female rule out osteomyelitis second toe chronic pain with soft tissue wound of the right foot/second toe with possible osteomyelitis COMPARISON: Right foot radiographs 03/02/2022. TECHNIQUE: Multiplanar multisequence MRI of the right foot was obtained without the use of IV contrast. FINDINGS: Motion degraded exam. Diffuse atrophy of the intrinsic musculature suggestive of chronic denervation changes. Mostly mild multifocal osteoarthritis of the right foot. There is diffuse subcutaneous and deep tissue edema of the foot. No fluid collection to suggest abscess. There is increased T2/STIR decreased T1 signal involving the second middle phalanx. Bone marrow signal is otherwise preserved throughout the foot. Extension of the metatarsal-phalangeal with flexion of the interphalangeal joints. The tendons and ligaments are not well evaluated. IMPRESSION: 1. Motion degraded exam. 2. Abnormal marrow signal within the second middle phalanx is suspicious for osteomyelitis. 3. Chronic denervation changes of the foot with diffuse subcutaneous and deep tissue edema. 4. No abscess. ACT 112: Negative or not required by law. The above report was generated using voice recognition software. It may contain grammatical, syntax or spelling errors. Electronically signed by: Roberto Owens M.D. 03/04/2022 9:15 AM Renal Ultrasound 03/04/22 08:42 US renal/blad retro comp CLINICAL HISTORY: acute renal failure TECHNIQUE: Multiple sonographic real-time images of the kidneys and bladder were obtained. COMPARISON: Comparison is made to CT abdomen pelvis 12/24/2021 FINDINGS: The right kidney measures 10.3 cm in length, and the left kidney measures 8.4 cm in length although this may be an underestimate due to shadowing. The right kidney is normal in size, contour, cortical thickness, and echogenicity. No hydronephrosis is identified. No renal lesion is identified. No perinephric fluid collection is seen. The left renal cortex is diffusely echogenic in appearance, with diffuse cortical thinning. No hydronephrosis is identified. No renal lesion is id entified. No perinephric fluid collection is seen. The bladder is partially distended. No large intraluminal mass is seen. IMPRESSION: No evidence of hydronephrosis. The left kidney is echogenic and minimally decreased in size compared to the right, which can be seen in medical renal disease. ACT 112: Negative or not required by law. Electronically signed by: Milad Douglas M.D. 03/04/2022 2:41 PM Pending Results Patient Have Any Pending Studies at Discharge: Yes Discharge Instructions Given to Patient (Per Discharging Provider) PLEASE REFER TO YOUR NEW MEDICATION LIST AND FOLLOW INSTRUCTIONS CAREFULLY. YOUR NEW MEDICATIONS INCLUDE: Aldactone 25 mg p.o. daily every Monday and Monday Eliquis 2.5 mg p.o. twice daily Magnesium supplement daily YOUR MEDICATION CHANGES INCLUDE: Reduce metoprolol XL to 25 mg p.o. daily Reduce morphine ER to 30 mg p.o. twice daily Please take a probiotic daily for [address] Keenan Vyas's recommendations: interdigital spacers as per instructions keep incision site clean and dry weight bearing as tolerated in surgical shoe follow up in 2 weeks for suture removal or call sooner if symptoms arise. Continue daily skin care in the perineal area for radiation dermatitis, including protective cream. PLEASE CALL YOUR PRIMARY CARE PHYSICIAN OR RETURN TO THE ER IF WITH WORSENING OF SYMPTOMS, INCLUDING Nausea and vomiting, diarrhea, poor oral intake, changes in urination, Legs or feet, perineal area swelling, redness, tenderness, Bleeding, discharge, pain on the surgical site, Shortness of breath, chest pain, dizziness, palpitations, etc. FOLLOW UP WITH PRIMARY CARE PHYSICIAN OUTLINED ABOVE. Follow-up with wrapper stripper Dr. Keenan Vyas in 2 weeks. Contact information outlined above. Follow-up with concrete pipe making machine operator Dr. Wil Blanton in 3 to 4 weeks. Contact information outlined above. Follow-up with your oncologist as scheduled. Total Time Total Time Spent Total Time Spent (In Minutes): > 30 minutes
[2022-03-09] MEDS: LOPERAMIDE HCL 2 MG CAP PO PRN ×2 (17:06→22:39)
[2022-03-09] MEDS: oxyCODONE HCL IR 5 MG TAB (IMMEDIATE RELEASE) PO SCH (21:33)
[2022-03-10 09:22] LABS: BUN Creatinine Ratio 18.5 (10-20); Creatinine Clr Calc Pharmacy 63.1 ml/min; Est GFR (African American) 97.9 ml/min; Est GFR (Non-African American) 84.4 ml/min; Potassium 3.9 mmol/L (3.5-5.1)
[2022-03-10] MEDS: METOPROLOL SUCC 25MG EXT REL TAB PO SCH (09:32)
[2022-03-10] MEDS: APIXABAN 2.5 MG TAB PO SCH ×2 (09:32→20:11)
[2022-03-10] MEDS: SERTRALINE HCL 100 MG TABLET PO SCH (09:33)
[2022-03-10] MEDS: MAGNESIUM OXIDE 400 MG TAB PO SCH (09:33)
[2022-03-10] MEDS: PANTOprazole 40 MG TAB PO SCH (09:33)
[2022-03-10] MEDS: MoRPHine SULFATE CR 15 MG TABCR PO SCH (09:36)
[2022-03-10] MEDS: oxyCODONE HCL IR 5 MG TAB (IMMEDIATE RELEASE) PO SCH (09:36)
[2022-03-10] MEDS: FIRST - Mouthwash BLM 119 ML PO PRN (09:39)
[2022-03-10] MEDS: oxyCODONE HCL IR 5 MG TAB (IMMEDIATE RELEASE) PO PRN ×2 (14:32→18:51)
--- NOTE | 2022-03-10 14:42 | Hospitalist Progress Note ---
Date of Service March 10, 2022 Assessment & Plan (1) KRISTIN (acute kidney injury): Plan: History of anal cancer status post chemotherapy/ongoing radiation Rx Chronic cancer pain on narcotics Morphine decreased to 30 mg to avoid GI side effects Evaluated by radiation oncology service Examination revealing perineal dermatitis improving per Dr. Lester Continue daily skin care, including protective cream Will have radiation therapy today and following that will need to have 3 more doses to complete the session Radiation will be completed on Monday and following that patient may be discharged Pain is not being controlled with MS Contin 30 mg twice daily, oxycodone 5 to 10 mg 4 times daily and as needed intravenous Dilaudid MS Contin has been increased to 60 mg twice daily and oxycodone decreased to 5 mg every 4 hourly as needed for better control of pain Warned against side effect of narcotics Acute kidney injury Diarrhea in the setting of chemotherapy Poor intake, nausea, possibly secondary to narcotics? In the setting of diuretic use or right lower extremity edema Creatinine improved rather quickly with IV fluids from 2.1, now 0.8 Nephrology service consult consulted Creatinine remains stable Still having occasional diarrhea Right lower extremity edema, chronic In setting of severe mitral vegetation RLE cellulitis Aldactone held secondary to acute renal failure Given daptomycin, and doxycycline: cellulitis resolved Per cardiology service, Aldactone 25 mg p.o. twice a week Repeat BMP in 1 week to monitor renal function and potassium Right second toe osteomyelitis Foot MRI: Second toe suspicious for osteomyelitis 03/05: Status post right second toe amputation by Dr. Keenan Vyas Given daptomycin IV ID consulted, discussed with Dr. Hermosillo , recommend DC antibiotics after toe amputation Patient doing well postoperatively Per Dr. Keenan Vyas: Dispensed interdigital spacers with instructions on use. Patient to keep incision site clean and dry. Patient is weight bearing as tolerated in surgical shoe. Patient will follow up in 2 weeks for suture removal or call sooner if symptoms arise. 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 daily for now decreased from 37.5 mg daily Patient currently in sinus rhythm Monitor for bleeding while on Eliquis Follow-up with cardiology in 2 weeks Chronic anemia, hemoglobin at baseline -- Monitor hemoglobin closely while on Eliquis Prediabetes -- hemoglobin A1c of 5.9 last visit ongoing tobacco abuse DVT prophylaxis. Heparin subcu Full code Disposition: Lives at home Planning to transition to [facility], PT and OT pending plan of care discussed with patient in detail and at length all questions answered She is understanding, agreeable, comfortable with the plan of care Discussed with the daughter and the patient and the pain medication was increased Admission and Anticipated Discharge Date Admission Date: March 02, 2022 Subjective 03/10/2022 The patient was seen and examined in medical telemetry unit She has been complaining of a lot of pain at the back and almost crying with the pain She is having diarrhea Does not have any drowsiness but complains to her weakness Review of Systems Review of Systems: All systems reviewed and are unremarkable except as noted below Physical Exam Physical Exam: Lying in bed with discomfort due to pain Constitutional: well developed, well nourished, + ill appearing and average body habitus Eyes: PERRL, conjunctivae normal, anicteric sclerae ENMT: external ear and nose normal, oropharynx normal Neck: trachea midline, no thyromegaly Respiratory: no respiratory distress Auscultation: lungs clear to auscultation bilaterally Cardiovascular: Rate/Rhythm: regular rate and regular rhythm; not tachycardic Heart Sounds: normal S1 and normal S2; no murmur Gastrointestinal (Abdomen): Inspection/Auscultation: normal bowel sounds; abdomen not distended Percussion/Palpation: abdomen soft; abdomen nontender Musculoskeletal: No acute arthritis involving any joint Neurologic: Alert, awake and oriented x3. Generally weak and lethargic. Lymphatic: no cervical or axillary lymphadenopathy Results & Data Results & Data ([facility]) Vital Signs (Past 12 Hours) Vital Signs Temp Pulse Resp BP Pulse Ox O2 Del Method O2 Flow Rate 03/10/22 09:00 Room Air 03/10/22 07:33 36.9 C 64 20 106/61 94 Nasal Cannula 2 Laboratory Results [facility] 03/10/22 08:24 Sodium 141 Potassium 3.9 Chloride 111 H Carbon Dioxide 26 BUN 12 Creatinine 0.65 Glucose 93 Calcium 8.0 L Medications Administered Current Inpatient Medications Acetaminophen (Acetaminophen 325 Mg Tab) 650 mg PO Q4H PRN PRN Reason: Pain or Fever Stop: 04/01/22 21:57 Apixaban (Apixaban 2.5 Mg Tab) 2.5 mg PO BID [facility] Stop: 04/05/22 12:14 Last Admin: 03/10/22 09:32 Dose: 2.5 mg Diclofenac Sodium (Diclofenac Sod 1% Gel 100 Gm Tube) 2 gm EXT QID PRN; Protocol PRN Reason: leg pain Stop: 04/02/22 01:40 Last Admin: 03/04/22 08:47 Dose: 2 gm Heparin Sodium (Porcine) (Heparin Sod 5,000 Unit/0.5 Ml Vial) 5,000 units SQ Q8 [facility] Stop: 04/01/22 21:59 Last Admin: 03/05/22 14:50 Dose: 5,000 units Hydromorphone HCl (Hydromorphone Inj 0.5 Mg/0.5 Ml Syr) 0.25 mg IV Q6H PRN PRN Reason: Pain Stop: 03/17/22 01:40 Last Admin: 03/06/22 04:12 Dose: 0.25 mg Promethazine HCl 12.5 mg/ (Sodium Chloride) 50.5 mls @ 202 mls/hr IV Q6H PRN PRN Reason: Nausea And Vomiting Stop: 04/02/22 03:31 Last Infusion: 03/03/22 17:13 Dose: Infused Loperamide HCl (Loperamide Hcl 2 Mg Cap) 2 mg PO UD PRN PRN Reason: Diarrhea Stop: 04/02/22 20:05 Last Admin: 03/09/22 22:39 Dose: 2 mg Magnesium Oxide (Magnesium Oxide 400 Mg Tab) 400 mg PO QAM [facility] Stop: 04/07/22 09:14 Last Admin: 03/10/22 09:33 Dose: 400 mg Metoprolol Succinate (Metoprolol Succ 25mg Ext Rel Tab) 25 mg PO QAM [facility] Stop: 04/04/22 09:59 Last Admin: 03/10/22 09:32 Dose: 25 mg Morphine Sulfate (Morphine Sulfate Cr 60 Mg Tabcr) 60 mg PO Q12 [facility] Stop: 03/24/22 20:59 Multi-Ingredient Mouthwash/Gargle (First - Mouthwash Blm 119 Ml) 5 ml PO Q6H PRN PRN Reason: pain from oral ulcers Stop: 04/02/22 17:14 Last Admin: 03/10/22 09:39 Dose: 5 ml Ondansetron HCl (Ondansetron Inj 2 Mg/Ml 2 Ml Vial) 4 mg IV Q6H PRN PRN Reason: nausea/vomiting Stop: 04/02/22 12:44 Last Admin: 03/03/22 12:53 Dose: 4 mg Oxycodone HCl (Oxycodone Hcl Ir 5 Mg Tab (Immediate Release)) 5 mg PO Q4H PRN PRN Reason: Pain Stop: 03/24/22 12:02 Last Admin: 03/10/22 14:32 Dose: 5 mg Pantoprazole Sodium (Pantoprazole 40 Mg Tab) 40 mg PO [facility] Stop: 04/02/22 08:59 Last Admin: 03/10/22 09:33 Dose: 40 mg Sertraline HCl (Sertraline Hcl 100 Mg Tablet) 100 mg PO [facility] Stop: 04/02/22 08:59 Last Admin: 03/10/22 09:33 Dose: 100 mg
[2022-03-10] MEDS: MoRPHine SULFATE CR 60 MG TABCR PO SCH (20:11)
[2022-03-11] MEDS: oxyCODONE HCL IR 5 MG TAB (IMMEDIATE RELEASE) PO PRN ×4 (06:32→21:52)
[2022-03-11] MEDS: MoRPHine SULFATE CR 60 MG TABCR PO SCH ×2 (08:47→21:08)
[2022-03-11] MEDS: PANTOprazole 40 MG TAB PO SCH (08:48)
[2022-03-11] MEDS: METOPROLOL SUCC 25MG EXT REL TAB PO SCH (08:48)
[2022-03-11] MEDS: MAGNESIUM OXIDE 400 MG TAB PO SCH (08:48)
[2022-03-11] MEDS: SERTRALINE HCL 100 MG TABLET PO SCH (08:48)
[2022-03-11] MEDS: APIXABAN 2.5 MG TAB PO SCH ×2 (08:49→21:35)
[2022-03-11] MEDS: HYDROmorphone INJ 0.5 MG/0.5 ML SYR IV PRN ×2 (08:49→16:12)
[2022-03-11] MEDS: FIRST - Mouthwash BLM 119 ML PO PRN (08:51)
--- NOTE | 2022-03-11 14:41 | Hospitalist Progress Note ---
Date of Service March 11, 2022 Assessment & Plan (1) KRISTIN (acute kidney injury): Plan: History of anal cancer status post chemotherapy/ongoing radiation Rx Chronic cancer pain on narcotics Morphine decreased to 30 mg to avoid GI side effects Evaluated by radiation oncology service Examination revealing perineal dermatitis improving per Dr. Lester Continue daily skin care, including protective cream Will have radiation therapy today and following that will need to have 3 more doses to complete the session Radiation will be completed on Monday and following that patient may be discharged Pain is not being controlled with MS Contin 30 mg twice daily, oxycodone 5 to 10 mg 4 times daily and as needed intravenous Dilaudid MS Contin has been increased to 60 mg twice daily and oxycodone decreased to 5 mg every 4 hourly as needed for better control of pain Warned against side effect of narcotics Pain seems to be reasonably controlled Overall condition has not been improving and the patient may need palliative care evaluation while in the hospital Acute kidney injury Diarrhea in the setting of chemotherapy Poor intake, nausea, possibly secondary to narcotics? In the setting of diuretic use or right lower extremity edema Creatinine improved rather quickly with IV fluids from 2.1, now 0.8 Nephrology service consult consulted Creatinine remains stable Still having occasional diarrhea Right lower extremity edema, chronic In setting of severe mitral vegetation RLE cellulitis Aldactone held secondary to acute renal failure Given daptomycin, and doxycycline: cellulitis resolved Per cardiology service, Aldactone 25 mg p.o. twice a week Repeat BMP in 1 week to monitor renal function and potassium Creatinine remains stable Right second toe osteomyelitis Foot MRI: Second toe suspicious for osteomyelitis 03/05: Status post right second toe amputation by Dr. Keenan Vyas Given daptomycin IV ID consulted, discussed with Dr. Hermosillo , recommend DC antibiotics after toe amputation Patient doing well postoperatively Per Dr. Keenan Vyas: Dispensed interdigital spacers with instructions on use. Patient to keep incision site clean and dry. Patient is weight bearing as tolerated in surgical shoe. Patient will follow up in 2 weeks for suture removal or call sooner if symptoms arise. 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 daily for now decreased from 37.5 mg daily Patient currently in sinus rhythm Monitor for bleeding while on Eliquis Follow-up with cardiology in 2 weeks Chronic anemia, hemoglobin at baseline -- Monitor hemoglobin closely while on Eliquis Prediabetes -- hemoglobin A1c of 5.9 last visit ongoing tobacco abuse DVT prophylaxis. Heparin subcu Full code Disposition: Lives at home Planning to transition to [facility], PT and OT pending plan of care discussed with patient in detail and at length all questions answered She is understanding, agreeable, comfortable with the plan of care Discussed with the daughter and the patient and the pain medication was increased Pain is reasonably controlled and the blood pressure remains on the lower side Admission and Anticipated Discharge Date Admission Date: March 02, 2022 Subjective 03/10/2022 The patient was seen and examined in medical telemetry unit She has been complaining of a lot of pain at the back and almost crying with the pain She is having diarrhea Does not have any drowsiness but complains to her weakness 03/11/2022 The patient was seen and examined in medical telemetry unit She remains very tearful and is in pain Pain seems to be reasonably controlled and continues to have diarrhea She is not totally aware about her current disease status Review of Systems Review of Systems: All systems reviewed and are unremarkable except as noted below Physical Exam Physical Exam: Lying in bed with discomfort due to pain Constitutional: well developed, well nourished, + ill appearing and average body habitus Eyes: PERRL, conjunctivae normal, anicteric sclerae ENMT: external ear and nose normal, oropharynx normal Neck: trachea midline, no thyromegaly Respiratory: no respiratory distress Auscultation: lungs clear to auscultation bilaterally Cardiovascular: Rate/Rhythm: regular rate and regular rhythm; not tachycardic Heart Sounds: normal S1 and normal S2; no murmur Gastrointestinal (Abdomen): Inspection/Auscultation: normal bowel sounds; abdomen not distended Percussion/Palpation: abdomen soft; abdomen nontender Musculoskeletal: No acute arthritis in any joint Neurologic: Alert, awake and oriented x3. Generally very weak and lethargy Lymphatic: no cervical or axillary lymphadenopathy Results & Data Results & Data ([facility]) Vital Signs (Past 12 Hours) Vital Signs Temp Pulse Resp BP Pulse Ox O2 Del Method 03/11/22 14:24 36.5 C 61 16 99/49 L 93 Room Air 03/11/22 12:12 99/50 L 03/11/22 11:22 36.5 C 57 L 16 91/43 L 93 Room Air 03/11/22 10:32 Room Air 03/11/22 07:43 36.7 C 57 L 16 102/53 L 94 Room Air Medications Administered Current Inpatient Medications Acetaminophen (Acetaminophen 325 Mg Tab) 650 mg PO Q4H PRN PRN Reason: Pain or Fever Stop: 04/01/22 21:57 Apixaban (Apixaban 2.5 Mg Tab) 2.5 mg PO BID [facility] Stop: 04/05/22 12:14 Last Admin: 03/11/22 08:49 Dose: 2.5 mg Diclofenac Sodium (Diclofenac Sod 1% Gel 100 Gm Tube) 2 gm EXT QID PRN; Protocol PRN Reason: leg pain Stop: 04/02/22 01:40 Last Admin: 03/04/22 08:47 Dose: 2 gm Heparin Sodium (Porcine) (Heparin Sod 5,000 Unit/0.5 Ml Vial) 5,000 units SQ Q8 JOHN Stop: 04/01/22 21:59 Last Admin: 03/05/22 14:50 Dose: 5,000 units Hydromorphone HCl (Hydromorphone Inj 0.5 Mg/0.5 Ml Syr) 0.25 mg IV Q6H PRN PRN Reason: Pain Stop: 03/17/22 01:40 Last Admin: 03/11/22 08:49 Dose: 0.25 mg Promethazine HCl 12.5 mg/ (Sodium Chloride) 50.5 mls @ 202 mls/hr IV Q6H PRN PRN Reason: Nausea And Vomiting Stop: 04/02/22 03:31 Last Infusion: 03/03/22 17:13 Dose: Infused Loperamide HCl (Loperamide Hcl 2 Mg Cap) 2 mg PO UD PRN PRN Reason: Diarrhea Stop: 04/02/22 20:05 Last Admin: 03/09/22 22:39 Dose: 2 mg Magnesium Oxide (Magnesium Oxide 400 Mg Tab) 400 mg PO QAM JOHN Stop: 04/07/22 09:14 Last Admin: 03/11/22 08:48 Dose: 400 mg Metoprolol Succinate (Metoprolol Succ 25mg Ext Rel Tab) [facility] [place] Stop: 04/04/22 09:59 Last Admin: 03/11/22 08:48 Dose: Not Given Morphine Sulfate (Morphine Sulfate Cr 60 Mg Tabcr) 60 mg PO Q12 [facility] Stop: 03/24/22 20:59 Last Admin: 03/11/22 08:47 Dose: 60 mg Multi-Ingredient Mouthwash/Gargle (First - Mouthwash Blm 119 Ml) 5 ml PO Q6H PRN PRN Reason: pain from oral ulcers Stop: 04/02/22 17:14 Last Admin: 03/11/22 08:51 Dose: 5 ml Ondansetron HCl (Ondansetron Inj 2 Mg/Ml 2 Ml Vial) 4 mg IV Q6H PRN PRN Reason: nausea/vomiting Stop: 04/02/22 12:44 Last Admin: 03/03/22 12:53 Dose: 4 mg Oxycodone HCl (Oxycodone Hcl Ir 5 Mg Tab (Immediate Release)) 5 mg PO Q4H PRN PRN Reason: Pain Stop: 03/24/22 12:02 Last Admin: 03/11/22 14:31 Dose: 5 mg Pantoprazole Sodium (Pantoprazole 40 Mg Tab) 40 mg PO [facility] Stop: 04/02/22 08:59 Last Admin: 03/11/22 08:48 Dose: 40 mg Sertraline HCl (Sertraline Hcl 100 Mg Tablet) 100 mg PO [facility] Stop: 04/02/22 08:59 Last Admin: 03/11/22 08:48 Dose: 100 mg
[2022-03-12 06:42] LABS: Basophils # (auto) 0.01 K/uL (0-0.2); Basophils % (auto) 0.2 %; Hematocrit (blood only) 22.2 % (34.1-44.9); Immature Granulocytes # (auto) 0.03 K/uL (0.00-0.02); Immature Granulocytes % (auto) 0.6 %; Mean Platelet Volume 10.2 fL (9.4-12.3); Monocytes % (auto) 10.2 %; Neutrophils # (auto) 4.14 K/uL (1.4-6.5); Platelet Count 107 K/uL (130-400); White Blood Count 4.88 K/ul (4.8-10.8)
--- NOTE | 2022-03-12 07:03 | XRay Report ---
XR chest 1V portable CLINICAL HISTORY: hypoxia COMPARISON STUDY: Chest radiograph March 02, 2022. FINDINGS: Right internal jugular [id number] is in place. There is no pneumothorax or pleural effus ion. Cardiomediastinal silhouette is stable. Mild interstitial thickening has developed. There is min imal left basilar opacity. IMPRESSION: 1. Interval development of interstitial thickening. This favors mild pulmonary edema. 2. Minimal left basilar airspace opacity which has developed since prior exam. ACT 112: Negative or not required by law. Electronically signed by: Dion Dudley M.D. 03/12/2022 7:02 AM
[2022-03-12 07:07] LABS: BUN Creatinine Ratio 32.8 (10-20); Calcium 7.9 mg/dl (8.5-10.1); Creatinine Clr Calc Pharmacy 70.8 ml/min; Est GFR (African American) 101.6 ml/min; Est GFR (Non-African American) 87.7 ml/min; Potassium 3.7 mmol/L (3.5-5.1)
[2022-03-12 07:12] LABS: Anisocytosis Present; Mean Corpuscular Hemoglobin 29.9 pg (25.0-34.0); Mean Corpuscular Hgb Conc 31.5 g/dL (32.0-36.0); Mean Corpuscular Volume 94.9 fL (80.0-100.0); Poikilocytosis Present; Polychromasia 1+; RDW Standard Deviation 79.9 fL (36.4-46.3); Red Blood Count 2.34 M/uL (3.93-5.22)
[2022-03-12] MEDS: MoRPHine SULFATE CR 60 MG TABCR PO SCH ×2 (08:56→20:31)
[2022-03-12] MEDS: APIXABAN 2.5 MG TAB PO SCH ×2 (08:57→20:31)
[2022-03-12] MEDS: FIRST - Mouthwash BLM 119 ML PO PRN (08:57)
[2022-03-12] MEDS: METOPROLOL SUCC 25MG EXT REL TAB PO SCH (08:57)
[2022-03-12] MEDS: SERTRALINE HCL 100 MG TABLET PO SCH (10:27)
[2022-03-12] MEDS: PANTOprazole 40 MG TAB PO SCH (10:27)
[2022-03-12] MEDS: MAGNESIUM OXIDE 400 MG TAB PO SCH (10:27)
[2022-03-12] MEDS ORDERED: SODIUM CHLORIDE 0.9% 250 ML IV PRN (10:55)
[2022-03-12] MEDS ORDERED: FUROSEMIDE 40 MG/4 ML VIAL IV SCH (11:00)
[2022-03-12] MEDS: HYDROmorphone INJ 0.5 MG/0.5 ML SYR IV PRN (12:35)
--- NOTE | 2022-03-12 16:52 | Hospitalist Progress Note ---
Date of Service March 12, 2022 Assessment & Plan (1) KRISTIN (acute kidney injury): Plan: History of anal cancer status post chemotherapy/ongoing radiation Rx Chronic cancer pain on narcotics Morphine decreased to 30 mg to avoid GI side effects Evaluated by radiation oncology service Examination revealing perineal dermatitis improving per Dr. Lester Continue daily skin care, including protective cream Will have radiation therapy today and following that will need to have 3 more doses to complete the session Radiation will be completed on Monday and following that patient may be discharged Pain is not being controlled with MS Contin 30 mg twice daily, oxycodone 5 to 10 mg 4 times daily and as needed intravenous Dilaudid MS Contin has been increased to 60 mg twice daily and oxycodone decreased to 5 mg every 4 hourly as needed for better control of pain Warned against side effect of narcotics Pain seems to be reasonably controlled Overall condition has not been improving and the patient may need palliative care evaluation while in the hospital Pain is controlled reasonably and will continue current regimen Will have 2 more doses of radiation treatment on Monday and Monday and after that she might be getting out of hospital Acute on chronic anemia Chronic anemia, hemoglobin at baseline -- Monitor hemoglobin closely while on Eliquis Globin dropped to 7.0 the patient is more lethargic Will give 2 units of blood transfusion Monitor CBC Acute kidney injury Diarrhea in the setting of chemotherapy Poor intake, nausea, possibly secondary to narcotics? In the setting of diuretic use or right lower extremity edema Creatinine improved rather quickly with IV fluids from 2.1, now 0.8 Nephrology service consult consulted Creatinine remains stable Still having occasional diarrhea Right lower extremity edema, chronic In setting of severe mitral vegetation RLE cellulitis Aldactone held secondary to acute renal failure Given daptomycin, and doxycycline: cellulitis resolved Per cardiology service, Aldactone 25 mg p.o. twice a week Repeat BMP in 1 week to monitor renal function and potassium Creatinine remains stable Right second toe osteomyelitis Foot MRI: Second toe suspicious for osteomyelitis 03/05: Status post right second toe amputation by Dr. Keenan Vyas Given daptomycin IV ID consulted, discussed with Dr. Hermosillo , recommend DC antibiotics after toe amputation Patient doing well postoperatively Per Dr. Keenan Vyas: Dispensed interdigital spacers with instructions on use. Patient to keep incision site clean and dry. Patient is weight bearing as tolerated in surgical shoe. Patient will follow up in 2 weeks for suture removal or call sooner if symptoms arise. 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 daily for now decreased from 37.5 mg daily Patient currently in sinus rhythm Monitor for bleeding while on Eliquis Follow-up with cardiology in 2 weeks Prediabetes -- hemoglobin A1c of 5.9 last visit ongoing tobacco abuse DVT prophylaxis. Heparin subcu Full code Disposition: Lives at home Planning to transition to [facility], PT and OT pending plan of care discussed with patient in detail and at length all questions answered She is understanding, agreeable, comfortable with the plan of care Discussed with the daughter and the patient and the pain medication was increased Pain is reasonably controlled and the blood pressure remains on the lower side The condition gets worse will get inpatient palliative care evaluation Admission and Anticipated Discharge Date Admission Date: March 02, 2022 Subjective 03/10/2022 The patient was seen and examined in medical telemetry unit She has been complaining of a lot of pain at the back and almost crying with the pain She is having diarrhea Does not have any drowsiness but complains to her weakness 03/11/2022 The patient was seen and examined in medical telemetry unit She remains very tearful and is in pain Pain seems to be reasonably controlled and continues to have diarrhea She is not totally aware about her current disease status 03/12/2022 The patient was seen and examined in medical telemetry unit She has been stable and the pain seems to be reasonably controlled Her hemoglobin dropped to 7.0 and she feels weak and lethargic She will be given 2 units of blood transfusion Review of Systems Review of Systems: All systems reviewed and are unremarkable except as noted below Physical Exam Physical Exam: Lying in bed with discomfort due to pain Constitutional: well developed, well nourished, + ill appearing and average body habitus Eyes: PERRL, conjunctivae normal, anicteric sclerae ENMT: external ear and nose normal, oropharynx normal Neck: trachea midline, no thyromegaly Respiratory: no respiratory distress Auscultation: lungs clear to auscultation bilaterally Cardiovascular: Rate/Rhythm: regular rate and regular rhythm; not tachycardic Heart Sounds: normal S1 and normal S2; no murmur Gastrointestinal (Abdomen): Inspection/Auscultation: normal bowel sounds; abdomen not distended Percussion/Palpation: abdomen soft; abdomen nontender Musculoskeletal: No acute arthritis in any joint Neurologic: Alert, awake and oriented x3. Generally weak and lethargy Lymphatic: no cervical or axillary lymphadenopathy Results & Data Results & Data ([facility]) Vital Signs (Past 12 Hours) Vital Signs Temp Pulse Pulse Resp BP BP Pulse Ox 03/12/22 16:16 36.6 C 67 18 89/44 L 86 L 03/12/22 15:00 36.6 C 65 20 103/58 L 93 03/12/22 14:30 37.6 C H 63 18 107/50 L 91 03/12/22 13:27 36.5 C 66 18 109/69 94 03/12/22 13:00 36.8 C 68 18 105/50 L 93 03/12/22 12:45 36.9 C 70 20 103/56 L 92 03/12/22 12:22 36.5 C 65 18 101/56 L 87 L 03/12/22 07:55 36.8 C 69 18 112/60 91 03/12/22 07:51 73 O2 Del Method O2 Flow Rate 03/12/22 16:16 03/12/22 15:00 03/12/22 14:30 3 03/12/22 13:27 Nasal Cannula 3 03/12/22 13:00 Nasal Cannula 3 03/12/22 12:45 Nasal Cannula 3 03/12/22 12:22 03/12/22 07:55 Room Air 03/12/22 07:51 Laboratory Results Short CBC 03/12/22 Range/Units 06:14 WBC 4.88 (4.8-10.8) K/ul Hgb 7.0 L (12.0-16.0) g/dl Hct 22.2 L (34.1-44.9) % Plt Count 107 L (130-400) K/uL BMP 03/12/22 06:14 Sodium 140 Potassium 3.7 Chloride 111 H Carbon Dioxide 25 BUN 19 Creatinine 0.58 L Glucose 94 Calcium 7.9 L Medications Administered Current Inpatient Medications Acetaminophen (Acetaminophen 325 Mg Tab) 650 mg PO Q4H PRN PRN Reason: Pain or Fever Stop: 04/01/22 21:57 Apixaban (Apixaban 2.5 Mg Tab) 2.5 mg PO BID [facility] Stop: 04/05/22 12:14 Last Admin: 03/12/22 08:57 Dose: 2.5 mg Diclofenac Sodium (Diclofenac Sod 1% Gel 100 Gm Tube) 2 gm EXT QID PRN; Protocol PRN Reason: leg pain Stop: 04/02/22 01:40 Last Admin: 03/04/22 08:47 Dose: 2 gm Furosemide (Furosemide 40 Mg/4 Ml Vial) 20 mg IV TODAY@1100 [facility] Stop: 04/11/22 16:37 Heparin Sodium (Porcine) (Heparin Sod 5,000 Unit/0.5 Ml Vial) 5,000 units SQ Q8 [facility] Stop: 04/01/22 21:59 Last Admin: 03/05/22 14:50 Dose: 5,000 units Hydromorphone HCl (Hydromorphone Inj 0.5 Mg/0.5 Ml Syr) 0.25 mg IV Q6H PRN PRN Reason: Pain Stop: 03/17/22 01:40 Last Admin: 03/12/22 12:35 Dose: 0.25 mg Promethazine HCl 12.5 mg/ (Sodium Chloride) 50.5 mls @ 202 mls/hr IV Q6H PRN PRN Reason: Nausea And Vomiting Stop: 04/02/22 03:31 Last Infusion: 03/03/22 17:13 Dose: Infused Sodium Chloride (Nss) 250 mls @ 15 mls/hr IV .[id number] PRN PRN Reason: For Transfusion Duration Stop: 03/12/22 20:56 Loperamide HCl (Loperamide Hcl 2 Mg Cap) 2 mg PO UD PRN PRN Reason: Diarrhea Stop: 04/02/22 20:05 Last Admin: 03/09/22 22:39 Dose: 2 mg Magnesium Oxide (Magnesium Oxide 400 Mg Tab) [facility] [place] Stop: 04/07/22 09:14 Last Admin: 03/12/22 10:27 Dose: 400 mg Metoprolol Succinate (Metoprolol Succ 25mg Ext Rel Tab) 25 mg PO [facility] Stop: 04/04/22 09:59 Last Admin: 03/12/22 08:57 Dose: 25 mg Morphine Sulfate (Morphine Sulfate Cr 60 Mg Tabcr) 60 mg PO Q12 [facility] Stop: 03/24/22 20:59 Last Admin: 03/12/22 08:56 Dose: 60 mg Multi-Ingredient Mouthwash/Gargle (First - Mouthwash Blm 119 Ml) 5 ml PO Q6H PRN PRN Reason: pain from oral ulcers Stop: 04/02/22 17:14 Last Admin: 03/12/22 08:57 Dose: 5 ml Ondansetron HCl (Ondansetron Inj 2 Mg/Ml 2 Ml Vial) 4 mg IV Q6H PRN PRN Reason: nausea/vomiting Stop: 04/02/22 12:44 Last Admin: 03/03/22 12:53 Dose: 4 mg Oxycodone HCl (Oxycodone Hcl Ir 5 Mg Tab (Immediate Release)) 5 mg PO Q4H PRN PRN Reason: Pain Stop: 03/24/22 12:02 Last Admin: 03/11/22 21:52 Dose: 5 mg Pantoprazole Sodium (Pantoprazole 40 Mg Tab) [facility] [place] Stop: 04/02/22 08:59 Last Admin: 03/12/22 10:27 Dose: 40 mg Sertraline HCl (Sertraline Hcl 100 Mg Tablet) [facility] [place] Stop: 04/02/22 08:59 Last Admin: 03/12/22 10:27 Dose: 100 mg
[2022-03-12] MEDS: FUROSEMIDE 40 MG/4 ML VIAL IV SCH (17:12)
[2022-03-12] MEDS: DICLOFENAC SOD 1% GEL 100 GM TUBE EXT PRN (20:32)
[2022-03-13] MEDS: LOPERAMIDE HCL 2 MG CAP PO PRN ×4 (07:20→20:51)
[2022-03-13] MEDS: METOPROLOL SUCC 25MG EXT REL TAB PO SCH (07:21)
[2022-03-13] MEDS: APIXABAN 2.5 MG TAB PO SCH ×2 (07:25→20:50)
[2022-03-13] MEDS: SERTRALINE HCL 100 MG TABLET PO SCH (07:25)
[2022-03-13] MEDS: PANTOprazole 40 MG TAB PO SCH (07:25)
[2022-03-13] MEDS: MAGNESIUM OXIDE 400 MG TAB PO SCH (07:25)
[2022-03-13] MEDS: MoRPHine SULFATE CR 60 MG TABCR PO SCH ×2 (07:26→20:50)
[2022-03-13 07:33] LABS: Basophils # (auto) 0.02 K/uL (0-0.2); Basophils % (auto) 0.4 %; Eosinophils # (auto) 0.14 K/uL (0-0.50); Eosinophils % (auto) 2.6 %; Hematocrit (blood only) 27.7 % (34.1-44.9); Hemoglobin 9.1 g/dl (12.0-16.0); Immature Granulocytes # (auto) 0.04 K/uL (0.00-0.02); Immature Granulocytes % (auto) 0.7 %; Lymphocytes % (auto) 1.8 %; Mean Corpuscular Hemoglobin 29.8 pg (25.0-34.0); Mean Corpuscular Hgb Conc 32.9 g/dL (32.0-36.0); Mean Corpuscular Volume 90.8 fL (80.0-100.0); Mean Platelet Volume 10.4 fL (9.4-12.3); Monocytes # (auto) 0.49 K/uL (0.24-0.82); Neutrophils # (auto) 4.68 K/uL (1.4-6.5); Neutrophils % (auto) 85.5 %; Platelet Count 111 K/uL (130-400); RDW Coefficient of Variation 21.8 % (11.5-14.5); RDW Standard Deviation 69.1 fL (36.4-46.3); Red Blood Count 3.05 M/uL (3.93-5.22); White Blood Count 5.47 K/ul (4.8-10.8)
[2022-03-13 07:54] LABS: BUN Creatinine Ratio 36.8 (10-20); Calcium 7.8 mg/dl (8.5-10.1); Est GFR (African American) 102.2 ml/min; Est GFR (Non-African American) 88.2 ml/min; Potassium 3.6 mmol/L (3.5-5.1)
[2022-03-13 08:03] LABS: Acanthocytes 1+; Anisocytosis Present; Ovalocytes 1+
[2022-03-13] MEDS: FIRST - Mouthwash BLM 119 ML PO PRN ×2 (11:01→21:25)
--- NOTE | 2022-03-13 12:58 | Hospitalist Progress Note ---
Date of Service March 13, 2022 Assessment & Plan (1) KRISTIN (acute kidney injury): Plan: History of anal cancer status post chemotherapy/ongoing radiation Rx Chronic cancer pain on narcotics Morphine decreased to 30 mg to avoid GI side effects Evaluated by radiation oncology service Examination revealing perineal dermatitis improving per Dr. Lester Continue daily skin care, including protective cream Will have radiation therapy today and following that will need to have 3 more doses to complete the session Radiation will be completed on Monday and following that patient may be discharged Pain is not being controlled with MS Contin 30 mg twice daily, oxycodone 5 to 10 mg 4 times daily and as needed intravenous Dilaudid MS Contin has been increased to 60 mg twice daily and oxycodone decreased to 5 mg every 4 hourly as needed for better control of pain Warned against side effect of narcotics Pain seems to be reasonably controlled Overall condition has not been improving and the patient may need palliative care evaluation while in the hospital Pain is controlled reasonably and will continue current regimen Will have 2 more doses of radiation treatment on Monday and Monday and after that she might be getting out of hospital Awaiting further radiation treatment before plan for discharge Has been having diarrhea Likely secondary to radiation May need Imodium Acute on chronic anemia Chronic anemia, hemoglobin at baseline -- Monitor hemoglobin closely while on Eliquis Globin dropped to 7.0 the patient is more lethargic Will give 2 units of blood transfusion Hemoglobin went up to more than 9 patient remains reasonably stable Acute kidney injury Diarrhea in the setting of chemotherapy Poor intake, nausea, possibly secondary to narcotics? In the setting of diuretic use or right lower extremity edema Creatinine improved rather quickly with IV fluids from 2.1, now 0.8 Nephrology service consult consulted Creatinine remains stable Still having occasional diarrhea Right lower extremity edema, chronic In setting of severe mitral vegetation RLE cellulitis Aldactone held secondary to acute renal failure Given daptomycin, and doxycycline: cellulitis resolved Per cardiology service, Aldactone 25 mg p.o. twice a week Repeat BMP in 1 week to monitor renal function and potassium Creatinine remains stable Right second toe osteomyelitis Foot MRI: Second toe suspicious for osteomyelitis 03/05: Status post right second toe amputation by Dr. Keenan Vyas Given daptomycin IV ID consulted, discussed with Dr. Hermosillo , recommend DC antibiotics after toe amputation Patient doing well postoperatively Per Dr. Keenan Vyas: Dispensed interdigital spacers with instructions on use. Patient to keep incision site clean and dry. Patient is weight bearing as tolerated in surgical shoe. Patient will follow up in 2 weeks for suture removal or call sooner if symptoms arise. 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 daily for now decreased from 37.5 mg daily Patient currently in sinus rhythm Monitor for bleeding while on Eliquis Follow-up with cardiology in 2 weeks Prediabetes -- hemoglobin A1c of 5.9 last visit ongoing tobacco abuse DVT prophylaxis. Heparin subcu Full code Disposition: Lives at home Planning to transition to [facility], PT and OT pending plan of care discussed with patient in detail and at length all questions answered She is understanding, agreeable, comfortable with the plan of care Discussed with the daughter and the patient and the pain medication was increased Pain is reasonably controlled and the blood pressure remains on the lower side The condition gets worse will get inpatient palliative care evaluation Admission and Anticipated Discharge Date Admission Date: March 02, 2022 Subjective 03/10/2022 The patient was seen and examined in medical telemetry unit She has been complaining of a lot of pain at the back and almost crying with the pain She is having diarrhea Does not have any drowsiness but complains to her weakness 03/11/2022 The patient was seen and examined in medical telemetry unit She remains very tearful and is in pain Pain seems to be reasonably controlled and continues to have diarrhea She is not totally aware about her current disease status 03/12/2022 The patient was seen and examined in medical telemetry unit She has been stable and the pain seems to be reasonably controlled Her hemoglobin dropped to 7.0 and she feels weak and lethargic She will be given 2 units of blood transfusion 03/13/2022 The patient was seen and examined in medical telemetry unit She has been having diarrhea and some discomfort locally around the perineal area Her pain seems to be controlled She is very depressed Review of Systems Review of Systems: All systems reviewed and are unremarkable except as noted below Physical Exam Physical Exam: Lying in bed with discomfort due to pain Constitutional: well developed, well nourished, + ill appearing and average body habitus Eyes: PERRL, conjunctivae normal, anicteric sclerae ENMT: external ear and nose normal, oropharynx normal Neck: trachea midline, no thyromegaly Respiratory: no respiratory distress Auscultation: lungs clear to auscultation bilaterally Cardiovascular: Rate/Rhythm: regular rate and regular rhythm; not tachycardic Heart Sounds: normal S1 and normal S2; no murmur Gastrointestinal (Abdomen): Inspection/Auscultation: normal bowel sounds; abdomen not distended Percussion/Palpation: abdomen soft; abdomen nontender Musculoskeletal: No acute arthritis in any joint Neurologic: Alert, awake and oriented x3. Generally very weak and lethargic Lymphatic: no cervical or axillary lymphadenopathy Results & Data Results & Data ([facility]) Vital Signs (Past 12 Hours) Vital Signs Temp Pulse Pulse Resp BP BP Pulse Ox 03/13/22 11:42 36.3 C L 56 L 18 106/51 L 94 03/13/22 06:03 55 L 03/13/22 08:55 03/13/22 07:31 36.8 C 68 114/53 L 91 03/13/22 03:44 36.5 C 57 L 18 109/66 95 03/13/22 03:12 53 L 16 100/55 L 90 O2 Del Method O2 Flow Rate 03/13/22 11:42 Nasal Cannula 2 03/13/22 06:03 03/13/22 08:55 Nasal Cannula 2 03/13/22 07:31 Nasal Cannula 2 03/13/22 03:44 Nasal Cannula 3 03/13/22 03:12 Nasal Cannula 3 Laboratory Results Short CBC 03/13/22 Range/Units 06:56 WBC 5.47 (4.8-10.8) K/ul Hgb 9.1 L (12.0-16.0) g/dl Hct 27.7 L (34.1-44.9) % Plt Count 111 L (130-400) K/uL BMP 03/13/22 06:56 Sodium 140 Potassium 3.6 Chloride 109 H Carbon Dioxide 24 BUN 21 Creatinine 0.57 L Glucose 92 Calcium 7.8 L Medications Administered Current Inpatient Medications Acetaminophen (Acetaminophen 325 Mg Tab) 650 mg PO Q4H PRN PRN Reason: Pain or Fever Stop: 12/30/22 21:57 Apixaban (Apixaban 2.5 Mg Tab) 2.5 mg PO BID [facility] Stop: 04/05/22 12:14 Last Admin: 03/13/22 07:25 Dose: 2.5 mg Diclofenac Sodium (Diclofenac Sod 1% Gel 100 Gm Tube) 2 gm EXT QID PRN; Protocol PRN Reason: leg pain Stop: 04/02/22 01:40 Last Admin: 03/12/22 20:32 Dose: 2 gm Furosemide (Furosemide 40 Mg/4 Ml Vial) 20 mg IV TODAY@1100 [facility] Stop: 04/11/22 16:37 Last Admin: 03/12/22 17:12 Dose: 20 mg Heparin Sodium (Porcine) (Heparin Sod 5,000 Unit/0.5 Ml Vial) 5,000 units SQ Q8 [facility] Stop: 04/01/22 21:59 Last Admin: 03/05/22 14:50 Dose: 5,000 units Hydromorphone HCl (Hydromorphone Inj 0.5 Mg/0.5 Ml Syr) 0.25 mg IV Q6H PRN PRN Reason: Pain Stop: 03/17/22 01:40 Last Admin: 03/12/22 12:35 Dose: 0.25 mg Promethazine HCl 12.5 mg/ (Sodium Chloride) 50.5 mls @ 202 mls/hr IV Q6H PRN PRN Reason: Nausea And Vomiting Stop: 04/02/22 03:31 Last Infusion: 03/03/22 17:13 Dose: Infused Loperamide HCl (Loperamide Hcl 2 Mg Cap) 2 mg PO UD PRN PRN Reason: Diarrhea Stop: 04/02/22 20:05 Last Admin: 03/13/22 11:12 Dose: 2 mg Magnesium Oxide (Magnesium Oxide 400 Mg Tab) 400 mg PO QAM [facility] Stop: 04/07/22 09:14 Last Admin: 03/13/22 07:25 Dose: 400 mg Metoprolol Succinate (Metoprolol Succ 25mg Ext Rel Tab) 25 mg PO QAM [facility] Stop: 04/04/22 09:59 Last Admin: 03/13/22 07:21 Dose: 25 mg Morphine Sulfate (Morphine Sulfate Cr 60 Mg Tabcr) 60 mg PO Q12 [facility] Stop: 03/24/22 20:59 Last Admin: 03/13/22 07:26 Dose: 60 mg Multi-Ingredient Mouthwash/Gargle (First - Mouthwash Blm 119 Ml) 5 ml PO Q6H PRN PRN Reason: pain from oral ulcers Stop: 04/02/22 17:14 Last Admin: 03/13/22 11:01 Dose: 5 ml Ondansetron HCl (Ondansetron Inj 2 Mg/Ml 2 Ml Vial) 4 mg IV Q6H PRN PRN Reason: nausea/vomiting Stop: 04/02/22 12:44 Last Admin: 03/03/22 12:53 Dose: 4 mg Oxycodone HCl (Oxycodone Hcl Ir 5 Mg Tab (Immediate Release)) 5 mg PO Q4H PRN PRN Reason: Pain Stop: 03/24/22 12:02 Last Admin: 03/11/22 21:52 Dose: 5 mg Pantoprazole Sodium (Pantoprazole 40 Mg Tab) [facility] [place]: 04/02/22 08:59 Last Admin: 03/13/22 07:25 Dose: 40 mg Sertraline HCl (Sertraline Hcl 100 Mg Tablet) 100 mg PO [facility] Stop: 04/02/22 08:59 Last Admin: 03/13/22 07:25 Dose: 100 mg
[2022-03-13] MEDS: HYDROmorphone INJ 0.5 MG/0.5 ML SYR IV PRN ×2 (14:02→21:28)
[2022-03-14] MEDS: HYDROmorphone INJ 0.5 MG/0.5 ML SYR IV PRN (07:39)
[2022-03-14] MEDS: LOPERAMIDE HCL 2 MG CAP PO PRN ×3 (07:39→21:27)
[2022-03-14] MEDS: MAGNESIUM OXIDE 400 MG TAB PO SCH (07:40)
[2022-03-14] MEDS: APIXABAN 2.5 MG TAB PO SCH ×2 (07:40→21:27)
[2022-03-14] MEDS: SERTRALINE HCL 100 MG TABLET PO SCH (07:40)
[2022-03-14] MEDS: PANTOprazole 40 MG TAB PO SCH (07:41)
[2022-03-14] MEDS: MoRPHine SULFATE CR 60 MG TABCR PO SCH ×2 (07:41→21:27)
[2022-03-14] MEDS: METOPROLOL SUCC 25MG EXT REL TAB PO SCH (07:42)
[2022-03-14] MEDS: FIRST - Mouthwash BLM 119 ML PO PRN ×2 (07:46→21:27)
[2022-03-14] MEDS ORDERED: oxyCODONE HCL IR 5 MG TAB (IMMEDIATE RELEASE) PO STA (10:30)
[2022-03-14] MEDS ORDERED: oxyCODONE HCL IR 5 MG TAB (IMMEDIATE RELEASE) ONE (10:35)
--- NOTE | 2022-03-14 12:06 | Hospitalist Progress Note ---
Date of Service March 14, 2022 Assessment & Plan (1) KRISTIN (acute kidney injury): Plan: History of anal cancer status post chemotherapy/ongoing radiation Rx Chronic cancer pain on narcotics Morphine decreased to 30 mg to avoid GI side effects Evaluated by radiation oncology service Examination revealing perineal dermatitis improving per Dr. Lester Continue daily skin care, including protective cream Will have radiation therapy today and following that will need to have 3 more doses to complete the session Radiation will be completed on Monday and following that patient may be discharged Pain is not being controlled with MS Contin 30 mg twice daily, oxycodone 5 to 10 mg 4 times daily and as needed intravenous Dilaudid MS Contin has been increased to 60 mg twice daily and oxycodone decreased to 5 mg every 4 hourly as needed for better control of pain Warned against side effect of narcotics Pain seems to be reasonably controlled Overall condition has not been improving and the patient may need palliative care evaluation while in the hospital Pain is controlled reasonably and will continue current regimen Will have 2 more doses of radiation treatment on Monday and Monday and after that she might be getting out of hospital Awaiting further radiation treatment before plan for discharge Will need further adjustment of pain medications prior to discharge Radiation treatment today and tomorrow and discharge decision after the radiation is completed Has been having diarrhea Likely secondary to radiation May need Imodium-ordered as needed as needed Acute on chronic anemia Chronic anemia, hemoglobin at baseline -- Monitor hemoglobin closely while on Eliquis Globin dropped to 7.0 the patient is more lethargic Will give 2 units of blood transfusion Hemoglobin went up to more than 9 patient remains reasonably stable Acute kidney injury Diarrhea in the setting of chemotherapy Poor intake, nausea, possibly secondary to narcotics? In the setting of diuretic use or right lower extremity edema Creatinine improved rather quickly with IV fluids from 2.1, now 0.8 Nephrology service consult consulted Creatinine remains stable Still having occasional diarrhea Right lower extremity edema, chronic In setting of severe mitral vegetation RLE cellulitis Aldactone held secondary to acute renal failure Given daptomycin, and doxycycline: cellulitis resolved Per cardiology service, Aldactone 25 mg p.o. twice a week Repeat BMP in 1 week to monitor renal function and potassium Creatinine remains stable Right second toe osteomyelitis Foot MRI: Second toe suspicious for osteomyelitis 03/05: Status post right second toe amputation by Dr. Keenan Vyas Given daptomycin IV ID consulted, discussed with Dr. Hermosillo , recommend DC antibiotics after toe amputation Patient doing well postoperatively Per Dr. Keenan Vyas: Dispensed interdigital spacers with instructions on use. Patient to keep incision site clean and dry. Patient is weight bearing as tolerated in surgical shoe. Patient will follow up in 2 weeks for suture removal or call sooner if symptoms arise. Sutures are looking good and that can be removed on 03/19/2022 Stitches are stable without any infection locally Enterococcus UTI -- Completed amoxicillin course New onset atrial fibrillation, paroxysmal hx LV outflow obstruction/valvular heart disease (severe MR, mild TR)/pulmonary hypertension --Patient developed atrial fibrillation while admitted --Converted to sinus rhythm with IV metoprolol --Echocardiogram performed 2 weeks ago during previous admission --Cardiology service consulted started Eliquis 2.5mg BID Reduced to metoprolol XL 25 mg p.o. daily for now decreased from 37.5 mg daily Patient currently in sinus rhythm Monitor for bleeding while on Eliquis Follow-up with cardiology in 2 weeks following discharge from the hospital Prediabetes -- hemoglobin A1c of 5.9 last visit ongoing tobacco abuse DVT prophylaxis. Heparin subcu Full code Disposition: Lives at home Planning to transition to [facility], PT and OT pending plan of care discussed with patient in detail and at length all questions answered She is understanding, agreeable, comfortable with the plan of care Discussed with the daughter and the patient and the pain medication was increased Pain is reasonably controlled and the blood pressure remains on the lower side The condition gets worse will get inpatient palliative care evaluation Admission and Anticipated Discharge Date Admission Date: March 02, 2022 Subjective 03/10/2022 The patient was seen and examined in medical telemetry unit She has been complaining of a lot of pain at the back and almost crying with the pain She is having diarrhea Does not have any drowsiness but complains to her weakness 03/11/2022 The patient was seen and examined in medical telemetry unit She remains very tearful and is in pain Pain seems to be reasonably controlled and continues to have diarrhea She is not totally aware about her current disease status 03/12/2022 The patient was seen and examined in medical telemetry unit She has been stable and the pain seems to be reasonably controlled Her hemoglobin dropped to 7.0 and she feels weak and lethargic She will be given 2 units of blood transfusion 03/13/2022 The patient was seen and examined in medical telemetry unit She has been having diarrhea and some discomfort locally around the perineal area Her pain seems to be controlled She is very depressed 03/14/2022 The patient was seen and examined in medical telemetry unit She has been stable and the pain is not well controlled as of yet She will have radiation treatment today and tomorrow Still having occasional diarrhea Review of Systems Review of Systems: All systems reviewed and are unremarkable except as noted below Physical Exam Physical Exam: Lying in bed with discomfort due to pain Constitutional: well developed, well nourished, + ill appearing and average body habitus Eyes: PERRL, conjunctivae normal, anicteric sclerae ENMT: external ear and nose normal, oropharynx normal Neck: trachea midline, no thyromegaly Respiratory: no respiratory distress Auscultation: lungs clear to auscultation bilaterally Cardiovascular: Rate/Rhythm: regular rate and regular rhythm; not tachycardic Heart Sounds: normal S1 and normal S2; no murmur Gastrointestinal (Abdomen): Inspection/Auscultation: normal bowel sounds; abdomen not distended Percussion/Palpation: abdomen soft; abdomen nontender Musculoskeletal: No acute arthritis in any joint Neurologic: Alert, awake and oriented x3. Remains very weak and lethargic Lymphatic: no cervical or axillary lymphadenopathy Results & Data Results & Data ([facility]) Vital Signs (Past 12 Hours) Vital Signs Temp Pulse Pulse Resp BP BP Pulse Ox 03/14/22 06:01 58 L 03/14/22 08:00 03/14/22 07:51 36.6 C 57 L 17 123/55 L 91 03/14/22 02:56 36.7 C 63 20 103/63 91 O2 Del Method O2 Flow Rate 03/14/22 06:01 03/14/22 08:00 Nasal Cannula 3 03/14/22 07:51 Nasal Cannula 3 03/14/22 02:56 Nasal Cannula 3 Medications Administered Current Inpatient Medications Acetaminophen (Acetaminophen 325 Mg Tab) 650 mg PO Q4H PRN PRN Reason: Pain or Fever Stop: 04/01/22 21:57 Apixaban (Apixaban 2.5 Mg Tab) 2.5 mg PO BID [facility] Stop: 04/05/22 12:14 Last Admin: 03/14/22 07:40 Dose: 2.5 mg Diclofenac Sodium (Diclofenac Sod 1% Gel 100 Gm Tube) 2 gm EXT QID PRN; Protocol PRN Reason: leg pain Stop: 04/02/22 01:40 Last Admin: 03/12/22 20:32 Dose: 2 gm Furosemide (Furosemide 40 Mg/4 Ml Vial) 20 mg IV TODAY@1100 [facility] Stop: 04/11/22 16:37 Last Admin: 03/12/22 17:12 Dose: 20 mg Heparin Sodium (Porcine) (Heparin Sod 5,000 Unit/0.5 Ml Vial) 5,000 units SQ Q8 [facility] Stop: 04/01/22 21:59 Last Admin: 03/05/22 14:50 Dose: 5,000 units Heparin Sodium (Porcine) (Heparin 100 Unit/Ml 5ml Flush) 5 ml FLUSH PRN PRN PRN Reason: Flush Stop: 04/13/22 01:42 Hydromorphone HCl (Hydromorphone Inj 0.5 Mg/0.5 Ml Syr) 0.25 mg IV Q6H PRN PRN Reason: Pain Stop: 03/17/22 01:40 Last Admin: 03/14/22 07:39 Dose: 0.25 mg Promethazine HCl 12.5 mg/ (Sodium Chloride) 50.5 mls @ 202 mls/hr IV Q6H PRN PRN Reason: Nausea And Vomiting Stop: 04/02/22 03:31 Last Infusion: 03/03/22 17:13 Dose: Infused Loperamide HCl (Loperamide Hcl 2 Mg Cap) 2 mg PO UD PRN PRN Reason: Diarrhea Stop: 04/02/22 20:05 Last Admin: 03/14/22 07:39 Dose: 2 mg Magnesium Oxide (Magnesium Oxide 400 Mg Tab) 400 mg PO QAM [facility] Stop: 04/07/22 09:14 Last Admin: 03/14/22 07:40 Dose: 400 mg Metoprolol Succinate (Metoprolol Succ 25mg Ext Rel Tab) 25 mg PO QAM [facility] Stop: 04/04/22 09:59 Last Admin: 03/14/22 07:42 Dose: 25 mg Morphine Sulfate (Morphine Sulfate Cr 60 Mg Tabcr) 60 mg PO Q12 [facility] Stop: 03/24/22 20:59 Last Admin: 03/14/22 07:41 Dose: 60 mg Multi-Ingredient Mouthwash/Gargle (First - Mouthwash Blm 119 Ml) 5 ml PO Q6H PRN PRN Reason: pain from oral ulcers Stop: 04/02/22 17:14 Last Admin: 03/14/22 07:46 Dose: 5 ml Ondansetron HCl (Ondansetron Inj 2 Mg/Ml 2 Ml Vial) 4 mg IV Q6H PRN PRN Reason: nausea/vomiting Stop: 04/02/22 12:44 Last Admin: 03/03/22 12:53 Dose: 4 mg Oxycodone HCl (Oxycodone Hcl Ir 5 Mg Tab (Immediate Release)) 5 mg PO Q4H PRN PRN Reason: Pain Stop: 03/24/22 12:02 Last Admin: 03/11/22 21:52 Dose: 5 mg Pantoprazole Sodium (Pantoprazole 40 Mg Tab) 40 mg PO [facility] Stop: 04/02/22 08:59 Last Admin: 03/14/22 07:41 Dose: 40 mg Sertraline HCl (Sertraline Hcl 100 Mg Tablet) 100 mg PO [facility] Stop: 04/02/22 08:59 Last Admin: 03/14/22 07:40 Dose: 100 mg
[2022-03-14] MEDS: FUROSEMIDE 40 MG/4 ML VIAL IV SCH (12:40)
[2022-03-15] MEDS: LOPERAMIDE HCL 2 MG CAP PO PRN ×2 (00:07→20:56)
[2022-03-15] MEDS: oxyCODONE HCL IR 5 MG TAB (IMMEDIATE RELEASE) PO PRN (00:08)
[2022-03-15] MEDS: APIXABAN 2.5 MG TAB PO SCH ×2 (08:44→20:56)
[2022-03-15] MEDS: SERTRALINE HCL 100 MG TABLET PO SCH (08:45)
[2022-03-15] MEDS: METOPROLOL SUCC 25MG EXT REL TAB PO SCH (08:45)
[2022-03-15] MEDS: PANTOprazole 40 MG TAB PO SCH (08:45)
[2022-03-15] MEDS: MAGNESIUM OXIDE 400 MG TAB PO SCH (08:45)
[2022-03-15] MEDS: MoRPHine SULFATE CR 60 MG TABCR PO SCH ×2 (08:47→20:57)
[2022-03-15] MEDS: FUROSEMIDE 40 MG/4 ML VIAL IV SCH (11:31)
--- NOTE | 2022-03-15 13:46 | Hospitalist Progress Note ---
Date of Service March 15, 2022 Assessment & Plan (1) KRISTIN (acute kidney injury): Plan: History of anal cancer status post chemotherapy/ongoing radiation Rx Chronic cancer pain on narcotics Morphine decreased to 30 mg to avoid GI side effects Evaluated by radiation oncology service Examination revealing perineal dermatitis improving per Dr. Lester Continue daily skin care, including protective cream Will have radiation therapy today and following that will need to have 3 more doses to complete the session Radiation will be completed on Monday and following that patient may be discharged Pain is not being controlled with MS Contin 30 mg twice daily, oxycodone 5 to 10 mg 4 times daily and as needed intravenous Dilaudid MS Contin has been increased to 60 mg twice daily and oxycodone decreased to 5 mg every 4 hourly as needed for better control of pain Warned against side effect of narcotics Pain seems to be reasonably controlled Overall condition has not been improving and the patient may need palliative care evaluation while in the hospital Pain is controlled reasonably and will continue current regimen Will have 2 more doses of radiation treatment on Monday and Monday and after that she might be getting out of hospital Awaiting further radiation treatment before plan for discharge Will need further adjustment of pain medications prior to discharge Radiation treatment today and tomorrow and discharge decision after the radiation is completed We will get PT and OT evaluation and awaiting placement Has been having diarrhea Likely secondary to radiation May need Imodium-ordered as needed as needed Diarrhea seems to be controlled Acute on chronic anemia Chronic anemia, hemoglobin at baseline -- Monitor hemoglobin closely while on Eliquis Globin dropped to 7.0 the patient is more lethargic Will give 2 units of blood transfusion Hemoglobin went up to more than 9 patient remains reasonably stable Hemoglobin remained stable at 9.1 status post 2 unit of blood transfusion Acute kidney injury Diarrhea in the setting of chemotherapy Poor intake, nausea, possibly secondary to narcotics? In the setting of diuretic use or right lower extremity edema Creatinine improved rather quickly with IV fluids from 2.1, now 0.8 Nephrology service consult consulted Creatinine remains stable Still having occasional diarrhea Right lower extremity edema, chronic In setting of severe mitral vegetation RLE cellulitis Aldactone held secondary to acute renal failure Given daptomycin, and doxycycline: cellulitis resolved Per cardiology service, Aldactone 25 mg p.o. twice a week Repeat BMP in 1 week to monitor renal function and potassium Creatinine remains stable Right second toe osteomyelitis Foot MRI: Second toe suspicious for osteomyelitis 03/05: Status post right second toe amputation by Dr. Keenan Vyas Given daptomycin IV ID consulted, discussed with Dr. Hermosillo , recommend DC antibiotics after toe amputation Patient doing well postoperatively Per Dr. Keenan Vyas: Dispensed interdigital spacers with instructions on use. Patient to keep incision site clean and dry. Patient is weight bearing as tolerated in surgical shoe. Patient will follow up in 2 weeks for suture removal or call sooner if symptoms arise. Sutures are looking good and that can be removed on 03/19/2022 Stitches are stable without any infection locally Stitches can be taken out on of this month Enterococcus UTI -- Completed amoxicillin course New onset atrial fibrillation, paroxysmal hx LV outflow obstruction/valvular heart disease (severe MR, mild TR)/pulmonary hypertension --Patient developed atrial fibrillation while admitted --Converted to sinus rhythm with IV metoprolol --Echocardiogram performed 2 weeks ago during previous admission --Cardiology service consulted started Eliquis 2.5mg BID Reduced to metoprolol XL 25 mg p.o. daily for now decreased from 37.5 mg daily Patient currently in sinus rhythm Monitor for bleeding while on Eliquis Follow-up with cardiology in 2 weeks following discharge from the hospital Prediabetes -- hemoglobin A1c of 5.9 last visit ongoing tobacco abuse DVT prophylaxis. Heparin subcu Full code Disposition: Lives at home Planning to transition to [facility], PT and OT pending plan of care discussed with patient in detail and at length all questions answered She is understanding, agreeable, comfortable with the plan of care Discussed with the daughter and the patient and the pain medication was increased Pain is reasonably controlled and the blood pressure remains on the lower side The condition gets worse will get inpatient palliative care evaluation Likely to be discharged to facility to continue physical therapy Admission and Anticipated Discharge Date Admission Date: March 02, 2022 Subjective 03/10/2022 The patient was seen and examined in medical telemetry unit She has been complaining of a lot of pain at the back and almost crying with the pain She is having diarrhea Does not have any drowsiness but complains to her weakness 03/11/2022 The patient was seen and examined in medical telemetry unit She remains very tearful and is in pain Pain seems to be reasonably controlled and continues to have diarrhea She is not totally aware about her current disease status 03/12/2022 The patient was seen and examined in medical telemetry unit She has been stable and the pain seems to be reasonably controlled Her hemoglobin dropped to 7.0 and she feels weak and lethargic She will be given 2 units of blood transfusion 03/13/2022 The patient was seen and examined in medical telemetry unit She has been having diarrhea and some discomfort locally around the perineal area Her pain seems to be controlled She is very depressed 03/14/2022 The patient was seen and examined in medical telemetry unit She has been stable and the pain is not well controlled as of yet She will have radiation treatment today and tomorrow Still having occasional diarrhea 03/15/2022 The patient was seen and examined in presence of the family members specially the daughter and the [id number] She has been stable today denies any significant pain She is done with her radiation treatment Will have PT and OT evaluation before she was transferred to a facility for rehab Review of Systems Review of Systems: All systems reviewed and are unremarkable except as noted below Physical Exam Physical Exam: Lying in bed with discomfort due to pain Constitutional: well developed, well nourished, + ill appearing and average body habitus Eyes: PERRL, conjunctivae normal, anicteric sclerae ENMT: external ear and nose normal, oropharynx normal Neck: trachea midline, no thyromegaly Respiratory: no respiratory distress Auscultation: lungs clear to auscultation bilaterally Cardiovascular: Rate/Rhythm: regular rate and regular rhythm; not tachycardic Heart Sounds: normal S1 and normal S2; no murmur Gastrointestinal (Abdomen): Inspection/Auscultation: normal bowel sounds; abdomen not distended Percussion/Palpation: abdomen soft; abdomen nontender Musculoskeletal: No acute arthritis involving any joint Neurologic: normal touch/pain/proprioception and moves all extremities; no focal motor deficits Remains generally very weak and lethargic Lymphatic: no cervical or axillary lymphadenopathy Results & Data Results & Data ([facility]) Vital Signs (Past 12 Hours) Vital Signs Temp Pulse Pulse Resp BP Pulse Ox O2 Del Method 03/15/22 08:28 36.6 C 64 18 111/71 92 Nasal Cannula 03/15/22 07:27 53 L 03/15/22 04:00 36.7 C 70 19 138/68 93 Nasal Cannula O2 Flow Rate 03/15/22 08:28 3 03/15/22 07:27 03/15/22 04:00 3 Medications Administered Current Inpatient Medications Acetaminophen (Acetaminophen 325 Mg Tab) 650 mg PO Q4H PRN PRN Reason: Pain or Fever Stop: 04/01/22 21:57 Apixaban (Apixaban 2.5 Mg Tab) 2.5 mg PO BID [facility] Stop: 04/05/22 12:14 Last Admin: 03/15/22 08:44 Dose: 2.5 mg Diclofenac Sodium (Diclofenac Sod 1% Gel 100 Gm Tube) 2 gm EXT QID PRN; Protocol PRN Reason: leg pain Stop: 04/02/22 01:40 Last Admin: 03/12/22 20:32 Dose: 2 gm Furosemide (Furosemide 40 Mg/4 Ml Vial) 20 mg IV TODAY@1100 [facility] Stop: 04/11/22 16:37 Last Admin: 03/14/22 12:40 Dose: Not Given Heparin Sodium (Porcine) (Heparin Sod 5,000 Unit/0.5 Ml Vial) 5,000 units SQ Q8 [facility] Stop: 04/01/22 21:59 Last Admin: 03/05/22 14:50 Dose: 5,000 units Heparin Sodium (Porcine) (Heparin 100 Unit/Ml 5ml Flush) 5 ml FLUSH PRN PRN PRN Reason: Flush Stop: 04/13/22 01:42 Hydromorphone HCl (Hydromorphone Inj 0.5 Mg/0.5 Ml Syr) 0.25 mg IV Q6H PRN PRN Reason: Pain Stop: 03/17/22 01:40 Last Admin: 03/14/22 07:39 Dose: 0.25 mg Promethazine HCl 12.5 mg/ (Sodium Chloride) 50.5 mls @ 202 mls/hr IV Q6H PRN PRN Reason: Nausea And Vomiting Stop: 04/02/22 03:31 Last Infusion: 03/03/22 17:13 Dose: Infused Loperamide HCl (Loperamide Hcl 2 Mg Cap) 2 mg PO UD PRN PRN Reason: Diarrhea Stop: 04/02/22 20:05 Last Admin: 03/15/22 00:07 Dose: 2 mg Magnesium Oxide (Magnesium Oxide 400 Mg Tab) 400 mg PO QAM [facility] Stop: 04/07/22 09:14 Last Admin: 03/15/22 08:45 Dose: 400 mg Metoprolol Succinate (Metoprolol Succ 25mg Ext Rel Tab) 25 mg PO QA [facility] Stop: 04/04/22 09:59 Last Admin: 03/15/22 08:45 Dose: 25 mg Morphine Sulfate (Morphine Sulfate Cr 60 Mg Tabcr) 60 mg PO Q12 [facility] Stop: 03/24/22 20:59 Last Admin: 03/15/22 08:47 Dose: 60 mg Multi-Ingredient Mouthwash/Gargle (First - Mouthwash Blm 119 Ml) 5 ml PO Q6H PRN PRN Reason: pain from oral ulcers Stop: 04/02/22 17:14 Last Admin: 03/14/22 21:27 Dose: 5 ml Ondansetron HCl (Ondansetron Inj 2 Mg/Ml 2 Ml Vial) 4 mg IV Q6H PRN PRN Reason: nausea/vomiting Stop: 04/02/22 12:44 Last Admin: 03/03/22 12:53 Dose: 4 mg Oxycodone HCl (Oxycodone Hcl Ir 5 Mg Tab (Immediate Release)) 5 mg PO Q4H PRN PRN Reason: Pain Stop: 03/24/22 12:02 Last Admin: 03/15/22 00:08 Dose: 5 mg Pantoprazole Sodium (Pantoprazole 40 Mg Tab) [facility] [place]: 04/02/22 08:59 Last Admin: 03/15/22 08:45 Dose: 40 mg Sertraline HCl (Sertraline Hcl 100 Mg Tablet) 100 [facility] [place] [place]: 04/02/22 08:59 Last Admin: 03/15/22 08:45 Dose: 100 mg
[2022-03-15] MEDS: HEPARIN 100 UNIT/ML 5ML FLUSH FLUSH PRN (14:13)
[2022-03-15] MEDS: FIRST - Mouthwash BLM 119 ML PO PRN (20:57)
[2022-03-15] MEDS: HYDROmorphone INJ 0.5 MG/0.5 ML SYR IV PRN (21:11)
[2022-03-16] MEDS: LOPERAMIDE HCL 2 MG CAP PO PRN (06:43)
[2022-03-16 07:34] LABS: Calcium 7.4 mg/dl (8.5-10.1); Creatinine Clr Calc Pharmacy 82.1 ml/min; Est GFR (African American) 106.7 ml/min; Est GFR (Non-African American) 92.1 ml/min; Potassium 3.2 mmol/L (3.5-5.1)
[2022-03-16 07:37] LABS: Basophils # (auto) 0.02 K/uL (0-0.2); Basophils % (auto) 0.5 %; Eosinophils # (auto) 0.13 K/uL (0-0.50); Eosinophils % (auto) 3.2 %; Hematocrit (blood only) 25.8 % (34.1-44.9); Hemoglobin 8.3 g/dl (12.0-16.0); Immature Granulocytes # (auto) 0.02 K/uL (0.00-0.02); Immature Granulocytes % (auto) 0.5 %; Lymphocytes # (auto) 0.11 K/uL (1.2-3.4); Lymphocytes % (auto) 2.7 %; Mean Corpuscular Hemoglobin 30.2 pg (25.0-34.0); Mean Corpuscular Hgb Conc 32.2 g/dL (32.0-36.0); Mean Corpuscular Volume 93.8 fL (80.0-100.0); Mean Platelet Volume 10.5 fL (9.4-12.3); Monocytes # (auto) 0.34 K/uL (0.24-0.82); Monocytes % (auto) 8.5 %; Neutrophils % (auto) 84.6 %; Platelet Count 109 K/uL (130-400); RDW Coefficient of Variation 21.2 % (11.5-14.5); RDW Standard Deviation 71.8 fL (36.4-46.3); Red Blood Count 2.75 M/uL (3.93-5.22); White Blood Count 4.02 K/ul (4.8-10.8)
[2022-03-16] MEDS: FIRST - Mouthwash BLM 119 ML PO PRN ×2 (07:49→14:00)
[2022-03-16] MEDS: METOPROLOL SUCC 25MG EXT REL TAB PO SCH (08:46)
[2022-03-16] MEDS: SERTRALINE HCL 100 MG TABLET PO SCH (08:47)
[2022-03-16] MEDS: MoRPHine SULFATE CR 60 MG TABCR PO SCH ×2 (08:47→21:37)
[2022-03-16] MEDS: APIXABAN 2.5 MG TAB PO SCH ×2 (08:47→21:36)
[2022-03-16] MEDS: MAGNESIUM OXIDE 400 MG TAB PO SCH (08:47)
[2022-03-16] MEDS: PANTOprazole 40 MG TAB PO SCH (08:47)
[2022-03-16] MEDS ORDERED: POTASSIUM CHLORIDE CRTAB 20 MEQ TABCR PO STA (08:52)
[2022-03-16] MEDS: oxyCODONE HCL IR 5 MG TAB (IMMEDIATE RELEASE) PO PRN (09:54)
--- NOTE | 2022-03-16 12:04 | Hospitalist Progress Note ---
Date of Service March 16, 2022 Assessment & Plan (1) KRISTIN (acute kidney injury): Plan: Per Dr. Snowden's notes with addendum: History of anal cancer status post chemotherapy/ongoing radiation Rx Chronic cancer pain on narcotics -- Currently back on morphine 60 mg twice daily Pain well controlled Completed course of radiation therapy 03/15 Acute on chronic anemia Chronic anemia -- Status post 2 units packed RBCs -- Hemoglobin improved from 7-8.3 No signs of active bleeding Acute kidney injury Diarrhea in the setting of chemotherapy -- Poor intake, nausea, possibly secondary to narcotics? In the setting of diuretic use or right lower extremity edema Creatinine improved rather quickly with IV fluids from 2.1, now 0.8 --Creatinine stable Diarrhea resolved Right lower extremity edema, chronic In setting of severe mitral vegetation RLE cellulitis Aldactone held secondary to acute renal failure Given daptomycin, and doxycycline: cellulitis resolved Per cardiology service, Aldactone 25 mg p.o. twice a week Repeat BMP in 1 week to monitor renal function and potassium Creatinine remains stable -- No leg edema Will need Aldactone 25 mg p.o. twice a week Right second toe osteomyelitis Foot MRI: Second toe suspicious for osteomyelitis 03/05: Status post right second toe amputation by Dr. Keenan Vyas Given daptomycin IV ID consulted, discussed with Dr. Hermosillo , recommend DC antibiotics after toe amputation Patient doing well postoperatively Per Dr. Keenan Vyas: Dispensed interdigital spacers with instructions on use. Patient to keep incision site clean and dry. Patient is weight bearing as tolerated in surgical shoe. Patient will follow up in 2 weeks for suture removal or call sooner if symptoms arise. -- Wound healing well For suture removal 03/19/2022 Enterococcus UTI -- Completed amoxicillin course New onset atrial fibrillation, paroxysmal hx LV outflow obstruction/valvular heart disease (severe MR, mild TR)/pulmonary hypertension --Patient developed atrial fibrillation while admitted --Converted to sinus rhythm with IV metoprolol --Echocardiogram performed 2 weeks ago during previous admission --Cardiology service consulted started Eliquis 2.5mg BID Reduced to metoprolol XL 25 mg p.o. daily for now decreased from 37.5 mg daily --Remains in sinus rhythm Prediabetes -- hemoglobin A1c of 5.9 last visit ongoing tobacco abuse DVT prophylaxis. Heparin subcu Full code Disposition: Lives at home Planning to transition to [facility], PT and OT pending plan of care discussed with patient in detail and at length all questions answered she is understanding, agreeable, comfortable with the plan of care Admission and Anticipated Discharge Date Admission Date: March 02, 2022 Subjective Follow-up for acute kidney injury, right second toe osteomyelitis, etc. Seen resting in bed, sitting up, watching TV, comfortable, On 2 L of oxygen States that she feels much better overall Denies shortness of breath, chest pain, palpitations, dizziness Leg pain has improved, no foot pain No other new symptoms Review of Systems Review of Systems: all noted and negative except for above Physical Exam Physical Exam: General- oriented x 3, not in distress, speaks in sentences with no effort or accessory muscle use Eyes- anicteric Neck- no JVD Lungs- clear breath sounds bilaterally, no rales/wheezes Heart- normal rate, regular rhythm; positive grade 2-3 holosystolic murmur Abdomen- normal bowel sounds, nondistended, soft, nontender Extremities- no pretibial edema, no calf tenderness Right foot-wound healing well Neuro- alert, oriented x 3; no gross focal neurologic deficits Skin- warm & dry Results & Data Results & Data ([facility]) Vital Signs (Past 12 Hours) Vital Signs Temp Pulse Pulse Resp BP BP Pulse Ox 03/16/22 11:18 36.3 C L 56 L 17 110/46 L 93 03/16/22 07:50 03/16/22 06:07 52 L 03/16/22 08:01 36.5 C 56 L 16 108/52 L 03/16/22 03:00 36.7 C 65 20 130/54 L 93 O2 Del Method O2 Flow Rate 03/16/22 11:18 Nasal Cannula 3 03/16/22 07:50 Nasal Cannula 3 03/16/22 06:07 03/16/22 08:01 Nasal Cannula 3 03/16/22 03:00 Nasal Cannula 3 all noted and reviewed including below
[2022-03-16] MEDS: HYDROmorphone INJ 0.5 MG/0.5 ML SYR IV PRN (12:21)
[2022-03-17] MEDS: FIRST - Mouthwash BLM 119 ML PO PRN ×2 (01:23→08:00)
[2022-03-17] MEDS: oxyCODONE HCL IR 5 MG TAB (IMMEDIATE RELEASE) PO PRN ×3 (01:23→17:36)
[2022-03-17] MEDS ORDERED: HYDROmorphone INJ 0.5 MG/0.5 ML SYR IV PRN (01:48)
[2022-03-17 09:07] LABS: Basophils # (auto) 0.02 K/uL (0-0.2); Basophils % (auto) 0.5 %; Eosinophils # (auto) 0.16 K/uL (0-0.50); Eosinophils % (auto) 4.2 %; Hematocrit (blood only) 26.9 % (34.1-44.9); Hemoglobin 8.7 g/dl (12.0-16.0); Immature Granulocytes # (auto) 0.05 K/uL (0.00-0.02); Immature Granulocytes % (auto) 1.3 %; Lymphocytes # (auto) 0.14 K/uL (1.2-3.4); Lymphocytes % (auto) 3.7 %; Mean Platelet Volume 10.1 fL (9.4-12.3); Monocytes # (auto) 0.36 K/uL (0.24-0.82); Monocytes % (auto) 9.5 %; Neutrophils # (auto) 3.04 K/uL (1.4-6.5); Neutrophils % (auto) 80.8 %; Platelet Count 114 K/uL (130-400); White Blood Count 3.77 K/ul (4.8-10.8)
[2022-03-17] MEDS: MAGNESIUM OXIDE 400 MG TAB PO SCH (09:17)
[2022-03-17] MEDS: APIXABAN 2.5 MG TAB PO SCH ×2 (09:17→20:26)
[2022-03-17] MEDS: MoRPHine SULFATE CR 60 MG TABCR PO SCH ×2 (09:17→20:27)
[2022-03-17] MEDS: PANTOprazole 40 MG TAB PO SCH (09:17)
[2022-03-17] MEDS: METOPROLOL SUCC 25MG EXT REL TAB PO SCH (09:17)
[2022-03-17] MEDS: SERTRALINE HCL 100 MG TABLET PO SCH (09:18)
[2022-03-17 09:28] LABS: BUN Creatinine Ratio 39.2 (10-20); Calcium 7.4 mg/dl (8.5-10.1); Creatinine Clr Calc Pharmacy 80.5 ml/min; Est GFR (Non-African American) 91.5 ml/min; Potassium 3.6 mmol/L (3.5-5.1)
[2022-03-17 09:33] LABS: Acanthocytes 1+; Anisocytosis Present; Mean Corpuscular Hgb Conc 32.3 g/dL (32.0-36.0); Mean Corpuscular Volume 92.8 fL (80.0-100.0); Polychromasia 1+; RDW Coefficient of Variation 21.2 % (11.5-14.5); RDW Standard Deviation 71.6 fL (36.4-46.3)
--- NOTE | 2022-03-17 13:40 | Hospitalist Progress Note ---
Date of Service March 17, 2022 Assessment & Plan (1) KRISTIN (acute kidney injury): Plan: Per Dr. Snowden's notes with addendum: History of anal cancer status post chemotherapy/ongoing radiation Rx Chronic cancer pain on narcotics -- Currently back on morphine 60 mg twice daily Pain well controlled Completed course of radiation therapy 03/15 Acute on chronic anemia Chronic anemia -- Status post 2 units packed RBCs -- Hemoglobin improved from 7-8.3 No signs of active bleeding --Hemoglobin stable at 8.7 Acute kidney injury Diarrhea in the setting of chemotherapy -- Poor intake, nausea, possibly secondary to narcotics? In the setting of diuretic use or right lower extremity edema Creatinine improved rather quickly with IV fluids from 2.1, now 0.8 --Creatinine stable Diarrhea resolved Right lower extremity edema, chronic In setting of severe mitral vegetation RLE cellulitis Aldactone held secondary to acute renal failure Given daptomycin, and doxycycline: cellulitis resolved Per cardiology service, Aldactone 25 mg p.o. twice a week Repeat BMP in 1 week to monitor renal function and potassium Creatinine remains stable -- No leg edema Aldactone 25 mg p.o. twice a week Right second toe osteomyelitis Foot MRI: Second toe suspicious for osteomyelitis 03/05: Status post right second toe amputation by Dr. Keenan Vyas Given daptomycin IV ID consulted, discussed with Dr. Hermosillo , recommend DC antibiotics after toe amputation Patient doing well postoperatively Per Dr. Keenan Vyas: Dispensed interdigital spacers with instructions on use. Patient to keep incision site clean and dry. Patient is weight bearing as tolerated in surgical shoe. Patient will follow up in 2 weeks for suture removal or call sooner if symptoms arise. -- Wound healing well For suture removal 03/19/2022 Enterococcus UTI -- Completed amoxicillin course New onset atrial fibrillation, paroxysmal hx LV outflow obstruction/valvular heart disease (severe MR, mild TR)/pulmonary hypertension --Patient developed atrial fibrillation while admitted --Converted to sinus rhythm with IV metoprolol --Echocardiogram performed 2 weeks ago during previous admission --Cardiology service consulted started Eliquis 2.5mg BID Reduced to metoprolol XL 25 mg p.o. daily for now decreased from 37.5 mg daily --Remains in sinus rhythm Prediabetes -- hemoglobin A1c of 5.9 last visit ongoing tobacco abuse DVT prophylaxis. Heparin subcu Full code Disposition: Lives at home Planning to transition to [facility], PT and OT pending plan of care discussed with patient in detail and at length all questions answered she is understanding, agreeable, comfortable with the plan of care Admission and Anticipated Discharge Date Admission Date: March 02, 2022 Subjective Follow-up for acute kidney injury, osteomyelitis of the right second toe, etc. Seen resting in bed, sitting, watching TV, on 2 L of oxygen Comfortable, in good spirits States she feels fine overall No changes with breathing, no cough, shortness of breath Denies leg or foot pain Still having some pain over the buttock area No other symptoms Review of Systems Review of Systems: all noted and negative except for above Physical Exam Physical Exam: General- oriented x 3, not in distress, speaks in sentences with no effort or accessory muscle use Eyes- anicteric Neck- no JVD Lungs- clear breath sounds bilaterally, No crackles or wheezing Heart- normal rate, regular rhythm; no murmurs Abdomen- normal bowel sounds, nondistended, soft, nontender Extremities- no pretibial edema, no calf tenderness Right foot: Surgical wound healing well, no discharge, sutures intact Patient declined examination of the buttock and perineal area Neuro- alert, oriented x 3; no gross focal neurologic deficits Skin- warm & dry Results & Data Results & Data ([facility]) Vital Signs (Past 12 Hours) Vital Signs Temp Pulse Pulse Resp BP BP Pulse Ox 03/17/22 11:00 03/17/22 07:00 58 L 03/17/22 07:42 36.5 C 67 16 116/56 L 93 03/17/22 03:54 36.1 C L 85 20 126/64 92 O2 Del Method O2 Flow Rate 03/17/22 11:00 Nasal Cannula 2 03/17/22 07:00 03/17/22 07:42 Nasal Cannula 2.5 03/17/22 03:54 Nasal Cannula 3 all noted and reviewed including below
[2022-03-18] MEDS: MoRPHine SULFATE CR 60 MG TABCR PO SCH ×2 (07:55→20:49)
[2022-03-18] MEDS: METOPROLOL SUCC 25MG EXT REL TAB PO SCH (07:56)
[2022-03-18] MEDS: SERTRALINE HCL 100 MG TABLET PO SCH (07:56)
[2022-03-18] MEDS: PANTOprazole 40 MG TAB PO SCH (07:56)
[2022-03-18] MEDS: MAGNESIUM OXIDE 400 MG TAB PO SCH (07:56)
[2022-03-18] MEDS: APIXABAN 2.5 MG TAB PO SCH ×2 (07:56→20:49)
[2022-03-18] MEDS: FIRST - Mouthwash BLM 119 ML PO PRN ×2 (07:57→20:48)
--- NOTE | 2022-03-18 18:06 | Hospitalist Progress Note ---
Date of Service March 18, 2022 Assessment & Plan (1) KRISTIN (acute kidney injury): Plan: Per Dr. Snowden's notes with addendum: History of anal cancer status post chemotherapy/ongoing radiation Rx Chronic cancer pain on narcotics -- Currently back on morphine 60 mg twice daily Pain well controlled Completed course of radiation therapy 03/15 Acute on chronic anemia Chronic anemia -- Status post 2 units packed RBCs -- Hemoglobin improved from 7-8.3 --Hemoglobin stable at 8.7 No signs of active bleeding Acute kidney injury Diarrhea in the setting of chemotherapy -- Poor intake, nausea, possibly secondary to narcotics? In the setting of diuretic use or right lower extremity edema Creatinine improved rather quickly with IV fluids from 2.1, now 0.8 --Creatinine stable Diarrhea resolved Right lower extremity edema, chronic In setting of severe mitral vegetation RLE cellulitis Aldactone held secondary to acute renal failure Given daptomycin, and doxycycline: cellulitis resolved Per cardiology service, Aldactone 25 mg p.o. twice a week Repeat BMP in 1 week to monitor renal function and potassium Creatinine remains stable -- No leg edema Aldactone 25 mg p.o. twice a week Received Lasix 20 mg IV 3 days ago, appears euvolemic today Monitor Right second toe osteomyelitis Foot MRI: Second toe suspicious for osteomyelitis 03/05: Status post right second toe amputation by Dr. Keenan Vyas Given daptomycin IV ID consulted, discussed with Dr. Hermosillo , recommend DC antibiotics after toe amputation Patient doing well postoperatively Per Dr. Keenan Vyas: Dispensed interdigital spacers with instructions on use. Patient to keep incision site clean and dry. Patient is weight bearing as tolerated in surgical shoe. Patient will follow up in 2 weeks for suture removal or call sooner if symptoms arise. -- Wound healing well For suture removal 03/19/2022 Enterococcus UTI -- Completed amoxicillin course New onset atrial fibrillation, paroxysmal hx LV outflow obstruction/valvular heart disease (severe MR, mild TR)/pulmonary hypertension --Patient developed atrial fibrillation while admitted --Converted to sinus rhythm with IV metoprolol --Echocardiogram performed 2 weeks ago during previous admission --Cardiology service consulted started Eliquis 2.5mg BID Reduced to metoprolol XL 25 mg p.o. daily for now decreased from 37.5 mg daily --Remains in sinus rhythm Hypoxia Likely from atelectasis? Incentive spirometry encouraged Wean of oxygen accordingly Prediabetes -- hemoglobin A1c of 5.9 last visit ongoing tobacco abuse DVT prophylaxis. Heparin subcu Full code Disposition: Lives at home Planning to transition to [facility], PT and OT pending plan of care discussed with patient in detail and at length all questions answered she is understanding, agreeable, comfortable with the plan of care Admission and Anticipated Discharge Date Admission Date: March 02, 2022 Subjective Follow-up for acute kidney injury, etc. Seen sleeping but easily awakened States she feels fine overall No shortness of breath, cough, fevers or chills Denies leg pain or foot pain Still having some buttock pain, but improving as per patient No other symptoms Review of Systems Review of Systems: all noted and negative except for above Physical Exam Physical Exam: General- oriented x 3, not in distress, speaks in sentences with no effort or accessory muscle use Eyes- anicteric Neck- no JVD Lungs- clear breath sounds bilaterally, no crackles or wheezing Heart- normal rate, regular rhythm; no murmurs Abdomen- normal bowel sounds, nondistended, soft, nontender Buttocks-erythematous area with opening on the right buttock area No active bleeding or discharge No tenderness or warmth Extremities- no pretibial edema, no calf tenderness Right foot-surgical site healing well, sutures intact Neuro- alert, oriented x 3; no gross focal neurologic deficits Skin- warm & dry Results & Data Results & Data ([facility]) Vital Signs (Past 12 Hours) Vital Signs Temp Pulse Pulse Resp BP Pulse Ox O2 Del Method 03/18/22 15:23 37.1 C 64 19 90/53 L 92 Nasal Cannula 03/18/22 14:57 56 L 03/18/22 11:35 36.5 C 57 L 19 108/57 L 94 Nasal Cannula 03/18/22 11:08 Nasal Cannula 03/18/22 10:49 85 L Room Air, Nasal Cannula 03/18/22 07:57 36.7 C 101 H 19 125/57 L 93 Nasal Cannula 03/18/22 07:05 73 O2 Flow Rate 03/18/22 15:23 2 03/18/22 14:57 03/18/22 11:35 2 03/18/22 11:08 2 03/18/22 10:49 03/18/22 07:57 2 03/18/22 07:05 all noted and reviewed including below
[2022-03-19] MEDS: MoRPHine SULFATE CR 60 MG TABCR PO SCH ×2 (09:39→20:04)
[2022-03-19] MEDS: oxyCODONE HCL IR 5 MG TAB (IMMEDIATE RELEASE) PO PRN ×2 (09:39→14:30)
[2022-03-19] MEDS: APIXABAN 2.5 MG TAB PO SCH ×2 (10:06→20:04)
[2022-03-19] MEDS: MAGNESIUM OXIDE 400 MG TAB PO SCH (10:06)
[2022-03-19] MEDS: PANTOprazole 40 MG TAB PO SCH (10:06)
[2022-03-19] MEDS: SERTRALINE HCL 100 MG TABLET PO SCH (10:06)
[2022-03-19] MEDS: METOPROLOL SUCC 25MG EXT REL TAB PO SCH (10:07)
[2022-03-19] MEDS: HEPARIN 100 UNIT/ML 5ML FLUSH FLUSH PRN ×2 (10:23→18:42)
[2022-03-19] MEDS ORDERED: SPIRONOLACTONE 25 MG TAB PO ONE (14:00)
--- NOTE | 2022-03-19 14:25 | Hospitalist Progress Note ---
Date of Service March 19, 2022 Assessment & Plan (1) KRISTIN (acute kidney injury): Plan: Per Dr. Snowden's notes with addendum: History of anal cancer status post chemotherapy/ongoing radiation Rx Chronic cancer pain on narcotics -- Currently back on morphine 60 mg twice daily Pain well controlled Completed course of radiation therapy 03/15 Radiation Dermatitis -- no signs of infection per exam yesterday continue Protective cream will request wound care team to evaluate patient again on Monday when they are back Acute on chronic anemia Chronic anemia -- Status post 2 units packed RBCs -- Hemoglobin improved from 7-8.3 --Hemoglobin stable at 8.7 No signs of active bleeding Acute kidney injury Diarrhea in the setting of chemotherapy -- Poor intake, nausea, possibly secondary to narcotics? In the setting of diuretic use or right lower extremity edema Creatinine improved rather quickly with IV fluids from 2.1, now 0.8 --Creatinine stable Diarrhea resolved Right lower extremity edema, chronic In setting of severe mitral vegetation RLE cellulitis Aldactone held secondary to acute renal failure Given daptomycin, and doxycycline: cellulitis resolved Per cardiology service, Aldactone 25 mg p.o. twice a week Repeat BMP in 1 week to monitor renal function and potassium Creatinine remains stable -- No leg edema Aldactone 25 mg p.o. twice a week--> start today, Sat and Wed Received Lasix 20 mg IV 3 days ago Right second toe osteomyelitis Foot MRI: Second toe suspicious for osteomyelitis 03/05: Status post right second toe amputation by Dr. Keenan Vyas Given daptomycin IV ID consulted, discussed with Dr. Hermosillo , recommend DC antibiotics after toe amputation Patient doing well postoperatively Per Dr. Keenan Vyas: Dispensed interdigital spacers with instructions on use. Patient to keep incision site clean and dry. Patient is weight bearing as tolerated in surgical shoe. Patient will follow up in 2 weeks for suture removal or call sooner if symptoms arise. -- Wound healing well For suture removal 03/19/2022--> Dr. Vyas requested Enterococcus UTI -- Completed amoxicillin course New onset atrial fibrillation, paroxysmal hx LV outflow obstruction/valvular heart disease (severe MR, mild TR)/pulmonary hypertension --Patient developed atrial fibrillation while admitted --Converted to sinus rhythm with IV metoprolol --Echocardiogram performed 2 weeks ago during previous admission --Cardiology service consulted started Eliquis 2.5mg BID Reduced to metoprolol XL 25 mg p.o. daily for now decreased from 37.5 mg daily --Remains in sinus rhythm Hypoxia Likely from atelectasis? Incentive spirometry encouraged Wean of oxygen accordingly Prediabetes -- hemoglobin A1c of 5.9 last visit ongoing tobacco abuse DVT prophylaxis. Heparin subcu Full code Disposition: Lives at home Planning to transition to [facility], PT and OT pending plan of care discussed with patient in detail and at length all questions answered she is understanding, agreeable, comfortable with the plan of care Admission and Anticipated Discharge Date Admission Date: March 02, 2022 Subjective ff up for acute kidney injury, osteomyelitis of the right second toe, etc. Seen sitting up in bed on 2 L of oxygen Comfortable, not in distress States she feels fine overall Still having some pain over the buttocks No leg or foot pain Denies shortness of breath, cough, chest pain, palpitations No other symptoms Review of Systems Review of Systems: all noted and negative except for above Physical Exam Physical Exam: General- oriented x 3, not in distress, speaks in sentences with no effort or accessory muscle use Eyes- anicteric Neck- no JVD Lungs- clear BS BL Heart- normal rate, regular rhythm; no murmurs Abdomen- normal bowel sounds, nondistended, soft, nontender Extremities- no pretibial edema, no calf tenderness R foot- wound healing well sutures intact Neuro- alert, oriented x 3; no gross focal neurologic deficits Skin- warm & dry Results & Data Results & Data ([facility]) Vital Signs (Past 12 Hours) Vital Signs Temp Pulse Pulse Resp BP Pulse Ox O2 Del Method 03/19/22 11:42 36.5 C 60 20 121/67 90 Room Air 03/19/22 11:38 Nasal Cannula 03/19/22 07:51 58 L 03/19/22 07:33 36.4 C L 65 20 130/72 95 Nasal Cannula 03/19/22 03:15 36.6 C 70 16 137/78 92 Nasal Cannula O2 Flow Rate 03/19/22 11:42 03/19/22 11:38 2 03/19/22 07:51 03/19/22 07:33 2 03/19/22 03:15 2 all noted and reviewed including below
[2022-03-19] MEDS: FIRST - Mouthwash BLM 119 ML PO PRN (14:29)
--- NOTE | 2022-03-19 20:28 | Orthopedic Progress Note ---
Date of Service March 19, 2022 Assessment & Plan (1) Foot ulcer: Plan: Patient seen, evaluated, and treated Sutures removed with out incident. Patient is weight bearing as tolerated. There are no restrictions. Thank you for allowing me to participate in the care of this Patient. Admission and Anticipated Discharge Date Admission Date: March 02, 2022 Subjective Patient seen at bedside in no distress. She is resting comfortably. Son is present in room. Patient relates no complaints. Review of Systems Review of Systems: All systems reviewed & are unremarkable except as noted in HPI & below Physical Exam Constitutional: WD/WN, vitals as above Cardiovascular: Capillary refill time within normal limits. Musculoskeletal: no cyanosis or clubbing, extremities motor strength 5/5 Skin: Skin in well co-apted. There are no signs on infection. Sutures intact. Neurologic: No deficits noted. Psychiatric: Orientation: alert and oriented x 3 Results & Data ([facility]) Vital Signs (Past 12 Hours) Vital Signs Temp Pulse Pulse Resp BP Pulse Ox O2 Del Method 03/19/22 19:16 36.5 C 59 L 20 134/64 92 Nasal Cannula 03/19/22 15:39 36.2 C L 58 L 20 143/64 H 92 Nasal Cannula 03/19/22 14:59 58 L 03/19/22 11:42 36.5 C 60 20 121/67 90 Room Air 03/19/22 11:38 Nasal Cannula O2 Flow Rate 03/19/22 19:16 2 03/19/22 15:39 2 03/19/22 14:59 03/19/22 11:42 03/19/22 11:38 2
[2022-03-20] MEDS: APIXABAN 2.5 MG TAB PO SCH ×2 (08:04→20:18)
[2022-03-20] MEDS: METOPROLOL SUCC 25MG EXT REL TAB PO SCH (08:04)
[2022-03-20] MEDS: MAGNESIUM OXIDE 400 MG TAB PO SCH (08:04)
[2022-03-20] MEDS: SERTRALINE HCL 100 MG TABLET PO SCH (08:04)
[2022-03-20] MEDS: PANTOprazole 40 MG TAB PO SCH (08:04)
[2022-03-20] MEDS: MoRPHine SULFATE CR 60 MG TABCR PO SCH ×2 (08:05→20:18)
[2022-03-20] MEDS: oxyCODONE HCL IR 5 MG TAB (IMMEDIATE RELEASE) PO PRN ×2 (10:10→19:23)
--- NOTE | 2022-03-20 11:52 | XRay Report ---
XR chest 1V portable CLINICAL HISTORY: hypoxia TECHNIQUE: Single frontal radiograph of the chest was obtained. Comparison: Comparison is made to chest radiograph 03/12/2022 FINDINGS: A port catheter is seen. Calcified aortic knob is seen. Reticular interstitial opacities are seen. In addition there is multifocal airspace opacity most prominently in the right lower lung, increased fr om prior exam. No evidence of pleural effusion or pneumothorax. IMPRESSION: Increased airspace opacity most prominent in the right lower lung, concerning for pneumonia and/or as piration. ACT 112: Negative or not required by law. Electronically signed by: Milad Douglas M.D. 03/20/2022 11:50 AM
[2022-03-20] MEDS: HEPARIN 100 UNIT/ML 5ML FLUSH FLUSH PRN ×2 (12:44→13:43)
[2022-03-20] MEDS: ADVANCED PROBIOTIC 1250 MG CAPSULE PO SCH (13:42)
[2022-03-20] MEDS: CEFEPIME 2,000 MG in SYRINGE 0 ML IV SCH ×2 (13:43→20:18)
[2022-03-20] MEDS: SILVER SULFADIAZINE 1% CR 50 GM JAR EXT SCH ×2 (13:49→20:18)
--- NOTE | 2022-03-20 17:01 | Hospitalist Progress Note ---
Date of Service March 20, 2022 Assessment & Plan (1) KRISTIN (acute kidney injury): Plan: Per Dr. Snowden's notes with addendum: R lower Lobe pneumonia - Cefepime 2g IV q8h started monitor closely - wean off oxygen accordingly History of anal cancer status post chemotherapy/ongoing radiation Rx Chronic cancer pain on narcotics -- Currently back on morphine 60 mg twice daily Pain well controlled Completed course of radiation therapy 03/15 Radiation Dermatitis -- no signs of infection per exam yesterday continue Protective cream will request wound care team to evaluate patient again on Monday when they are back - Silver sulfadiazene cream BID Acute on chronic anemia Chronic anemia -- Status post 2 units packed RBCs -- Hemoglobin improved from 7-8.3 --Hemoglobin stable at 8.7 No signs of active bleeding Acute kidney injury Diarrhea in the setting of chemotherapy -- Poor intake, nausea, possibly secondary to narcotics? In the setting of diuretic use or right lower extremity edema Creatinine improved rather quickly with IV fluids from 2.1, now 0.8 --Creatinine stable Diarrhea resolved Right lower extremity edema, chronic In setting of severe mitral vegetation RLE cellulitis Aldactone held secondary to acute renal failure Given daptomycin, and doxycycline: cellulitis resolved Per cardiology service, Aldactone 25 mg p.o. twice a week Repeat BMP in 1 week to monitor renal function and potassium Creatinine remains stable -- No leg edema Aldactone 25 mg p.o. twice a week-->Sat and Wed Received Lasix 20 mg IV 3 days ago Right second toe osteomyelitis Foot MRI: Second toe suspicious for osteomyelitis 03/05: Status post right second toe amputation by Dr. Keenan Vyas Given daptomycin IV ID consulted, discussed with Dr. Hermosillo , recommend DC antibiotics after toe amputation Patient doing well postoperatively Per Dr. Keenan Vyas: Dispensed interdigital spacers with instructions on use. Patient to keep incision site clean and dry. Patient is weight bearing as tolerated in surgical shoe. Patient will follow up in 2 weeks for suture removal or call sooner if symptoms arise. -- Wound healing well s/p suture removal 03/19/2022--> Dr. Vyas Enterococcus UTI -- Completed amoxicillin course New onset atrial fibrillation, paroxysmal hx LV outflow obstruction/valvular heart disease (severe MR, mild TR)/pulmonary hypertension --Patient developed atrial fibrillation while admitted --Converted to sinus rhythm with IV metoprolol --Echocardiogram performed 2 weeks ago during previous admission --Cardiology service consulted started Eliquis 2.5mg BID Reduced to metoprolol XL 25 mg p.o. daily for now decreased from 37.5 mg daily --Remains in sinus rhythm Prediabetes -- hemoglobin A1c of 5.9 last visit ongoing tobacco abuse DVT prophylaxis. Eliquis Full code Disposition: Lives at home Planning to transition to [facility], PT and OT plan of care discussed with patient in detail and at length all questions answered she is understanding, agreeable, comfortable with the plan of care Admission and Anticipated Discharge Date Admission Date: March 02, 2022 Subjective ff up for acute kidney injury, etc seen sitting up in bed on 2 L [place] states she feels off today no cough, SOB, chest pain, leg pain no other symptoms Review of Systems Review of Systems: all noted and negative except for above Physical Exam Physical Exam: General- oriented x 3, not in distress, speaks in sentences with no effort or accessory muscle use Eyes- anicteric Neck- no JVD Lungs- mild rhonchi R base Heart- normal rate, regular rhythm; no murmurs Abdomen- normal bowel sounds, nondistended, soft, nontender Extremities- no pretibial edema, no calf tenderness R foot: surgical site healing well Neuro- alert, oriented x 3; no gross focal neurologic deficits Skin- warm & dry Results & Data Results & Data ([facility]) Vital Signs (Past 12 Hours) Vital Signs Temp Pulse Pulse Resp BP BP Pulse Ox 03/20/22 15:20 36.5 C 60 20 125/68 94 03/20/22 15:15 62 03/20/22 11:55 36.3 C L 58 L 20 118/61 94 03/20/22 10:22 03/20/22 08:00 58 L 03/20/22 07:21 36.3 C L 62 18 128/64 93 O2 Del Method O2 Flow Rate 03/20/22 15:20 Nasal Cannula 2 03/20/22 15:15 03/20/22 11:55 Nasal Cannula 2 03/20/22 10:22 Nasal Cannula 2 03/20/22 08:00 03/20/22 07:21 Nasal Cannula 2 all noted and reviewed including below
[2022-03-20] MEDS: ONDANSETRON INJ 2 MG/ML 2 ML VIAL IV PRN (22:51)
[2022-03-21] MEDS: CEFEPIME 2,000 MG in SYRINGE 0 ML IV SCH ×3 (04:04→19:56)
[2022-03-21] MEDS: PANTOprazole 40 MG TAB PO SCH (09:24)
[2022-03-21] MEDS: SERTRALINE HCL 100 MG TABLET PO SCH (09:24)
[2022-03-21] MEDS: MAGNESIUM OXIDE 400 MG TAB PO SCH (09:24)
[2022-03-21] MEDS: METOPROLOL SUCC 25MG EXT REL TAB PO SCH (09:24)
[2022-03-21] MEDS: APIXABAN 2.5 MG TAB PO SCH ×2 (09:24→19:56)
[2022-03-21] MEDS: MoRPHine SULFATE CR 60 MG TABCR PO SCH ×2 (09:24→19:55)
[2022-03-21] MEDS: ADVANCED PROBIOTIC 1250 MG CAPSULE PO SCH (09:24)
[2022-03-21] MEDS: SILVER SULFADIAZINE 1% CR 50 GM JAR EXT SCH ×2 (09:25→19:57)
[2022-03-21 09:54] LABS: Basophils # (auto) 0.02 K/uL (0-0.2); Basophils % (auto) 0.4 %; Eosinophils # (auto) 0.19 K/uL (0-0.50); Eosinophils % (auto) 4.1 %; Hematocrit (blood only) 28.9 % (34.1-44.9); Hemoglobin 9.3 g/dl (12.0-16.0); Immature Granulocytes % (auto) 2.1 %; Lymphocytes # (auto) 0.25 K/uL (1.2-3.4); Lymphocytes % (auto) 5.3 %; Mean Corpuscular Hgb Conc 32.2 g/dL (32.0-36.0); Mean Corpuscular Volume 93.2 fL (80.0-100.0); Mean Platelet Volume 10.3 fL (9.4-12.3); Monocytes # (auto) 0.49 K/uL (0.24-0.82); Monocytes % (auto) 10.5 %; Neutrophils # (auto) 3.63 K/uL (1.4-6.5); Neutrophils % (auto) 77.6 %; Platelet Count 203 K/uL (130-400); RDW Coefficient of Variation 21.2 % (11.5-14.5); White Blood Count 4.68 K/ul (4.8-10.8)
[2022-03-21 10:30] LABS: BUN Creatinine Ratio 37.5 (10-20); Creatinine Clr Calc Pharmacy 85.5 ml/min; Est GFR (African American) 108.1 ml/min; Est GFR (Non-African American) 93.3 ml/min; Potassium 4.1 mmol/L (3.5-5.1)
[2022-03-21 10:44] LABS: Acanthocytes 1+; Ovalocytes 1+; Polychromasia 1+
[2022-03-21] MEDS: oxyCODONE HCL IR 5 MG TAB (IMMEDIATE RELEASE) PO PRN ×2 (12:52→20:15)
--- NOTE | 2022-03-21 16:58 | Hospitalist Progress Note ---
Date of Service March 21, 2022 Assessment & Plan (1) KRISTIN (acute kidney injury): Plan: Per Dr. Snowden's notes with addendum: R lower Lobe pneumonia -Still on 2 L of oxygen via nasal cannula -Continue with cefepime 2g IV q8h day #2 monitor closely - wean off oxygen accordingly History of anal cancer status post chemotherapy/ongoing radiation Rx Chronic cancer pain on narcotics -- Currently back on morphine 60 mg twice daily Pain well controlled Completed course of radiation therapy 03/15 Radiation Dermatitis -- no signs of infection per exam yesterday continue Protective cream Requested wound care team to evaluate patient - Silver sulfadiazene cream BID Acute on chronic anemia Chronic anemia -- Status post 2 units packed RBCs -- Hemoglobin improved from 7-8.3 --Hemoglobin stable at 8.7 No signs of active bleeding Acute kidney injury Diarrhea in the setting of chemotherapy -- Poor intake, nausea, possibly secondary to narcotics? In the setting of diuretic use or right lower extremity edema Creatinine improved rather quickly with IV fluids from 2.1, now 0.8 --Creatinine stable Diarrhea resolved Right lower extremity edema, chronic In setting of severe mitral vegetation RLE cellulitis Aldactone held secondary to acute renal failure Given daptomycin, and doxycycline: cellulitis resolved Per cardiology service, Aldactone 25 mg p.o. twice a week Repeat BMP in 1 week to monitor renal function and potassium Creatinine remains stable -- No leg edema Aldactone 25 mg p.o. twice a week-->Sat and Wed Received Lasix 20 mg IV 3 days ago Right second toe osteomyelitis Foot MRI: Second toe suspicious for osteomyelitis 03/05: Status post right second toe amputation by Dr. Keenan Vyas Given daptomycin IV ID consulted, discussed with Dr. Hermosillo , recommend DC antibiotics after toe amputation Patient doing well postoperatively Per Dr. Keenan Vyas: Dispensed interdigital spacers with instructions on use. Patient to keep incision site clean and dry. Patient is weight bearing as tolerated in surgical shoe. Patient will follow up in 2 weeks for suture removal or call sooner if symptoms arise. -- Wound healing well s/p suture removal 03/19/2022--> Dr. Vyas Enterococcus UTI -- Completed amoxicillin course New onset atrial fibrillation, paroxysmal hx LV outflow obstruction/valvular heart disease (severe MR, mild TR)/pulmonary hypertension --Patient developed atrial fibrillation while admitted --Converted to sinus rhythm with IV metoprolol --Echocardiogram performed 2 weeks ago during previous admission --Cardiology service consulted started Eliquis 2.5mg BID Reduced to metoprolol XL 25 mg p.o. daily for now decreased from 37.5 mg daily --Remains in sinus rhythm Prediabetes -- hemoglobin A1c of 5.9 last visit ongoing tobacco abuse DVT prophylaxis. Eliquis Full code Disposition: Lives at home Planning to transition to [facility], PT and OT plan of care discussed with patient in detail and at length all questions answered she is understanding, agreeable, comfortable with the plan of care Admission and Anticipated Discharge Date Admission Date: March 02, 2022 Subjective Follow-up for acute kidney injury, right toe osteomyelitis, etc. Seen sitting up at bedside chair, watching TV, on 2 L of oxygen She feels slightly better yesterday but still feels a little bit of Denies shortness of breath, cough, chest pain No leg pain or foot pain No other symptoms Review of Systems Review of Systems: all noted and negative except for above Physical Exam Physical Exam: General- oriented x 3, not in distress, speaks in sentences with no effort or accessory muscle use Eyes- anicteric Neck- no JVD Lungs- clear breath sounds bilaterally, no rales, no wheezing noted Heart- normal rate, regular rhythm; no murmurs Abdomen- normal bowel sounds, nondistended, soft, nontender Extremities- no pretibial edema, no calf tenderness Right foot-wound healing well Neuro- alert, oriented x 3; no gross focal neurologic deficits Skin- warm & dry Results & Data Results & Data ([facility]) Vital Signs (Past 12 Hours) Vital Signs Temp Pulse Pulse Resp BP Pulse Ox O2 Del Method 03/21/22 15:23 36.7 C 56 L 16 144/68 H 93 Nasal Cannula 03/21/22 14:51 62 03/21/22 11:31 36.5 C 63 16 142/60 H 95 Room Air 03/21/22 09:30 Nasal Cannula 03/21/22 07:37 36.5 C 76 16 132/64 93 Nasal Cannula 03/21/22 07:30 53 L O2 Flow Rate 03/21/22 15:23 2 03/21/22 14:51 03/21/22 11:31 03/21/22 09:30 2 03/21/22 07:37 2 03/21/22 07:30
[2022-03-21] MEDS: FIRST - Mouthwash BLM 119 ML PO PRN (19:58)
[2022-03-22] MEDS: oxyCODONE HCL IR 5 MG TAB (IMMEDIATE RELEASE) PO PRN ×3 (00:31→17:47)
[2022-03-22] MEDS: CEFEPIME 2,000 MG in SYRINGE 0 ML IV SCH ×3 (05:49→20:11)
[2022-03-22] MEDS: FIRST - Mouthwash BLM 119 ML PO PRN (08:22)
[2022-03-22] MEDS: METOPROLOL SUCC 25MG EXT REL TAB PO SCH (08:23)
[2022-03-22] MEDS: PANTOprazole 40 MG TAB PO SCH (08:23)
[2022-03-22] MEDS: MoRPHine SULFATE CR 60 MG TABCR PO SCH ×2 (08:23→20:11)
[2022-03-22] MEDS: SERTRALINE HCL 100 MG TABLET PO SCH (08:23)
[2022-03-22] MEDS: APIXABAN 2.5 MG TAB PO SCH ×2 (08:24→20:11)
[2022-03-22] MEDS: ADVANCED PROBIOTIC 1250 MG CAPSULE PO SCH (08:24)
[2022-03-22] MEDS: MAGNESIUM OXIDE 400 MG TAB PO SCH (08:24)
[2022-03-22] MEDS: SILVER SULFADIAZINE 1% CR 50 GM JAR EXT SCH ×2 (08:25→20:12)
[2022-03-22] MEDS: ONDANSETRON INJ 2 MG/ML 2 ML VIAL IV PRN (09:13)
--- NOTE | 2022-03-22 16:52 | Hospitalist Progress Note ---
Date of Service March 22, 2022 Assessment & Plan (1) KRISTIN (acute kidney injury): Plan: 81-year-old female with history of anal cancer, status postchemotherapy, radiation therapy Presenting with acute kidney injury secondary to nausea/vomiting and diarrhea secondary to radiation therapy-resolved, Found to have right second toe osteomyelitis, status post amputation-healing well, now being treated for right lower lobe pneumonia with hypoxia. Acute Kidney Injury Diarrhea in the setting of chemotherapy -- Poor intake, nausea, possibly secondary to narcotics? In the setting of diuretic use or right lower extremity edema Creatinine improved rather quickly with IV fluids from 2.1, now 0.8 --Creatinine stable Diarrhea resolved Right second toe Osteomyelitis Foot MRI: Second toe suspicious for osteomyelitis 03/05: Status post right second toe amputation by Dr. Keenan Vyas Given daptomycin IV ID consulted, discussed with Dr. Hermosillo , recommend DC antibiotics after toe amputation Patient doing well postoperatively Per Dr. Keenan Vyas: Dispensed interdigital spacers with instructions on use. Patient to keep incision site clean and dry. Patient is weight bearing as tolerated in surgical shoe. Patient will follow up in 2 weeks for suture removal or call sooner if symptoms arise. -- Wound healing well s/p suture removal 03/19/2022--> Dr. Vyas New onset atrial fibrillation, paroxysmal hx LV outflow obstruction/valvular heart disease (severe MR, mild TR)/pulmonary hypertension --Patient developed atrial fibrillation while admitted --Converted to sinus rhythm with IV metoprolol --Echocardiogram performed 2 weeks ago during previous admission --Cardiology service consulted started Eliquis 2.5mg BID Reduced to metoprolol XL 25 mg p.o. daily for now decreased from 37.5 mg daily --Remains in sinus rhythm Right lower Lobe pneumonia - Still on 2 L of oxygen via nasal cannula - Continue with cefepime 2g IV q8h day #3 monitor closely - wean off oxygen accordingly History of anal cancer status post chemotherapy/ongoing radiation Rx Chronic cancer pain on narcotics -- Currently back on morphine 60 mg twice daily Pain well controlled Completed course of radiation therapy 03/15 Radiation Dermatitis -- no signs of infection per exam yesterday continue Protective cream Requested wound care team to evaluate patient - Silver sulfadiazene cream BID Acute on chronic anemia Chronic anemia -- Status post 2 units packed RBCs -- Hemoglobin improved from 7-8.3 --Hemoglobin stable at 8.7 No signs of active bleeding Bilateral lower extremity edema, chronic In setting of severe mitral vegetation RLE cellulitis Aldactone held secondary to acute renal failure Given daptomycin, and doxycycline: cellulitis resolved Per cardiology service, Aldactone 25 mg p.o. twice a week Creatinine remains stable -- No leg edema Aldactone 25 mg p.o. twice a week-->Sat and Wed Received Lasix 20 mg IV last week Enterococcus UTI -- Completed amoxicillin course Prediabetes -- hemoglobin A1c of 5.9 last visit ongoing tobacco abuse DVT prophylaxis. Lora Full code Disposition: Lives at home Planning to transition to [facility], when medically stable, plan of care discussed with patient in detail and at length all questions answered she is understanding, agreeable, comfortable with the plan of care Admission and Anticipated Discharge Date Admission Date: March 02, 2022 Subjective Follow-up for acute kidney injury, second toe right foot osteomyelitis, etc. Seen resting in bed, sleeping but easily awakened Not in distress, on 2 L of oxygen via nasal cannula States she feels about the same as yesterday No shortness of breath or cough Pain over the radiation dermatitis, buttocks about the same No fevers, chills Appetite is okay No other symptoms Review of Systems Review of Systems: all noted and negative except for above Physical Exam Physical Exam: General- oriented x 2, not in distress, speaks in sentences with no effort or accessory muscle use Eyes- anicteric Neck- no JVD Lungs- clear breath sounds bilaterally, mild rhonchi at the right base, no wheezing Heart- normal rate, regular rhythm; positive grade 3/6 murmur Abdomen- normal bowel sounds, nondistended, soft, nontender Extremities- no pretibial edema, no calf tenderness Right foot-surgical wound healing well Neuro- alert, oriented x 3; no gross focal neurologic deficits Skin- warm & dry Results & Data Results & Data ([facility]) Vital Signs (Past 12 Hours) Vital Signs Temp Pulse Pulse Resp BP BP Pulse Ox 03/22/22 16:03 58 L 03/22/22 15:54 36.5 C 56 L 18 124/54 L 95 03/22/22 14:09 59 L 03/22/22 11:34 36.5 C 61 18 113/49 L 92 03/22/22 10:05 03/22/22 07:54 36.4 C 69 18 131/74 96 O2 Del Method O2 Flow Rate 03/22/22 16:03 03/22/22 15:54 Nasal Cannula 2 03/22/22 14:09 03/22/22 11:34 Nasal Cannula 2 03/22/22 10:05 Nasal Cannula 2 03/22/22 07:54 Nasal Cannula 2 all noted and reviewed including below
[2022-03-22] MEDS: HEPARIN 100 UNIT/ML 5ML FLUSH FLUSH PRN (20:16)
[2022-03-23] MEDS: CEFEPIME 2,000 MG in SYRINGE 0 ML IV SCH ×3 (04:51→21:10)
[2022-03-23] MEDS: MoRPHine SULFATE CR 60 MG TABCR PO SCH ×2 (08:28→21:09)
[2022-03-23] MEDS: ADVANCED PROBIOTIC 1250 MG CAPSULE PO SCH (08:29)
[2022-03-23] MEDS: SPIRONOLACTONE 25 MG TAB PO SCH (08:29)
[2022-03-23] MEDS: APIXABAN 2.5 MG TAB PO SCH ×2 (08:29→21:10)
[2022-03-23] MEDS: METOPROLOL SUCC 25MG EXT REL TAB PO SCH (08:29)
[2022-03-23] MEDS: PANTOprazole 40 MG TAB PO SCH (08:29)
[2022-03-23] MEDS: SERTRALINE HCL 100 MG TABLET PO SCH (08:29)
[2022-03-23] MEDS: MAGNESIUM OXIDE 400 MG TAB PO SCH (08:29)
[2022-03-23] MEDS: SILVER SULFADIAZINE 1% CR 50 GM JAR EXT SCH ×2 (08:30→22:55)
[2022-03-23] MEDS: ALBUT/IPRATROP 3MG/0.5MG NEB 3 ML VIAL NEB SCH ×2 (11:28→19:41)
--- NOTE | 2022-03-23 12:29 | Hospitalist Progress Note ---
Date of Service March 23, 2022 Assessment & Plan (1) KRISTIN (acute kidney injury): Plan: 81-year-old female with history of anal cancer, status postchemotherapy, radiation therapy Presenting with acute kidney injury secondary to nausea/vomiting and diarrhea secondary to radiation therapy-resolved, Found to have right second toe osteomyelitis, status post amputation-healing well, now being treated for right lower lobe pneumonia with hypoxia. Acute Kidney Injury Diarrhea in the setting of chemotherapy -- Poor intake, nausea, possibly secondary to narcotics? In the setting of diuretic use or right lower extremity edema KRISTIN resolved. Right second toe Osteomyelitis Foot MRI: Second toe suspicious for osteomyelitis 03/05: Status post right second toe amputation by Dr. Keenan Vyas Given daptomycin IV ID consulted, discussed with Dr. Hermosillo , recommend DC antibiotics after toe amputation Patient doing well postoperatively Per Dr. Keenan Vyas: Dispensed interdigital spacers with instructions on use. Patient to keep incision site clean and dry. Patient is weight bearing as tolerated in surgical shoe. Patient will follow up in 2 weeks for suture removal or call sooner if symptoms arise. -- Wound healing well s/p suture removal 03/19/2022--> Dr. Vyas New onset atrial fibrillation, paroxysmal hx LV outflow obstruction/valvular heart disease (severe MR, mild TR)/pulmonary hypertension --Patient developed atrial fibrillation while admitted --Converted to sinus rhythm with IV metoprolol --Echocardiogram performed 2 weeks ago during previous admission --Cardiology service consulted started Eliquis 2.5mg BID Reduced to metoprolol XL 25 mg p.o. daily for now decreased from 37.5 mg daily --Remains in sinus rhythm Right lower Lobe pneumonia - Still on 2 L of oxygen via nasal cannula -On cefepime day 4; completed 7-day course. Will change to oral on discharge. -Duo nebs and hypertonic saline for airway clearance. -Swallow eval to rule out silent aspiration. History of anal cancer status post chemotherapy/ongoing radiation Rx Chronic cancer pain on narcotics -- Currently back on morphine 60 mg twice daily Pain well controlled Completed course of radiation therapy 03/15 Radiation Dermatitis continue Protective cream Requested wound care team to evaluate patient - Silver sulfadiazene cream BID Acute on chronic anemia Chronic anemia -- Status post 2 units packed RBCs -- Hemoglobin improved from 7-8.3 --Hemoglobin stable at 8.7 No signs of active bleeding Bilateral lower extremity edema, chronic In setting of severe mitral vegetation RLE cellulitis Creatinine remains stable -- No leg edema Aldactone 25 mg p.o. twice a week-->Sat and Wed Received Lasix 20 mg IV last week Enterococcus UTI -- Completed amoxicillin course Prediabetes -- hemoglobin A1c of 5.9 last visit ongoing tobacco abuse DVT prophylaxis. Lora Full code Disposition: Lives at home. 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 She would prefer to be placed at a [facility] with her . CM on board. Admission and Anticipated Discharge Date Admission Date: March 02, 2022 Subjective Patient seen and examined at bedside. She is comfortably sitting up on the bed; not in any distress. She denies any increasing shortness of breath, chest pain or palpitations. Afebrile overnight. She is on 2 L of oxygen by nasal cannula. Review of Systems Review of Systems: All systems reviewed & are unremarkable except as noted in Subjective Physical Exam Physical Exam: Constitutional: WD/WN, vitals as above, NAD, sitting up in bed, pleasant, conversing easily Respiratory: Decreased breath sound at bilateral bases. Cardiovascular: RRR, no murmur, no edema Vessels: no JVD or carotid bruit Chest: normal inspection of chest Abdomen: normal bowel sounds, soft, nontender, no hepatosplenomegaly Musculoskeletal: Blackish discoloration at the amputated site on right feet; no pain or discomfort. Skin: no rashes, warm and dry normal turgor Neurologic: PERRL, EOMI, accommodation nl, no face palsy, no dysarthria CN's II- XI intact bilaterally and moves all extremities Psychiatric: A+Ox3, euthymic affect Lymphatic: no cervical or axillary lymphadenopathy : deferred Results & Data Results & Data ([facility]) Vital Signs (Past 12 Hours) Vital Signs Temp Pulse Pulse Resp BP BP Pulse Ox 03/23/22 11:32 57 L 18 115/71 98 03/23/22 11:28 61 17 88 L 03/23/22 07:45 03/23/22 06:03 56 L 03/23/22 07:39 36.4 C L 69 18 153/71 H 94 03/23/22 04:00 36.5 C 60 18 134/70 91 O2 Del Method O2 Flow Rate 03/23/22 11:32 Nebulizer 97 03/23/22 11:28 Room Air 03/23/22 07:45 Nasal Cannula 2 03/23/22 06:03 03/23/22 07:39 Nasal Cannula 2 03/23/22 04:00 Nasal Cannula 1 Laboratory Results Laboratory Results WBC 4.68 K/ul (4.8-10.8) L 03/21/22 09:29 RBC 3.10 M/uL (3.93-5.22) L 03/21/22 09:29 Hgb 9.3 g/dl (12.0-16.0) L 03/21/22 09:29 Hct 28.9 % (34.1-44.9) L 03/21/22 09:29 MCV 93.2 fL (80.0-100.0) 03/21/22 09:29 MCH 30.0 pg (25.0-34.0) 03/21/22 09:29 MCHC 32.2 g/dL (32.0-36.0) 03/21/22 09:29 RDW Std Deviation 71.0 fL (36.4-46.3) H 03/21/22 09:29 RDW Coeff of Olaf 21.2 % (11.5-14.5) H 03/21/22 09:29 Plt Count 203 K/uL (130-400) 03/21/22 09:29 MPV 10.3 fL (9.4-12.3) 03/21/22 09:29 Immature Gran % (Auto) 2.1 % 03/21/22 09:29 Neut % (Auto) 77.6 % 03/21/22 09:29 Lymph % (Auto) 5.3 % 03/21/22 09:29 Leake % (Auto) 10.5 % 03/21/22 09:29 Eos % (Auto) 4.1 % 03/21/22 09:29 Baso % (Auto) 0.4 % 03/21/22 09:29 Neut # (Auto) 3.63 K/uL (1.4-6.5) 03/21/22 09:29 Lymph # (Auto) 0.25 K/uL (1.2-3.4) L 03/21/22 09:29 Leake # (Auto) 0.49 K/uL (0.24-0.82) 03/21/22 09:29 Eos # (Auto) 0.19 K/uL (0-0.50) 03/21/22 09:29 Baso # (Auto) 0.02 K/uL (0-0.2) 03/21/22 09:29 Immature Gran # (Auto) 0.10 K/uL (0.00-0.02) H 03/21/22 09:29 Polychromasia 1+ 03/21/22 09:29 Poikilocytosis Present 03/12/22 06:14 Anisocytosis Present 03/17/22 08:44 Ovalocytes 1+ 03/21/22 09:29 Echinocytes 1+ 03/03/22 07:58 Acanthocytes (Spur) 1+ 03/21/22 09:29 ESR 42 mm/hr (0-30) H 03/02/22 17:55 PT 13.1 Seconds (9.0-12.0) H 03/02/22 17:55 INR 1.2 (0.9-1.1) H 03/02/22 17:55 VBG pH 7.31 (7.36-7.41) L 03/02/22 22:54 VBG pCO2 41 mmHg (38-50) 03/02/22 22:54 VBG pO2 22 mmHg 03/02/22 22:54 VBG HCO3 21 mmol/L 03/02/22 22:54 VBG O2 Saturation < 60.0 % 03/02/22 22:54 VBG Base Excess -5.4 mEq/L 03/02/22 22:54 Sodium 141 mmol/L (136-145) 03/21/22 09:29 Potassium 4.1 mmol/L (3.5-5.1) 03/21/22 09:29 Chloride 111 mmol/L (98-107) H 03/21/22 09:29 Carbon Dioxide 25 mmol/L (21-32) 03/21/22 09:29 Anion Gap 5 (3-11) 03/21/22 09:29 BUN 18 mg/dl (6-23) 03/21/22 09:29 Creatinine 0.48 mg/dl (0.6-1.2) L 03/21/22 09:29 Est Cr Clr Drug Dosing 85.5 ml/min 03/21/22 09:29 Est GFR ( Amer) 108.1 ml/min 03/21/22 09:29 Est GFR (Non-Af Amer) 93.3 ml/min 03/21/22 09:29 BUN/Creatinine Ratio 37.5 (10-20) H 03/21/22 09:29 Glucose 93 mg/dl (70-99(Fasting)) 03/21/22 09:29 Lactate 1.3 mmol/L (0.4-2.0) 03/06/22 21:30 Calcium 8.0 mg/dl (8.5-10.1) L 03/21/22 09:29 Magnesium 1.5 mg/dl (1.7-2.4) L 03/06/22 07:34 Total Bilirubin 0.6 mg/dl (0.2-1.0) 03/02/22 17:55 AST 26 U/L (13-39) 03/02/22 17:55 ALT 19 U/L (7-52) 03/02/22 17:55 Alkaline Phosphatase 66 U/L (34-104) 03/02/22 17:55 Total Creatine Kinase 156 U/L (26-192) 03/03/22 07:58 Total Creatine Kinase Cancelled 03/03/22 07:58 C-Reactive Protein 4.73 mg/dl (0-0.5) H 03/02/22 17:55 Total Protein 6.3 gm/dl (6.0-8.3) 03/02/22 17:55 Albumin 3.5 gm/dl (3.4-5.0) 03/02/22 17:55 Globulin 2.8 gm/dl (2.5-4.0) 03/02/22 17:55 Albumin/Globulin Ratio 1.3 (0.9-2) 03/02/22 17:55 Urine Color Dark Yellow 03/04/22 06:50 Urine Appearance Clear (Clear) 03/04/22 06:50 Urine pH 5.0 (4.5-7.5) 03/04/22 06:50 Ur Specific [place] 1.010 (1.000-1.030) 03/04/22 06:50 Urine Protein Negative (Negative) 03/04/22 06:50 Urine Glucose (UA) Negative (Negative) 03/04/22 06:50 Urine Ketones Negative (Negative) 03/04/22 06:50 Urine Blood Trace (Negative) H 03/04/22 06:50 Urine Nitrite Negative (Negative) 03/04/22 06:50 Urine Bilirubin Negative (Negative) 03/04/22 06:50 Urine Urobilinogen Negative (Negative) 03/04/22 06:50 Ur Leukocyte Esterase 2+ (Negative) H 03/04/22 06:50 Urine WBC (Auto) >30 /hpf (0-5) H 03/04/22 06:50 Urine RBC (Auto) 5-10 /hpf (0-4) H 03/04/22 06:50 U Hyaline Cast (Auto) 1-5 /lpf (0-5) 03/04/22 06:50 U Epithel Cells (Auto) 10-20 /lpf (0-5) H 03/04/22 06:50 Urine Bacteria (Auto) 1+ (Negative) H 03/04/22 06:50 Ur Renal Epithelial Cell 0-5 /lpf (0-5) 03/04/22 06:50 Stl C. cayetanensis PCR Not Detected (NotDetected) 03/03/22 18:40 Stool Rotavirus A PCR Not Detected (NotDetected) 03/03/22 18:40 Stl Adenov F 40/41 PCR Not Detected (NotDetected) 03/03/22 18:40 Stool Astrovirus (PCR) Not Detected (NotDetected) 03/03/22 18:40 Stool Campylobacter PCR Not Detected (NotDetected) 03/03/22 18:40 Stl C. diff Tox B Gene Negative Cdiff Gene (Neg) 03/03/22 18:40 Stool Cryptosporidium PCR Not Detected (NotDetected) 03/03/22 18:40 Stl E.coli Shiga Tox PCR Not Detected (NotDetected) 03/03/22 18:40 Stl Enterotoxigenic E PCR Not Detected (NotDetected) 03/03/22 18:40 Stool EPEC (PCR) Not Detected (NotDetected) 03/03/22 18:40 Stool EAEC (PCR) Not Detected (NotDetected) 03/03/22 18:40 Stl E. histolytica PCR Not Detected (NotDetected) 03/03/22 18:40 Stool Giardia Lamblia PCR Not Detected (NotDetected) 03/03/22 18:40 Stool Salmonella PCR Not Detected (NotDetected) 03/03/22 18:40 Stool Sapovirus (PCR) Not Detected (NotDetected) 03/03/22 18:40 Stl P. shigelloides PCR Not Detected (NotDetected) 03/03/22 18:40 Stl Shigella/EIEC PCR Not Detected (NotDetected) 03/03/22 18:40 St Y.enterocolitica PCR Not Detected (NotDetected) 03/03/22 18:40 Stool Vibrio (PCR) Not Detected (NotDetected) 03/03/22 18:40 Stl Vibrio cholerae PCR Not Detected (NotDetected) 03/03/22 18:40 Stl Norovirus GI/GII PCR Not Detected (NotDetected) 03/03/22 18:40 SARS-CoV-2, RNA, NAAT NEGATIVE (NEGATIVE) 03/02/22 19:20 Blood Type O Positive 03/12/22 11:02 Antibody Screen NEGATIVE 03/12/22 11:02 Crossmatch See Detail 03/12/22 11:02 Impressions Foot X-Ray 03/02/22 19:55 XR foot RT min 3V routine HISTORY: 81 years-old Female wound on 2nd toe chronic wound of the right forefoot adjacent to the second toe. Clinical concern for osteomyelitis. COMPARISON: 02/20/2022 TECHNIQUE: 3 views of the right foot FINDINGS: Demineralized appearance of the bones. Mostly mild multifocal osteoarthritis. Extension of the metatarsal-phalangeal joints. Mild soft tissue swelling of the forefoot. No acute fracture, dislocation or osseous erosion. Spurring of the calcaneus. IMPRESSION: Stable exam from the 02/20/2022 study. Mild soft tissue swelling without evidence of osteomyelitis. ACT 112: Negative or not required by law. The above report was generated using voice recognition software. It may contain grammatical, syntax or spelling errors. Electronically signed by: Roberto Owens M.D. 03/02/2022 8:26 PM Foot MRI 03/03/22 20:13 MR foot RT w/o con HISTORY: 81 years-old Female rule out osteomyelitis second toe chronic pain with soft tissue wound of the right foot/second toe with possible osteomyelitis COMPARISON: Right foot radiographs 03/02/2022. TECHNIQUE: Multiplanar multisequence MRI of the right foot was obtained without the use of IV contrast. FINDINGS: Motion degraded exam. Diffuse atrophy of the intrinsic musculature suggestive of chronic denervation changes. Mostly mild multifocal osteoarthritis of the right foot. There is diffuse subcutaneous and deep tissue edema of the foot. No fluid collection to suggest abscess. There is increased T2/STIR decreased T1 signal involving the second middle phalanx. Bone marrow signal is otherwise preserved throughout the foot. Extension of the metatarsal-phalangeal with flexion of the interphalangeal joints. The tendons and ligaments are not well evaluated. IMPRESSION: 1. Motion degraded exam. 2. Abnormal marrow signal within the second middle phalanx is suspicious for osteomyelitis. 3. Chronic denervation changes of the foot with diffuse subcutaneous and deep tissue edema. 4. No abscess. ACT 112: Negative or not required by law. The above report was generated using voice recognition software. It may contain grammatical, syntax or spelling errors. Electronically signed by: Roberto Owens M.D. 03/04/2022 9:15 AM Renal Ultrasound 03/04/22 08:42 US renal/blad retro comp CLINICAL HISTORY: acute renal failure TECHNIQUE: Multiple sonographic real-time images of the kidneys and bladder were obtained. COMPARISON: Comparison is made to CT abdomen pelvis 12/24/2021 FINDINGS: The right kidney measures 10.3 cm in length, and the left kidney measures 8.4 cm in length although this may be an underestimate due to shadowing. The right kidney is normal in size, contour, cortical thickness, and echogenicity. No hydronephrosis is identified. No renal lesion is identified. No perinephric fluid collection is seen. The left renal cortex is diffusely echogenic in appearance, with diffuse cortical thinning. No hydronephrosis is identified. No renal lesion is identified. No perinephric fluid collection is seen. The bladder is partially distended. No large intraluminal mass is seen. IMPRESSION: No evidence of hydronephrosis. The left kidney is echogenic and minimally decreased in size compared to the right, which can be seen in medical renal disease. ACT 112: Negative or not required by law. Electronically signed by: Milad Douglas M.D. 03/04/2022 2:41 PM Chest X-Ray 03/20/22 10:21 XR chest 1V portable CLINICAL HISTORY: hypoxia TECHNIQUE: Single frontal radiograph of the chest was obtained. Comparison: Comparison is made to chest radiograph 03/12/2022 FINDINGS: A port catheter is seen. Calcified aortic knob is seen. Reticular interstitial opacities are seen. In addition there is multifocal airspace opacity most prominently in the right lower lung, increased from prior exam. No evidence of pleural effusion or pneumothorax. IMPRESSION: Increased airspace opacity most prominent in the right lower lung, concerning for pneumonia and/or aspiration. ACT 112: Negative or not required by law. Electronically signed by: Milad Douglas M.D. 03/20/2022 11:50 AM
[2022-03-23] MEDS: oxyCODONE HCL IR 5 MG TAB (IMMEDIATE RELEASE) PO PRN ×2 (12:42→17:12)
[2022-03-23] MEDS: ONDANSETRON INJ 2 MG/ML 2 ML VIAL IV PRN (12:48)
[2022-03-23] MEDS: SODIUM CHLOR 7% 4 ML NEB NEB SCH (19:42)
[2022-03-24] MEDS: oxyCODONE HCL IR 5 MG TAB (IMMEDIATE RELEASE) PO PRN ×2 (01:31→13:32)
[2022-03-24] MEDS: CEFEPIME 2,000 MG in SYRINGE 0 ML IV SCH ×3 (05:28→20:57)
[2022-03-24 06:42] LABS: Basophils # (auto) 0.03 K/uL (0-0.2); Basophils % (auto) 0.5 %; Eosinophils # (auto) 0.19 K/uL (0-0.50); Eosinophils % (auto) 3.4 %; Immature Granulocytes # (auto) 0.15 K/uL (0.00-0.02); Immature Granulocytes % (auto) 2.7 %; Lymphocytes # (auto) 0.21 K/uL (1.2-3.4); Lymphocytes % (auto) 3.8 %; Mean Corpuscular Hemoglobin 29.7 pg (25.0-34.0); Mean Corpuscular Volume 92.9 fL (80.0-100.0); Mean Platelet Volume 9.6 fL (9.4-12.3); Monocytes # (auto) 0.62 K/uL (0.24-0.82); Monocytes % (auto) 11.2 %; Neutrophils # (auto) 4.33 K/uL (1.4-6.5); Neutrophils % (auto) 78.4 %; Platelet Count 196 K/uL (130-400); RDW Coefficient of Variation 20.9 % (11.5-14.5); RDW Standard Deviation 71.5 fL (36.4-46.3); Red Blood Count 2.69 M/uL (3.93-5.22); White Blood Count 5.53 K/ul (4.8-10.8)
[2022-03-24 07:03] LABS: BUN Creatinine Ratio 52.4 (10-20); Calcium 7.4 mg/dl (8.5-10.1); Creatinine Clr Calc Pharmacy 97.7 ml/min; Est GFR (Non-African American) 97.5 ml/min; Potassium 3.7 mmol/L (3.5-5.1)
[2022-03-24] MEDS: ALBUT/IPRATROP 3MG/0.5MG NEB 3 ML VIAL NEB SCH (07:09)
[2022-03-24] MEDS: SODIUM CHLOR 7% 4 ML NEB NEB SCH (07:09)
[2022-03-24 07:24] LABS: Acanthocytes 1+; Anisocytosis Present; Polychromasia 1+
[2022-03-24] MEDS: METOPROLOL SUCC 25MG EXT REL TAB PO SCH (08:00)
[2022-03-24] MEDS: ADVANCED PROBIOTIC 1250 MG CAPSULE PO SCH (08:00)
[2022-03-24] MEDS: MAGNESIUM OXIDE 400 MG TAB PO SCH (08:00)
[2022-03-24] MEDS: PANTOprazole 40 MG TAB PO SCH (08:00)
[2022-03-24] MEDS: FIRST - Mouthwash BLM 119 ML PO PRN ×2 (08:00→12:16)
[2022-03-24] MEDS: APIXABAN 2.5 MG TAB PO SCH ×2 (08:00→20:57)
[2022-03-24] MEDS: SERTRALINE HCL 100 MG TABLET PO SCH (08:00)
[2022-03-24] MEDS: SILVER SULFADIAZINE 1% CR 50 GM JAR EXT SCH ×2 (08:01→20:58)
[2022-03-24] MEDS: MoRPHine SULFATE CR 60 MG TABCR PO SCH ×2 (08:03→20:57)
[2022-03-24] MEDS: HEPARIN 100 UNIT/ML 5ML FLUSH FLUSH PRN (12:17)
--- NOTE | 2022-03-24 13:01 | Hospitalist Progress Note ---
Date of Service March 24, 2022 Assessment & Plan (1) KRISTIN (acute kidney injury): Plan: 81-year-old female with history of anal cancer, status postchemotherapy, radiation therapy Presenting with acute kidney injury secondary to nausea/vomiting and diarrhea secondary to radiation therapy-resolved, Found to have right second toe osteomyelitis, status post amputation-healing well, now being treated for right lower lobe pneumonia with hypoxia. Acute Kidney Injury Diarrhea in the setting of chemotherapy -- Poor intake, nausea, possibly secondary to narcotics? In the setting of diuretic use or right lower extremity edema KRISTIN resolved. Right second toe Osteomyelitis Foot MRI: Second toe suspicious for osteomyelitis 03/05: Status post right second toe amputation by Dr. Keenan Vyas Given daptomycin IV ID consulted, discussed with Dr. Hermosillo , recommend DC antibiotics after toe amputation Patient doing well postoperatively Per Dr. Keenan Vyas: Dispensed interdigital spacers with instructions on use. Patient to keep incision site clean and dry. Patient is weight bearing as tolerated in surgical shoe. Patient will follow up in 2 weeks for suture removal or call sooner if symptoms arise. -- Wound healing well s/p suture removal 03/19/2022--> Dr. Vyas New onset atrial fibrillation, paroxysmal hx LV outflow obstruction/valvular heart disease (severe MR, mild TR)/pulmonary hypertension --Patient developed atrial fibrillation while admitted --Converted to sinus rhythm with IV metoprolol --Echocardiogram performed 2 weeks ago during previous admission --Cardiology service consulted started Eliquis 2.5mg BID Reduced to metoprolol XL 25 mg p.o. daily for now decreased from 37.5 mg daily --Remains in sinus rhythm Right lower Lobe pneumonia - Still on 2 L of oxygen via nasal cannula -On cefepime day 5; completed 7-day course. Will change to oral on discharge. -Swallow eval done; no sign of aspiration on bedside evaluation History of anal cancer status post chemotherapy/ongoing radiation Rx Chronic cancer pain on narcotics -- Currently back on morphine 60 mg twice daily Pain well controlled Completed course of radiation therapy 03/15 Radiation Dermatitis continue Protective cream Requested wound care team to evaluate patient - Silver sulfadiazene cream BID Acute on chronic anemia Chronic anemia -- Status post 2 units packed RBCs -- Hemoglobin improved from 7-8.3 --Hemoglobin stable No signs of active bleeding Bilateral lower extremity edema, chronic In setting of severe mitral vegetation RLE cellulitis Creatinine remains stable -- No leg edema Aldactone 25 mg p.o. twice a week-->Sat and Wed Received Lasix 20 mg IV during the hospitalization Enterococcus UTI -- Completed amoxicillin course Prediabetes -- hemoglobin A1c of 5.9 last visit ongoing tobacco abuse DVT prophylaxis. Lora Full code Disposition: Lives at home. 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 She would prefer to be placed at a [facility] with her . CM on board. Admission and Anticipated Discharge Date Admission Date: March 02, 2022 Subjective Patient seen and examined at bedside. She is comfortable; denies any shortness of breath or chest pain. Afebrile overnight. Review of Systems Review of Systems: All systems reviewed & are unremarkable except as noted in Subjective Physical Exam Physical Exam: Constitutional: WD/WN, vitals as above, NAD, sitting up in bed, pleasant, conversing easily Respiratory: Decreased breath sound at bilateral bases. Cardiovascular: RRR, no murmur, no edema Vessels: no JVD or carotid bruit Chest: normal inspection of chest Abdomen: normal bowel sounds, soft, nontender, no hepatosplenomegaly Musculoskeletal: Blackish discoloration at the amputated site on right feet; no pain or discomfort. Skin: no rashes, warm and dry normal turgor Neurologic: PERRL, EOMI, accommodation nl, no face palsy, no dysarthria CN's II- XI intact bilaterally and moves all extremities Psychiatric: A+Ox3, euthymic affect Lymphatic: no cervical or axillary lymphadenopathy : deferred Results & Data Results & Data ([facility]) Vital Signs (Past 12 Hours) Vital Signs Temp Pulse Pulse Resp BP BP Pulse Ox 03/24/22 12:24 36.6 C 64 17 124/67 92 03/24/22 10:57 03/24/22 09:54 61 03/24/22 08:18 36.5 C 67 18 124/61 90 03/24/22 07:11 65 18 97 03/24/22 04:00 36.7 C 64 18 115/60 96 O2 Del Method O2 Flow Rate 03/24/22 12:24 Nasal Cannula 2 03/24/22 10:57 Nasal Cannula 2 03/24/22 09:54 03/24/22 08:18 Nasal Cannula 2 03/24/22 07:11 Nasal Cannula 2 03/24/22 04:00 Nasal Cannula 2 Laboratory Results Laboratory Results WBC 5.53 K/ul (4.8-10.8) 03/24/22 06:20 RBC 2.69 M/uL (3.93-5.22) L 03/24/22 06:20 Hgb 8.0 g/dl (12.0-16.0) L 03/24/22 06:20 Hct 25.0 % (34.1-44.9) L 03/24/22 06:20 MCV 92.9 fL (80.0-100.0) 03/24/22 06:20 MCH 29.7 pg (25.0-34.0) 03/24/22 06:20 MCHC 32.0 g/dL (32.0-36.0) 03/24/22 06:20 RDW Std Deviation 71.5 fL (36.4-46.3) H 03/24/22 06:20 RDW Coeff of Olaf 20.9 % (11.5-14.5) H 03/24/22 06:20 Plt Count 196 K/uL (130-400) 03/24/22 06:20 MPV 9.6 fL (9.4-12.3) 03/24/22 06:20 Immature Gran % (Auto) 2.7 % 03/24/22 06:20 Neut % (Auto) 78.4 % 03/24/22 06:20 Lymph % (Auto) 3.8 % 03/24/22 06:20 [place] % (Auto) 11.2 % 03/24/22 06:20 Eos % (Auto) 3.4 % 03/24/22 06:20 Baso % (Auto) 0.5 % 03/24/22 06:20 Neut # (Auto) 4.33 K/uL (1.4-6.5) 03/24/22 06:20 Lymph # (Auto) 0.21 K/uL (1.2-3.4) L 03/24/22 06:20 [place] # (Auto) 0.62 K/uL (0.24-0.82) 03/24/22 06:20 Eos # (Auto) 0.19 K/uL (0-0.50) 03/24/22 06:20 Baso # (Auto) 0.03 K/uL (0-0.2) 03/24/22 06:20 Immature Gran # (Auto) 0.15 K/uL (0.00-0.02) H 03/24/22 06:20 Polychromasia 1+ 03/24/22 06:20 Poikilocytosis Present 03/12/22 06:14 Anisocytosis Present 03/24/22 06:20 Ovalocytes 1+ 03/21/22 09:29 Echinocytes 1+ 03/03/22 07:58 Acanthocytes (Spur) 1+ 03/24/22 06:20 ESR 42 mm/hr (0-30) H 03/02/22 17:55 PT 13.1 Seconds (9.0-12.0) H 03/02/22 17:55 INR 1.2 (0.9-1.1) H 03/02/22 17:55 VBG pH 7.31 (7.36-7.41) L 03/02/22 22:54 VBG pCO2 41 mmHg (38-50) 03/02/22 22:54 VBG pO2 22 mmHg 03/02/22 22:54 VBG HCO3 21 mmol/L 03/02/22 22:54 VBG O2 Saturation < 60.0 % 03/02/22 22:54 VBG Base Excess -5.4 mEq/L 03/02/22 22:54 Sodium 140 mmol/L (136-145) 03/24/22 06:20 Potassium 3.7 mmol/L (3.5-5.1) 03/24/22 06:20 Chloride 111 mmol/L (98-107) H 03/24/22 06:20 Carbon Dioxide 26 mmol/L (21-32) 03/24/22 06:20 Anion Gap 3 (3-11) 03/24/22 06:20 BUN 22 mg/dl (6-23) 03/24/22 06:20 Creatinine 0.42 mg/dl (0.6-1.2) L 03/24/22 06:20 Est Cr Clr Drug Dosing 97.7 ml/min 03/24/22 06:20 Est GFR ( Amer) 113.0 ml/min 03/24/22 06:20 Est GFR (Non-Af Amer) 97.5 ml/min 03/24/22 06:20 BUN/Creatinine Ratio 52.4 (10-20) H 03/24/22 06:20 Glucose 93 mg/dl (70-99(Fasting)) 03/24/22 06:20 Lactate 1.3 mmol/L (0.4-2.0) 03/06/22 21:30 Calcium 7.4 mg/dl (8.5-10.1) L 03/24/22 06:20 Magnesium 1.5 mg/dl (1.7-2.4) L 03/06/22 07:34 Total Bilirubin 0.6 mg/dl (0.2-1.0) 03/02/22 17:55 AST 26 U/L (13-39) 03/02/22 17:55 ALT 19 U/L (7-52) 03/02/22 17:55 Alkaline Phosphatase 66 U/L (34-104) 03/02/22 17:55 Total Creatine Kinase 156 U/L (26-192) 03/03/22 07:58 Total Creatine Kinase Cancelled 03/03/22 07:58 C-Reactive Protein 4.73 mg/dl (0-0.5) H 03/02/22 17:55 Total Protein 6.3 gm/dl (6.0-8.3) 03/02/22 17:55 Albumin 3.5 gm/dl (3.4-5.0) 03/02/22 17:55 Globulin 2.8 gm/dl (2.5-4.0) 03/02/22 17:55 Albumin/Globulin Ratio 1.3 (0.9-2) 03/02/22 17:55 Procalcitonin 0.05 ng/ml (0-0.5) 03/23/22 12:49 Urine Color Dark Yellow 03/04/22 06:50 Urine Appearance Clear (Clear) 03/04/22 06:50 Urine pH 5.0 (4.5-7.5) 03/04/22 06:50 Ur Specific [place] 1.010 (1.000-1.030) 03/04/22 06:50 Urine Protein Negative (Negative) 03/04/22 06:50 Urine Glucose (UA) Negative (Negative) 03/04/22 06:50 Urine Ketones Negative (Negative) 03/04/22 06:50 Urine Blood Trace (Negative) H 03/04/22 06:50 Urine Nitrite Negative (Negative) 03/04/22 06:50 Urine Bilirubin Negative (Negative) 03/04/22 06:50 Urine Urobilinogen Negative (Negative) 03/04/22 06:50 Ur Leukocyte Esterase 2+ (Negative) H 03/04/22 06:50 Urine WBC (Auto) >30 /hpf (0-5) H 03/04/22 06:50 Urine RBC (Auto) 5-10 /hpf (0-4) H 03/04/22 06:50 U Hyaline Cast (Auto) 1-5 /lpf (0-5) 03/04/22 06:50 U Epithel Cells (Auto) 10-20 /lpf (0-5) H 03/04/22 06:50 Urine Bacteria (Auto) 1+ (Negative) H 03/04/22 06:50 Ur Renal Epithelial Cell 0-5 /lpf (0-5) 03/04/22 06:50 Stl C. cayetanensis PCR Not Detected (NotDetected) 03/03/22 18:40 Stool Rotavirus A PCR Not Detected (NotDetected) 03/03/22 18:40 Stl Adenov F 40/41 PCR Not Detected (NotDetected) 03/03/22 18:40 Stool Astrovirus (PCR) Not Detected (NotDetected) 03/03/22 18:40 Stool Campylobacter PCR Not Detected (NotDetected) 03/03/22 18:40 Stl C. diff Tox B Gene Negative Cdiff Gene (Neg) 03/03/22 18:40 Stool Cryptosporidium PCR Not Detected (NotDetected) 03/03/22 18:40 Stl E.coli Shiga Tox PCR Not Detected (NotDetected) 03/03/22 18:40 Stl Enterotoxigenic E PCR Not Detected (NotDetected) 03/03/22 18:40 Stool EPEC (PCR) Not Detected (NotDetected) 03/03/22 18:40 Stool EAEC (PCR) Not Detected (NotDetected) 03/03/22 18:40 Stl E. histolytica PCR Not Detected (NotDetected) 03/03/22 18:40 Stool Giardia Lamblia PCR Not Detected (NotDetected) 03/03/22 18:40 Stool Salmonella PCR Not Detected (NotDetected) 03/03/22 18:40 Stool Sapovirus (PCR) Not Detected (NotDetected) 03/03/22 18:40 Stl P. shigelloides PCR Not Detected (NotDetected) 03/03/22 18:40 Stl Shigella/EIEC PCR Not Detected (NotDetected) 03/03/22 18:40 St Y.enterocolitica PCR Not Detected (NotDetected) 03/03/22 18:40 Stool Vibrio (PCR) Not Detected (NotDetected) 03/03/22 18:40 Stl Vibrio cholerae PCR Not Detected (NotDetected) 03/03/22 18:40 Stl Norovirus GI/GII PCR Not Detected (NotDetected) 03/03/22 18:40 SARS-CoV-2, RNA, NAAT NEGATIVE (NEGATIVE) 03/02/22 19:20 Blood Type O Positive 03/12/22 11:02 Antibody Screen NEGATIVE 03/12/22 11:02 Crossmatch See Detail 03/12/22 11:02 Impressions Foot X-Ray 03/02/22 19:55 XR foot RT min 3V routine HISTORY: 81 years-old Female wound on 2nd toe chronic wound of the right forefoot adjacent to the second toe. Clinical concern for osteomyelitis. COMPARISON: 02/20/2022 TECHNIQUE: 3 views of the right foot FINDINGS: Demineralized appearance of the bones. Mostly mild multifocal osteoarthritis. Extension of the metatarsal-phalangeal joints. Mild soft tissue swelling of the forefoot. No acute fracture, dislocation or osseous erosion. Spurring of the calcaneus. IMPRESSION: Stable exam from the 02/20/2022 study. Mild soft tissue swelling without evidence of osteomyelitis. ACT 112: Negative or not required by law. The above report was generated using voice recognition software. It may contain grammatical, syntax or spelling errors. Electronically signed by: Roberto Owens M.D. 03/02/2022 8:26 PM Foot MRI 03/03/22 20:13 MR foot RT w/o con HISTORY: 81 years-old Female rule out osteomyelitis second toe chronic pain with soft tissue wound of the right foot/second toe with possible osteomyelitis COMPARISON: Right foot radiographs 03/02/2022. TECHNIQUE: Multiplanar multisequence MRI of the right foot was obtained without the use of IV contrast. FINDINGS: Motion degraded exam. Diffuse atrophy of the intrinsic musculature suggestive of chronic denervation changes. Mostly mild multifocal osteoarthritis of the right foot. There is diffuse subcutaneous and deep tissue edema of the foot. No fluid collection to suggest abscess. There is increased T2/STIR decreased T1 signal involving the second middle phalanx. Bone marrow signal is otherwise preserved throughout the foot. Extension of the metatarsal-phalangeal with flexion of the interphalangeal joints. The tendons and ligaments are not well evaluated. IMPRESSION: 1. Motion degraded exam. 2. Abnormal marrow signal within the second middle phalanx is suspicious for osteomyelitis. 3. Chronic denervation changes of the foot with diffuse subcutaneous and deep tissue edema. 4. No abscess. ACT 112: Negative or not required by law. The above report was generated using voice recognition software. It may contain grammatical, syntax or spelling errors. Electronically signed by: Roberto Owens M.D. 03/04/2022 9:15 AM Renal Ultrasound 03/04/22 08:42 US renal/blad retro comp CLINICAL HISTORY: acute renal failure TECHNIQUE: Multiple sonographic real-time images of the kidneys and bladder were obtained. COMPARISON: Comparison is made to CT abdomen pelvis 12/24/2021 FINDINGS: The right kidney measures 10.3 cm in length, and the left kidney measures 8.4 cm in length although this may be an underestimate due to shadowing. The right kidney is normal in size, contour, cortical thickness, and echogenicity. No hydronephrosis is identified. No renal lesion is identified. No perinephric fluid collection is seen. The left renal cortex is diffusely echogenic in appearance, with diffuse cortical thinning. No hydronephrosis is identified. No renal lesion is identified. No perinephric fluid collection is seen. The bladder is partially distended. No large intraluminal mass is seen. IMPRESSION: No evidence of hydronephrosis. The left kidney is echogenic and minimally decreased in size compared to the right, which can be seen in medical renal disease. ACT 112: Negative or not required by law. Electronically signed by: Milad Douglas M.D. 03/04/2022 2:41 PM Chest X-Ray 03/20/22 10:21 XR chest 1V portable CLINICAL HISTORY: hypoxia TECHNIQUE: Single frontal radiograph of the chest was obtained. Comparison: Comparison is made to chest radiograph 03/12/2022 FINDINGS: A port catheter is seen. Calcified aortic knob is seen. Reticular interstitial opacities are seen. In addition there is multifocal airspace opacity most prominently in the right lower lung, increased from prior exam. No evidence of pleural effusion or pneumothorax. IMPRESSION: Increased airspace opacity most prominent in the right lower lung, concerning for pneumonia and/or aspiration. ACT 112: Negative or not required by law. Electronically signed by: Milad Douglas M.D. 03/20/2022 11:50 AM
[2022-03-25] MEDS: CEFEPIME 2,000 MG in SYRINGE 0 ML IV SCH (05:52)
[2022-03-25] MEDS: HEPARIN 100 UNIT/ML 5ML FLUSH FLUSH PRN (05:52)
[2022-03-25] MEDS: APIXABAN 2.5 MG TAB PO SCH ×2 (07:45→20:05)
[2022-03-25] MEDS: ADVANCED PROBIOTIC 1250 MG CAPSULE PO SCH (07:45)
[2022-03-25] MEDS: METOPROLOL SUCC 25MG EXT REL TAB PO SCH (07:46)
[2022-03-25] MEDS: PANTOprazole 40 MG TAB PO SCH (07:46)
[2022-03-25] MEDS: MAGNESIUM OXIDE 400 MG TAB PO SCH (07:46)
[2022-03-25] MEDS: SERTRALINE HCL 100 MG TABLET PO SCH (07:46)
[2022-03-25] MEDS: SILVER SULFADIAZINE 1% CR 50 GM JAR EXT SCH ×2 (07:47→20:05)
[2022-03-25] MEDS: MoRPHine SULFATE CR 60 MG TABCR PO SCH ×2 (07:50→20:05)
[2022-03-25] MEDS: cefTRIAXone SODIUM 2,000 MG in DEXTROSE 5% 50 ML IV SCH (12:09)
--- NOTE | 2022-03-25 13:09 | Hospitalist Progress Note ---
Date of Service March 25, 2022 Assessment & Plan (1) KRISTIN (acute kidney injury): Plan: 81-year-old female with history of anal cancer, status postchemotherapy, radiation therapy Presenting with acute kidney injury secondary to nausea/vomiting and diarrhea secondary to radiation therapy-resolved, Found to have right second toe osteomyelitis, status post amputation-healing well, now being treated for right lower lobe pneumonia with hypoxia. Acute Kidney Injury Diarrhea in the setting of chemotherapy -- Poor intake, nausea, possibly secondary to narcotics? In the setting of diuretic use or right lower extremity edema KRISTIN resolved. Right second toe Osteomyelitis Foot MRI: Second toe suspicious for osteomyelitis 03/05: Status post right second toe amputation by Dr. Keenan Vyas Given daptomycin IV ID consulted, discussed with Dr. Hermosillo , recommend DC antibiotics after toe amputation Patient doing well postoperatively Per Dr. Keenan Vyas: Dispensed interdigital spacers with instructions on use. Patient to keep incision site clean and dry. Patient is weight bearing as tolerated in surgical shoe. Patient will follow up in 2 weeks for suture removal or call sooner if symptoms arise. -- Wound healing well s/p suture removal 03/19/2022--> Dr. Vyas New onset atrial fibrillation, paroxysmal hx LV outflow obstruction/valvular heart disease (severe MR, mild TR)/pulmonary hypertension --Patient developed atrial fibrillation while admitted --Converted to sinus rhythm with IV metoprolol --Echocardiogram performed 2 weeks ago during previous admission --Cardiology service consulted started Eliquis 2.5mg BID Reduced to metoprolol XL 25 mg p.o. daily for now decreased from 37.5 mg daily --Remains in sinus rhythm Right lower Lobe pneumonia - Still on 2 L of oxygen via nasal cannula -On antibiotics; completed 7-day course. Will change to oral on discharge. -Swallow eval done; no sign of aspiration on bedside evaluation History of anal cancer status post chemotherapy/ongoing radiation Rx Chronic cancer pain on narcotics -- Currently back on morphine 60 mg twice daily Pain well controlled Completed course of radiation therapy 03/15 Radiation Dermatitis continue Protective cream Requested wound care team to evaluate patient - Silver sulfadiazene cream BID Acute on chronic anemia Chronic anemia -- Status post 2 units packed RBCs -- Hemoglobin improved from 7-8.3 --Hemoglobin stable No signs of active bleeding Bilateral lower extremity edema, chronic In setting of severe mitral vegetation RLE cellulitis Creatinine remains stable -- No leg edema Aldactone 25 mg p.o. twice a week-->Sat and Wed Received Lasix 20 mg IV during the hospitalization Enterococcus UTI -- Completed amoxicillin course Prediabetes -- hemoglobin A1c of 5.9 last visit ongoing tobacco abuse DVT prophylaxis. Lora Full code Disposition: Lives at home. 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 She would prefer to be placed at a [facility] with her . CM on board. Admission and Anticipated Discharge Date Admission Date: March 02, 2022 Subjective Patient seen and examined at bedside. She is sitting up on the bed comfortably; not in any distress. She denies any shortness of breath, fever or chills. Review of Systems Review of Systems: All systems reviewed & are unremarkable except as noted in Subjective Physical Exam Physical Exam: Constitutional: WD/WN, vitals as above, NAD, sitting up in bed, pleasant, conversing easily Respiratory: Decreased breath sound at bilateral bases. Cardiovascular: RRR, no murmur, no edema Vessels: no JVD or carotid bruit Chest: normal inspection of chest Abdomen: normal bowel sounds, soft, nontender, no hepatosplenomegaly Musculoskeletal: Blackish discoloration at the amputated site on right feet; no pain or discomfort. Skin: no rashes, warm and dry normal turgor Neurologic: PERRL, EOMI, accommodation nl, no face palsy, no dysarthria CN's II- XI intact bilaterally and moves all extremities Psychiatric: A+Ox3, euthymic affect Lymphatic: no cervical or axillary lymphadenopathy : deferred Results & Data Results & Data ([facility]) Vital Signs (Past 12 Hours) Vital Signs Temp Pulse Pulse Resp BP BP Pulse Ox 03/25/22 09:58 03/25/22 06:05 57 L 03/25/22 07:44 36.9 C 61 16 138/67 95 03/25/22 03:47 36.6 C 60 18 112/65 95 03/25/22 02:20 O2 Del Method O2 Flow Rate 03/25/22 09:58 Nasal Cannula 2 03/25/22 06:05 03/25/22 07:44 Nasal Cannula 2 03/25/22 03:47 Nasal Cannula 2 03/25/22 02:20 Nasal Cannula 2 Laboratory Results Laboratory Results WBC 5.53 K/ul (4.8-10.8) 03/24/22 06:20 RBC 2.69 M/uL (3.93-5.22) L 03/24/22 06:20 Hgb 8.0 g/dl (12.0-16.0) L 03/24/22 06:20 Hct 25.0 % (34.1-44.9) L 03/24/22 06:20 MCV 92.9 fL (80.0-100.0) 03/24/22 06:20 MCH 29.7 pg (25.0-34.0) 03/24/22 06:20 MCHC 32.0 g/dL (32.0-36.0) 03/24/22 06:20 RDW Std Deviation 71.5 fL (36.4-46.3) H 03/24/22 06:20 RDW Coeff of Olaf 20.9 % (11.5-14.5) H 03/24/22 06:20 Plt Count 196 K/uL (130-400) 03/24/22 06:20 MPV 9.6 fL (9.4-12.3) 03/24/22 06:20 Immature Gran % (Auto) 2.7 % 03/24/22 06:20 Neut % (Auto) 78.4 % 03/24/22 06:20 Lymph % (Auto) 3.8 % 03/24/22 06:20 [place]away % (Auto) 11.2 % 03/24/22 06:20 Eos % (Auto) 3.4 % 03/24/22 06:20 Baso % (Auto) 0.5 % 03/24/22 06:20 Neut # (Auto) 4.33 K/uL (1.4-6.5) 03/24/22 06:20 Lymph # (Auto) 0.21 K/uL (1.2-3.4) L 03/24/22 06:20 [place] # (Auto) 0.62 K/uL (0.24-0.82) 03/24/22 06:20 Eos # (Auto) 0.19 K/uL (0-0.50) 03/24/22 06:20 Baso # (Auto) 0.03 K/uL (0-0.2) 03/24/22 06:20 Immature Gran # (Auto) 0.15 K/uL (0.00-0.02) H 03/24/22 06:20 Polychromasia 1+ 03/24/22 06:20 Poikilocytosis Present 03/12/22 06:14 Anisocytosis Present 03/24/22 06:20 Ovalocytes 1+ 03/21/22 09:29 Echinocytes 1+ 03/03/22 07:58 Acanthocytes (Spur) 1+ 03/24/22 06:20 ESR 42 mm/hr (0-30) H 03/02/22 17:55 PT 13.1 Seconds (9.0-12.0) H 03/02/22 17:55 INR 1.2 (0.9-1.1) H 03/02/22 17:55 VBG pH 7.31 (7.36-7.41) L 03/02/22 22:54 VBG pCO2 41 mmHg (38-50) 03/02/22 22:54 VBG pO2 22 mmHg 03/02/22 22:54 VBG HCO3 21 mmol/L 03/02/22 22:54 VBG O2 Saturation < 60.0 % 03/02/22 22:54 VBG Base Excess -5.4 mEq/L 03/02/22 22:54 Sodium 140 mmol/L (136-145) 03/24/22 06:20 Potassium 3.7 mmol/L (3.5-5.1) 03/24/22 06:20 Chloride 111 mmol/L (98-107) H 03/24/22 06:20 Carbon Dioxide 26 mmol/L (21-32) 03/24/22 06:20 Anion Gap 3 (3-11) 03/24/22 06:20 BUN 22 mg/dl (6-23) 03/24/22 06:20 Creatinine 0.42 mg/dl (0.6-1.2) L 03/24/22 06:20 Est Cr Clr Drug Dosing 97.7 ml/min 03/24/22 06:20 Est GFR ( Amer) 113.0 ml/min 03/24/22 06:20 Est GFR (Non-Af Amer) 97.5 ml/min 03/24/22 06:20 BUN/Creatinine Ratio 52.4 (10-20) H 03/24/22 06:20 Glucose 93 mg/dl (70-99(Fasting)) 03/24/22 06:20 Lactate 1.3 mmol/L (0.4-2.0) 03/06/22 21:30 Calcium 7.4 mg/dl (8.5-10.1) L 03/24/22 06:20 Magnesium 1.5 mg/dl (1.7-2.4) L 03/06/22 07:34 Total Bilirubin 0.6 mg/dl (0.2-1.0) 03/02/22 17:55 AST 26 U/L (13-39) 03/02/22 17:55 ALT 19 U/L (7-52) 03/02/22 17:55 Alkaline Phosphatase 66 U/L (34-104) 03/02/22 17:55 Total Creatine Kinase 156 U/L (26-192) 03/03/22 07:58 Total Creatine Kinase Cancelled 03/03/22 07:58 C-Reactive Protein 4.73 mg/dl (0-0.5) H 03/02/22 17:55 Total Protein 6.3 gm/dl (6.0-8.3) 03/02/22 17:55 Albumin 3.5 gm/dl (3.4-5.0) 03/02/22 17:55 Globulin 2.8 gm/dl (2.5-4.0) 03/02/22 17:55 Albumin/Globulin Ratio 1.3 (0.9-2) 03/02/22 17:55 Procalcitonin 0.05 ng/ml (0-0.5) 03/23/22 12:49 Urine Color Dark Yellow 03/04/22 06:50 Urine Appearance Clear (Clear) 03/04/22 06:50 Urine pH 5.0 (4.5-7.5) 03/04/22 06:50 Ur Specific [place] 1.010 (1.000-1.030) 03/04/22 06:50 Urine Protein Negative (Negative) 03/04/22 06:50 Urine Glucose (UA) Negative (Negative) 03/04/22 06:50 Urine Ketones Negative (Negative) 03/04/22 06:50 Urine Blood Trace (Negative) H 03/04/22 06:50 Urine Nitrite Negative (Negative) 03/04/22 06:50 Urine Bilirubin Negative (Negative) 03/04/22 06:50 Urine Urobilinogen Negative (Negative) 03/04/22 06:50 Ur Leukocyte Esterase 2+ (Negative) H 03/04/22 06:50 Urine WBC (Auto) >30 /hpf (0-5) H 03/04/22 06:50 Urine RBC (Auto) 5-10 /hpf (0-4) H 03/04/22 06:50 U Hyaline Cast (Auto) 1-5 /lpf (0-5) 03/04/22 06:50 U Epithel Cells (Auto) 10-20 /lpf (0-5) H 03/04/22 06:50 Urine Bacteria (Auto) 1+ (Negative) H 03/04/22 06:50 Ur Renal Epithelial Cell 0-5 /lpf (0-5) 03/04/22 06:50 Stl C. cayetanensis PCR Not Detected (NotDetected) 03/03/22 18:40 Stool Rotavirus A PCR Not Detected (NotDetected) 03/03/22 18:40 Stl Adenov F 40/41 PCR Not Detected (NotDetected) 03/03/22 18:40 Stool Astrovirus (PCR) Not Detected (NotDetected) 03/03/22 18:40 Stool Campylobacter PCR Not Detected (NotDetected) 03/03/22 18:40 Stl C. diff Tox B Gene Negative Cdiff Gene (Neg) 03/03/22 18:40 Stool Cryptosporidium PCR Not Detected (NotDetected) 03/03/22 18:40 Stl E.coli Shiga Tox PCR Not Detected (NotDetected) 03/03/22 18:40 Stl Enterotoxigenic E PCR Not Detected (NotDetected) 03/03/22 18:40 Stool EPEC (PCR) Not Detected (NotDetected) 03/03/22 18:40 Stool EAEC (PCR) Not Detected (NotDetected) 03/03/22 18:40 Stl E. histolytica PCR Not Detected (NotDetected) 03/03/22 18:40 Stool Giardia Lamblia PCR Not Detected (NotDetected) 03/03/22 18:40 Stool Salmonella PCR Not Detected (NotDetected) 03/03/22 18:40 Stool Sapovirus (PCR) Not Detected (NotDetected) 12/01/22 18:40 Stl P. shigelloides PCR Not Detected (NotDetected) 03/03/22 18:40 Stl Shigella/EIEC PCR Not Detected (NotDetected) 03/03/22 18:40 St Y.enterocolitica PCR Not Detected (NotDetected) 03/03/22 18:40 Stool Vibrio (PCR) Not Detected (NotDetected) 03/03/22 18:40 Stl Vibrio cholerae PCR Not Detected (NotDetected) 03/03/22 18:40 Stl Norovirus GI/GII PCR Not Detected (NotDetected) 03/03/22 18:40 SARS-CoV-2, RNA, NAAT NEGATIVE (NEGATIVE) 03/02/22 19:20 Blood Type O Positive 03/12/22 11:02 Antibody Screen NEGATIVE 03/12/22 11:02 Crossmatch See Detail 03/12/22 11:02 Impressions Foot X-Ray 03/02/22 19:55 XR foot RT min 3V routine HISTORY: 81 years-old Female wound on 2nd toe chronic wound of the right forefoot adjacent to the second toe. Clinical concern for osteomyelitis. COMPARISON: 02/20/2022 TECHNIQUE: 3 views of the right foot FINDINGS: Demineralized appearance of the bones. Mostly mild multifocal osteoarthritis. Extension of the metatarsal-phalangeal joints. Mild soft tissue swelling of the forefoot. No acute fracture, dislocation or osseous erosion. Spurring of the calcaneus. IMPRESSION: Stable exam from the 02/20/2022 study. Mild soft tissue swelling without evidence of osteomyelitis. ACT 112: Negative or not required by law. The above report was generated using voice recognition software. It may contain grammatical, syntax or spelling errors. Electronically signed by: Roberto Owens M.D. 03/02/2022 8:26 PM Foot MRI 03/03/22 20:13 MR foot RT w/o con HISTORY: 81 years-old Female rule out osteomyelitis second toe chronic pain with soft tissue wound of the right foot/second toe with possible osteomyelitis COMPARISON: Right foot radiographs 03/02/2022. TECHNIQUE: Multiplanar multisequence MRI of the right foot was obtained without the use of IV contrast. FINDINGS: Motion degraded exam. Diffuse atrophy of the intrinsic musculature suggestive of chronic denervation changes. Mostly mild multifocal osteoarthritis of the right foot. There is diffuse subcutaneous and deep tissue edema of the foot. No fluid collection to suggest abscess. There is increased T2/STIR decreased T1 signal involving the second middle phalanx. Bone marrow signal is otherwise preserved throughout the foot. Extension of the metatarsal-phalangeal with flexion of the interphalangeal joints. The tendons and ligaments are not well evaluated. IMPRESSION: 1. Motion degraded exam. 2. Abnormal marrow signal within the second middle phalanx is suspicious for osteomyelitis. 3. Chronic denervation changes of the foot with diffuse subcutaneous and deep tissue edema. 4. No abscess. ACT 112: Negative or not required by law. The above report was generated using voice recognition software. It may contain grammatical, syntax or spelling errors. Electronically signed by: Roberto Owens M.D. 03/04/2022 9:15 AM Renal Ultrasound 03/04/22 08:42 US renal/blad retro comp CLINICAL HISTORY: acute renal failure TECHNIQUE: Multiple sonographic real-time images of the kidneys and bladder were obtained. COMPARISON: Comparison is made to CT abdomen pelvis 12/24/2021 FINDINGS: The right kidney measures 10.3 cm in length, and the left kidney measures 8.4 cm in length although this may be an underestimate due to shadowing. The right kidney is normal in size, contour, cortical thickness, and echogenicity. No hydronephrosis is identified. No renal lesion is identified. No perinephric fluid collection is seen. The left renal cortex is diffusely echogenic in appearance, with diffuse cortical thinning. No hydronephrosis is identified. No renal lesion is identified. No perinephric fluid collection is seen. The bladder is partially distended. No large intraluminal mass is seen. IMPRESSION: No evidence of hydronephrosis. The left kidney is echogenic and minimally decreased in size compared to the right, which can be seen in medical renal disease. ACT 112: Negative or not required by law. Electronically signed by: Milad Douglas M.D. 03/04/2022 2:41 PM Chest X-Ray 03/20/22 10:21 XR chest 1V portable CLINICAL HISTORY: hypoxia TECHNIQUE: Single frontal radiograph of the chest was obtained. Comparison: Comparison is made to chest radiograph 03/12/2022 FINDINGS: A port catheter is seen. Calcified aortic knob is seen. Reticular interstitial opacities are seen. In addition there is multifocal airspace opacity most prominently in the right lower lung, increased from prior exam. No evidence of pleural effusion or pneumothorax. IMPRESSION: Increased airspace opacity most prominent in the right lower lung, concerning for pneumonia and/or aspiration. ACT 112: Negative or not required by law. Electronically signed by: Milad Douglas M.D. 03/20/2022 11:50 AM
[2022-03-25] MEDS: ONDANSETRON INJ 2 MG/ML 2 ML VIAL IV PRN (16:56)
[2022-03-26] MEDS: MoRPHine SULFATE CR 60 MG TABCR PO SCH ×2 (07:44→19:29)
[2022-03-26] MEDS: METOPROLOL SUCC 25MG EXT REL TAB PO SCH (08:03)
[2022-03-26] MEDS: MAGNESIUM OXIDE 400 MG TAB PO SCH (08:03)
[2022-03-26] MEDS: SERTRALINE HCL 100 MG TABLET PO SCH (08:03)
[2022-03-26] MEDS: ADVANCED PROBIOTIC 1250 MG CAPSULE PO SCH (08:03)
[2022-03-26] MEDS: SPIRONOLACTONE 25 MG TAB PO SCH (08:03)
[2022-03-26] MEDS: PANTOprazole 40 MG TAB PO SCH (08:03)
[2022-03-26] MEDS: FIRST - Mouthwash BLM 119 ML PO PRN (08:03)
[2022-03-26] MEDS: SILVER SULFADIAZINE 1% CR 50 GM JAR EXT SCH ×2 (08:04→19:33)
[2022-03-26] MEDS: ONDANSETRON INJ 2 MG/ML 2 ML VIAL IV PRN (08:07)
[2022-03-26] MEDS: HEPARIN 100 UNIT/ML 5ML FLUSH FLUSH PRN ×2 (08:09→10:51)
[2022-03-26] MEDS: APIXABAN 2.5 MG TAB PO SCH ×2 (08:57→19:30)
[2022-03-26] MEDS ORDERED: MAGNESIUM HYDROXIDE SUSP 30 ML UDC PO ONE (09:11)
[2022-03-26] MEDS: POLYETHYLENE (MIRALAX) 17 GM PACK PO SCH (10:36)
--- NOTE | 2022-03-26 12:05 | Hospitalist Progress Note ---
Date of Service March 26, 2022 Assessment & Plan (1) KRISTIN (acute kidney injury): Plan: 81-year-old female with history of anal cancer, status postchemotherapy, radiation therapy Presenting with acute kidney injury secondary to nausea/vomiting and diarrhea secondary to radiation therapy-resolved, Found to have right second toe osteomyelitis, status post amputation-healing well, now being treated for right lower lobe pneumonia with hypoxia. Stable for Discharge to rehab. Acute Kidney Injury Diarrhea in the setting of chemotherapy -- Poor intake, nausea, possibly secondary to narcotics? In the setting of diuretic use for right lower extremity edema KRISTIN resolved. Right second toe Osteomyelitis Foot MRI: Second toe suspicious for osteomyelitis 03/05: Status post right second toe amputation by Dr. Keenan Vyas Given daptomycin IV ID consulted, discussed with Dr. Hermosillo , recommend DC antibiotics after toe amputation Patient doing well postoperatively Per Dr. Keenan Vyas: Dispensed interdigital spacers with instructions on use. Patient to keep incision site clean and dry. Patient is weight bearing as tolerated in surgical shoe. Patient will follow up in 2 weeks for suture removal or call sooner if symptoms arise. -- Wound healing well s/p suture removal 03/19/2022--> Dr. Vyas New onset atrial fibrillation, paroxysmal hx LV outflow obstruction/valvular heart disease (severe MR, mild TR)/pulmonary hypertension --Patient developed atrial fibrillation while admitted --Converted to sinus rhythm with IV metoprolol --Echocardiogram performed 2 weeks ago during previous admission --Cardiology service consulted started Eliquis 2.5mg BID Reduced to metoprolol XL 25 mg p.o. daily for now decreased from 37.5 mg daily --Remains in sinus rhythm Right lower Lobe pneumonia - Still on 2 L of oxygen via nasal cannula -On antibiotics. -Swallow eval done; no sign of aspiration on bedside evaluation History of anal cancer status post chemotherapy/ongoing radiation Rx Chronic cancer pain on narcotics -- Currently back on morphine 60 mg twice daily Pain well controlled Completed course of radiation therapy 03/15 Radiation Dermatitis continue Protective cream Requested wound care team to evaluate patient - Silver sulfadiazene cream BID Acute on chronic anemia Chronic anemia -- Status post 2 units packed RBCs -- Hemoglobin improved from 7-8.3 --Hemoglobin stable No signs of active bleeding Bilateral lower extremity edema, chronic In setting of severe mitral vegetation RLE cellulitis Creatinine remains stable -- No leg edema Aldactone 25 mg p.o. twice a week-->Sat and Wed Received Lasix 20 mg IV during the hospitalization Enterococcus UTI -- Completed amoxicillin course Prediabetes -- hemoglobin A1c of 5.9 last visit ongoing tobacco abuse DVT prophylaxis. Lora Full code Disposition: Lives at home. 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 She would prefer to be placed at a [facility] with her . CM on board. patient stable for discharge. Admission and Anticipated Discharge Date Admission Date: March 02, 2022 Subjective Patient seen and examined at bedside. She is sitting up on the bed; not in any distress. She denies any fever, chills, shortness of breath or chest pain. No overnight events. Review of Systems Review of Systems: All systems reviewed & are unremarkable except as noted in Subjective Physical Exam Physical Exam: Constitutional: WD/WN, vitals as above, NAD, sitting up in bed, pleasant, conversing easily Respiratory: crackles heard on base of right lung. Cardiovascular: RRR, no murmur, no edema Vessels: no JVD or carotid bruit Chest: normal inspection of chest Abdomen: normal bowel sounds, soft, nontender, no hepatosplenomegaly Musculoskeletal: Blackish discoloration at the amputated site on right feet; no pain or discomfort. Skin: no rashes, warm and dry normal turgor Neurologic: PERRL, EOMI, accommodation nl, no face palsy, no dysarthria CN's II- XI intact bilaterally and moves all extremities Psychiatric: A+Ox3, euthymic affect Lymphatic: no cervical or axillary lymphadenopathy : deferred Results & Data Results & Data ([facility]) Vital Signs (Past 12 Hours) Vital Signs Temp Pulse Pulse Resp BP Pulse Ox O2 Del Method 03/26/22 11:10 36.7 C 58 L 18 115/70 94 Nasal Cannula 03/26/22 10:00 Nasal Cannula 03/26/22 08:00 36.2 C L 60 18 119/54 L 91 Nasal Cannula 03/26/22 07:01 61 03/26/22 03:13 63 20 144/69 H 97 Nasal Cannula O2 Flow Rate 03/26/22 11:10 2 03/26/22 10:00 2 03/26/22 08:00 2 03/26/22 07:01 03/26/22 03:13 2
[2022-03-26] MEDS: cefTRIAXone SODIUM 2,000 MG in DEXTROSE 5% 50 ML IV SCH (12:44)
[2022-03-26] MEDS: oxyCODONE HCL IR 5 MG TAB (IMMEDIATE RELEASE) PO PRN ×2 (13:41→22:58)
[2022-03-26] MEDS: DICLOFENAC SOD 1% GEL 100 GM TUBE EXT PRN (19:30)
[2022-03-27 06:51] LABS: Basophils # (auto) 0.02 K/uL (0-0.2); Basophils % (auto) 0.4 %; Eosinophils % (auto) 4.1 %; Hematocrit (blood only) 24.4 % (34.1-44.9); Hemoglobin 7.7 g/dl (12.0-16.0); Lymphocytes # (auto) 0.24 K/uL (1.2-3.4); Lymphocytes % (auto) 4.9 %; Mean Corpuscular Hemoglobin 29.7 pg (25.0-34.0); Mean Corpuscular Hgb Conc 31.6 g/dL (32.0-36.0); Mean Corpuscular Volume 94.2 fL (80.0-100.0); Mean Platelet Volume 9.9 fL (9.4-12.3); Monocytes # (auto) 0.66 K/uL (0.24-0.82); Monocytes % (auto) 13.5 %; Neutrophils # (auto) 3.68 K/uL (1.4-6.5); Neutrophils % (auto) 75.1 %; Platelet Count 176 K/uL (130-400); RDW Standard Deviation 71.3 fL (36.4-46.3); Red Blood Count 2.59 M/uL (3.93-5.22)
[2022-03-27 07:10] LABS: BUN Creatinine Ratio 54.1 (10-20); Calcium 7.5 mg/dl (8.5-10.1); Creatinine Clr Calc Pharmacy 110.9 ml/min; Est GFR (African American) 117.8 ml/min; Est GFR (Non-African American) 101.6 ml/min; Potassium 3.9 mmol/L (3.5-5.1)
[2022-03-27 07:23] LABS: Anisocytosis Present
[2022-03-27] MEDS: PANTOprazole 40 MG TAB PO SCH (08:13)
[2022-03-27] MEDS: MoRPHine SULFATE CR 60 MG TABCR PO SCH ×2 (08:13→19:44)
[2022-03-27] MEDS: APIXABAN 2.5 MG TAB PO SCH ×2 (08:13→19:45)
[2022-03-27] MEDS: SERTRALINE HCL 100 MG TABLET PO SCH (08:13)
[2022-03-27] MEDS: ADVANCED PROBIOTIC 1250 MG CAPSULE PO SCH (08:13)
[2022-03-27] MEDS: METOPROLOL SUCC 25MG EXT REL TAB PO SCH (08:13)
[2022-03-27] MEDS: MAGNESIUM OXIDE 400 MG TAB PO SCH (08:14)
[2022-03-27] MEDS: SILVER SULFADIAZINE 1% CR 50 GM JAR EXT SCH ×2 (08:14→22:59)
[2022-03-27] MEDS: POLYETHYLENE (MIRALAX) 17 GM PACK PO SCH (08:15)
[2022-03-27] MEDS: ONDANSETRON INJ 2 MG/ML 2 ML VIAL IV PRN (08:21)
--- NOTE | 2022-03-27 11:31 | Hospitalist Progress Note ---
Date of Service March 27, 2022 Assessment & Plan (1) KRISTIN (acute kidney injury): Plan: 81-year-old female with history of anal cancer, status postchemotherapy, radiation therapy Presenting with acute kidney injury secondary to nausea/vomiting and diarrhea secondary to radiation therapy-resolved, Found to have right second toe osteomyelitis, status post amputation-healing well, now being treated for right lower lobe pneumonia with hypoxia. Completed course of antibiotics. Stable for Discharge to rehab. Acute Kidney Injury Diarrhea in the setting of chemotherapy -- Poor intake, nausea, possibly secondary to narcotics? In the setting of diuretic use for right lower extremity edema KRISTIN resolved. Right second toe Osteomyelitis Foot MRI: Second toe suspicious for osteomyelitis 03/05: Status post right second toe amputation by Dr. Keenan Vyas Given daptomycin IV ID consulted, discussed with Dr. Hermosillo , recommend DC antibiotics after toe amputation Patient doing well postoperatively Per Dr. Keenan Vyas: Dispensed interdigital spacers with instructions on use. Patient to keep incision site clean and dry. Patient is weight bearing as tolerated in surgical shoe. Patient will follow up in 2 weeks for suture removal or call sooner if symptoms arise. -- Wound healing well s/p suture removal 03/19/2022--> Dr. Vyas New onset atrial fibrillation, paroxysmal hx LV outflow obstruction/valvular heart disease (severe MR, mild TR)/pulmonary hypertension --Patient developed atrial fibrillation while admitted --Converted to sinus rhythm with IV metoprolol --Echocardiogram performed 2 weeks ago during previous admission --Cardiology service consulted started Eliquis 2.5mg BID Reduced to metoprolol XL 25 mg p.o. daily for now decreased from 37.5 mg daily --Remains in sinus rhythm Right lower Lobe pneumonia -On antibiotics. -Swallow eval done; no sign of aspiration on bedside evaluation -Flutter valve, incentive spirometry History of anal cancer status post chemotherapy/ongoing radiation Rx Chronic cancer pain on narcotics -- Currently back on morphine 60 mg twice daily Pain well controlled Completed course of radiation therapy 03/15 Radiation Dermatitis continue Protective cream Requested wound care team to evaluate patient - Silver sulfadiazene cream BID Acute on chronic anemia Chronic anemia -- Status post 2 units packed RBCs -- Hemoglobin improved from 7-8.3 --Hemoglobin stable No signs of active bleeding Bilateral lower extremity edema, chronic In setting of severe mitral vegetation RLE cellulitis Creatinine remains stable -- No leg edema Aldactone 25 mg p.o. twice a week-->Sat and Wed Received Lasix 20 mg IV during the hospitalization Enterococcus UTI -- Completed amoxicillin course Prediabetes -- hemoglobin A1c of 5.9 last visit ongoing tobacco abuse DVT prophylaxis. Lora Full code Disposition: Lives at home. 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 She would prefer to be placed at a [facility] with her . CM on board. patient stable for discharge. Admission and Anticipated Discharge Date Admission Date: March 02, 2022 Subjective Patient seen and examined at bedside. She is lying in the bed comfortably; not in any distress. She denies any chest pain, fever or shortness of breath. Review of Systems Review of Systems: All systems reviewed & are unremarkable except as noted in Subjective Physical Exam Physical Exam: Constitutional: WD/WN, vitals as above, NAD, sitting up in bed, pleasant, conversing easily Respiratory: crackles heard on base of right lung. Cardiovascular: RRR, no murmur, no edema Vessels: no JVD or carotid bruit Chest: normal inspection of chest Abdomen: normal bowel sounds, soft, nontender, no hepatosplenomegaly Musculoskeletal: Blackish discoloration at the amputated site on right feet; no pain or discomfort. Skin: no rashes, warm and dry normal turgor Neurologic: PERRL, EOMI, accommodation nl, no face palsy, no dysarthria CN's II- XI intact bilaterally and moves all extremities Psychiatric: A+Ox3, euthymic affect Lymphatic: no cervical or axillary lymphadenopathy : deferred Results & Data Results & Data ([facility]) Vital Signs (Past 12 Hours) Vital Signs Temp Pulse Resp BP BP Pulse Ox O2 Del Method 03/27/22 07:49 36.6 C 61 18 125/70 94 Nasal Cannula 03/27/22 03:20 63 16 152/74 H 96 Nasal Cannula O2 Flow Rate 03/27/22 07:49 2 03/27/22 03:20 2 Laboratory Results Laboratory Results WBC 4.90 K/ul (4.8-10.8) 03/27/22 06:22 RBC 2.59 M/uL (3.93-5.22) L 03/27/22 06:22 Hgb 7.7 g/dl (12.0-16.0) L 03/27/22 06:22 Hct 24.4 % (34.1-44.9) L 03/27/22 06:22 MCV 94.2 fL (80.0-100.0) 03/27/22 06:22 MCH 29.7 pg (25.0-34.0) 03/27/22 06:22 MCHC 31.6 g/dL (32.0-36.0) L 03/27/22 06: RDW Std Deviation 71.3 fL (36.4-46.3) H 03/27/22 06:22 RDW Coeff of Olaf 21.0 % (11.5-14.5) H 03/27/22 06:22 Plt Count 176 K/uL (130-400) 03/27/22 06:22 MPV 9.9 fL (9.4-12.3) 03/27/22 06:22 Immature Gran % (Auto) 2.0 % 03/27/22 06:22 Neut % (Auto) 75.1 % 03/27/22 06:22 Lymph % (Auto) 4.9 % 03/27/22 06:22 [place] % (Auto) 13.5 % 03/27/22 06:22 Eos % (Auto) 4.1 % 03/27/22 06:22 Baso % (Auto) 0.4 % 03/27/22 06:22 Neut # (Auto) 3.68 K/uL (1.4-6.5) 03/27/22 06:22 Lymph # (Auto) 0.24 K/uL (1.2-3.4) L 03/27/22 06:22 [place] # (Auto) 0.66 K/uL (0.24-0.82) 03/27/22 06:22 Eos # (Auto) 0.20 K/uL (0-0.50) 03/27/22 06:22 Baso # (Auto) 0.02 K/uL (0-0.2) 03/27/22 06:22 Immature Gran # (Auto) 0.10 K/uL (0.00-0.02) H 03/27/22 06:22 Polychromasia 1+ 03/24/22 06:20 Poikilocytosis Present 03/12/22 06:14 Anisocytosis Present 03/27/22 06:22 Ovalocytes 1+ 03/21/22 09:29 Echinocytes 1+ 03/03/22 07:58 Acanthocytes (Spur) 1+ 03/24/22 06:20 ESR 42 mm/hr (0-30) H 03/02/22 17:55 PT 13.1 Seconds (9.0-12.0) H 03/02/22 17:55 INR 1.2 (0.9-1.1) H 03/02/22 17:55 VBG pH 7.31 (7.36-7.41) L 03/02/22 22:54 VBG pCO2 41 mmHg (38-50) 03/02/22 22:54 VBG pO2 22 mmHg 03/02/22 22:54 VBG HCO3 21 mmol/L 03/02/22 22:54 VBG O2 Saturation < 60.0 % 03/02/22 22:54 VBG Base Excess -5.4 mEq/L 03/02/22 22:54 Sodium 141 mmol/L (136-145) 03/27/22 06:22 Potassium 3.9 mmol/L (3.5-5.1) 03/27/22 06:22 Chloride 110 mmol/L (98-107) H 03/27/22 06:22 Carbon Dioxide 29 mmol/L (21-32) 03/27/22 06:22 Anion Gap 2 (3-11) L 03/27/22 06:22 BUN 20 mg/dl (6-23) 03/27/22 06:22 Creatinine 0.37 mg/dl (0.6-1.2) L 03/27/22 06:22 Est Cr Clr Drug Dosing 110.9 ml/min 03/27/22 06:22 Est GFR ( Amer) 117.8 ml/min 03/27/22 06:22 Est GFR (Non-Af Amer) 101.6 ml/min 03/27/22 06:22 BUN/Creatinine Ratio 54.1 (10-20) H 03/27/22 06:22 Glucose 98 mg/dl (70-99(Fasting)) 03/27/22 06:22 Lactate 1.3 mmol/L (0.4-2.0) 03/06/22 21:30 Calcium 7.5 mg/dl (8.5-10.1) L 03/27/22 06:22 Magnesium 1.5 mg/dl (1.7-2.4) L 03/06/22 07:34 Total Bilirubin 0.6 mg/dl (0.2-1.0) 03/02/22 17:55 AST 26 U/L (13-39) 03/02/22 17:55 ALT 19 U/L (7-52) 03/02/22 17:55 Alkaline Phosphatase 66 U/L (34-104) 03/02/22 17:55 Total Creatine Kinase 156 U/L (26-192) 03/03/22 07:58 Total Creatine Kinase Cancelled 03/03/22 07:58 C-Reactive Protein 4.73 mg/dl (0-0.5) H 03/02/22 17:55 Total Protein 6.3 gm/dl (6.0-8.3) 03/02/22 17:55 Albumin 3.5 gm/dl (3.4-5.0) 03/02/22 17:55 Globulin 2.8 gm/dl (2.5-4.0) 03/02/22 17:55 Albumin/Globulin Ratio 1.3 (0.9-2) 03/02/22 17:55 Procalcitonin 0.05 ng/ml (0-0.5) 03/23/22 12:49 Urine Color Dark Yellow 03/04/22 06:50 Urine Appearance Clear (Clear) 03/04/22 06:50 Urine pH 5.0 (4.5-7.5) 03/04/22 06:50 Ur Specific [place] 1.010 (1.000-1.030) 03/04/22 06:50 Urine Protein Negative (Negative) 03/04/22 06:50 Urine Glucose (UA) Negative (Negative) 03/04/22 06:50 Urine Ketones Negative (Negative) 03/04/22 06:50 Urine Blood Trace (Negative) H 03/04/22 06:50 Urine Nitrite Negative (Negative) 03/04/22 06:50 Urine Bilirubin Negative (Negative) 03/04/22 06:50 Urine Urobilinogen Negative (Negative) 03/04/22 06:50 Ur Leukocyte Esterase 2+ (Negative) H 03/04/22 06:50 Urine WBC (Auto) >30 /hpf (0-5) H 03/04/22 06:50 Urine RBC (Auto) 5-10 /hpf (0-4) H 03/04/22 06:50 U Hyaline Cast (Auto) 1-5 /lpf (0-5) 03/04/22 06:50 U Epithel Cells (Auto) 10-20 /lpf (0-5) H 03/04/22 06:50 Urine Bacteria (Auto) 1+ (Negative) H 03/04/22 06:50 Ur Renal Epithelial Cell 0-5 /lpf (0-5) 03/04/22 06:50 Stl C. cayetanensis PCR Not Detected (NotDetected) 03/03/22 18:40 Stool Rotavirus A PCR Not Detected (NotDetected) 03/03/22 18:40 Stl Adenov F 41 PCR Not Detected (NotDetected) 03/03/22 18:40 Stool Astrovirus (PCR) Not Detected (NotDetected) 03/03/22 18:40 Stool Campylobacter PCR Not Detected (NotDetected) 03/03/22 18:40 Stl C. diff Tox B Gene Negative Cdiff Gene (Neg) 03/03/22 18:40 Stool Cryptosporidium PCR Not Detected (NotDetected) 03/03/22 18:40 Stl E.coli Shiga Tox PCR Not Detected (NotDetected) 03/03/22 18:40 Stl Enterotoxigenic E PCR Not Detected (NotDetected) 03/03/22 18:40 Stool EPEC (PCR) Not Detected (NotDetected) 03/03/22 18:40 Stool EAEC (PCR) Not Detected (NotDetected) 03/03/22 18:40 Stl E. histolytica PCR Not Detected (NotDetected) 03/03/22 18:40 Stool Giardia Lamblia PCR Not Detected (NotDetected) 03/03/22 18:40 Stool Salmonella PCR Not Detected (NotDetected) 03/03/22 18:40 Stool Sapovirus (PCR) Not Detected (NotDetected) 03/03/22 18:40 Stl P. shigelloides PCR Not Detected (NotDetected) 03/03/22 18:40 Stl Shigella/EIEC PCR Not Detected (NotDetected) 03/03/22 18:40 St Y.enterocolitica PCR Not Detected (NotDetected) 03/03/22 18:40 Stool Vibrio (PCR) Not Detected (NotDetected) 03/03/22 18:40 Stl Vibrio cholerae PCR Not Detected (NotDetected) 03/03/22 18:40 Stl Norovirus GI/GII PCR Not Detected (NotDetected) 03/03/22 18:40 SARS-CoV-2, RNA, NAAT NEGATIVE (NEGATIVE) 03/02/22 19:20 Blood Type O Positive 03/12/22 11:02 Antibody Screen NEGATIVE 03/12/22 11:02 Crossmatch See Detail 03/12/22 11:02 Impressions Foot X-Ray 03/02/22 19:55 XR foot RT min 3V routine HISTORY: 81 years-old Female wound on 2nd toe chronic wound of the right forefoot adjacent to the second toe. Clinical concern for osteomyelitis. COMPARISON: 02/20/2022 TECHNIQUE: 3 views of the right foot FINDINGS: Demineralized appearance of the bones. Mostly mild multifocal osteoarthritis. Extension of the metatarsal-phalangeal joints. Mild soft tissue swelling of the forefoot. No acute fracture, dislocation or osseous erosion. Spurring of the calcaneus. IMPRESSION: Stable exam from the 02/20/2022 study. Mild soft tissue swelling without evidence of osteomyelitis. ACT 112: Negative or not required by law. The above report was generated using voice recognition software. It may contain grammatical, syntax or spelling errors. Electronically signed by: Roberto Owens M.D. 03/02/2022 8:26 PM Foot MRI 03/03/22 20:13 MR foot RT w/o con HISTORY: 81 years-old Female rule out osteomyelitis second toe chronic pain with soft tissue wound of the right foot/second toe with possible osteomyelitis COMPARISON: Right foot radiographs 03/02/2022. TECHNIQUE: Multiplanar multisequence MRI of the right foot was obtained without the use of IV contrast. FINDINGS: Motion degraded exam. Diffuse atrophy of the intrinsic musculature suggestive of chronic denervation changes. Mostly mild multifocal osteoarthritis of the right foot. There is diffuse subcutaneous and deep tissue edema of the foot. No fluid collection to suggest abscess. There is increased T2/STIR decreased T1 signal involving the second middle phalanx. Bone marrow signal is otherwise preserved throughout the foot. Extension of the metatarsal-phalangeal with flexion of the interphalangeal joints. The tendons and ligaments are not well evaluated. IMPRESSION: 1. Motion degraded exam. 2. Abnormal marrow signal within the second middle phalanx is suspicious for osteomyelitis. 3. Chronic denervation changes of the foot with diffuse subcutaneous and deep tissue edema. 4. No abscess. ACT 112: Negative or not required by law. The above report was generated using voice recognition software. It may contain grammatical, syntax or spelling errors. Electronically signed by: Roberto Owens M.D. 03/04/2022 9:15 AM Renal Ultrasound 03/04/22 08:42 US renal/blad retro comp CLINICAL HISTORY: acute renal failure TECHNIQUE: Multiple sonographic real-time images of the kidneys and bladder were obtained. COMPARISON: Comparison is made to CT abdomen pelvis 12/24/2021 FINDINGS: The right kidney measures 10.3 cm in length, and the left kidney measures 8.4 cm in length although this may be an underestimate due to shadowing. The right kidney is normal in size, contour, cortical thickness, and echogenicity. No hydronephrosis is identified. No renal lesion is identified. No perinephric fluid collection is seen. The left renal cortex is diffusely echogenic in appearance, with diffuse cortical thinning. No hydronephrosis is identified. No renal lesion is identified. No perinephric fluid collection is seen. The bladder is partially distended. No large intraluminal mass is seen. IMPRESSION: No evidence of hydronephrosis. The left kidney is echogenic and minimally decreased in size compared to the right, which can be seen in medical renal disease. ACT 112: Negative or not required by law. Electronically signed by: Milad Douglas M.D. 03/04/2022 2:41 PM Chest X-Ray 03/20/22 10:21 XR chest 1V portable CLINICAL HISTORY: hypoxia TECHNIQUE: Single frontal radiograph of the chest was obtained. Comparison: Comparison is made to chest radiograph 03/12/2022 FINDINGS: A port catheter is seen. Calcified aortic knob is seen. Reticular interstitial opacities are seen. In addition there is multifocal airspace opacity most prominently in the right lower lung, increased from prior exam. No evidence of pleural effusion or pneumothorax. IMPRESSION: Increased airspace opacity most prominent in the right lower lung, concerning for pneumonia and/or aspiration. ACT 112: Negative or not required by law. Electronically signed by: Milad Douglas M.D. 03/20/2022 11:50 AM
[2022-03-27] MEDS: oxyCODONE HCL IR 5 MG TAB (IMMEDIATE RELEASE) PO PRN (15:14)
[2022-03-28 06:20] LABS: Basophils # (auto) 0.02 K/uL (0-0.2); Basophils % (auto) 0.4 %; Eosinophils % (auto) 3.8 %; Hematocrit (blood only) 22.9 % (34.1-44.9); Hemoglobin 7.3 g/dl (12.0-16.0); Immature Granulocytes # (auto) 0.06 K/uL (0.00-0.02); Immature Granulocytes % (auto) 1.1 %; Lymphocytes # (auto) 0.23 K/uL (1.2-3.4); Lymphocytes % (auto) 4.4 %; Mean Corpuscular Hemoglobin 29.6 pg (25.0-34.0); Mean Corpuscular Hgb Conc 31.9 g/dL (32.0-36.0); Mean Corpuscular Volume 92.7 fL (80.0-100.0); Monocytes # (auto) 0.65 K/uL (0.24-0.82); Monocytes % (auto) 12.4 %; Neutrophils # (auto) 4.08 K/uL (1.4-6.5); Neutrophils % (auto) 77.9 %; Platelet Count 162 K/uL (130-400); RDW Coefficient of Variation 20.9 % (11.5-14.5); RDW Standard Deviation 70.1 fL (36.4-46.3); Red Blood Count 2.47 M/uL (3.93-5.22); White Blood Count 5.24 K/ul (4.8-10.8)
[2022-03-28 06:46] LABS: Anisocytosis Present; Polychromasia 1+
[2022-03-28 07:03] LABS: Albumin Globulin Ratio 0.9 (0.9-2); Albumin Level 2.3 gm/dl (3.4-5.0); BUN Creatinine Ratio 57.1 (10-20); Bilirubin,Total 0.4 mg/dl (0.2-1.0); Calcium 7.7 mg/dl (8.5-10.1); Creatinine Clr Calc Pharmacy 126.9 ml/min; Est GFR (Non-African American) 103.5 ml/min; Globulin 2.6 gm/dl (2.5-4.0); Total Protein 4.9 gm/dl (6.0-8.3)
[2022-03-28] MEDS: POLYETHYLENE (MIRALAX) 17 GM PACK PO SCH (08:37)
[2022-03-28] MEDS: HEPARIN 100 UNIT/ML 5ML FLUSH FLUSH PRN (08:37)
[2022-03-28] MEDS: SERTRALINE HCL 100 MG TABLET PO SCH (08:38)
[2022-03-28] MEDS: MoRPHine SULFATE CR 60 MG TABCR PO SCH ×2 (08:38→19:35)
[2022-03-28] MEDS: APIXABAN 2.5 MG TAB PO SCH ×2 (08:38→19:35)
[2022-03-28] MEDS: ONDANSETRON INJ 2 MG/ML 2 ML VIAL IV PRN (08:38)
[2022-03-28] MEDS: MAGNESIUM OXIDE 400 MG TAB PO SCH (08:38)
[2022-03-28] MEDS: PANTOprazole 40 MG TAB PO SCH (08:38)
[2022-03-28] MEDS: ADVANCED PROBIOTIC 1250 MG CAPSULE PO SCH (08:38)
[2022-03-28] MEDS: METOPROLOL SUCC 25MG EXT REL TAB PO SCH (08:38)
[2022-03-28] MEDS: SILVER SULFADIAZINE 1% CR 50 GM JAR EXT SCH ×2 (08:39→22:11)
[2022-03-28] MEDS: SENNA 8.6 MG TAB PO SCH (10:48)
[2022-03-28] MEDS: MAGNESIUM HYDROXIDE SUSP 30 ML UDC PO SCH ×2 (10:48→19:35)
--- NOTE | 2022-03-28 11:39 | Hospitalist Progress Note ---
Date of Service March 28, 2022 Assessment & Plan (1) KRISTIN (acute kidney injury): Plan: 81-year-old female with history of anal cancer, status postchemotherapy, radiation therapy Presenting with acute kidney injury secondary to nausea/vomiting and diarrhea secondary to radiation therapy-resolved, Found to have right second toe osteomyelitis, status post amputation-healing well, now being treated for right lower lobe pneumonia with hypoxia. Completed course of antibiotics. Stable for Discharge to rehab. Acute Kidney Injury Diarrhea in the setting of chemotherapy -- Poor intake, nausea, possibly secondary to narcotics? In the setting of diuretic use for right lower extremity edema KRISTIN resolved. Right second toe Osteomyelitis Foot MRI: Second toe suspicious for osteomyelitis 03/05: Status post right second toe amputation by Dr. Keenan Vyas Given daptomycin IV ID consulted, discussed with Dr. Hermosillo , recommend DC antibiotics after toe amputation Patient doing well postoperatively Per Dr. Keenan Vyas: Dispensed interdigital spacers with instructions on use. Patient to keep incision site clean and dry. Patient is weight bearing as tolerated in surgical shoe. Patient will follow up in 2 weeks for suture removal or call sooner if symptoms arise. -- Wound healing well s/p suture removal 03/19/2022--> Dr. Vyas New onset atrial fibrillation, paroxysmal hx LV outflow obstruction/valvular heart disease (severe MR, mild TR)/pulmonary hypertension --Patient developed atrial fibrillation while admitted --Converted to sinus rhythm with IV metoprolol --Echocardiogram performed 2 weeks ago during previous admission --Cardiology service consulted started Eliquis 2.5mg BID Reduced to metoprolol XL 25 mg p.o. daily for now decreased from 37.5 mg daily --Remains in sinus rhythm Right lower Lobe pneumonia -Completed course of antibiotics. -Swallow eval done; no sign of aspiration on bedside evaluation -Flutter valve, incentive spirometry History of anal cancer status post chemotherapy/ongoing radiation Rx Chronic cancer pain on narcotics -- Currently on morphine 60 mg twice daily Pain well controlled Completed course of radiation therapy 03/15 Radiation Dermatitis continue Protective cream Requested wound care team to evaluate patient - Silver sulfadiazene cream BID Acute on chronic anemia Chronic anemia -- Status post 2 units packed RBCs -- Hemoglobin around 7 --Hemoglobin stable No signs of active bleeding Bilateral lower extremity edema, chronic In setting of severe mitral vegetation RLE cellulitis Creatinine remains stable -- No leg edema Aldactone 25 mg p.o. twice a week-->Sat and Wed Received Lasix 20 mg IV during the hospitalization Enterococcus UTI -- Completed amoxicillin course Prediabetes -- hemoglobin A1c of 5.9 last visit ongoing tobacco abuse DVT prophylaxis. Lora Full code Disposition: Lives at home. 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 She would prefer to be placed at a [facility] with her . CM on board. patient stable for discharge. Admission and Anticipated Discharge Date Admission Date: March 02, 2022 Subjective COmfortably sitting up on the chair; not in any distress. Weaned off oxygen; currently in Nasal cannula. Physical Exam Physical Exam: Constitutional: WD/WN, vitals as above, NAD, sitting up in bed, pleasant, conversing easily Respiratory: crackles heard on base of right lung; improved compared to yesterday. Cardiovascular: RRR, no murmur, no edema Vessels: no JVD or carotid bruit Chest: normal inspection of chest Abdomen: normal bowel sounds, soft, nontender, no hepatosplenomegaly Musculoskeletal: Blackish discoloration at the amputated site on right feet; no pain or discomfort. Skin: no rashes, warm and dry normal turgor Neurologic: PERRL, EOMI, accommodation nl, no face palsy, no dysarthria CN's II- XI intact bilaterally and moves all extremities Psychiatric: A+Ox3, euthymic affect Lymphatic: no cervical or axillary lymphadenopathy : deferred Results & Data Results & Data ([facility]) Vital Signs (Past 12 Hours) Vital Signs Temp Pulse Pulse Resp BP BP Pulse Ox 03/28/22 11:11 36.7 C 61 18 98/60 L 90 03/28/22 08:00 74 03/28/22 08:00 03/28/22 07:32 36.7 C 64 20 108/65 92 03/28/22 03:30 36.8 C 77 20 114/69 92 03/28/22 01:59 03/28/22 01:42 66 O2 Del Method 03/28/22 11:11 Room Air 03/28/22 08:00 03/28/22 08:00 Room Air 03/28/22 07:32 Room Air 03/28/22 03:30 Room Air 03/28/22 01:59 Room Air 03/28/22 01:42 Laboratory Results Laboratory Results WBC 5.24 K/ul (4.8-10.8) 03/28/22 05:57 RBC 2.47 M/uL (3.93-5.22) L 03/28/22 05:57 Hgb 7.3 g/dl (12.0-16.0) L 03/28/22 05:57 Hct 22.9 % (34.1-44.9) L 03/28/22 05:57 MCV 92.7 fL (80.0-100.0) 03/28/22 05:57 MCH 29.6 pg (25.0-34.0) 03/28/22 05:57 MCHC 31.9 g/dL (32.0-36.0) L 03/28/22 05:57 RDW Std Deviation 70.1 fL (36.4-46.3) H 03/28/22 05:57 RDW Coeff of Olaf 20.9 % (11.5-14.5) H 03/28/22 05:57 Plt Count 162 K/uL (130-400) 03/28/22 05:57 MPV 10.0 fL (9.4-12.3) 03/28/22 05:57 Immature Gran % (Auto) 1.1 % 03/28/22 05:57 Neut % (Auto) 77.9 % 03/28/22 05:57 Lymph % (Auto) 4.4 % 03/28/22 05:57 [place] % (Auto) 12.4 % 03/28/22 05:57 Eos % (Auto) 3.8 % 03/28/22 05:57 Baso % (Auto) 0.4 % 03/28/22 05:57 Neut # (Auto) 4.08 K/uL (1.4-6.5) 03/28/22 05:57 Lymph # (Auto) 0.23 K/uL (1.2-3.4) L 03/28/22 05:57 [place] # (Auto) 0.65 K/uL (0.24-0.82) 03/28/22 05:57 Eos # (Auto) 0.20 K/uL (0-0.50) 03/28/22 05:57 Baso # (Auto) 0.02 K/uL (0-0.2) 03/28/22 05:57 Immature Gran # (Auto) 0.06 K/uL (0.00-0.02) H 03/28/22 05:57 Polychromasia 1+ 03/28/22 05:57 Poikilocytosis Present 03/12/22 06:14 Anisocytosis Present 03/28/22 05:57 Ovalocytes 1+ 03/21/22 09:29 Echinocytes 1+ 03/03/22 07:58 Acanthocytes (Spur) 1+ 03/24/22 06:20 ESR 42 mm/hr (0-30) H 03/02/22 17:55 PT 13.1 Seconds (9.0-12.0) H 03/02/22 17:55 INR 1.2 (0.9-1.1) H 03/02/22 17:55 VBG pH 7.31 (7.36-7.41) L 03/02/22 22:54 VBG pCO2 41 mmHg (38-50) 03/02/22 22:54 VBG pO2 22 mmHg 03/02/22 22:54 VBG HCO3 21 mmol/L 03/02/22 22:54 VBG O2 Saturation < 60.0 % 03/02/22 22:54 VBG Base Excess -5.4 mEq/L 03/02/22 22:54 Sodium 138 mmol/L (136-145) 03/28/22 05:57 Potassium 4.0 mmol/L (3.5-5.1) 03/28/22 05:57 Chloride 108 mmol/L (98-107) H 03/28/22 05:57 Carbon Dioxide 28 mmol/L (21-32) 03/28/22 05:57 Anion Gap 2 (3-11) L 03/28/22 05:57 BUN 20 mg/dl (6-23) 03/28/22 05:57 Creatinine 0.35 mg/dl (0.6-1.2) L 03/28/22 05:57 Est Cr Clr Drug Dosing 126.9 ml/min 03/28/22 05:57 Est GFR ( Amer) 120.0 ml/min 03/28/22 05:57 Est GFR (Non-Af Amer) 103.5 ml/min 03/28/22 05:57 BUN/Creatinine Ratio 57.1 (10-20) H 03/28/22 05:57 Glucose 91 mg/dl (70-99(Fasting)) 03/28/22 05:57 Lactate 1.3 mmol/L (0.4-2.0) 03/06/22 21:30 Calcium 7.7 mg/dl (8.5-10.1) L 03/28/22 05:57 Magnesium 1.5 mg/dl (1.7-2.4) L 03/06/22 07:34 Total Bilirubin 0.4 mg/dl (0.2-1.0) 03/28/22 05:57 AST 9 U/L (13-39) L 03/28/22 05:57 ALT 5 U/L (7-52) L 03/28/22 05:57 Alkaline Phosphatase 57 U/L (34-104) 03/28/22 05:57 Total Creatine Kinase 156 U/L (26-192) 03/03/22 07:58 Total Creatine Kinase Cancelled 03/03/22 07:58 C-Reactive Protein 4.73 mg/dl (0-0.5) H 03/02/22 17:55 Total Protein 4.9 gm/dl (6.0-8.3) L 03/28/22 05:57 Albumin 2.3 gm/dl (3.4-5.0) L 03/28/22 05:57 Globulin 2.6 gm/dl (2.5-4.0) 03/28/22 05:57 Albumin/Globulin Ratio 0.9 (0.9-2) 03/28/22 05:57 Procalcitonin 0.05 ng/ml (0-0.5) 03/23/22 12:49 Urine Color Dark Yellow 03/04/22 06:50 Urine Appearance Clear (Clear) 03/04/22 06:50 Urine pH 5.0 (4.5-7.5) 03/04/22 06:50 Ur Specific [place] 1.010 (1.000-1.030) 03/04/22 06:50 Urine Protein Negative (Negative) 03/04/22 06:50 Urine Glucose (UA) Negative (Negative) 03/04/22 06:50 Urine Ketones Negative (Negative) 03/04/22 06:50 Urine Blood Trace (Negative) H 03/04/22 06:50 Urine Nitrite Negative (Negative) 03/04/22 06:50 Urine Bilirubin Negative (Negative) 03/04/22 06:50 Urine Urobilinogen Negative (Negative) 03/04/22 06:50 Ur Leukocyte Esterase 2+ (Negative) H 03/04/22 06:50 Urine WBC (Auto) >30 /hpf (0-5) H 03/04/22 06:50 Urine RBC (Auto) 5-10 /hpf (0-4) H 03/04/22 06:50 U Hyaline Cast (Auto) 1-5 /lpf (0-5) 03/04/22 06:50 U Epithel Cells (Auto) 10-20 /lpf (0-5) H 03/04/22 06:50 Urine Bacteria (Auto) 1+ (Negative) H 03/04/22 06:50 Ur Renal Epithelial Cell 0-5 /lpf (0-5) 03/04/22 06:50 Stl C. cayetanensis PCR Not Detected (NotDetected) 03/03/22 18:40 Stool Rotavirus A PCR Not Detected (NotDetected) 03/03/22 18:40 Stl Adenov F 40/41 PCR Not Detected (NotDetected) 03/03/22 18:40 Stool Astrovirus (PCR) Not Detected (NotDetected) 03/03/22 18:40 Stool Campylobacter PCR Not Detected (NotDetected) 03/03/22 18:40 Stl C. diff Tox B Gene Negative Cdiff Gene (Neg) 03/03/22 18:40 Stool Cryptosporidium PCR Not Detected (NotDetected) 03/03/22 18:40 Stl E.coli Shiga Tox PCR Not Detected (NotDetected) 03/03/22 18:40 Stl Enterotoxigenic E PCR Not Detected (NotDetected) 03/03/22 18:40 Stool EPEC (PCR) Not Detected (NotDetected) 03/03/22 18:40 Stool EAEC (PCR) Not Detected (NotDetected) 03/03/22 18:40 Stl E. histolytica PCR Not Detected (NotDetected) 03/03/22 18:40 Stool Giardia Lamblia PCR Not Detected (NotDetected) 03/03/22 18:40 Stool Salmonella PCR Not Detected (NotDetected) 03/03/22 18:40 Stool Sapovirus (PCR) Not Detected (NotDetected) 03/03/22 18:40 Stl P. shigelloides PCR Not Detected (NotDetected) 03/03/22 18:40 Stl Shigella/EIEC PCR Not Detected (NotDetected) 03/03/22 18:40 St Y.enterocolitica PCR Not Detected (NotDetected) 03/03/22 18:40 Stool Vibrio (PCR) Not Detected (NotDetected) 03/03/22 18:40 Stl Vibrio cholerae PCR Not Detected (NotDetected) 03/03/22 18:40 Stl Norovirus GI/GII PCR Not Detected (NotDetected) 03/03/22 18:40 SARS-CoV-2, RNA, NAAT NEGATIVE (NEGATIVE) 03/02/22 19:20 Blood Type O Positive 03/12/22 11:02 Antibody Screen NEGATIVE 03/12/22 11:02 Crossmatch See Detail 03/12/22 11:02 Impressions Foot X-Ray 03/02/22 19:55 XR foot RT min 3V routine HISTORY: 81 years-old Female wound on 2nd toe chronic wound of the right forefoot adjacent to the second toe. Clinical concern for osteomyelitis. COMPARISON: 02/20/2022 TECHNIQUE: 3 views of the right foot FINDINGS: Demineralized appearance of the bones. Mostly mild multifocal osteoarthritis. Extension of the metatarsal-phalangeal joints. Mild soft tissue swelling of the forefoot. No acute fracture, dislocation or osseous erosion. Spurring of the calcaneus. IMPRESSION: Stable exam from the 02/20/2022 study. Mild soft tissue swelling without evidence of osteomyelitis. ACT 112: Negative or not required by law. The above report was generated using voice recognition software. It may contain grammatical, syntax or spelling errors. Electronically signed by: Roberto Owens M.D. 03/02/2022 8:26 PM Foot MRI 03/03/22 20:13 MR foot RT w/o con HISTORY: 81 years-old Female rule out osteomyelitis second toe chronic pain with soft tissue wound of the right foot/second toe with possible osteomyelitis COMPARISON: Right foot radiographs 03/02/2022. TECHNIQUE: Multiplanar multisequence MRI of the right foot was obtained without the use of IV contrast. FINDINGS: Motion degraded exam. Diffuse atrophy of the intrinsic musculature suggestive of chronic denervation changes. Mostly mild multifocal osteoarthritis of the right foot. There is diffuse subcutaneous and deep tissue edema of the foot. No fluid collection to suggest abscess. There is increased T2/STIR decreased T1 signal involving the second middle phalanx. Bone marrow signal is otherwise preserved throughout the foot. Extension of the metatarsal-phalangeal with flexion of the interphalangeal joints. The tendons and ligaments are not well evaluated. IMPRESSION: 1. Motion degraded exam. 2. Abnormal marrow signal within the second middle phalanx is suspicious for osteomyelitis. 3. Chronic denervation changes of the foot with diffuse subcutaneous and deep tissue edema. 4. No abscess. ACT 112: Negative or not required by law. The above report was generated using voice recognition software. It may contain grammatical, syntax or spelling errors. Electronically signed by: Roberto Owens M.D. 03/04/2022 9:15 AM Renal Ultrasound 03/04/22 08:42 US renal/blad retro comp CLINICAL HISTORY: acute renal failure TECHNIQUE: Multiple sonographic real-time images of the kidneys and bladder were obtained. COMPARISON: Comparison is made to CT abdomen pelvis 12/24/2021 FINDINGS: The right kidney measures 10.3 cm in length, and the left kidney measures 8.4 cm in length although this may be an underestimate due to shadowing. The right kidney is normal in size, contour, cortical thickness, and echogenicity. No hydronephrosis is identified. No renal lesion is identified. No perinephric fluid collection is seen. The left renal cortex is diffusely echogenic in appearance, with diffuse cortical thinning. No hydronephrosis is identified. No renal lesion is identified. No perinephric fluid collection is seen. The bladder is partially distended. No large intraluminal mass is seen. IMPRESSION: No evidence of hydronephrosis. The left kidney is echogenic and minimally decreased in size compared to the right, which can be seen in medical renal d isease. ACT 112: Negative or not required by law. Electronically signed by: Milad Douglas M.D. 03/04/2022 2:41 PM Chest X-Ray 03/20/22 10:21 XR chest 1V portable CLINICAL HISTORY: hypoxia TECHNIQUE: Single frontal radiograph of the chest was obtained. Comparison: Comparison is made to chest radiograph 03/12/2022 FINDINGS: A port catheter is seen. Calcified aortic knob is seen. Reticular interstitial opacities are seen. In addition there is multifocal airspace opacity most prominently in the right lower lung, increased from prior exam. No evidence of pleural effusion or pneumothorax. IMPRESSION: Increased airspace opacity most prominent in the right lower lung, concerning for pneumonia and/or aspiration. ACT 112: Negative or not required by law. Electronically signed by: Milad Douglas M.D. 03/20/2022 11:50 AM
[2022-03-28] MEDS: oxyCODONE HCL IR 5 MG TAB (IMMEDIATE RELEASE) PO PRN (13:28)
[2022-03-29] MEDS ORDERED: bisacodyL 10 MG SUPP PR STA (00:53)
[2022-03-29] MEDS: oxyCODONE HCL IR 5 MG TAB (IMMEDIATE RELEASE) PO PRN ×2 (01:38→13:36)
[2022-03-29 07:55] VITALS: O2SAT 91
[2022-03-29] MEDS: MAGNESIUM HYDROXIDE SUSP 30 ML UDC PO SCH (09:22)
[2022-03-29] MEDS: SILVER SULFADIAZINE 1% CR 50 GM JAR EXT SCH (09:23)
[2022-03-29] MEDS: MAGNESIUM OXIDE 400 MG TAB PO SCH (09:23)
[2022-03-29] MEDS: PANTOprazole 40 MG TAB PO SCH (09:23)
[2022-03-29] MEDS: APIXABAN 2.5 MG TAB PO SCH (09:23)
[2022-03-29] MEDS: METOPROLOL SUCC 25MG EXT REL TAB PO SCH (09:23)
[2022-03-29] MEDS: SENNA 8.6 MG TAB PO SCH (09:23)
[2022-03-29] MEDS: ADVANCED PROBIOTIC 1250 MG CAPSULE PO SCH (09:23)
[2022-03-29] MEDS: SERTRALINE HCL 100 MG TABLET PO SCH (09:23)
[2022-03-29] MEDS: POLYETHYLENE (MIRALAX) 17 GM PACK PO SCH (09:23)
[2022-03-29] MEDS: MoRPHine SULFATE CR 60 MG TABCR PO SCH (09:24)
[2022-03-29] MEDS: ONDANSETRON INJ 2 MG/ML 2 ML VIAL IV PRN (10:21)
[2022-03-29 11:28] VITALS: BP 110/68; PULSE 65; TEMP 97.7
[2022-03-29] MEDS ORDERED: SOD PHOSPHATE/SOD BIPHOSPHATE ENEMA 132 ML BTL PR STA (13:00)
[2022-03-29] MEDS: HEPARIN 100 UNIT/ML 5ML FLUSH FLUSH PRN (14:54)
--- NOTE | 2022-03-29 17:34 | Discharge Summary ---
Date of Service March 29, 2022 Admission HPI Per Admitting Provider History obtained from patient and records. Medical history significant for LV outflow obstruction, valvular heart disease (severe MR, mild TR), pulmonary hypertension, hypertension, hyperlipidemia, GERD, history anal cancer status post chemotherapy/ongoing radiation Rx, chronic cancer pain on narcotics, daily steroid Rx for nausea symptoms, chronic anemia (baseline hemoglobin 9), LE cellulitis ongoing antibiotic Rx, ongoing tobacco abuse. Last confinement 2 weeks ago for multifactorial ARF, hypokalemia and lower extremity cellulitis. Patient adamantly requested to be discharge after overnight stay be able to attend to her on home hospice. Patient discharged on doxycycline and cefdinir course for leg cellulitis Patient indapamide changed to Aldactone on discharge. Appetite okay but patient eating less from persistent nausea/dry heaving symptoms since discharge, no abdominal pain. No chest pain, no shortness of breath. Improved leg swelling with right second toe ulcer with fluid seepage. No fever, no chills. [place] [facility] [place] visits since discharge for IV hydration and potassium replacement. Patient seen by PCP at the office today. Worsening creatinine trend noted on outpatient blood work. Serum creatinine noted to be 2.6 Patient directed to ER for evaluation. 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 Normal course for R [id number] Admission Exam Per Admitting Provider GENERAL: chronically ill, no respiratory distress SKIN: Pallor, warm HEENT: Pale palpebral conjunctivae, no ptosis, dry buccal mucosa NECK : Supple, no tenderness CHEST : Decreased breath sounds, no tenderness HEART : Bradycardic, apical systolic murmur ABDOMEN: Some distention, nontender EXTREMITIES : Minimal bilateral LE erythema with minimal tenderness, right second toe swelling NEUROLOGIC : Coherent, no facial asymmetry, no other gross focality Principal Diagnosis 1 KRISTIN (acute kidney injury) 2 Right second toe Osteomyelitis 3.New onset atrial fibrillation, paroxysmal 4. Right Lower lobe pneumonia Discharge Exam Constitutional: WD/WN, vitals as above, NAD, sitting up in bed, pleasant, conversing easily Respiratory: crackles heard on base of right lung; improved compared to yesterday. Cardiovascular: RRR, no murmur, no edema Vessels: no JVD or carotid bruit Chest: normal inspection of chest Abdomen: normal bowel sounds, soft, nontender, no hepatosplenomegaly Musculoskeletal: Blackish discoloration at the amputated site on right feet; no pain or discomfort. Skin: no rashes, warm and dry normal turgor Neurologic: PERRL, EOMI, accommodation nl, no face palsy, no dysarthria CN's II- XI intact bilaterally and moves all extremities Psychiatric: A+Ox3, euthymic affect Lymphatic: no cervical or axillary lymphadenopathy : deferred Discharge Data Allergies Allergy/AdvReac Type Severity Reaction Status Date / Time No Known Allergies Allergy Verified 02/28/22 12:21 Consultations 03/02/22 19:42 ED Decision to Admit Stat 03/03/22 01:41 Consult Nephrology Routine 03/03/22 07:30 Consult Podiatry Routine 03/04/22 12:47 Consult Infectious Diseases Routine 03/05/22 14:56 Consult Cardiology Routine 03/07/22 08:13 Consult Radiation Oncology Routine Procedures Performed Operation Date: 03/05/22 10:20 Actual Procedures p Right 2nd Toe Amputation(Right) - Keenan Vyas, ESDRASM, MS Ordered Studies 03/03/22 20:13 MR foot RT w/o con Stat 03/04/22 08:42 US Renal Bladder [US renal/blad retro comp] Routine Hospital Course (1) KRISTIN (acute kidney injury): 81-year-old female with history of anal cancer, status postchemotherapy, radiation therapy presented with acute kidney injury. She was managed for following medical issues during the hospitalization. Acute Kidney Injury Diarrhea in the setting of chemotherapy Due to poor intake, nausea, possibly secondary to narcotics? KRISTIN improved with IV hydration; creatinine at baseline on discharge. Right second toe Osteomyelitis Foot MRI: Second toe suspicious for osteomyelitis 03/05: Status post right second toe amputation by Dr. Keenan Vyas Received antibiotics; which was stopped as per ID recommendation after amputation. Suture was taken off by Dr. Vyas on 03/19. New onset atrial fibrillation, paroxysmal hx LV outflow obstruction/valvular heart disease (severe MR, mild TR)/pulmonary hypertension Patient developed atrial fibrillation while admitted Converted to sinus rhythm with IV metoprolol Cardiology consulted; was started on Eliquis 2.5 twice daily. On metoprolol. Remained in sinus rhythm throughout Right lower Lobe pneumonia -Completed course of antibiotics. -Swallow eval done; no sign of aspiration on bedside evaluation -Flutter valve, incentive spirometry History of anal cancer status post chemotherapy/ongoing radiation Rx Chronic cancer pain on narcotics -- Currently on morphine 60 mg twice daily Completed course of radiation therapy 03/15 Developed constipation; placed on bowel regimen on discharge Radiation Dermatitis continue Protective cream Requested wound care team to evaluate patient - Silver sulfadiazene cream BID Acute on chronic anemia Chronic anemia -- Status post 2 units packed RBCs -- Hemoglobin around 7 --Hemoglobin stable No signs of active bleeding Bilateral lower extremity edema, chronic In setting of severe mitral vegetation RLE cellulitis Creatinine remains stable No leg edema Aldactone 25 mg p.o. twice a week-->Sat and Wed Received Lasix 20 mg IV during the hospitalization Enterococcus UTI -- Completed amoxicillin course Prediabetes -- hemoglobin A1c of 5.9 last visit ongoing tobacco abuse Patient was from home and was taking care of her who was on hospice. Patient was discharged to subacute rehab with plan for her to join her in the rehab. Her vitals were stable on discharge. Total Time Total Time Spent Total Time Spent (In Minutes): 45 Total Time Includes: Examination of the Patient, Discharge Planning, Medication Reconciliation, Communication With Other Providers and Other Discharge Plan Discharge Items Patient Disposition: Transfer Jail Fac Reason For Visit: ARF Discharge Diagnosis: Acute renal failure in the setting of diarrhea, poor oral intake, on chemotherapy and radiation therapy for anal cancer Right foot second toe osteomyelitis, status post amputation 03/02/[address] Keenan Vyas Paroxysmal atrial fibrillation Bilateral lower extremity cellulitis, resolved Urinary tract infection, resolved Pneumonia Activity: As commented below Activity Comment: Continue PT and OT, always ambulate with assistance, fall precautions Lifting: Wait until after follow-up appointment Exercise/Sports: Wait until after follow-up appointment Driving/Machine Use: No driving until reevaluated and allowed by primary care malik chau Non-emergency contact: Primary Care Provider and Surgeon Call non-emergency contact if: you have any medication questions, your symptoms worsen, your pain is not controlled, your pain is worsening, your pain is unusual for you, your pain is concerning for you and you have a fever Follow-up/Referrals: [facility] [Other] ([facility] will place a call to you to make arrangements for a home visit. ) Norma Lester MD [Physician] - (Follow up appointment in Radiation Oncology on Wednesday June 29, 2022 at 2:30pm. If unable to keep appointment, please call our office at [phone]. ) Damian Kessler MD [Primary Care Provider] - Wil Blanton MD [Physician] - Leticia Killian MD [Outside Practitioners] - Keenan Vyas, ESDRASM, MS [Physician] - Diet: Heart Healthy and Low Sodium (2gm) Addtl Attending Provider Instructions: PLEASE REFER TO YOUR NEW MEDICATION LIST AND FOLLOW INSTRUCTIONS CAREFULLY. Per Dr. Keenan Vyas (Podiatry) recommendations: interdigital spacers as per instructions keep incision site clean and dry weight bearing as tolerated in surgical shoe Continue daily skin care in the perineal area for radiation dermatitis, including protective cream. PLEASE CALL YOUR PRIMARY CARE PHYSICIAN OR RETURN TO THE ER IF WITH WORSENING OF SYMPTOMS, INCLUDING Nausea and vomiting, diarrhea, poor oral intake, changes in urination, Legs or feet, perineal area swelling, redness, tenderness, Bleeding, discharge, pain on the surgical site, Shortness of breath, chest pain, dizziness, palpitations, etc. FOLLOW UP WITH PRIMARY CARE PHYSICIAN after discharge from the Rehab. Follow-up with senior construction manager Dr. Keenan Vyas in 2 weeks. Contact information outlined above. Follow-up with raschel knitting machine operator Dr. Wil Blanton in 3 to 4 weeks. Contact information outlined above. Follow-up with your oncologist as scheduled. Pending Studies at Discharge: No Studies:: Repeat blood work-CBC and BMP, magnesium 1 week post discharge Stand-Alone Forms: My [facility] Skilled Items Patient informed of condition?: Yes DNR: No Discharge Level of Care: Skilled Communicable Disease: No Discharge Prognosis: Stable Lines: None Urinary Catheter: No Medications and DC Order Prescriptions: New magnesium oxide 400 mg (241.3 mg magnesium) Tablet 400 mg PO QAM Qty: 30 0RF diclofenac sodium [Voltaren Arthritis Pain] 1 % Gel 2 g EXT QID PRN (Reason: pain) Qty: 100 0RF oxycodone 5 mg Tablet 5 mg PO Q4H PRN (Reason: severe ) Qty: 14 0RF magnesium hydroxide [Milk of Magnesia] 400 mg/5 mL Suspension 30 ml PO BID PRN (Reason: constipation) Qty: 355 0RF polyethylene glycol 3350 [Miralax] 17 gram Powder In Packet 17 g PO DAILY Qty: 30 0RF sennosides [Senokot] 8.6 mg Tablet 17.2 mg PO QAM Qty: 30 0RF Eliquis 2.5 mg tablet 2.5 mg PO BID Qty: 60 0RF Continued silver sulfadiazine [Silvadene] 1 % cream 1 applic topical TID PRN (Reason: wound healing) Qty: 85 3RF Rx Instructions: apply a 1.5 mm thickness ondansetron HCl 8 mg tablet 8 mg PO Q8H PRN (Reason: Nausea) Qty: 30 0RF sertraline 100 mg tablet 100 mg PO QAM Qty: 30 0RF morphine 60 mg tablet extended release 60 mg PO AMHS Qty: 20 0RF acetaminophen 500 mg Capsule 500 mg PO Q4 PRN (Reason: Pain) Qty: 30 0RF Rx Instructions: alternate with ibuprofen omeprazole 20 mg Tablet,Delayed Release (Dr/Ec) 20 mg PO QAM Qty: 30 0RF Changed spironolactone [Aldactone] 25 mg tablet 25 mg PO UD Qty: 30 1RF Rx Instructions: take twice a week- Tuesdays and Saturdays metoprolol succinate [Toprol XL] 25 mg tablet extended release 24 hr 25 mg PO QAM Qty: 30 0RF Label Comments: TAKES 1.5 TAB QAM Discontinued prochlorperazine maleate [Compazine] 10 mg tablet 10 mg PO Q6H PRN (Reason: Nausea) amoxicillin 500 mg capsule 500 mg PO TID dexamethasone 4 mg tablet 4 mg PO AMHS oxycodone 20 mg tablet 20 mg PO Q4 PRN (Reason: Pain, Severe) potassium chloride 20 mEq packet 40 meq PO BID 10 Days Qty: 30 1RF Discharge Orders: Discharge Order (Routine); Ordered 03/29/22 Ordered By: Fletcher Haines Admission Data Admit Date/Time: 03/02/22 20:33 Attending Provider: Fletcher Haines Admit Provider: Bethel Sanders Primary Care Provider: Damian Kessler Other Providers: Bethel Sanders ; Keenan Vyas ; Amandeep Lazaro ; Lauryn Hermosillo ; Abdifatah Molina I. ; Marino Wiley II ; Shilpa Smith ; Valentín Turner ; Patrick Ch ; Sue Massey ; Wil Blanton ; Norma Lester ; Namrata [facility] ; Matthew You ; [facility] ; [facility] Other Interventions: Discharge Summary Assessment (RN) Last Done: 03/29/22 14:47
== END 2022-03-29 16:12 | DRG 981 ==
LOC: ED 17:18 → 2W 20:33 → SUATTDRO 20:33 → 2W 21:35
DX: Y92.019 Unspecified place in single-family (private) house as the place of occurrence of the external cause; Z92.3 Personal history of irradiation; N39.0 Urinary tract infection, site not specified; Z95.828 Presence of other vascular implants and grafts; I10 Essential (primary) hypertension; G89.3 Neoplasm related pain (acute) (chronic); I48.0 Paroxysmal atrial fibrillation; L97.516 Non-pressure chronic ulcer of other part of right foot with bone involvement without evidence of necrosis; N17.9 Acute kidney failure, unspecified; E27.40 Unspecified adrenocortical insufficiency; E87.6 Hypokalemia; E87.20 Acidosis, unspecified; L59.8 Other specified disorders of the skin and subcutaneous tissue related to radiation; E87.1 Hypo-osmolality and hyponatremia; C20 Malignant neoplasm of rectum; I27.20 Pulmonary hypertension, unspecified; J18.9 Pneumonia, unspecified organism; B95.2 Enterococcus as the cause of diseases classified elsewhere; Q21.3 Tetralogy of Fallot; D64.9 Anemia, unspecified; M86.8X7 Other osteomyelitis, ankle and foot; I08.1 Rheumatic disorders of both mitral and tricuspid valves; E78.5 Hyperlipidemia, unspecified; E86.0 Dehydration; C21.0 Malignant neoplasm of anus, unspecified; F17.210 Nicotine dependence, cigarettes, uncomplicated; R09.02 Hypoxemia; R73.03 Prediabetes; L03.115 Cellulitis of right lower limb; T40.605A Adverse effect of unspecified narcotics, initial encounter

== ENCOUNTER 2022-04-09 15:26 | Inpatient (IN) ==
[2022-04-09] MEDS ORDERED: SODIUM CHLORIDE 0.9% 1000ML 1,000 ML IV ONE (15:42)
--- NOTE | 2022-04-09 15:46 | Emergency Department Note ---
Impression & Plan Symptomatic anemia, Hypoxia, CHF (congestive heart failure) ED Provider Note NAME: WENDY GANN AGE: 81 SEX: F : 1940 ARRIVES VIA: Ambulance INFORMANT: Patient, Son, EMS ED PROVIDER(S): Juan Bojorquez DO CHIEF COMPLAINT: confusion HPI: Patient is a 81-year-old female who is currently at [facility] who was found to be intermittently vomiting once last night and once the night before. They found her to be confused today hypoxic and her blood pressure was low. [place] brought her in via EMS. Patient denies any headache or change in vision. No chest pain but admits to shortness of breath. No belly pain. No nausea, vomiting, or diarrhea. She admits to dysuria, urgency, and frequency which started last night. No other exacerbating or remitting factors. PAST MEDICAL HISTORY:See Below PAST SURGICAL HISTORY:See Below FAMILY HISTORY:See Below SOCIAL HISTORY:See Below HOME MEDICATIONS:See Below ALLERGIES:See Below VITALS:See Below PHYSICAL EXAMINATION: GENERAL: Sitting up in bed, alert, chronically ill-appearing, disheveled, cachectic EYE EXAM: normal conjunctiva. OROPHARYNX: no exudate, no erythema, lips, buccal mucosa, and tongue normal and mucous membranes are moist LUNGS: Wheezing bilaterally. Normal chest wall mechanics HEART: no murmurs, S1 normal and S2 normal ABDOMEN: abdomen soft, non-tender, normo-active bowel sounds, no masses, no rebound or guarding. UPPER EXTREMITIES: upper extremities are grossly normal. LOWER EXTREMITIES: No pitting edema. NEURO EXAM: Normal sensorium, cranial nerves II-XII grossly intact, normal speech, no gross weakness of arms, no gross weakness of legs. MEDICAL DECISION MAKING: Patient is a 77-year-old female who presents the ER for the boasting complaint. IV was established blood work is obtained. Labs show no significant leukocytosis. Marked anemia at 6.1 which is likely contributing to her symptoms. I do favor this is likely from a GI bleed as she does have a known rectal cancer and is currently getting chemo. Rectal was not performed due to the known cancer. BMP was unremarkable. Calcium slightly low at 7.6. BNP was elevated at 600. Chest x-ray with infiltrates for CHF per radiology. Influenza COVID and RSV were negative. Patient was typed and crossed for 2 units PRBCs. She was hypoxic and remained on 2 L nasal cannula. Updated at bedside. Discussed with the son. Discussed with the hospitalist in regards to presentation work-up and treatment and patient was admitted to Dr. Aiken. External records were reviewed. Triage Nursing notes reviewed. Limited review of prior medical records performed Vital Signs: reviewed and remarkable for hypoxia Differential diagnosis: Differential diagnoses includes but is not limited to pneumonia, bronchitis, COPD/Asthma exacerbation, pneumothorax, pulmonary embolism, congestive heart failure, acute coronary syndrome ER treatment provided: See below Diagnostics interpreted by me include EKG and cardiac monitoring as listed below: -Cardiac Monitoring: An order was placed for continuous cardiac monitoring. The monitor shows a rate of 70 with sinus rhythm. -ECG: Sinus rhythm rate 61 Normal axis No PVCs Right bundle branch block QTC 450 -Laboratory studies:Interpreted by me as stated above in MDM and shown below. Imaging studies: Xrays: As interpreted by me: Portable AP upright 1 view per my read shows cephalization with bilateral infiltrates CTs show: none Consultation(s): As described in [facility] Procedures:none Critical Care: I have personally spent 31 minutes of critical care time in the direct management of this patient. This includes bedside care, interpretation of diagnostic studies, and testing, discussion with consultants, patient, and family members, and other required patient management activities. This 31 minutes is in excess of all separately billable procedures. Past Med/Surg History Medical History Anemia IRON INFUSIONS, follows with [facility] heme/onc Anxiety Degenerative scoliosis Hiatal hernia HLD (hyperlipidemia) HTN (hypertension) Hx of basal cell carcinoma IgM lambda paraproteinemia Left ventricular outflow tract obstruction follows with [facility] cardio Malignant neoplasm of anus Mitral regurgitation severe, follows with [facility] cardiology Pulmonary hypertension 47 mmHg Rectal cancer NEW DX>REASON FOR PORT Spinal stenosis Surgical History History of cataract surgery RT/LEFT History of colonoscopy History of esophagogastroduodenoscopy (EGD) History of tonsillectomy History of tooth extraction Hx of section X 2 Hx of thyroid cyst Family History Mother Heart disease Hypertension Cancer Brain tumor, in-operable. unsure if cancerous Father Stroke Other No family history of adverse response to anesthesia Social History Smoking Status: Former smoker Tobacco Type: Cigarettes packs per day: 0.5; Cigarettes Per Day: 5-6; Second Hand Exposure: No; Hx Alcohol Use: No Hx Substance Use: No Preferred Language: Korean Communication Ability: Effective Visual Impairment: No Limitations Hearing Ability: Normal Research Epidemiologist Required: No Beliefs That Will Affect Care: None marital status: Current Living Situation: Spouse Current Living Situation Comment: Lives with who is on hospice current occupational status: retired How many Children do You have: 4 Feels Safe at Home: Yes Assistive Devices: Walker Allergies Allergies Allergy/AdvReac Type Severity Reaction Status Date / Time No Known Allergies Allergy Verified 04/09/22 19:06 Home Meds Home Medications Medication Instructions Recorded Confirmed Magic Mouthwash 15 ml PO QID 04/09/22 04/09/22 acetaminophen 325 mg tablet 650 mg PO Q6H PRN Fever Or Pain 04/09/22 04/09/22 (Tylenol) diclofenac sodium 1 % topical gel 4 g topical QID PRN Pain 04/09/22 04/09/22 magnesium hydroxide 400 mg/5 mL 30 ml PO DAILY PRN constipation 04/09/22 04/09/22 oral suspension (Milk of Magnesia) megestrol 400 mg/10 mL (40 mg/mL) 400 mg PO QAM 04/09/22 04/09/22 oral suspension metoprolol succinate 25 mg 12.5 mg PO QAM 04/09/22 04/09/22 tablet,extended release 24 hr (Toprol XL) multivitamin 1 tab PO DAILY 04/09/22 04/09/22 oxycodone 5 mg tablet 5 mg PO Q4H PRN Pain 04/09/22 04/09/22 promethazine 25 mg/mL injection 12.5 mg IM Q6H PRN Nausea And 04/09/22 04/09/22 solution (Phenergan) Vomiting silver sulfadiazine 1 % topical 1 applic topical BID 04/09/22 04/09/22 cream (Silvadene) spironolactone 25 mg tablet 25 mg PO 2XWK 04/09/22 04/09/22 (Aldactone) Previous Rx's Medication Instructions Recorded magnesium oxide 400 mg (241.3 mg 400 mg PO QAM #30 tabs 03/09/22 magnesium) tablet apixaban 2.5 mg tablet (Eliquis) 2.5 mg PO BID #60 tabs 03/29/22 morphine 60 mg tablet,extended 60 mg PO AMHS pain #20 tabs 03/29/22 release omeprazole 20 mg tablet,delayed 20 mg PO QAM #30 tabs 03/29/22 release ondansetron HCl 8 mg tablet 8 mg PO Q8H PRN Nausea #30 tabs 03/29/22 polyethylene glycol 3350 17 gram 17 g PO DAILY #30 ea 03/29/22 oral powder packet (Miralax) sennosides 8.6 mg tablet (Senokot) 17.2 mg PO QAM #30 tabs 03/29/22 sertraline 100 mg tablet 100 mg PO QAM #30 tabs 03/29/22 Results & Data (ED) Vital Signs Vital Signs - 24 hr 04/09/22 15:32 04/09/22 15:32 04/09/22 16:16 Temperature 36.4 C L Temperature Source Oral Pulse Rate 64 65 Pulse Rate [Apical] Pulse Rhythm Regular Respiratory Rate 18 Respiratory Effort / Characteristics Non-Labored Respiratory Depth Shallow Blood Pressure 124/55 L Blood Pressure [Right Arm] Blood Pressure Mean 78 Blood Pressure Mean [Right Arm] Pulse Oximetry 95 97 96 Oxygen Delivery Method Nasal Cannula Nasal Cannula Nasal Cannula Oxygen Flow Rate 3 3 3 Sepsis Recent Fever Within 48 Hours No Sepsis New/Unexplained Change in Mental Status No Sepsis Action Taken by Nursing No Action Required 04/09/22 16:55 04/09/22 19:02 04/09/22 18:00 Temperature 36.9 C Temperature Source Oral Pulse Rate 68 Pulse Rate [Apical] 65 64 Pulse Rhythm Respiratory Rate 16 18 18 Respiratory Effort / Characteristics Respiratory Depth Blood Pressure 123/62 Blood Pressure [Right Arm] 120/53 L 123/62 Blood Pressure Mean 82 Blood Pressure Mean [Right Arm] 75 82 Pulse Oximetry 98 96 98 Oxygen Delivery Method Nasal Cannula Nasal Cannula Oxygen Flow Rate 3 3 3 Sepsis Recent Fever Within 48 Hours Sepsis New/Unexplained Change in Mental Status Sepsis Action Taken by Nursing 04/09/22 19:19 04/09/22 19:34 04/09/22 20:04 Temperature 36.7 C 37.5 C 36.4 C L Temperature Source Oral Oral Oral Pulse Rate 66 65 65 Pulse Rate [Apical] Pulse Rhythm Respiratory Rate 18 18 18 Respiratory Effort / Characteristics Respiratory Depth Blood Pressure 114/70 138/60 129/54 L Blood Pressure [Right Arm] Blood Pressure Mean 84 86 79 Blood Pressure Mean [Right Arm] Pulse Oximetry 93 98 99 Oxygen Delivery Method Oxygen Flow Rate 3 3 3 Sepsis Recent Fever Within 48 Hours Sepsis New/Unexplained Change in Mental Status Sepsis Action Taken by Nursing 04/09/22 21:01 Temperature 37.1 C Temperature Source Oral Pulse Rate 68 Pulse Rate [Apical] Pulse Rhythm Respiratory Rate 18 Respiratory Effort / Characteristics Respiratory Depth Blood Pressure 136/61 Blood Pressure [Right Arm] Blood Pressure Mean 86 Blood Pressure Mean [Right Arm] Pulse Oximetry 96 Oxygen Delivery Method Oxygen Flow Rate Sepsis Recent Fever Within 48 Hours Sepsis New/Unexplained Change in Mental Status Sepsis Action Taken by Nursing Laboratory Data 04/09/22 16:37 04/09/22 16:16 Lab Results 04/09/22 04/09/22 04/09/22 Range/Units 16:15 16:15 16:15 WBC (4.8-10.8) K/ul RBC (3.93-5.22) M/uL Hgb (12.0-16.0) g/dl Hct (34.1-44.9) % MCV (80.0-100.0) fL MCH (25.0-34.0) pg MCHC (32.0-36.0) g/dL RDW Std Deviation (36.4-46.3) fL RDW Coeff of Olaf (11.5-14.5) % Plt Count (130-400) K/uL MPV (9.4-12.3) fL Immature Gran % (Auto) % Neut % (Auto) % Lymph % (Auto) % Kimble % (Auto) % Eos % (Auto) % Baso % (Auto) % Neut # (Auto) (1.4-6.5) K/uL Lymph # (Auto) (1.2-3.4) K/uL Kimble # (Auto) (0.24-0.82) K/uL Eos # (Auto) (0-0.50) K/uL Baso # (Auto) (0-0.2) K/uL Immature Gran # (Auto) (0.00-0.02) K/uL Polychromasia Anisocytosis Acanthocytes (Spur) Rouleaux Sodium (136-145) mmol/L Potassium (3.5-5.1) mmol/L Chloride (98-107) mmol/L Carbon Dioxide (21-32) mmol/L Anion Gap (3-11) BUN (6-23) mg/dl Creatinine (0.6-1.2) mg/dl Est Cr Clr Drug Dosing Est GFR ( Amer) ml/min Est GFR (Non-Af Amer) ml/min BUN/Creatinine Ratio (10-20) Glucose (70-99(Fasting)) mg/dl Calcium (8.5-10.1) mg/dl Total Bilirubin (0.2-1.0) mg/dl AST (13-39) U/L ALT (7-52) U/L Alkaline Phosphatase (34-104) U/L B-Natriuretic Peptide 598 H (0-100) pg/ml Total Protein (6.0-8.3) gm/dl Albumin (3.4-5.0) gm/dl Globulin (2.5-4.0) gm/dl Albumin/Globulin Ratio (0.9-2) Lipase (11-82) U/L Procalcitonin 0.06 (0-0.5) ng/ml SARS-CoV-2 (PCR) NEGATIVE (Negative) Influenza Type A (PCR) Negative (Neg) Influenza Type B (PCR) Negative (Neg) RSV (RT-PCR) Negative (Neg) Blood Type Antibody Screen Crossmatch 04/09/22 04/09/22 04/09/22 Range/Units 16:16 16:37 16:58 WBC 5.78 (4.8-10.8) K/ul RBC 1.99 L (3.93-5.22) M/uL Hgb 6.1 L* (12.0-16.0) g/dl Hct 19.3 L* (34.1-44.9) % MCV 97.0 (80.0-100.0) fL MCH 30.7 (25.0-34.0) pg MCHC 31.6 L (32.0-36.0) g/dL RDW Std Deviation 75.0 H (36.4-46.3) fL RDW Coeff of Olaf 21.5 H (11.5-14.5) % Plt Count 149 (130-400) K/uL MPV 9.6 (9.4-12.3) fL Immature Gran % (Auto) 0.7 % Neut % (Auto) 78.4 % Lymph % (Auto) 4.2 % Kimble % (Auto) 13.5 % Eos % (Auto) 2.9 % Baso % (Auto) 0.3 % Neut # (Auto) 4.53 (1.4-6.5) K/uL Lymph # (Auto) 0.24 L (1.2-3.4) K/uL Kimble # (Auto) 0.78 (0.24-0.82) K/uL Eos # (Auto) 0.17 (0-0.50) K/uL Baso # (Auto) 0.02 (0-0.2) K/uL Immature Gran # (Auto) 0.04 H (0.00-0.02) K/uL Polychromasia 1+ Anisocytosis Present Acanthocytes (Spur) 1+ Rouleaux 1+ Sodium 136 (136-145) mmol/L Potassium 4.0 (3.5-5.1) mmol/L Chloride 110 H (98-107) mmol/L Carbon Dioxide 23 (21-32) mmol/L Anion Gap 3 (3-11) BUN 20 (6-23) mg/dl Creatinine 0.53 L (0.6-1.2) mg/dl Est Cr Clr Drug Dosing Not Reportable Est GFR ( Amer) 104.7 ml/min Est GFR (Non-Af Amer) 90.3 ml/min BUN/Creatinine Ratio 37.7 H (10-20) Glucose 102 H (70-99(Fasting)) mg/dl Calcium 7.6 L (8.5-10.1) mg/dl Total Bilirubin 0.5 (0.2-1.0) mg/dl AST 9 L (13-39) U/L ALT 6 L (7-52) U/L Alkaline Phosphatase 56 (34-104) U/L B-Natriuretic Peptide (0-100) pg/ml Total Protein 5.6 L (6.0-8.3) gm/dl Albumin 2.6 L (3.4-5.0) gm/dl Globulin 3.0 (2.5-4.0) gm/dl Albumin/Globulin Ratio 0.9 (0.9-2) Lipase 3 L (11-82) U/L Procalcitonin (0-0.5) ng/ml SARS-CoV-2 (PCR) (Negative) Influenza Type A (PCR) (Neg) Influenza Type B (PCR) (Neg) RSV (RT-PCR) (Neg) Blood Type O Positive Antibody Screen NEGATIVE Crossmatch See Detail Administered Medications Discontinued Medications Sodium Chloride (Nss 1000ml) 1,000 mls @ 999 mls/hr IV .Q1H1M ONE Stop: 04/09/22 16:42 Last Infusion: 04/09/22 19:08 Dose: 0 mls/hr Documented By: Admin: 04/09/22 16:24 Dose: 999 mls/hr Documented By: GERRI Ceftriaxone Sodium (Rocephin) 2,000 mg in 70 mls @ 140 mls/hr IV NOW STA Stop: 04/09/22 18:05 Last Infusion: 04/09/22 19:08 Dose: 0 mls/hr Documented By: Admin: 04/09/22 18:15 Dose: 140 mls/hr Documented By: GERRI Imaging Data Radiologist's Impression: Chest X-Ray 04/09/22 15:42 XR chest 1V portable HISTORY: 81 years-old Female sob acute shortness of breath COMPARISON: Chest radiograph 03/20/2022 TECHNIQUE: Portable AP view of the chest FINDINGS: Cardiac silhouette is enlarged. Mixed interstitial and alveolar opacities re demonstrated, progressively worsened within the left lung. No pneumothorax. Probable trace pleural effusions. Right IJ [id number] catheter is unchanged. Bones appear grossly intact. IMPRESSION: 1. Cardiomegaly with pulmonary vascular congestion and intermixed interstitial and alveolar opacities suggestive of pulmonary edema. Multifocal pneumonia could appear similarly. 2. Trace pleural effusions. ACT 112: Negative or not required by law. The above report was generated using voice recognition software. It may contain grammatical, syntax or spelling errors. Electronically signed by: Roberto Owens M.D. 04/09/2022 4:25 PM Abdomen/Pelvis CT 04/09/22 15:[address] WITHOUT CONTRAST CT DOSE: 264.77 mGy.cm HISTORY: Acute nausea and vomiting and a patient with history of rectal carcinoma vomiting w/ rectal ca TECHNIQUE: Multiaxial CT images of the abdomen and pelvis were performed without contrast. A dose lowering technique was utilized adhering to the principles of ALARA. COMPARISON STUDY: PET CT 01/03/2022 FINDINGS: Cardiomegaly with decreased attenuation of the cardiac blood pool suggests anemia. Coronary artery and mitral annular calcifications. Small moderate layering pleural effusions. Patchy bibasilar opacities with intralobular septal thickening. Study is limited secondary to respiratory motion artifact. No pneumatosis or pneumoperitoneum. The unenhanced spleen is mildly enlarged, 13.5 cm. Mildly atrophic pancreas. Unremarkable adrenal glands, visualized gallbladder and liver. Unremarkable kidneys. No urolith or hydronephrosis. Urinary bladder wall thickening with partial distention. Uterus and adnexa are unremarkable. Atherosclerosis of the aorta. 2.1 x 1.5 cm soft tissue thickening within the left femoral tissues on image 237 series 3, previously 2.3 x 1.9 cm. There is decreased size of the previously seen pathologic right inguinal adenopathy. No new or progressive lymphadenopathy identified. Mild wall thickening of the distal esophagus. Prominent scattered air-fluid levels in the lower abdomen and pelvis measure up to 2.7 cm. No discrete transition point or significant small bowel wall thickening. Anasarca. Degenerative changes of the spine, pelvis and hips. Moderate colorectal fecal retention. Circumferential wall thickening of the anus and rectum with adjacent perirectal stranding, decreased from prior. Colonic diverticulosis. Chronic appearing bilateral rib fractures. No destructive bone lesions identified. Scoliotic curvature lumbar spine again noted. IMPRESSION: 1. Limited exam as above. 2. No high-grade small bowel obstruction or pneumoperitoneum. 3. Scattered small bowel air-fluid levels within several mildly prominent loops within the abdomen and pelvis. Considering patient history of acute nausea with vomiting, a mild nonspecific enteritis is favored. A partial small bowel obstru ction considered less likely. 4. There is persistent wall thickening of the anus and anorectal junction correlating with the patient's known malignancy seen on the 01/03/2022 exam. Perirectal inflammatory stranding may be on a posttreatment related basis. 5. Decreased pathologic inguinal lymphadenopathy. 6. Cardiomegaly with pulmonary edema, layering pleural effusions and anasarca. ACT 112: Negative or not required by law. The above report was generated using voice recognition software. It may contain grammatical, syntax or spelling errors. Electronically signed by: Roberto Owens M.D. 04/09/2022 5:03 PM Discharge Plan Visit Data Chief Complaint: Hypotension Stated Complaint: HYPOTENSION, HYPOXIA ED Provider: Juan Bojorquez Discharge Problem: Symptomatic anemia, Hypoxia, CHF (congestive heart failure) Forms Stand Alone Forms: [facility] Prescriptions Prescriptions: No Action magnesium oxide 400 mg (241.3 mg magnesium) Tablet 400 mg PO QAM Qty: 30 0RF polyethylene glycol 3350 [Miralax] 17 gram Powder In Packet 17 g PO DAILY Qty: 30 0RF Rx Instructions: HOLD FOR DIARRHEA sennosides [Senokot] 8.6 mg Tablet 17.2 mg PO QAM Qty: 30 0RF Rx Instructions: HOLD FOR DIARRHEA Eliquis 2.5 mg tablet 2.5 mg PO BID Qty: 60 0RF ondansetron HCl 8 mg tablet 8 mg PO Q8H PRN (Reason: Nausea) Qty: 30 0RF sertraline 100 mg tablet 100 mg PO QAM Qty: 30 0RF morphine 60 mg tablet extended release 60 mg PO AMHS Qty: 20 0RF omeprazole 20 mg Tablet,Delayed Release (Dr/Ec) 20 mg PO QAM Qty: 30 0RF diclofenac sodium 1 % Gel 4 g TOPICAL QID PRN (Reason: Pain) Rx Instructions: APPLY NEEDED FOR BACK PAIN Magic Mouthwash liquid 15 ml PO QID Rx Instructions: SWISH AND SWALLOW, GIVE FOUR TIMES A DAY FOR ORAL MUCOSITIS. LIDOCAINE/MAALOX COMPOUNDED BY PHARMACY. megestrol 400 mg/10 mL (40 mg/mL) Suspension 400 mg PO QAM metoprolol succinate [Toprol XL] 25 mg tablet extended release 24 hr 12.5 mg PO QAM Label Comments: TAKES 1.5 TAB QAM multivitamin [Multiple Vitamin] Tablet 1 tab PO DAILY oxycodone 5 mg tablet 5 mg PO Q4H PRN (Reason: Pain) Rx Instructions: FOR PAIN LEVEL 6-10 promethazine [Phenergan] 25 mg/mL Solution 12.5 mg IM Q6H PRN (Reason: Nausea And Vomiting) silver sulfadiazine [Silvadene] 1 % cream 1 applic topical BID Rx Instructions: APPLY TO BUTTOCKS MORNING AND EVENING spironolactone [Aldactone] 25 mg tablet 25 mg PO 2XWK Rx Instructions: TAKE THIS MED EVERY MONDAY AND MONDAY. acetaminophen [Tylenol] 325 mg Tablet 650 mg PO Q6H MDD 3G PRN (Reason: Fever Or Pain) magnesium hydroxide [Milk of Magnesia] 400 mg/5 mL suspension 30 ml PO DAILY PRN (Reason: constipation) Referrals Referrals: [facility] [Primary Care Provider] -
--- NOTE | 2022-04-09 16:26 | XRay Report ---
XR chest 1V portable HISTORY: 81 years-old Female sob acute shortness of breath COMPARISON: Chest radiograph 03/20/2022 TECHNIQUE: Portable AP view of the chest FINDINGS: Cardiac silhouette is enlarged. Mixed interstitial and alveolar opacities redemonstrated, progressive ly worsened within the left lung. No pneumothorax. Probable trace pleural effusions. Right IJ Infuse- a-Port catheter is unchanged. Bones appear grossly intact. IMPRESSION: 1. Cardiomegaly with pulmonary vascular congestion and intermixed interstitial and alveolar opacities suggestive of pulmonary edema. Multifocal pneumonia could appear similarly. 2. Trace pleural effusions. ACT 112: Negative or not required by law. The above report was generated using voice recognition software. It may contain grammatical, syntax o r spelling errors. Electronically signed by: Roberto Owens M.D. 04/09/2022 4:25 PM
[2022-04-09] MEDS ORDERED: SODIUM CHLORIDE 0.9% 250 ML IV PRN (16:49)
[2022-04-09 16:53] LABS: Alanine Aminotransferase 6 U/L (7-52); Albumin Globulin Ratio 0.9 (0.9-2); Albumin Level 2.6 gm/dl (3.4-5.0); Alkaline Phosphatase 56 U/L (34-104); Anion Gap 3 (3-11); Aspartate Aminotransferase 9 U/L (13-39); BUN Creatinine Ratio 37.7 (10-20); Bilirubin,Total 0.5 mg/dl (0.2-1.0); Blood Urea Nitrogen 20 mg/dl (6-23); Calcium 7.6 mg/dl (8.5-10.1); Carbon Dioxide 23 mmol/L (21-32); Chloride 110 mmol/L (98-107); Est GFR (African American) 104.7 ml/min; Est GFR (Non-African American) 90.3 ml/min; Glucose 102 mg/dl (70-99(Fasting)); Lipase 3 U/L (11-82); Sodium 136 mmol/L (136-145); Total Protein 5.6 gm/dl (6.0-8.3)
[2022-04-09 16:59] LABS: Hematocrit (blood only) 19.3 % (34.1-44.9); Hemoglobin 6.1 g/dl (12.0-16.0); Mean Corpuscular Hemoglobin 30.7 pg (25.0-34.0); Mean Corpuscular Hgb Conc 31.6 g/dL (32.0-36.0); Mean Platelet Volume 9.6 fL (9.4-12.3); Platelet Count 149 K/uL (130-400); RDW Coefficient of Variation 21.5 % (11.5-14.5); Red Blood Count 1.99 M/uL (3.93-5.22); White Blood Count 5.78 K/ul (4.8-10.8)
--- NOTE | 2022-04-09 17:05 | CT Scan Report ---
ABDOMEN AND PELVIS CT WITHOUT CONTRAST CT DOSE: 264.77 mGy.cm HISTORY: Acute nausea and vomiting and a patient with history of rectal carcinoma vomiting w/ rectal ca TECHNIQUE: Multiaxial CT images of the abdomen and pelvis were performed without contrast. A dose lo wering technique was utilized adhering to the principles of ALARA. COMPARISON STUDY: PET CT 01/03/2022 FINDINGS: Cardiomegaly with decreased attenuation of the cardiac blood pool suggests anemia. Coronary artery and mitral annular calcifications. Small moderate layering pleural effusions. Patchy bibasila r opacities with intralobular septal thickening. Study is limited secondary to respiratory motion art ifact. No pneumatosis or pneumoperitoneum. The unenhanced spleen is mildly enlarged, 13.5 cm. Mildly atrophic pancreas. Unremarkable adrenal gla nds, visualized gallbladder and liver. Unremarkable kidneys. No urolith or hydronephrosis. Urinary bl adder wall thickening with partial distention. Uterus and adnexa are unremarkable. Atherosclerosis of the aorta. 2.1 x 1.5 cm soft tissue thickening within the left femoral tissues on image 237 series 3 , previously 2.3 x 1.9 cm. There is decreased size of the previously seen pathologic right inguinal a denopathy. No new or progressive lymphadenopathy identified. Mild wall thickening of the distal esophagus. Prominent scattered air-fluid levels in the lower abdom en and pelvis measure up to 2.7 cm. No discrete transition point or significant small bowel wall thic kening. Anasarca. Degenerative changes of the spine, pelvis and hips. Moderate colorectal fecal reten tion. Circumferential wall thickening of the anus and rectum with adjacent perirectal stranding, decr eased from prior. Colonic diverticulosis. Chronic appearing bilateral rib fractures. No destructive b one lesions identified. Scoliotic curvature lumbar spine again noted. IMPRESSION: 1. Limited exam as above. 2. No high-grade small bowel obstruction or pneumoperitoneum. 3. Scattered small bowel air-fluid levels within several mildly prominent loops within the abdomen an d pelvis. Considering patient history of acute nausea with vomiting, a mild nonspecific enteritis is favored. A partial small bowel obstruction considered less likely. 4. There is persistent wall thickening of the anus and anorectal junction correlating with the patien t's known malignancy seen on the 01/03/2022 exam. Perirectal inflammatory stranding may be on a posttr eatment related basis. 5. Decreased pathologic inguinal lymphadenopathy. 6. Cardiomegaly with pulmonary edema, layering pleural effusions and anasarca. ACT 112: Negative or not required by law. The above report was generated using voice recognition software. It may contain grammatical, syntax o r spelling errors. Electronically signed by: Roberto Owens M.D. 04/09/2022 5:03 PM
[2022-04-09 17:08] LABS: Acanthocytes 1+; Anisocytosis Present; Basophils # (auto) 0.02 K/uL (0-0.2); Basophils % (auto) 0.3 %; Eosinophils # (auto) 0.17 K/uL (0-0.50); Eosinophils % (auto) 2.9 %; Immature Granulocytes # (auto) 0.04 K/uL (0.00-0.02); Immature Granulocytes % (auto) 0.7 %; Lymphocytes # (auto) 0.24 K/uL (1.2-3.4); Lymphocytes % (auto) 4.2 %; Monocytes # (auto) 0.78 K/uL (0.24-0.82); Monocytes % (auto) 13.5 %; Neutrophils # (auto) 4.53 K/uL (1.4-6.5); Neutrophils % (auto) 78.4 %; Polychromasia 1+; Rouleaux 1+
[2022-04-09 17:17] LABS: Influenza A virus by PCR Negative (Neg); Influenza B virus by PCR Negative (Neg); RSV by PCR Negative (Neg); SARS CoV2 RNA(COVID-19) Ceph NEGATIVE (Negative)
[2022-04-09] MEDS ORDERED: AZITHROMYCIN 500 MG in DEXTROSE 5% 250 ML IV STA (17:36)
[2022-04-09] MEDS ORDERED: cefTRIAXone SODIUM 2,000 MG/70 ML BAG IV STA (17:36)
--- NOTE | 2022-04-09 20:02 | History & Physical Report ---
Date of Service April 09, 2022 Assessment & Plan (1) CHF (congestive heart failure): (2) Confusion: (3) Anemia: Plan Confusion -multifactorial. In setting of illness, likely delirium. Currently appears back to her baseline mental status CHF -seen on CXR and portion of CT A/P -BNP elevated -Known valvular heart disease, pulmonary hypertension. On exam does NOT appear volume overloaded at this time (although she did receive 1 L NSS in ER and about to receive 2 unit pRBC) -check TTE, give lasix 20mg IV once -Check CT chest to evaluate further Questionable pneumonia -procalcitonin negative -pending CT chest -s/p ceftriaxone in ER. Will put on zosyn for now -f/u blood cultures Anemia -acute on chronic -transfuse to keep Hb >7 -likely due to anemia of chronic disease, rectal cancer Rectal cancer, stage 3 -OP follow up with oncology DVT ppx -SCD for now Code status - full code for now. I encouraged son to speak with patient and daughter to discuss further Goals of Care -Consider palliative care consult, this was suggested to family and they will discuss amongst themselves History of Present Illness Chief Complaint: vomiting, confusion Primary Care Provider: [facility] Ms Demi Landa is a 81 year old female with history significant for LV outflow obstruction, valvular heart disease (severe MR, mild TR), pulmonary hypertension, and stage 3 anal cancer last received chemo/radiation February 2022 sent today from [facility] for confusion after vomiting yesterday. Son is present at bedside and helps with history. Patient was recently admitted here for dehydration and RLL pneumonia. She was eventually discharged to [facility]. On the day that she arrived at [facility], her (who was on hospice) . While being at [facility], her family felt she was doing well until 2 days ago. They noticed a steady decline in her strength since . She vomitted once then afterwards was very weak, tired. Today she was noted to be confused so was sent to the ER. Upon arrival here, she had a CXR which showed signs of CHF versus pneumonia. Labwork significant for BNP 598. Hb 6.1. Procalcitonin 0.06. CT A/Pshows non specific enteritis, anus thickening, cardiomegaly with pulmonary edema, layering pleural effusions, anasarca. ER course- ceftiraxone, 1L NSS, 2 unit pRBC (ordered) Allergies Allergy/AdvReac Type Severity Reaction Status Date / Time No Known Allergies Allergy Verified 04/09/22 19:06 Home Medications Medication Instructions Recorded Confirmed Type magnesium oxide 400 mg (241.3 mg 400 mg PO QAM #30 tabs 03/09/22 04/09/22 Rx magnesium) tablet apixaban 2.5 mg tablet (Eliquis) 2.5 mg PO BID #60 tabs 03/29/22 04/09/22 Rx morphine 60 mg tablet,extended 60 mg PO AMHS pain #20 tabs 03/29/22 04/09/22 Rx release omeprazole 20 mg tablet,delayed 20 mg PO QAM #30 tabs 03/29/22 04/09/22 Rx release ondansetron HCl 8 mg tablet 8 mg PO Q8H PRN Nausea #30 tabs 03/29/22 04/09/22 Rx polyethylene glycol 3350 17 gram 17 g PO DAILY #30 ea 03/29/22 04/09/22 Rx oral powder packet (Miralax) sennosides 8.6 mg tablet (Senokot) 17.2 mg PO QAM #30 tabs 03/29/22 04/09/22 Rx sertraline 100 mg tablet 100 mg PO QAM #30 tabs 03/29/22 04/09/22 Rx Magic Mouthwash 15 ml PO QID 04/09/22 04/09/22 History acetaminophen 325 mg tablet 650 mg PO Q6H PRN Fever Or Pain 04/09/22 04/09/22 History (Tylenol) diclofenac sodium 1 % topical gel 4 g topical QID PRN Pain 04/09/22 04/09/22 History magnesium hydroxide 400 mg/5 mL 30 ml PO DAILY PRN constipation 04/09/22 04/09/22 History oral suspension (Milk of Magnesia) megestrol 400 mg/10 mL (40 mg/mL) 400 mg PO QAM 04/09/22 04/09/22 History oral suspension metoprolol succinate 25 mg 12.5 mg PO QAM 04/09/22 04/09/22 History tablet,extended release 24 hr (Toprol XL) multivitamin 1 tab PO DAILY 04/09/22 04/09/22 History oxycodone 5 mg tablet 5 mg PO Q4H PRN Pain 04/09/22 04/09/22 History promethazine 25 mg/mL injection 12.5 mg IM Q6H PRN Nausea And 04/09/22 04/09/22 History solution (Phenergan) Vomiting silver sulfadiazine 1 % topical 1 applic topical BID 04/09/22 04/09/22 History cream (Silvadene) spironolactone 25 mg tablet 25 mg PO 2XWK 04/09/22 04/09/22 History (Aldactone) Past Med/Surg History Medical History Anemia IRON INFUSIONS, follows with [facility] heme/onc Anxiety Degenerative scoliosis Hiatal hernia HLD (hyperlipidemia) HTN (hypertension) Hx of basal cell carcinoma IgM lambda paraproteinemia Left ventricular outflow tract obstruction follows with [facility] cardio Malignant neoplasm of anus Mitral regurgitation severe, follows with [facility] cardiology Pulmonary hypertension 47 mmHg Rectal cancer NEW DX>REASON FOR PORT Spinal stenosis Surgical History History of cataract surgery RT/LEFT History of colonoscopy History of esophagogastroduodenoscopy (EGD) History of tonsillectomy History of tooth extraction Hx of section X 2 Hx of thyroid cyst Family History Mother Heart disease Hypertension Cancer Brain tumor, in-operable. unsure if cancerous Father Stroke Other No family history of adverse response to anesthesia Social History Smoking Status: Former smoker Tobacco Type: Cigarettes packs per day: 0.5; Cigarettes Per Day: 5-6; Second Hand Exposure: No; Hx Alcohol Use: No Hx Substance Use: No Preferred Language: Jordanian Communication Ability: Effective Visual Impairment: No Limitations Hearing Ability: Normal Cigar Binder Required: No Beliefs That Will Affect Care: None marital status: Current Living Situation: Spouse Current Living Situation Comment: Lives with who is on hospice current occupational status: retired How many Children do You have: 4 Feels Safe at Home: Yes Assistive Devices: Walker Physical Exam Physical Exam: Weak, pale, thin, frail, elderly ENMT: conjunctival pallor, normocephalic, temporal muscle wasting Respiratory: diminished at bases, weak cough, +breath sounds bilaterally, no wheezing Cardiovascular: +loud systolic murmur, regular rate and rhythm Gastrointestinal (Abdomen): soft, non tender, non distended Musculoskeletal: no edema, no cyanosis or clubbing Skin: pale, no rash, no ulcer noted on exposed skin ( I did not examine her sacrum) Neurologic: awake, alert, generalized weakness, spontaneously m oving extremities Psychiatric: normal affect, speech non pressured, maintains eye contact Results & Data Results & Data ([facility]) Vital Signs (Past 12 Hours) Vital Signs Temp Pulse Pulse Resp BP BP Pulse Ox 04/09/22 19:34 37.5 C 65 18 138/60 98 04/09/22 19:19 36.7 C 66 18 114/70 93 04/09/22 18:00 64 18 123/62 98 04/09/22 19:02 36.9 C 68 18 123/62 96 04/09/22 16:55 65 16 120/53 L 98 04/09/22 16:16 65 96 04/09/22 15:32 97 04/09/22 15:32 36.4 C L 64 18 124/55 L 95 O2 Del Method O2 Flow Rate 04/09/22 19:34 3 04/09/22 19:19 3 04/09/22 18:00 Nasal Cannula 3 04/09/22 19:02 3 04/09/22 16:55 Nasal Cannula 3 04/09/22 16:16 Nasal Cannula 3 04/09/22 15:32 Nasal Cannula 3 04/09/22 15:32 Nasal Cannula 3 (1) Anemia Anemia type: unspecified type Qualified Code(s): D64.9 - Anemia, unspecified
[2022-04-09] MEDS ORDERED: MAGIC MOUTHWASH PO SCH (22:27)
[2022-04-09] MEDS ORDERED: ACETAMINOPHEN 325 MG TAB PO PRN (22:27)
[2022-04-09] MEDS ORDERED: MAGNESIUM HYDROXIDE SUSP 30 ML UDC PO PRN (22:27)
[2022-04-09] MEDS ORDERED: FUROSEMIDE INJ 20 MG/2 ML VIAL IV ONE (22:45)
[2022-04-09] MEDS ORDERED: ONDANSETRON 8MG OD TAB PO PRN (22:49)
[2022-04-09] MEDS ORDERED: PIPERACILLIN/TAZOBACTAM 3.375 GM in DEXTROSE 5% 100 ML IV ONE (23:00)
[2022-04-09] MEDS ORDERED: GI COCKTAIL PO PRN (23:22)
[2022-04-10] MEDS: SILVER SULFADIAZINE 1% CR 50 GM JAR TOP SCH ×3 (00:31→20:49)
[2022-04-10] MEDS: oxyCODONE HCL IR 5 MG TAB (IMMEDIATE RELEASE) PO PRN ×2 (00:32→11:40)
[2022-04-10] MEDS: APIXABAN 2.5 MG TAB PO SCH ×2 (00:32→09:13)
[2022-04-10] MEDS: MoRPHine SULFATE CR 60 MG TABCR PO SCH ×3 (02:59→20:49)
[2022-04-10 04:39] LABS: Basophils # (auto) 0.02 K/uL (0-0.2); Basophils % (auto) 0.3 %; Eosinophils # (auto) 0.14 K/uL (0-0.50); Eosinophils % (auto) 1.9 %; Hematocrit (blood only) 26.2 % (34.1-44.9); Hemoglobin 8.6 g/dl (12.0-16.0); Immature Granulocytes # (auto) 0.07 K/uL (0.00-0.02); Immature Granulocytes % (auto) 0.9 %; Lymphocytes # (auto) 0.19 K/uL (1.2-3.4); Lymphocytes % (auto) 2.6 %; Mean Corpuscular Hemoglobin 30.3 pg (25.0-34.0); Mean Corpuscular Hgb Conc 32.8 g/dL (32.0-36.0); Mean Corpuscular Volume 92.3 fL (80.0-100.0); Mean Platelet Volume 9.8 fL (9.4-12.3); Monocytes # (auto) 0.76 K/uL (0.24-0.82); Monocytes % (auto) 10.2 %; Neutrophils # (auto) 6.27 K/uL (1.4-6.5); Neutrophils % (auto) 84.1 %; Platelet Count 166 K/uL (130-400); RDW Coefficient of Variation 20.2 % (11.5-14.5); RDW Standard Deviation 66.3 fL (36.4-46.3); Red Blood Count 2.84 M/uL (3.93-5.22); White Blood Count 7.45 K/ul (4.8-10.8)
[2022-04-10 04:57] LABS: BUN Creatinine Ratio 36.2 (10-20); Calcium 7.5 mg/dl (8.5-10.1); Creatinine Clr Calc Pharmacy 83.8 ml/min; Est GFR (African American) 108.9 ml/min; Est GFR (Non-African American) 93.9 ml/min; Magnesium 1.8 mg/dl (1.7-2.4)
[2022-04-10 05:04] LABS: Anisocytosis Present; Polychromasia 1+
--- NOTE | 2022-04-10 07:58 | CT Scan Report ---
CT chest diagnostic wo con CT DOSE: 239.15 mGy.cm HISTORY: Shortness of breath. CHF vs pneumonia TECHNIQUE: Multiaxial CT images of the chest were performed without contrast. A dose lowering techni que was utilized adhering to the principles of ALARA. COMPARISON: Chest CTA 09/10/2017. FINDINGS: No suspicious lytic are blastic osseous lesions. A right Port-A-Cath terminates in the dist al SVC. The visualized liver, spleen, and adrenal glands unremarkable. There is mild motion artifact. There is mild diffuse body wall edema. There is a 1.7 cm right thyroid nodule again noted. The mild mediastinal lymphadenopathy has slightly progressed. The heart is mildly enlarged. There are small le ft and moderate right pleural effusions. The main pulmonary artery is dilated up to 3.6 cm. Calcified plaque within the normal caliber thoracic aorta. There are severe coronary artery calcifications. No pneumothorax. There is interlobular septal thickening with patchy groundglass airspace opacities mos t pronounced within the upper lobes. This likely represents pulmonary edema. A superimposed pneumonia could also have a similar appearance. Mild emphysema. There is a more focal irregular density within the right lung apex image 57 measuring 2.8 cm. IMPRESSION: 1. Cardiomegaly with pulmonary edema and bilateral pleural effusions. 2. Patchy airspace opacities most pronounced within the upper lobes are nonspecific but could be due to the pulmonary edema or a pneumonia. 3. There is a focal irregular density within the right lung apex measuring 2.8 cm. This could represe nt a focal pneumonia or a pulmonary lesion. [address] follow-up recommended to ensure resoluti on. ACT 112: Positive. There are findings on this exam that require communication between the performing entity and the patient following Patient Test Result Information Act ([place] Act 112) guidelines. Electronically signed by: Jonas Anand M.D. 04/10/2022 7:56 AM
[2022-04-10] MEDS: PIPERACILLIN/TAZOBACTAM 3.375 GM in DEXTROSE 5% 100 ML IV SCH ×3 (08:31→22:58)
[2022-04-10] MEDS: POLYETHYLENE (MIRALAX) 17 GM PACK PO SCH (08:32)
[2022-04-10] MEDS: PANTOprazole 40 MG TAB PO SCH (08:32)
[2022-04-10] MEDS: METOPROLOL SUCC 25MG EXT REL TAB PO SCH (08:32)
[2022-04-10] MEDS: MULTIVITAMIN TAB PO SCH (08:32)
[2022-04-10] MEDS: MEGESTROL ACETATE SUSP 400 MG/10 ML UDC PO SCH (08:32)
[2022-04-10] MEDS: SERTRALINE HCL 100 MG TABLET PO SCH (08:33)
[2022-04-10] MEDS: SENNA 8.6 MG TAB PO SCH (08:33)
[2022-04-10] MEDS: MAGNESIUM OXIDE 400 MG TAB PO SCH (08:44)
[2022-04-10] MEDS: MAGNESIUM SULFATE / D5W 1 GM/100 ML BAG IV SCH ×2 (08:59→10:52)
[2022-04-10] MEDS: FUROSEMIDE INJ 20 MG/2 ML VIAL IV SCH (09:00)
--- NOTE | 2022-04-10 10:47 | Cardiology Consultation ---
Date of Consultation April 10, 2022 Assessment & Plan (1) Symptomatic anemia: (2) Hypoxia: (3) Confusion: (4) Anal cancer: (5) Left ventricular outflow tract obstruction: (6) Paroxysmal atrial fibrillation: (7) Foot ulcer: (8) KRISTIN (acute kidney injury): (9) Weakness: Plan The patient does not examine his volume overloaded and upon personal review of her chest x-ray believe this is most likely residual scarring from her recent pneumonia. Echocardiogram is not significantly changed No further cardiac test intervention necessary at this time. Would recommend following volume status clinically History of Present Illness Reason for Consultation: possible chf Requesting Physician: CHANI Attending Physician: Alfred Aiken MD History of Present Illness Mrs. Landa is a very pleasant yet medically complex 81-year-old woman who presented to [facility] on 04/09/[facility]22 from [facility] care with reports of confusion and vomiting. The patient does not remember the events but her family is at the bedside and able to further elaborate. Evidently, the patient has not been feeling well with decreased appetite for last few days. On the day of presentation her weakness continued. She vomited and became acutely confused and transported to the ER. In the emergency department she was found to be significantly anemic. Chest x-ray was performed and read as possible pulmonary vascular congestion and she was admitted to telemetry. Currently, the patient states that she is feeling fatigued but otherwise well. 1. Transient postoperative atrial fibrillation with spontaneous conversion to sinus rhythm 2. 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 Acute on chronic renal insufficiency 4. Left ventricular outflow tract obstruction, secondary to hyperdynamic left ventricular function and left ventricular hypertrophy 5. Severe mitral regurgitation secondary to dynamic LVOT obstructed and systolic anterior motion 6. Severe pulmonary hypertension secondary to valvular disease 7. Anal carcinoma with ongoing radiation therapy 8. Chronic tobacco use 9. PAF Allergies Allergy/AdvReac Type Severity Reaction Status Date / Time No Known Allergies Allergy Verified 04/09/22 19:06 Home Medications Medication Instructions Recorded Confirmed Type magnesium oxide 400 mg (241.3 mg 400 mg PO QAM #30 tabs 03/09/22 04/09/22 Rx magnesium) tablet apixaban 2.5 mg tablet (Eliquis) 2.5 mg PO BID #60 tabs 03/29/22 04/09/22 Rx morphine 60 mg tablet,extended 60 mg PO AMHS pain #20 tabs 03/29/22 04/09/22 Rx release omeprazole 20 mg tablet,delayed 20 mg PO QAM #30 tabs 03/29/22 04/09/22 Rx release ondansetron HCl 8 mg tablet 8 mg PO Q8H PRN Nausea #30 tabs 03/29/22 04/09/22 Rx polyethylene glycol 3350 17 gram 17 g PO DAILY #30 ea 03/29/22 04/09/22 Rx oral powder packet (Miralax) sennosides 8.6 mg tablet (Senokot) 17.2 mg PO QAM #30 tabs 03/29/22 04/09/22 Rx sertraline 100 mg tablet 100 mg PO QAM #30 tabs 03/29/22 04/09/22 Rx Magic Mouthwash 15 ml PO QID 04/09/22 04/09/22 History acetaminophen 325 mg tablet 650 mg PO Q6H PRN Fever Or Pain 04/09/22 04/09/22 History (Tylenol) diclofenac sodium 1 % topical gel 4 g topical QID PRN Pain 04/09/22 04/09/22 History magnesium hydroxide 400 mg/5 mL 30 ml PO DAILY PRN constipation 04/09/22 04/09/22 History oral suspension (Milk of Magnesia) megestrol 400 mg/10 mL (40 mg/mL) 400 mg PO QAM 04/09/22 04/09/22 History oral suspension metoprolol succinate 25 mg 12.5 mg PO QAM 04/09/22 04/09/22 History tablet,extended release 24 hr (Toprol XL) multivitamin 1 tab PO DAILY 04/09/22 04/09/22 History oxycodone 5 mg tablet 5 mg PO Q4H PRN Pain 04/09/22 04/09/22 History promethazine 25 mg/mL injection 12.5 mg IM Q6H PRN Nausea And 04/09/22 04/09/22 History solution (Phenergan) Vomiting silver sulfadiazine 1 % topical 1 applic topical BID 04/09/22 04/09/22 History cream (Silvadene) spironolactone 25 mg tablet 25 mg PO 2XWK 04/09/22 04/09/22 History (Aldactone) Patient History Medical History (Updated 04/10/22 @ 14:41 by Markus Brannon DO) Anemia IRON INFUSIONS, follows with [facility] heme/onc Anxiety Degenerative scoliosis Hiatal hernia HLD (hyperlipidemia) HTN (hypertension) Hx of basal cell carcinoma IgM lambda paraproteinemia Left ventricular outflow tract obstruction follows with [facility] cardio Malignant neoplasm of anus Mitral regurgitation severe, follows with [facility] cardiology Pulmonary hypertension 47 mmHg Rectal cancer NEW DX>REASON FOR PORT Spinal stenosis Surgical History History of cataract surgery RT/LEFT History of colonoscopy History of esophagogastroduodenoscopy (EGD) History of tonsillectomy History of tooth extraction Hx of section X 2 Hx of thyroid cyst Family History Mother Heart disease Hypertension Cancer Brain tumor, in-operable. unsure if cancerous Father Stroke Other No family history of adverse response to anesthesia Social History Smoking Status: Former smoker Tobacco Type: Cigarettes packs per day: 0.5; Cigarettes Per Day: 5-6; Second Hand Exposure: No; Hx Alcohol Use: No Hx Substance Use: No Preferred Language: Chinese Communication Ability: Effective Visual Impairment: No Limitations Hearing Ability: Normal Bookkeeper Receptionist Required: No Beliefs That Will Affect Care: None marital status: Current Living Situation: Spouse Current Living Situation Comment: Lives with who is on hospice current occupational status: retired How many Children do You have: 4 Other Information That Helps Us Care for You: No Feels Safe at Home: Yes Safety Concerns: Feels Safe At This Time Assistive Devices: Walker Review of Systems Review of Systems: All systems reviewed & are unremarkable except as noted in HPI & below Physical Exam Physical Exam: General: Awake, alert and oriented x 3. No acute distress. HEENT: Normocephalic, atraumatic. Pupils equal, round and reactive to light and accommodation. Extraocular muscles are intact. Anicteric sclera. Moist mucous membranes. Neck: No JVD. No bruit. Cardiovascular: Regular. Positive S-4. Normal S-1 and S-2. No S-3. 3/6 mid to late systolic ejection murmur, greatest at the right sternal border, second intercostal space with radiation to the bilateral carotids. No rubs. Pulmonary: Clear to auscultation bilaterally. No rales, rhonchi, or wheezing. Abdomen: Bowel sounds x 4, soft. No rebound, guarding or tenderness. No organomegaly. Extremities: No clubbing, cyanosis or edema. +2 pedal pulses bilaterally. Skin: Warm and dry. Results & Data ([facility]) Vital Signs (Past 12 Hours) Vital Signs Temp Pulse Pulse Resp BP BP Pulse Ox 04/10/22 10:30 04/10/22 07:30 36.6 C 77 20 161/64 H 95 04/10/22 05:33 04/10/22 05:31 36.8 C 70 15 132/64 95 04/10/22 04:30 70 16 94 04/10/22 04:00 78 28 H 164/65 H 95 04/10/22 03:00 65 20 102/87 95 04/10/22 01:24 86 19 190/89 H 96 04/10/22 01:02 37.1 C 68 18 142/76 H 94 04/10/22 00:02 37 C 68 16 111/74 95 04/09/22 23:02 37.0 C 64 18 112/67 98 O2 Del Method O2 Flow Rate 04/10/22 10:30 Nasal Cannula 2 04/10/22 07:30 Nasal Cannula 3 04/10/22 05:33 Nasal Cannula 3 04/10/22 05:31 Nasal Cannula 3 04/10/22 04:30 04/10/22 04:00 04/10/22 03:00 04/10/22 01:24 Nasal Cannula 2 04/10/22 01:02 2 04/10/22 00:02 2 04/09/22 23:02 2
--- NOTE | 2022-04-10 12:43 | Hospitalist Progress Note ---
Date of Service April 10, 2022 Assessment & Plan (1) CHF (congestive heart failure): (2) Confusion: (3) Anemia: Plan Confusion -multifactorial. In setting of illness, possibly delirium. Currently appears back to her baseline mental status acute on chronic diastolic CHF -seen on CXR and portion of CT A/P -BNP elevated -start lasix 20mg IV daily -repeat TTE shows grade 2 diastolic CHF, again severe MR, pulmonary hypertension -CT chest 1. Cardiomegaly with pulmonary edema and bilateral pleural effusions. 2. Patchy airspace opacities most pronounced within the upper lobes are nonspecific but could be due to the pulmonary edema or a pneumonia. 3. There is a focal irregular density within the right lung apex measuring 2.8 cm. This could represent a focal pneumonia or a pulmonary lesion. [address] follow-up recommended to ensure resolution. Acute hypoxic respiratory failure -continue supplemental O2 to keep sat above 90% Questionable pneumonia -procalcitonin negative -s/p ceftriaxone in ER. Continue zosyn for now -f/u blood cultures Anemia -acute on chronic -likely due to anemia of chronic disease, rectal cancer -s/p 2 unit RBC 04/09/22 with appropriate response. Repeat CBC tomorrow. Transfuse to Keep Hb >7 Rectal cancer, stage 3 -OP follow up with oncology DVT ppx -SCD for now Code status -After I left yesterday, RN notified me that family requested she be AND. Admission and Anticipated Discharge Date Admission Date: April 09, 2022 Subjective Feels unchanged Remains on 2L NC Received 2 unit RBC yesterday Physical Exam Physical Exam: Thin, frail, elderly ENMT: normocephalic, atraumatic, temporal muscle wasting Respiratory: +crackles at bases, no accessory muscle use, no wheezing Cardiovascular: regular rate and rhythm, no murmurs/rubs/gallops Gastrointestinal (Abdomen): soft, non tender, non distended Musculoskeletal: No edema Neurologic: awake, alert, answering questions appropriately Results & Data Results & Data ([facility]) Vital Signs (Past 12 Hours) Vital Signs Temp Pulse Pulse Resp BP BP Pulse Ox 04/10/22 11:31 36.8 C 64 20 105/55 L 92 04/10/22 10:30 04/10/22 07:30 36.6 C 77 20 161/64 H 95 04/10/22 05:33 04/10/22 05:31 36.8 C 70 15 132/64 95 04/10/22 04:30 70 16 94 04/10/22 04:00 78 28 H 164/65 H 95 04/10/22 03:00 65 20 102/87 95 04/10/22 01:24 86 19 190/89 H 96 04/10/22 01:02 37.1 C 68 18 142/76 H 94 O2 Del Method O2 Flow Rate 04/10/22 11:31 Nasal Cannula 2 04/10/22 10:30 Nasal Cannula 2 04/10/22 07:30 Nasal Cannula 3 04/10/22 05:33 Nasal Cannula 3 04/10/22 05:31 Nasal Cannula 3 04/10/22 04:30 04/10/22 04:00 04/10/22 03:00 04/10/22 01:24 Nasal Cannula 2 04/10/22 01:02 2 (1) Anemia Anemia type: unspecified type Qualified Code(s): D64.9 - Anemia, unspecified
[2022-04-10] MEDS: ONDANSETRON INJ 2 MG/ML 2 ML VIAL IV PRN (15:07)
--- NOTE | 2022-04-10 22:54 | Electrocardiogram Report ---
Test Reason : Blood Pressure : / mmHG Vent. Rate : 061 BPM Atrial Rate : 061 BPM P-R Int : 146 ms QRS Dur : 120 ms QT Int : 448 ms P-R-T Axes : 049 056 -13 degrees QTc Int : 450 ms Sinus rhythm with sinus arrhythmia Right bundle branch block Abnormal ECG When compared with ECG of 05-MAR-2022 12:19, Sinus rhythm has replaced Atrial fibrillation Vent. rate has decreased BY [address] no longer depressed in Anterior leads T wave inversion less evident in Anterior leads Confirmed by Luis Enrique Rhodes ([id number]) on 04/10/2022 10:54:19 PM Referred By: [facility] Confirmed By:Luis Enrique Rhodes
[2022-04-11] MEDS ORDERED: HEPARIN 100 UNIT/ML 5ML FLUSH FLUSH PRN (02:17)
[2022-04-11 04:37] LABS: Appearance Urine Clear (Clear); Bacteria Urine Automated Negative (Negative); Bilirubin Urine Negative (Negative); Blood Urine Negative (Negative); Cast Urine Automated 0 /lpf (0-5); Color Urine Yellow; Epithelial Cell Urine Auto 0-5 /lpf (0-5); Glucose Urine UA Negative (Negative); Ketones Urine Negative (Negative); Leukocyte Esterase Urine 1+ (Negative); Nitrite Urine Negative (Negative); Protein Urine Negative (Negative); Specific Gravity Urine 1.016 (1.000-1.030); Urobilinogen Urine Negative (Negative)
[2022-04-11 05:20] LABS: RBC Urine Automated 0-4 /hpf (0-4)
[2022-04-11 08:07] LABS: BUN Creatinine Ratio 26.3 (10-20); Calcium 7.3 mg/dl (8.5-10.1); Est GFR (African American) 102.2 ml/min; Est GFR (Non-African American) 88.2 ml/min; Magnesium 1.9 mg/dl (1.7-2.4); Potassium 3.4 mmol/L (3.5-5.1)
[2022-04-11] MEDS: FUROSEMIDE INJ 20 MG/2 ML VIAL IV SCH (08:15)
[2022-04-11] MEDS: PANTOprazole 40 MG TAB PO SCH (08:15)
[2022-04-11] MEDS: SERTRALINE HCL 100 MG TABLET PO SCH (08:15)
[2022-04-11] MEDS: MAGNESIUM OXIDE 400 MG TAB PO SCH (08:16)
[2022-04-11] MEDS: METOPROLOL SUCC 25MG EXT REL TAB PO SCH (08:16)
[2022-04-11] MEDS: MULTIVITAMIN TAB PO SCH (08:16)
[2022-04-11] MEDS: SENNA 8.6 MG TAB PO SCH ×2 (08:17→09:07)
[2022-04-11] MEDS: MEGESTROL ACETATE SUSP 400 MG/10 ML UDC PO SCH (08:17)
[2022-04-11] MEDS: SILVER SULFADIAZINE 1% CR 50 GM JAR TOP SCH ×2 (08:17→20:19)
[2022-04-11] MEDS: POLYETHYLENE (MIRALAX) 17 GM PACK PO SCH (08:32)
[2022-04-11] MEDS: MoRPHine SULFATE CR 60 MG TABCR PO SCH ×2 (08:32→20:18)
[2022-04-11] MEDS: PIPERACILLIN/TAZOBACTAM 3.375 GM in DEXTROSE 5% 100 ML IV SCH ×2 (08:32→17:05)
--- NOTE | 2022-04-11 19:06 | Hospitalist Progress Note ---
Date of Service April 11, 2022 Assessment & Plan (1) CHF (congestive heart failure): (2) Confusion: (3) Anemia: Plan Confusion -multifactorial. In setting of illness, possibly delirium. Currently appears back to her baseline mental status acute on chronic diastolic CHF -seen on CXR and portion of CT A/P -BNP elevated - lasix 20mg IV daily -repeat TTE shows grade 2 diastolic CHF, again severe MR, pulmonary hypertension -CT chest 1. Cardiomegaly with pulmonary edema and bilateral pleural effusions. 2. Patchy airspace opacities most pronounced within the upper lobes are nonspecific but could be due to the pulmonary edema or a pneumonia. 3. There is a focal irregular density within the right lung apex measuring 2.8 cm. This could represent a focal pneumonia or a pulmonary lesion. [address] follow-up recommended to ensure resolution. Repeat CXR tomorrow Acute hypoxic respiratory failure -continue supplemental O2 to keep sat above 90% -now weaned to room air Questionable pneumonia -procalcitonin negative x 2 -s/p ceftriaxone in ER. d/c zosyn. will put on azithromycin and cefdinir. -blood cultures negative PAF -Started on Eliquis on recent admission. Will hold for now. -continue toprol 12.5mg daily Anemia -acute on chronic -likely due to anemia of chronic disease, rectal cancer -s/p 2 unit RBC 04/09/22 with appropriate response. Transfuse to Keep Hb >7 Rectal cancer, stage 3 -OP follow up with oncology DVT ppx -SCD for now Dispo- from [facility] Admission and Anticipated Discharge Date Admission Date: April 09, 2022 Subjective Breathing feels improved. More energy today. Appetite is good. Ate most of breakfast and lunch Family present at bedside and all questions were answered Physical Exam Physical Exam: Pleasant and comfortable, appears well, interactive and engaging Respiratory: Breathing comfortably, no wheezing, diminished at bases +crackles at bases Cardiovascular: regular rate and rhythm, no murmurs/rubs Gastrointestinal (Abdomen): soft, non tender Musculoskeletal: No edema Neurologic: awake, alert, spontaneously moving extremities Results & Data Results & Data ([facility]) Vital Signs (Past 12 Hours) Vital Signs Temp Pulse Pulse Resp BP Pulse Ox O2 Del Method 04/11/22 16:18 36.7 C 75 20 102/53 L 91 Room Air 04/11/22 11:40 36.7 C 74 20 127/57 L 92 Nasal Cannula 04/11/22 10:49 62 04/11/22 10:49 Nasal Cannula 04/11/22 07:47 36.5 C 79 18 144/75 H 94 Nasal Cannula O2 Flow Rate 04/11/22 16:18 04/11/22 11:40 2 04/11/22 10:49 04/11/22 10:49 2 04/11/22 07:47 2 (1) Anemia Anemia type: unspecified type Qualified Code(s): D64.9 - Anemia, unspecified
[2022-04-11] MEDS ORDERED: AZITHROMYCIN 250 MG TAB PO ONE (19:30)
[2022-04-11] MEDS: CEFDINIR 300 MG CAP PO SCH (20:18)
[2022-04-12 06:31] LABS: Hematocrit (blood only) 26.2 % (34.1-44.9); Hemoglobin 8.6 g/dl (12.0-16.0); Mean Corpuscular Hemoglobin 30.5 pg (25.0-34.0); Mean Corpuscular Hgb Conc 32.8 g/dL (32.0-36.0); Mean Corpuscular Volume 92.9 fL (80.0-100.0); Mean Platelet Volume 9.8 fL (9.4-12.3); Platelet Count 184 K/uL (130-400); RDW Coefficient of Variation 19.8 % (11.5-14.5); Red Blood Count 2.82 M/uL (3.93-5.22); White Blood Count 5.51 K/ul (4.8-10.8)
[2022-04-12 07:00] LABS: Calcium 7.6 mg/dl (8.5-10.1); Creatinine Clr Calc Pharmacy 82.1 ml/min; Est GFR (African American) 106.7 ml/min; Est GFR (Non-African American) 92.1 ml/min; Magnesium 1.8 mg/dl (1.7-2.4); Potassium 3.4 mmol/L (3.5-5.1)
[2022-04-12] MEDS ORDERED: MAGNESIUM SULFATE / D5W 1 GM/100 ML BAG IV ONE (08:22)
[2022-04-12] MEDS ORDERED: POTASSIUM CHLORIDE CRTAB 20 MEQ TABCR PO STA (08:22)
[2022-04-12] MEDS ORDERED: SACCHAROMYCES BOULARDII 250 MG CAP PO SCH (09:00)
--- NOTE | 2022-04-12 09:05 | XRay Report ---
XR chest 1V portable CLINICAL HISTORY: follow up CHf vs PNA COMPARISON STUDY: Chest radiograph and chest CT April 09, 2022. FINDINGS: Right internal jugular [id number] is in place. There is no pneumothorax. Small bilateral pleural effusions are present. Interstitial thickening has slightly improved. Multifocal bilateral a irspace opacities persist, including a right apical opacity measuring approximately 3 cm. Cardiomedia stinal silhouette is stable. IMPRESSION: 1. Interstitial pulmonary edema, slightly improved since prior exam. 2. Persistent multifocal airspace opacities, including a 3 cm right apical opacity. The findings coul d reflect multifocal pneumonia or alveolar pulmonary edema. Radiographic follow up to ensure resoluti on is recommended. 3. Small bilateral pleural effusions. ACT 112: Negative or not required by law. Electronically signed by: Dion Dudley M.D. 04/12/2022 9:04 AM
[2022-04-12] MEDS: MAGNESIUM OXIDE 400 MG TAB PO SCH (09:34)
[2022-04-12] MEDS: SENNA 8.6 MG TAB PO SCH (09:34)
[2022-04-12] MEDS: CEFDINIR 300 MG CAP PO SCH ×2 (09:34→21:10)
[2022-04-12] MEDS: SERTRALINE HCL 100 MG TABLET PO SCH (09:34)
[2022-04-12] MEDS: AZITHROMYCIN 250 MG TAB PO SCH (09:34)
[2022-04-12] MEDS: MULTIVITAMIN TAB PO SCH (09:35)
[2022-04-12] MEDS: FUROSEMIDE INJ 20 MG/2 ML VIAL IV SCH (09:35)
[2022-04-12] MEDS: METOPROLOL SUCC 25MG EXT REL TAB PO SCH (09:36)
[2022-04-12] MEDS: PANTOprazole 40 MG TAB PO SCH (09:36)
[2022-04-12] MEDS: MEGESTROL ACETATE SUSP 400 MG/10 ML UDC PO SCH (09:37)
[2022-04-12] MEDS: SILVER SULFADIAZINE 1% CR 50 GM JAR TOP SCH ×2 (09:37→21:11)
[2022-04-12] MEDS: POLYETHYLENE (MIRALAX) 17 GM PACK PO SCH (09:45)
[2022-04-12] MEDS: MoRPHine SULFATE CR 60 MG TABCR PO SCH ×2 (09:45→21:11)
[2022-04-12] MEDS: ONDANSETRON INJ 2 MG/ML 2 ML VIAL IV PRN (11:57)
--- NOTE | 2022-04-12 13:59 | Hospitalist Progress Note ---
Date of Service April 12, 2022 Assessment & Plan (1) CHF (congestive heart failure): (2) Confusion: (3) Anemia: Plan Confusion -multifactorial. In setting of illness, possibly delirium. Currently appears back to her baseline mental status acute on chronic diastolic CHF -seen on CXR and portion of CT A/P -BNP elevated - lasix 20mg IV daily -repeat TTE shows grade 2 diastolic CHF, again severe MR, pulmonary hypertension -CT chest 1. Cardiomegaly with pulmonary edema and bilateral pleural effusions. 2. Patchy airspace opacities most pronounced within the upper lobes are nonspecific but could be due to the pulmonary edema or a pneumonia. 3. There is a focal irregular density within the right lung apex measuring 2.8 cm. This could represent a focal pneumonia or a pulmonary lesion. [address] follow-up recommended to ensure resolution. Repeat CXR today improved Acute hypoxic respiratory failure -continue supplemental O2 to keep sat above 90% -now weaned to room air Questionable pneumonia -procalcitonin negative x 2 -s/p ceftriaxone in ER. d/c zosyn. will put on azithromycin and cefdinir. -blood cultures negative PAF -Started on Eliquis on recent admission. Will hold for now. -continue toprol 12.5mg daily HTN -BP elevated today -start hydralazine 10mg Q 8 hours with hold parameters Anemia -acute on chronic -likely due to anemia of chronic disease, rectal cancer -s/p 2 unit RBC 04/09/22 with appropriate response. Transfuse to Keep Hb >7. Hb remains stable. No evidence of blood in stool Rectal cancer, stage 3 -OP follow up with oncology, finished course of chemo/XRT 03/15/2023. DVT ppx -SCD for now Dispo- from [facility]. PT/OT ordered for discharge planning Likely can discharge to [facility] tomorrow if continues to do well and pending Cardiology input regarding Eliquis Admission and Anticipated Discharge Date Admission Date: April 09, 2022 Subjective Feels nauseous. BP elevated BM this morning was brown, non bloody, no melena Physical Exam Physical Exam: thin, frail, pleasant and cooperative Respiratory: Breathing comfortably on room air, no wheezing/rhonchi/rales Cardiovascular: +systolic murmur, regular rhythm Gastrointestinal (Abdomen): soft, non tender Musculoskeletal: No edema Neurologic: awake, alert, spontaneously moving extremities Results & Data Results & Data ([facility]) Vital Signs (Past 12 Hours) Vital Signs Temp Pulse Pulse Resp BP Pulse Ox O2 Del Method 04/12/22 12:11 37.3 C 81 16 185/72 H 93 Room Air 04/12/22 10:10 Room Air 04/12/22 10:05 67 04/12/22 08:01 36.6 C 65 16 158/68 H 90 Room Air 04/12/22 02:55 36.3 C L 74 18 149/69 H 91 Room Air (1) Anemia Anemia type: unspecified type Qualified Code(s): D64.9 - Anemia, unspecified
[2022-04-12] MEDS: hydrALAZINE 10 MG TAB PO SCH ×2 (14:30→21:11)
[2022-04-12 21:39] LABS: Basophils # (auto) 0.02 K/uL (0-0.2); Basophils % (auto) 0.4 %; Eosinophils # (auto) 0.11 K/uL (0-0.50); Eosinophils % (auto) 2.2 %; Hematocrit (blood only) 27.4 % (34.1-44.9); Hemoglobin 8.9 g/dl (12.0-16.0); Immature Granulocytes # (auto) 0.05 K/uL (0.00-0.02); Lymphocytes # (auto) 0.21 K/uL (1.2-3.4); Lymphocytes % (auto) 4.3 %; Mean Corpuscular Hemoglobin 30.1 pg (25.0-34.0); Mean Corpuscular Hgb Conc 32.5 g/dL (32.0-36.0); Mean Corpuscular Volume 92.6 fL (80.0-100.0); Mean Platelet Volume 9.6 fL (9.4-12.3); Monocytes # (auto) 0.54 K/uL (0.24-0.82); Neutrophils # (auto) 3.96 K/uL (1.4-6.5); Neutrophils % (auto) 81.1 %; Platelet Count 188 K/uL (130-400); RDW Coefficient of Variation 19.4 % (11.5-14.5); Red Blood Count 2.96 M/uL (3.93-5.22); White Blood Count 4.89 K/ul (4.8-10.8)
[2022-04-12 21:41] LABS: Base Excess ABG 0.4 mEq/L (-9-1.8); HCO3 ABG 23 mmol/L (19-24); Oxygen Saturation ABG 97.9 % (90-95); PCO2 ABG 29 mmHg (35-46); PO2 ABG 79 mmHg (80-95)
[2022-04-12 21:44] LABS: Allen Test Pos (Pos)
[2022-04-12 22:00] LABS: Albumin Globulin Ratio 0.8 (0.9-2); Albumin Level 2.7 gm/dl (3.4-5.0); BUN Creatinine Ratio 31.7 (10-20); Bilirubin,Total 0.7 mg/dl (0.2-1.0); Calcium 7.9 mg/dl (8.5-10.1); Creatinine Clr Calc Pharmacy 100.1 ml/min; Est GFR (African American) 113.9 ml/min; Est GFR (Non-African American) 98.3 ml/min; Globulin 3.4 gm/dl (2.5-4.0); Magnesium 1.9 mg/dl (1.7-2.4); Potassium 3.3 mmol/L (3.5-5.1); Total Protein 6.1 gm/dl (6.0-8.3)
[2022-04-12 22:06] LABS: Troponin I High Sensitivity 19.4 pg/ml (0-14)
[2022-04-12] MEDS: POTASSIUM CHLORIDE / WTR 10 MEQ/100 ML PLCT IV SCH (23:38)
[2022-04-13] MEDS: POTASSIUM CHLORIDE / WTR 10 MEQ/100 ML PLCT IV SCH ×2 (00:39→02:27)
[2022-04-13] MEDS: ONDANSETRON INJ 2 MG/ML 2 ML VIAL IV PRN ×4 (02:29→20:57)
[2022-04-13] MEDS ORDERED: hydrALAZINE HCL 20 MG/ML VIAL IV ONE (02:48)
[2022-04-13] MEDS: hydrALAZINE 10 MG TAB PO SCH (06:01)
[2022-04-13 06:40] LABS: Hematocrit (blood only) 30.9 % (34.1-44.9); Hemoglobin 10.2 g/dl (12.0-16.0); Mean Corpuscular Hemoglobin 30.1 pg (25.0-34.0); Mean Corpuscular Volume 91.2 fL (80.0-100.0); Mean Platelet Volume 9.9 fL (9.4-12.3); Platelet Count 225 K/uL (130-400); RDW Coefficient of Variation 19.1 % (11.5-14.5); RDW Standard Deviation 64.1 fL (36.4-46.3); Red Blood Count 3.39 M/uL (3.93-5.22); White Blood Count 7.55 K/ul (4.8-10.8)
--- NOTE | 2022-04-13 07:09 | CT Scan Report ---
HEAD CT NONCONTRAST CT DOSE: 537.48 mGy.cm HISTORY: Altered mental status. TECHNIQUE: Multiaxial CT images of the head were performed without the use of intravenous contrast. A utomated exposure control was utilized for this study. A dose lowering technique was utilized adheri ng to the principles of ALARA. Comparison: None. Findings: The paranasal sinuses and mastoid air cells are clear. The calvarium and skull base are int act. There is no mass, hematoma, midline shift, acute infarct. White matter hypodensity is nonspecifi c but suggestive of microvascular ischemic change. The ventricles and sulci demonstrate mild age-rela caleb involutional changes. Impression: No acute intracranial abnormality. Atrophy and microvascular ischemic changes. ACT 112: Negative or not required by law. Electronically signed by: Jonas Anand M.D. 04/13/2022 7:08 AM
[2022-04-13 07:12] LABS: BUN Creatinine Ratio 35.1 (10-20); Calcium 8.3 mg/dl (8.5-10.1); Creatinine Clr Calc Pharmacy 110.9 ml/min; Est GFR (African American) 117.8 ml/min; Est GFR (Non-African American) 101.6 ml/min; Magnesium 1.8 mg/dl (1.7-2.4); Potassium 3.1 mmol/L (3.5-5.1)
[2022-04-13] MEDS ORDERED: METOPROLOL TARTRATE 1 MG/ML VIAL IV STA (09:51)
[2022-04-13] MEDS: MAGNESIUM OXIDE 400 MG TAB PO SCH (09:55)
[2022-04-13] MEDS: AZITHROMYCIN 250 MG TAB PO SCH (09:55)
[2022-04-13] MEDS: MEGESTROL ACETATE SUSP 400 MG/10 ML UDC PO SCH (09:55)
[2022-04-13] MEDS: CEFDINIR 300 MG CAP PO SCH ×2 (09:55→22:44)
[2022-04-13] MEDS: FUROSEMIDE INJ 20 MG/2 ML VIAL IV SCH (09:55)
[2022-04-13] MEDS: SERTRALINE HCL 100 MG TABLET PO SCH (09:56)
[2022-04-13] MEDS: SENNA 8.6 MG TAB PO SCH (09:56)
[2022-04-13] MEDS: POLYETHYLENE (MIRALAX) 17 GM PACK PO SCH (09:56)
[2022-04-13] MEDS: PANTOprazole 40 MG TAB PO SCH (09:56)
[2022-04-13] MEDS: MoRPHine SULFATE CR 60 MG TABCR PO SCH ×2 (09:56→22:44)
[2022-04-13] MEDS: MULTIVITAMIN TAB PO SCH (09:56)
[2022-04-13] MEDS: METOPROLOL SUCC 25MG EXT REL TAB PO SCH (09:56)
[2022-04-13] MEDS: SILVER SULFADIAZINE 1% CR 50 GM JAR TOP SCH ×2 (09:57→20:53)
[2022-04-13] MEDS: SPIRONOLACTONE 25 MG TAB PO SCH (09:57)
--- NOTE | 2022-04-13 12:59 | Cardiology Progress Note ---
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 Patient lapsed into atrial fibrillation earlier today with rapid response. Patient not likely to tolerate this secondary to hypertrophic obstructive cardiomyopathy We will begin IV metoprolol given poor tolerance of oral intake nausea Hold diuretics for now Replete potassium Add topical nitrates for blood pressure control Would not use hydralazine oral or IV with hypertrophic cardiomyopathy If rate not quickly controlled with IV metoprolol begin IV amiodarone Admission and Anticipated Discharge Date Admission Date: April 09, 2022 Subjective Patient was seen and examined, chart, medications, telemetry reviewed. Patient this morning lapsed into atrial fibrillation with rapid response Patient notes nausea and anorexia unable to take medications with several episodes of vomiting. Laboratory studies reflect hypokalemia Blood pressures trending high Weight down approximately 5 kg Review of Systems Review of Systems: All systems reviewed & are unremarkable except as noted in Subjective Physical Exam Constitutional: + frail appearing Eyes: PERRL, conjunctivae normal, anicteric sclerae ENMT: external ear and nose normal, oropharynx normal Neck: trachea midline, no thyromegaly Respiratory: Auscultation: + diminished lung sounds Cardiovascular: Rate/Rhythm: + tachycardic and + irregularly irregular Results & Data ([facility]) Vital Signs (Past 12 Hours) Vital Signs Temp Pulse Pulse Resp BP BP BP 04/13/22 07:15 74 04/13/22 10:18 145 H 186/96 H 04/13/22 10:15 37.0 C 146 H 19 186/96 H 04/13/22 07:16 36.6 C 118 H 16 189/96 H 04/13/22 03:53 82 158/79 H 04/13/22 02:48 36.7 C 72 17 195/81 H Pulse Ox O2 Del Method 04/13/22 07:15 04/13/22 10:18 04/13/22 10:15 95 Room Air 04/13/22 07:16 93 Room Air 04/13/22 03:53 04/13/22 02:48 94 Room Air (1) Anemia Anemia type: unspecified type Qualified Code(s): D64.9 - Anemia, unspecified
[2022-04-13] MEDS ORDERED: POTASSIUM CHLORIDE 20 MEQ/15 ML UDC PO STA (13:08)
[2022-04-13] MEDS ORDERED: NSS + 20MEQ KCL 20 MEQ/1,000 ML BAG IV SCH (13:15)
[2022-04-13] MEDS: NITROGLYCERIN 2% OINTMENT 30GM TUBE EXT SCH ×2 (13:34→19:21)
--- NOTE | 2022-04-13 13:47 | XRay Report ---
KUB CLINICAL HISTORY: Vomiting. COMPARISON STUDY: CT of the abdomen and pelvis April 09, 2022. FINDINGS: The bowel gas pattern is within normal limits. There is no evidence for a bowel obstruction . Minimal stool is noted. No urinary calculi are identified. There is no evidence for free air on thi s supine exam. IMPRESSION: No radiographic evidence for a bowel obstruction. ACT 112: Negative or not required by law. Electronically signed by: Dion Dudley M.D. 04/13/2022 1:46 PM
[2022-04-13] MEDS ORDERED: LOPERAMIDE HCL 2 MG CAP PO PRN (15:16)
[2022-04-13] MEDS: METOPROLOL TARTRATE 1 MG/ML VIAL IV SCH ×2 (15:26→20:46)
[2022-04-13] MEDS: BENZOCAINE 20% AER SPR 82.5 GM CAN EXT PRN ×2 (18:21→20:53)
[2022-04-13] MEDS: METOCLOPRAMIDE HCL INJ 5 MG/ML 2 ML VIAL IV PRN (18:21)
--- NOTE | 2022-04-13 19:00 | Hospitalist Progress Note ---
Date of Service April 13, 2022 Assessment & Plan (1) CHF (congestive heart failure): (2) Confusion: (3) Anemia: Plan Confusion -multifactorial. In setting of illness, possibly delirium. Currently appears back to her baseline mental status Awake today clinically improved acute on chronic diastolic CHF -seen on CXR and portion of CT A/P -BNP elevated - lasix 20mg IV daily -repeat TTE shows grade 2 diastolic CHF, again severe MR, pulmonary hypertension - Since she is having multiple episode of vomiting and diarrhea, will start on gentle IVF x 1 liter only -CT chest 1. Cardiomegaly with pulmonary edema and bilateral pleural effusions. 2. Patchy airspace opacities most pronounced within the upper lobes are nonspecific but could be due to the pulmonary edema or a pneumonia. 3. There is a focal irregular density within the right lung apex measuring 2.8 cm. This could represent a focal pneumonia or a pulmonary lesion. [address] follow-up recommended to ensure resolution. Repeat CXR today improved Acute hypoxic respiratory failure Questionable pneumonia CXR showed persistent multifocal airspace opacities, including a 3 cm right apical opacity. procalcitonin negative x 2 -s/p ceftriaxone in ER. d/c zosyn. then transition to azithromycin and cefdinir. 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 plan to resume once vomiting improved Cardiology on board Continue metoprolol succinate Due to ongoing vomiting, IV metoprolol 5 mg every 4 added If heart rate continue to increase, consider to start on IV amiodarone Nausea/vomiting/diarrhea We will check stool for C. difficile Continue monitor electrolyte Hypokalemia Mostly due to vomiting and diarrhea K replaced continue monitor BMP HTN BP elevated today Started on topical nitrate We will try to avoid IV hydralazine due to hypertrophic cardiomyopathy Continue monitor BP Anemia -likely due to anemia of chronic disease, rectal cancer -s/p 2 unit RBC 04/09/22 with appropriate response. Transfuse to Keep Hb >7. Hb remains stable. No evidence of blood in stool Rectal cancer, stage 3 -OP follow up with oncology, finished course of chemo/XRT 03/15/2023. DVT ppx -SCD for now Admission and Anticipated Discharge Date Admission Date: April 09, 2022 Subjective Patient was seen and evaluated for follow-up And in bed with no acute distress She continues to have episode of vomiting and diarrhea Pt said that she is hungry but she is afraid to eat or drink because she will vomit Tele monitor showed Afib with RVR Denies any chest pain, palpitation and fever Review of Systems Review of Systems: All systems reviewed & are unremarkable except as noted in Subjective Physical Exam Physical Exam: General- No acute distress Head- atraumatic Eyes- PERRL, EOMI, ENT- oropharynx clear Neck- supple, no JVD Lungs- clear to auscultation Heart- irregular rhythm, +tachycardia Abdomen- normal bowel sounds, soft, nontender Extremities- no calf tenderness Neuro- alert, awake, PERRL, EOMI; no facial palsy; no dysarthria Skin- warm & dry Results & Data Results & Data ([facility]) Vital Signs (Past 12 Hours) Vital Signs Temp Pulse Pulse Resp BP BP BP 04/13/22 18:59 194/92 H 04/13/22 15:48 04/13/22 15:26 124 H 04/13/22 07:15 74 04/13/22 10:18 145 H 186/96 H 04/13/22 10:15 37.0 C 146 H 19 186/96 H 04/13/22 07:16 36.6 C 118 H 16 189/96 H Pulse Ox O2 Del Method 04/13/22 18:59 04/13/22 15:48 Room Air 04/13/22 15:26 04/13/22 07:15 04/13/22 10:18 04/13/22 10:15 95 Room Air 04/13/22 07:16 93 Room Air (1) Anemia Anemia type: unspecified type Qualified Code(s): D64.9 - Anemia, unspecified
[2022-04-13] MEDS ORDERED: LABETALOL HCL IV 5 MG/ML 20ML IV STA (22:18)
[2022-04-13] MEDS ORDERED: MoRPHine SULFATE 2 MG/ML CARP IV STA (23:21)
[2022-04-14] MEDS ORDERED: PROMETHAZINE HCL 6.25 MG in SODIUM CHLORIDE 0.9% 50 ML IV STA (01:30)
[2022-04-14] MEDS ORDERED: PROMETHAZINE HCL 6.25 MG in SODIUM CHLORIDE 0.9% 50 ML IV PRN (01:30)
[2022-04-14] MEDS ORDERED: ACETAMINOPHEN 1,000 MG/100 ML VIAL IV PRN (01:31)
[2022-04-14] MEDS: METOPROLOL TARTRATE 1 MG/ML VIAL IV SCH ×7 (01:37→23:14)
[2022-04-14] MEDS: NITROGLYCERIN 2% OINTMENT 30GM TUBE EXT SCH ×5 (01:38→23:18)
[2022-04-14] MEDS ORDERED: hydrALAZINE HCL 20 MG/ML VIAL IV STA (04:17)
[2022-04-14 07:42] LABS: Hematocrit (blood only) 28.1 % (34.1-44.9); Hemoglobin 9.2 g/dl (12.0-16.0); Mean Corpuscular Hemoglobin 30.1 pg (25.0-34.0); Mean Corpuscular Hgb Conc 32.7 g/dL (32.0-36.0); Mean Corpuscular Volume 91.8 fL (80.0-100.0); Mean Platelet Volume 9.5 fL (9.4-12.3); Platelet Count 251 K/uL (130-400); RDW Coefficient of Variation 19.4 % (11.5-14.5); RDW Standard Deviation 65.3 fL (36.4-46.3); Red Blood Count 3.06 M/uL (3.93-5.22); White Blood Count 8.84 K/ul (4.8-10.8)
[2022-04-14] MEDS: SILVER SULFADIAZINE 1% CR 50 GM JAR TOP SCH ×2 (07:45→20:33)
[2022-04-14] MEDS: MAGNESIUM OXIDE 400 MG TAB PO SCH (07:49)
[2022-04-14] MEDS: CEFDINIR 300 MG CAP PO SCH ×2 (07:49→20:29)
[2022-04-14] MEDS: AZITHROMYCIN 250 MG TAB PO SCH (07:49)
[2022-04-14] MEDS: POLYETHYLENE (MIRALAX) 17 GM PACK PO SCH (07:50)
[2022-04-14] MEDS: METOPROLOL SUCC 25MG EXT REL TAB PO SCH (07:50)
[2022-04-14] MEDS: PANTOprazole 40 MG TAB PO SCH (07:50)
[2022-04-14] MEDS: MoRPHine SULFATE CR 60 MG TABCR PO SCH ×2 (07:50→20:26)
[2022-04-14] MEDS: MULTIVITAMIN TAB PO SCH (07:50)
[2022-04-14] MEDS: SERTRALINE HCL 100 MG TABLET PO SCH (07:50)
[2022-04-14] MEDS: MEGESTROL ACETATE SUSP 400 MG/10 ML UDC PO SCH (07:50)
[2022-04-14] MEDS: ONDANSETRON INJ 2 MG/ML 2 ML VIAL IV PRN (07:54)
[2022-04-14 09:40] LABS: BUN Creatinine Ratio 33.3 (10-20); Creatinine Clr Calc Pharmacy 97.2 ml/min; Est GFR (Non-African American) 97.5 ml/min; Magnesium 1.8 mg/dl (1.7-2.4); Potassium 2.8 mmol/L (3.5-5.1)
--- NOTE | 2022-04-14 10:15 | Palliative Care Consultation ---
Date of Consultation April 14, 2022 Assessment & Plan (1) Palliative care encounter: Met with pt/family. Provided overview of Palliative Medicine, a subspecialty that provides specialized medical care for people living with a serious illness by offering a focus on quality of life. Palliative Medicine is often conflated with hospice: I advised patient/family that Palliative and hospice can be partners but we are not the same. It is important to understand the difference so that we may be informed, and not afraid. Palliative Medicine works to improve QOL through reduction of symptom burden/more control over their illness, for both the patient and family. Palliative medicine clinicians are board certified, specially-trained and another member of the patient's medical care team. We often provide an extra layer of support because our care is based on the needs of the patient, not the prognosis; as such, it's appropriate at any age/advancing stage of a serious illness and can be provided along with curative treatment. Palliative Medicine clinicians are also trained in advanced communication methodologies, to facilitate complex discussions about advanced illness planning, which are needed to help assure that the treatment choices match the patient's goals, aka delivering Goal Concordant care. Finally, we discussed that hospice is a visiting nurse service that focuses on care delivered at the very end of life for patients with terminal illness, with life expectancy less than 6 month. (2) Diarrhea: * This may be related to her radiation therapy, ?radiation enteritis * I have added Decadron 4mg IV BID and I have increased Loperamide to 4mg PO q4h (up to 54mg per day of loperamide has been used in palliative care settings with few adverse effects.) I spoke with Dr Riggs from pharmacy, we discussed that while dose of loperamide is higher than usual daily max of 16mg, in this palliative setting, is ok to use higher dose for a few days to try and optimize more rapid symptom relief - recommend trial of this dose for 2-3 days. * Suggest work up for infectious causes as well, c diff negative today. * Aspirin and cholestyramine can reduce diarrhea in radiation induced enteritis, as can addition of stool bulking agent such as Metamucil, however pt is unable to tolerate taking PO. * Octreotide is also effective with profuse secretory diarrhea, and may be given via continuous infusion at a rate of 10-80mcg/hr until symptoms improve. I would not escalate to this without a formal GI eval. * I spoke with her rad onc provider, Gibran Gómez, who were in agreement with the plans noted here. (3) Nausea & vomiting: * I have increased to Zofran 6mg IV q8h prn. I was going to schedule this however her QTc remains >500. Azithromycin has been stopped. I spoke with Dr Riggs from pharmacy, we are hopeful as azithro leaves her system, the medic ations changes above will begin improving symptoms. * I am hopeful Decadron may also help improve her nausea. * Suggest using IV meds for now * She is trying to take some PO, encouraged to try cool/bland foods, avoid spicy/fragrant /hot items. She is doing ok with a few sips of marisol mark and ice chips so far, will try popsicles/yemeni ice and maybe jello. (4) Discussion about advance care planning held with family member: I called patient's primary contact, her daughter Rosie. We have arranged a family meeting for 1130am today, at the bedside. Met with pt and dtr at bedside [id number]. She and dtr share their experiences to date with loss of pt ( 43yr) and how pt has been his caregiver. She notes her cancer was deemed cured at time of treatment completion. WE discussed her current symptom butden and the potential complications/limitations of therapies. Pt is clear she wants to return to her home. She is willing to go back to SNF for rehab if it is a viable option to improve strength and guarantee her return home. If however it is not going to be that kind of a step for her or if time is running short, she would rather spend the time remaining in her own home. Dtr speaks to limitations with family caregivers - both sons are unwilling to be caregivers, feeling uncomfortable in doing so. One son is listed for liver transplant and feels it would be more than he can handle right now. Dtr works second time worker but is willing to be here and will use FMLA but feels they still need additional caregiver support and she expressed concerns about the costs of private hires. We agreed to see how pt does in next few days, aiming to subjectively improve symptoms and gauge her willingness to attend rehab if feeling better. 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 Patient completed treatment March 2022. (7) CHF (congestive heart failure): Plan I called daughter Rosie at [phone]/Cell Phone - Preferred. She will be arriving at the hospital between 1111:30 AM, so we have agreed to meet at the patient's bedside at 11:30 AM today, see meeting details above. Symptom mgt changes as noted above, I will follow up tomorrow with dtr and pt at 1130am as per dtr request. Neurology Technologist support for her grief and bereavement, this has been disenfranchised by her illness and fdc stay, pt is emotionally isolated and struggling with not having had the chance to say final goodbyes to . Senia John DNP Clinical Director, Palliative Medicine History of Present Illness Reason for Consultation: " On 04/14/22 @ 08:23 Gene Sánchez Wrote To Tanja Corona Goal of care" Attending Physician: Gene Sánchez MD History of Present Illness Demi is a 81-year-old female admitted 04/09/2022 from her fdc with exacerbation of CHF, confusion and anemia. She was planning to be discharged today but developed complications of A. fib with RVR and ongoing nausea and vomiting. Cardiology consultation was obtained who noted that she would not be able to tolerate atrial fibrillation with RVR secondary to her hypertrophic obstructive cardiomyopathy. IV metoprolol was initiated and diuretics were placed on hold. Her family requested a palliative medicine consult to assist with discussions about the goals of care. Patient recently completed combined radiation and chemotherapy for colorectal cancer, biopsy revealed squamous cell carcinoma, moderately differentiated on 12/08/2021. 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 Patient is seen bedside, together with her daughter. She reports a persistent and unrelenting diarrhea. It is exhausting her. Additionally she is having struggles with nausea and vomiting. She has not been able to keep anything down. This morning her nausea medication was changed to IV and she has been able to have 2 sips of marisol mark. She states that the diarrhea is "running out of me." She needed to be changed and cleaned up over a dozen times yesterday. She is feeling disheartened and defeated by her medical issues. Daughter at the bedside lives full-time in [place]. She shares that patient recently lost her of 43 years during the week of . She did not have the opportunity to say goodbye to him as he soon after arriving at the fdc where she had been admitted and during the process of his intake admission but before she could be brought to visit with him. She is still dealing with the fallout and emotional grief of not having been able to say goodbye or VICK 1 last time. She shares that they have a blended family with 2 children age from prior marriages and they combined their household of 4 children into 1 happy home. Everyone is engaged in collaborative with each other and there are no family tensions or conflicts noted. Patient states that she went to the fdc following the last admission with the hopes of rehab improving her strength so that she may be able to return home. She very firmly and emphatically states "I want to go home, that is why I want to be. I do not want to be here." Her daughter feels that she needs to go back to the fdc to try and get her strength back before returning home. Daughter also adds that patient does not have [id number] caregiver support either from family or private pay. She [facility] which [facility] a 55 and over adult living community. She has a home that accommodates her needs with living on 1 floor but she still needs assistance with ADLs and personal care. They have been providing private caregiver support for her due to his advancing Parkinson's disease but daughter states that there would be an ongoing financial concern trying to continue to do this at this time for patient. Allergies Allergy/AdvReac Type Severity Reaction Status Date / Time No Known Allergies Allergy Verified 04/09/22 19:06 Home Medications Medication Instructions Recorded Confirmed Type magnesium oxide 400 mg (241.3 mg 400 mg PO QAM #30 tabs 03/09/22 04/09/22 Rx magnesium) tablet apixaban 2.5 mg tablet (Eliquis) 2.5 mg PO BID #60 tabs 03/29/22 04/09/22 Rx morphine 60 mg tablet,extended 60 mg PO [facility] pain #20 tabs 03/29/22 04/09/22 Rx release omeprazole 20 mg tablet,delayed 20 mg PO QAM #30 tabs 03/29/22 04/09/22 Rx release ondansetron HCl 8 mg tablet 8 mg PO Q8H PRN Nausea #30 tabs 03/29/22 04/09/22 Rx polyethylene glycol 3350 17 gram 17 g PO DAILY #30 ea 03/29/22 04/09/22 Rx oral powder packet (Miralax) sennosides 8.6 mg tablet (Senokot) 17.2 mg PO QAM #30 tabs 03/29/22 04/09/22 Rx sertraline 100 mg tablet 100 mg PO QAM #30 tabs 03/29/22 04/09/22 Rx Magic Mouthwash 15 ml PO QID 04/09/22 04/09/22 History acetaminophen 325 mg tablet 650 mg PO Q6H PRN Fever Or Pain 04/09/22 04/09/22 History (Tylenol) diclofenac sodium 1 % topical gel 4 g topical QID PRN Pain 04/09/22 04/09/22 History magnesium hydroxide 400 mg/5 mL 30 ml PO DAILY PRN constipation 04/09/22 04/09/22 History oral suspension (Milk of Magnesia) megestrol 400 mg/10 mL (40 mg/mL) 400 mg PO QAM 04/09/22 04/09/22 History oral suspension metoprolol succinate 25 mg 12.5 mg PO QAM 04/09/22 04/09/22 History tablet,extended release 24 hr (Toprol XL) multivitamin 1 tab PO DAILY 04/09/22 04/09/22 History oxycodone 5 mg tablet 5 mg PO Q4H PRN Pain 04/09/22 04/09/22 History promethazine 25 mg/mL injection 12.5 mg IM Q6H PRN Nausea And 04/09/22 04/09/22 History solution (Phenergan) Vomiting silver sulfadiazine 1 % topical 1 applic topical BID 04/09/22 04/09/22 History cream (Silvadene) spironolactone 25 mg tablet 25 mg PO 2XWK 04/09/22 04/09/22 History (Aldactone) Patient History Medical History (Updated 04/14/22 @ 12:22 by Senia John DNP) Anemia IRON INFUSIONS, follows with [facility] heme/onc Anxiety Atrial fibrillation with rapid ventricular response Cancer related pain Degenerative scoliosis Diarrhea Discussion about advance care planning held with family member Hiatal hernia HLD (hyperlipidemia) HTN (hypertension) Hx of basal cell carcinoma IgM lambda paraproteinemia Left ventricular outflow tract obstruction follows with [facility] cardio Malignant neoplasm of anus Mitral regurgitation severe, follows with [facility] cardiology Nausea & vomiting Palliative care encounter Pulmonary hypertension 47 mmHg Rectal cancer NEW DX>REASON FOR PORT Spinal stenosis Surgical History History of cataract surgery RT/LEFT History of colonoscopy History of esophagogastroduodenoscopy (EGD) History of tonsillectomy History of tooth extraction Hx of section X 2 Hx of thyroid cyst Family History Mother Heart disease Hypertension Cancer Brain tumor, in-operable. unsure if cancerous Father Stroke Other No family history of adverse response to anesthesia Social History Smoking Status: Former smoker Tobacco Type: Cigarettes packs per day: 0.5; Cigarettes Per Day: 5-6; Second Hand Exposure: No; Hx Alcohol Use: No Hx Substance Use: No Preferred Language: Rwandan Communication Ability: Effective Visual Impairment: No Limitations Hearing Ability: Normal Natural Resources Professor Required: No Beliefs That Will Affect Care: None marital status: Current Living Situation: Spouse Current Living Situation Comment: Lives with who is on hospice current occupational status: retired How many Children do You have: 4 Other Information That Helps Us Care for You: No Feels Safe at Home: Yes Safety Concerns: Feels Safe At This Time Assistive Devices: Walker Review of Systems Review of Systems: All systems reviewed & are unremarkable except as noted in Subjective Physical Exam Physical Exam: Frail, elderly female lying in bed. Appears to be in some distress. Respiratory effort is normal with some mild JVD noted. There is a bounding jugular pulse. Her abdomen is mildly tender to palpation. She has generalized weakness. She is awake alert and oriented x3. She can follow commands but strength is diminished throughout. Skin is pale and slightly cool to touch. There is no overt cyanosis. There is skin breakdown on her bottom attributed to both prolonged bed rest of approximately 7 weeks as well as radiation induced from her cancer treatment which concluded at the end of March. Results & Data ([facility]) Vital Signs (Past 12 Hours) Vital Signs Temp Pulse Pulse Resp BP BP Pulse Ox 04/14/22 08:00 04/14/22 07:44 124 H 181/70 H 04/14/22 07:32 36.7 C 124 H 20 181/70 H 92 04/14/22 04:25 104 H 192/79 H 04/14/22 03:22 36.5 C 83 20 202/82 H 95 04/14/22 01:37 101 H 201/80 H 04/13/22 22:45 36.7 C 97 H 18 203/101 H 94 O2 Del Method 04/14/22 08:00 Room Air 04/14/22 07:44 04/14/22 07:32 Room Air 04/14/22 04:25 04/14/22 03:22 Room Air 04/14/22 01:37 04/13/22 22:45 Room Air Laboratory Results Data reviewed Diagnostic Findings Data reviewed PG Care Time/CCT Total # of Minutes Spent Total Time Spent: 90 Total Time Spent with Patient: Total time spent is greater than 50% in coordination of care (as documented) at patient's floor/unit and/or counseling patient: I spent 90 minutes overall addressing this case: 15 in medical data review/discussion with referring provider(s) and/or preparation for the visit 10 in direct interaction with the patient []and/or [] 45 Advance Care Planning/Goals of Care discussions as detailed above in note (must be >16min) 10 in subsequent review and synthesis of assessment and plan 10 in communicating with other providers regarding the patient's case: nursing, pharmacy, rad onc, primary team Prolonged Care Time Prolonged Care Time: Yes Advanced Care Planning 73150 Advanced Care Planning 30 Min Coding Level of Care Code New Pt INP/OBS CONSULT LVL 5, 80 MIN Patient Type New History Comprehensive Exam Comprehensive Medical Decision Making High Complexity Diagnoses Palliative care encounter Z51.5 Diarrhea R19.7 Nausea & vomiting R11.2 Discussion about advance care planning held with family member Z71.0 Atrial fibrillation with rapid ventricular response I48.91 Anal cancer C21.0 CHF (congestive heart failure) I50.9 Additional Codes Prolonged Care Time - Prolonged Care Time: Yes ([id number]) Advanced Care Planning - 76487 Advanced Care Planning 30 Min: 05551 Advanced Care Planning 30 Min ([id number])
[2022-04-14] MEDS ORDERED: AMIODARONE / D5W 150 MG/100 ML BAG IV STA (10:27)
[2022-04-14] MEDS ORDERED: STAT IV Infusion **Titration per Protocol STA (10:27)
[2022-04-14] MEDS ORDERED: AMIODARONE IV BOLUS & DRIP IV STA (10:27)
[2022-04-14] MEDS ORDERED: 0.2 MICRON FILTER SET 1 EACH IV STA (10:27)
--- NOTE | 2022-04-14 10:27 | Cardiology Progress Note ---
Date of Service April 14, 2022 Assessment & Plan (1) Paroxysmal atrial fibrillation: Plan: With recurrence (2) CHF (congestive heart failure): Plan: Superimposed on chronic emphysematous lung disease (3) Mitral regurgitation: Plan: Secondary to systolic anterior mitral valve leaflet motion and with hypertrophic cardiomyopathy obstructive (4) Left ventricular outflow tract obstruction: (5) Anemia: Plan remained in afib with rvr overnight, amiodarone was not started spontaneously converted to sinus this AM not taking oral meds currently will bolus and load IV amio now, hopefully, will be able to change to oral obviously, not an anticoagulation candidate given ongoing bleeding due to rectal cancer palliative care medicine consulted today, I strongly agree with this given poor prognosis and significant clinical decline Admission and Anticipated Discharge Date Admission Date: April 09, 2022 Subjective Pt seen and examined. Chart reviewed. Telemetry reviewed. Review of Systems Review of Systems: All systems reviewed & are unremarkable except as noted in HPI & below Physical Exam Physical Exam: General: Awake, alert and oriented x 3. No acute distress. HEENT: Normocephalic, atraumatic. Pupils equal, round and reactive to light and accommodation. Extraocular muscles are intact. Anicteric sclera. Moist mucous membranes. Neck: No JVD. No bruit. Cardiovascular: Regular. Positive S-4. Normal S-1 and S-2. No S-3. 3/6 mid to late systolic ejection murmur, greatest at the right sternal border, second intercostal space with radiation to the bilateral carotids. No rubs. Pulmonary: Clear to auscultation bilaterally. No rales, rhonchi, or wheezing. Abdomen: Bowel sounds x 4, soft. No rebound, guarding or tenderness. No organomegaly. Extremities: No clubbing, cyanosis or edema. +2 pedal pulses bilaterally. Skin: Warm and dry. Results & Data ([facility]) Vital Signs (Past 12 Hours) Vital Signs Temp Pulse Pulse Resp BP BP Pulse Ox 04/14/22 08:00 04/14/22 07:44 124 H 181/70 H 04/14/22 07:32 36.7 C 124 H 20 181/70 H 92 04/14/22 04:25 104 H 192/79 H 04/14/22 03:22 36.5 C 83 20 202/82 H 95 04/14/22 01:37 101 H 201/80 H 04/13/22 22:45 36.7 C 97 H 18 203/101 H 94 O2 Del Method 04/14/22 08:00 Room Air 04/14/22 07:44 04/14/22 07:32 Room Air 04/14/22 04:25 04/14/22 03:22 Room Air 04/14/22 01:37 04/13/22 22:45 Room Air (1) Anemia Anemia type: unspecified type Qualified Code(s): D64.9 - Anemia, unspecified
[2022-04-14] MEDS ORDERED: AMIODARONE / D5W 360 MG/200 ML BAG IV ONE (10:37)
[2022-04-14] MEDS: METOCLOPRAMIDE HCL INJ 5 MG/ML 2 ML VIAL IV PRN (11:13)
[2022-04-14] MEDS: POTASSIUM CHLORIDE / WTR 10 MEQ/100 ML PLCT IV SCH ×4 (12:14→14:59)
[2022-04-14] MEDS ORDERED: ONDANSETRON INJ 2 MG/ML 2 ML VIAL IV PRN (12:35)
[2022-04-14] MEDS: LOPERAMIDE HCL 2 MG CAP PO SCH ×4 (12:48→23:18)
[2022-04-14] MEDS: dexAMETHasone 4 MG in SYRINGE 0 ML IV SCH ×2 (13:18→20:29)
--- NOTE | 2022-04-14 13:31 | Electrocardiogram Report ---
Test Reason : Blood Pressure : / mmHG Vent. Rate : 082 BPM Atrial Rate : 082 BPM P-R Int : 154 ms QRS Dur : 132 ms QT Int : 462 ms P-R-T Axes : 073 068 062 degrees QTc Int : 539 ms Sinus rhythm with Premature atrial complexes Right bundle branch block Abnormal ECG When compared with ECG of 09-APR-2022 15:50, Premature atrial complexes are now Present QRS duration has increased Confirmed by Jorge Nj ([id number]) on 04/14/2022 1:31:55 PM Referred By: [facility] Confirmed By:Jorge Nj
[2022-04-14] MEDS ORDERED: ONDANSETRON INJ 2 MG/ML 2 ML VIAL IV SCH ×2 (16:00)
--- NOTE | 2022-04-14 18:54 | Hospitalist Progress Note ---
Date of Service April 14, 2022 Assessment & Plan (1) CHF (congestive heart failure): (2) Confusion: (3) Anemia: Plan Confusion -multifactorial. In setting of illness, possibly delirium. Currently appears back to her baseline mental status Awake today clinically improved acute on chronic diastolic CHF -seen on CXR and portion of CT A/P -BNP elevated - lasix 20mg IV daily -repeat TTE shows grade 2 diastolic CHF, again severe MR, pulmonary hypertension - Since she is having multiple episode of vomiting and diarrhea, will start on gentle IVF x 1 liter only -CT chest 1. Cardiomegaly with pulmonary edema and bilateral pleural effusions. 2. Patchy airspace opacities most pronounced within the upper lobes are nonspecific but could be due to the pulmonary edema or a pneumonia. 3. There is a focal irregular density within the right lung apex measuring 2.8 cm. This could represent a focal pneumonia or a pulmonary lesion. [address] follow-up recommended to ensure resolution. Repeat CXR today improved Acute hypoxic respiratory failure Questionable pneumonia CXR showed persistent multifocal airspace opacities, including a 3 cm right apical opacity. procalcitonin negative x 2 -s/p ceftriaxone in ER. d/c zosyn. then transition to azithromycin and cefdinir. -Blood culture negative -Saturated well on RA PAF A. fib with RVR on alarm security or surveillance monitor Eliquis on hold. plan to resume once vomiting improved Cardiology on board Continue metoprolol succinate Due to ongoing vomiting, IV metoprolol 5 mg every 4 added If heart rate continue to increase, consider to start on IV amiodarone HR improved Severe protein-calorie malnutrition. BMI 20.5 and she has been losing weight Poor intake due to Nausea and vomiting Will need to increase protein intake Nausea/vomiting/diarrhea stool for C. difficile negative Continue monitor electrolyte Hypokalemia Mostly due to vomiting and diarrhea Potassium 2.9 today K replaced continue monitor BMP HTN BP elevated today Continue topical nitrate We will try to avoid IV hydralazine due to hypertrophic cardiomyopathy Continue monitor BP Anemia -likely due to anemia of chronic disease, rectal cancer -s/p 2 unit RBC 04/09/22 with appropriate response. Transfuse to Keep Hb >7. Hb remains stable. No evidence of blood in stool Rectal cancer, stage 3 -OP follow up with oncology, finished course of chemo/XRT 03/15/2023. DVT ppx -SCD for now Admission and Anticipated Discharge Date Admission Date: April 09, 2022 Subjective Patient was seen and evaluated for follow-up vomiting and diarrhea Lying in bed with no acute distress She continues to have ongoing episode of vomiting and diarrhea She is not able to keep anything in her stomach Pt just lost her family considers hospice and would like to speak to palliative Denies any chest pain, palpitation and fever Review of Systems Review of Systems: All systems reviewed & are unremarkable except as noted in Subjective Physical Exam Physical Exam: General- No acute distress Head- atraumatic Eyes- PERRL, EOMI, ENT- oropharynx clear Neck- supple, no JVD Lungs- clear to auscultation Heart- irregular rhythm, +tachycardia Abdomen- normal bowel sounds, soft, nontender Extremities- no calf tenderness Neuro- alert, awake, PERRL, EOMI; no facial palsy; no dysarthria Skin- warm & dry Results & Data Results & Data ([facility]) Vital Signs (Past 12 Hours) Vital Signs Temp Pulse Pulse Resp BP BP Pulse Ox 04/14/22 15:53 37.2 C 93 H 16 159/69 H 93 04/14/22 15:00 84 166/82 H 04/14/22 11:13 88 162/71 H 04/14/22 11:07 36.6 C 88 18 162/71 H 95 04/14/22 11:00 83 04/14/22 08:00 04/14/22 07:44 124 H 181/70 H 04/14/22 07:32 36.7 C 124 H 20 181/70 H 92 O2 Del Method 04/14/22 15:53 Room Air 04/14/22 15:00 04/14/22 11:13 04/14/22 11:07 Room Air 04/14/22 11:00 04/14/22 08:00 Room Air 04/14/22 07:44 04/14/22 07:32 Room Air (1) Anemia Anemia type: unspecified type Qualified Code(s): D64.9 - Anemia, unspecified
[2022-04-14] MEDS: AMIODARONE / D5W 360 MG/200 ML BAG IV SCH (20:39)
[2022-04-14] MEDS: POTASSIUM ACETATE/NSS 10 MEQ/105 ML BAG IV SCH ×2 (21:50→23:14)
[2022-04-15] MEDS: METOPROLOL TARTRATE 1 MG/ML VIAL IV SCH ×3 (05:23→13:39)
[2022-04-15] MEDS: LOPERAMIDE HCL 2 MG CAP PO SCH ×6 (05:24→23:10)
[2022-04-15] MEDS: AMIODARONE / D5W 360 MG/200 ML BAG IV SCH ×2 (05:24→10:38)
[2022-04-15 07:33] LABS: BUN Creatinine Ratio 36.6 (10-20); Calcium 7.6 mg/dl (8.5-10.1); Est GFR (African American) 113.9 ml/min; Est GFR (Non-African American) 98.3 ml/min; Phosphorus 2.7 mg/dl (2.5-4.9); Potassium 2.9 mmol/L (3.5-5.1)
[2022-04-15] MEDS: NITROGLYCERIN 2% OINTMENT 30GM TUBE EXT SCH ×4 (08:36→23:10)
[2022-04-15] MEDS: dexAMETHasone 4 MG in SYRINGE 0 ML IV SCH ×2 (08:37→20:16)
[2022-04-15] MEDS: CEFDINIR 300 MG CAP PO SCH ×2 (08:40→20:15)
[2022-04-15] MEDS: MAGNESIUM OXIDE 400 MG TAB PO SCH (08:41)
[2022-04-15] MEDS: SERTRALINE HCL 100 MG TABLET PO SCH (08:41)
[2022-04-15] MEDS: PANTOprazole 40 MG TAB PO SCH (08:41)
[2022-04-15] MEDS: SILVER SULFADIAZINE 1% CR 50 GM JAR TOP SCH ×2 (08:43→20:16)
[2022-04-15] MEDS: METOPROLOL SUCC 25MG EXT REL TAB PO SCH (08:43)
[2022-04-15] MEDS: MULTIVITAMIN TAB PO SCH (08:43)
[2022-04-15] MEDS: MEGESTROL ACETATE SUSP 400 MG/10 ML UDC PO SCH (08:44)
[2022-04-15] MEDS: MoRPHine SULFATE CR 60 MG TABCR PO SCH ×2 (08:47→20:14)
[2022-04-15] MEDS ORDERED: POTASSIUM CHLORIDE PWD 20 MEQ PACK PO ONE (10:00)
[2022-04-15] MEDS: POTASSIUM CHLORIDE / WTR 10 MEQ/100 ML PLCT IV SCH ×5 (11:00→14:59)
--- NOTE | 2022-04-15 11:04 | Cardiology Progress Note ---
Date of Service April 15, 2022 Assessment & Plan (1) Paroxysmal atrial fibrillation: Plan: With recurrence (2) CHF (congestive heart failure): Plan: Superimposed on chronic emphysematous lung disease (3) Mitral regurgitation: Plan: Secondary to systolic anterior mitral valve leaflet motion and with hypertrophic cardiomyopathy obstructive (4) Left ventricular outflow tract obstruction: (5) Anemia: Plan 1. Paroxysmal atrial fibrillation: We will stop IV amiodarone once infusion bag complete. Begin amiodarone 200 mg 3 times per day. With supplement potassium to greater than 4. Potassium elixir 40 mg p.o. given now Admission and Anticipated Discharge Date Admission Date: April 09, 2022 Subjective Patient seen and examined, chart, medications, telemetry reviewed. No further atrial arrhythmias Appetite only fair though patient able to take medications orally per her description. No dizziness or lightheadedness no bleeding Physical Exam Constitutional: + frail appearing Eyes: PERRL, conjunctivae normal, anicteric sclerae ENMT: external ear and nose normal, oropharynx normal Neck: trachea midline, no thyromegaly Respiratory: Auscultation: + diminished lung sounds Cardiovascular: Rate/Rhythm: + tachycardic and + irregularly irregular Results & Data ([facility]) Vital Signs (Past 12 Hours) Vital Signs Temp Pulse Pulse Resp BP Pulse Ox O2 Del Method 04/15/22 07:41 36.7 C 76 16 153/52 H 94 Nasal Cannula 04/15/22 03:26 36.5 C 86 20 178/69 H 93 Room Air 04/15/22 00:58 75 O2 Flow Rate 04/15/22 07:41 2 04/15/22 03:26 04/15/22 00:58 Laboratory Results Laboratory Results - last 24 hr 04/15/22 06:50 Sodium 139 Potassium 2.9 L Chloride 109 H Carbon Dioxide 23 Anion Gap 7 BUN 15 Creatinine 0.41 L Est Cr Clr Drug Dosing 98.0 Est GFR ( Amer) 113.9 Est GFR (Non-Af Amer) 98.3 BUN/Creatinine Ratio 36.6 H Glucose 100 H Calcium 7.6 L Phosphorus 2.7 (1) Anemia Anemia type: unspecified type Qualified Code(s): D64.9 - Anemia, unspecified
[2022-04-15] MEDS ORDERED: POTASSIUM CHLORIDE 20 MEQ/15 ML UDC PO STA (11:10)
--- NOTE | 2022-04-15 12:27 | Palliative Care Progress Note ---
Date of Service April 15, 2022 Assessment & Plan (1) Palliative care encounter: (2) Diarrhea: Plan: Diarrhea has significantly improved since yesterday. Therefore I will begin backing down off her loperamide and begin 4 mg twice daily with the option to take a as needed dose as needed every 6 hours in between beginning tomorrow. Continue IV Zofran as needed for now. Continue Decadron as ordered for total of 5 days. Should she begin to exhibit refractory diarrhea symptoms over the course the weekend please follow the following protocol: Palliative Management of persistent/refractory diarrhea: Evaluate for potential causes of diarrhea common in palliative care and correct/treat when feasible: medications (overuse of laxatives, antibiotics, magnesium, chemotherapy), infection, diet, herbal products (e.g., milk thistle, cayenne, marisol) fecal impaction, malabsorption syndromes from surgery or tumor, radiotherapy that includes abdomen in treatment field, inflammatory bowel disease and other comorbid disorders Medications: Loperamide (Imodium) 2 mg PO start with 4 mg, followed by 2 mg after each BM, not to exceed 8 capsules/24 hours but can go up to 54mg/day for palliative management Diphenoxylate/atropine (Lomotil) 1-2 tabs PO QID, maximum 8 per 24 hours Tincture of opium 0.6 mL PO q 4-6 hours prn Methylcellulose (e.g. Metamucil?) or pectin can help provide bulk to liquid stools Octreotide (Sandostatin) 50 mcg SQ/IV q 8 hours, maximum 1500 mcg/day Cholestyramine 2-4 g PO/day before meals (especially for c. 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 If she remains diarrhea free through the course of the weekend we can stop the scheduled loperamide and use as needed only. Continue Decadron for total of 5 days of therapy. Continue Zofran IV as needed for now to help control any nausea that may arise. Patient is eager to begin working more with physical therapy and ambulating around the unit, strongly encouraged staff provided with the assistance and support to do so as she is eager to return to rehab, can regain her strength, and return home. Patient and family reiterate that should she not be able to regain her strength of at any point medical teams feel that rehab will not offer a meaningful benefit than her wishes to return home with the support she needs to have a level of relative safety at home, symptom management and quality of life and she is open to the idea of hospice being added to her care at that time after a very positive experience recently having hospice for her who a few weeks ago. She continues to grieve the loss of her . I have asked the claims examiner to provide visits and additional psychosocial support. Senia John DNP Clinical Director, Palliative Medicine Admission and Anticipated Discharge Date Admission Date: April 09, 2022 Subjective Patient is seen bedside together with her son, her daughter, and her [id number]. She reports that her nausea and diarrhea are significantly improved. She is able to tolerate more p.o. and had some soup earlier. So far she is keeping everything down. She says the diarrhea has substantially improved and she has not had any serious events since last night. She is feeling more comfortable and less distressed. Her color has improved. Her mood is brightened and she is smiling and more interactive today. She denies any abdominal pain. She does not have any significant nausea or vomiting at this time. She did work with physical therapy earlier today and was able to sit at the edge of her bed and stand and step over to a chair. She is hopeful that she can go for a walk later today and her family has brought in her rolling walker with a seat to use for this purpose. She is no longer on azithromycin therapy and this should have completely left her system by now. She is being transition from IV amiodarone to oral. She is also requiring several rounds of IV potassium due to her low levels. Family notes that this has been a chronic and ongoing problem, and expressed worry about how [facility]. Daughter again shares that patient had a hemoglobin level of 6 which the penitentiary "missed" and she believes this may have ultimately contributed to the seriousness of patient's current admission status. Review of Systems Review of Systems: All systems reviewed & are unremarkable except as noted in Subjective Physical Exam Physical Exam: Elderly female, lying in bed, today appears much brighter and happier. Color is pink and skin is warm. She is awake alert and oriented x3. She is pleasant and interactive with this examiner. She has some mild bitemporal wasting. Pupils are equal, round and reactive to light. Her pharynx is slightly dry and dentition is fair. Her neck is supple. There is still some subtle JVD noted. Heart tones are irregularly irregular. Lung sounds are slightly diminished overall generally clear with a few scattered rhonchi. Abdomen is softly distended but nontender. There is some generalized weakness noted but she is able to follow commands appropriately. Results & Data ([facility]) Vital Signs (Past 12 Hours) Vital Signs Temp Pulse Pulse Resp BP Pulse Ox O2 Del Method 04/15/22 11:06 36.4 C L 63 16 135/59 L 92 Room Air 04/15/22 07:41 36.7 C 76 16 153/52 H 94 Nasal Cannula 04/15/22 03:26 36.5 C 86 20 178/69 H 93 Room Air 04/15/22 00:58 75 O2 Flow Rate 04/15/22 11:06 04/15/22 07:41 2 04/15/22 03:26 04/15/22 00:58 Laboratory Results Labs and imaging reviewed Diagnostic Findings Labs and imaging reviewed PG Care Time/CCT Total # of Minutes Spent Total Time Spent: 65 Total Time Spent with Patient: Total time spent is greater than 50% in coordination of care (as documented) at patient's floor/unit and/or counseling patient: Coding [place] [address] SUB INP/OBS CARE 3/50MIN Patient Type Established History Detailed Exam Comprehensive Medical Decision Making High Complexity Diagnoses Palliative care encounter Z51.5 Diarrhea R19.7 Radiation enteritis K52.0 Nausea & vomiting R11.2 Anal cancer C21.0
[2022-04-15] MEDS: AMIODARONE 200 MG TAB PO SCH ×2 (13:36→17:39)
[2022-04-15] MEDS ORDERED: LOPERAMIDE HCL 2 MG CAP PO PRN (13:43)
--- NOTE | 2022-04-15 17:40 | Hospitalist Progress Note ---
Date of Service April 15, 2022 Assessment & Plan (1) CHF (congestive heart failure): (2) Confusion: (3) Anemia: Plan Confusion -multifactorial. In setting of illness, possibly delirium. Currently appears back to her baseline mental status Awake today clinically improved acute on chronic diastolic CHF -seen on CXR and portion of CT A/P -BNP elevated - lasix 20mg IV daily -repeat TTE shows grade 2 diastolic CHF, again severe MR, pulmonary hypertension - Since she is having multiple episode of vomiting and diarrhea, will start on gentle IVF x 1 liter only -CT chest 1. Cardiomegaly with pulmonary edema and bilateral pleural effusions. 2. Patchy airspace opacities most pronounced within the upper lobes are nonspecific but could be due to the pulmonary edema or a pneumonia. 3. There is a focal irregular density within the right lung apex measuring 2.8 cm. This could represent a focal pneumonia or a pulmonary lesion. [address] follow-up recommended to ensure resolution. Repeat CXR today improved Acute hypoxic respiratory failure Questionable pneumonia CXR showed persistent multifocal airspace opacities, including a 3 cm right apical opacity. procalcitonin negative x 2 -s/p ceftriaxone in ER. d/c zosyn. then transition to azithromycin and cefdinir. -Blood culture negative -Saturated well on RA PAF Rate control with amiodaroneand beta puja Eliquis on hold. plan to resume once vomiting improved Cardiology on board Continue metoprolol succinate Amiodarone drip was discontinued then transition to oral amiodarone Severe protein-calorie malnutrition. BMI 20.5 and she has been losing weight Poor intake due to Nausea and vomiting Will need to increase protein intake Nausea/vomiting/diarrhea stool for C. difficile negative Continue monitor electrolyte Tolerated her diet today Clinically improved Hypokalemia Mostly due to vomiting and diarrhea Potassium 2.9 today K replaced continue monitor BMP HTN BP elevated today Continue topical nitrate We will try to avoid IV hydralazine due to hypertrophic cardiomyopathy Continue monitor BP Anemia -likely due to anemia of chronic disease, rectal cancer -s/p 2 unit RBC 04/09/22 with appropriate response. Transfuse to Keep Hb >7. Hb remains stable. No evidence of blood in stool Rectal cancer, stage 3 -OP follow up with oncology, finished course of chemo/XRT 03/15/2023. Palliative care on board DVT ppx -SCD for now Admission and Anticipated Discharge Date Admission Date: April 09, 2022 Subjective Patient was seen and evaluated for follow-up Sitting in chair with no acute distress She is doing much better today She has not had any episodes of diarrhea or vomiting today Denies any chest pain, palpitation, dizziness, shortness of breath. Review of Systems Review of Systems: All systems reviewed & are unremarkable except as noted in Subjective Physical Exam Physical Exam: General- No acute distress Head- atraumatic Eyes- PERRL, EOMI, ENT- oropharynx clear Neck- supple, no JVD Lungs- clear to auscultation Heart- irregular rhythm Abdomen- normal bowel sounds, soft, nontender Extremities- no calf tenderness Neuro- alert, awake, PERRL, EOMI; no facial palsy; no dysarthria Skin- warm & dry Results & Data Results & Data ([facility]) Vital Signs (Past 12 Hours) Vital Signs Temp Pulse Pulse Resp BP BP Pulse Ox 04/15/22 16:29 61 04/15/22 15:44 36.3 C L 66 16 104/55 L 96 04/15/22 13:39 65 117/60 04/15/22 11:06 36.4 C L 63 16 135/59 L 92 04/15/22 07:41 36.7 C 76 16 153/52 H 94 O2 Del Method O2 Flow Rate 04/15/22 16:29 04/15/22 15:44 Room Air 04/15/22 13:39 04/15/22 11:06 Room Air 04/15/22 07:41 Nasal Cannula 2 (1) Anemia Anemia type: unspecified type Qualified Code(s): D64.9 - Anemia, unspecified
[2022-04-15] MEDS ORDERED: [UNRECOGNIZED DRUG - REMARK] ONE (22:00)
[2022-04-16] MEDS: POTASSIUM CHLORIDE / WTR 10 MEQ/100 ML PLCT IV SCH ×2 (01:34→02:34)
[2022-04-16] MEDS: LOPERAMIDE HCL 2 MG CAP PO SCH ×3 (05:38→20:01)
[2022-04-16 06:24] LABS: BUN Creatinine Ratio 36.4 (10-20); Calcium 7.4 mg/dl (8.5-10.1); Creatinine Clr Calc Pharmacy 71.5 ml/min; Est GFR (African American) 103.4 ml/min; Est GFR (Non-African American) 89.2 ml/min; Potassium 4.1 mmol/L (3.5-5.1)
[2022-04-16] MEDS: METOPROLOL SUCC 25MG EXT REL TAB PO SCH (09:03)
[2022-04-16] MEDS: AMIODARONE 200 MG TAB PO SCH ×3 (09:03→20:05)
[2022-04-16] MEDS: SPIRONOLACTONE 25 MG TAB PO SCH (09:03)
[2022-04-16] MEDS: CEFDINIR 300 MG CAP PO SCH ×2 (09:03→20:00)
[2022-04-16] MEDS: PANTOprazole 40 MG TAB PO SCH (09:03)
[2022-04-16] MEDS: MULTIVITAMIN TAB PO SCH (09:03)
[2022-04-16] MEDS: SERTRALINE HCL 100 MG TABLET PO SCH (09:03)
[2022-04-16] MEDS: MAGNESIUM OXIDE 400 MG TAB PO SCH (09:03)
[2022-04-16] MEDS: MEGESTROL ACETATE SUSP 400 MG/10 ML UDC PO SCH (09:03)
[2022-04-16] MEDS: dexAMETHasone 4 MG in SYRINGE 0 ML IV SCH ×2 (09:04→20:00)
[2022-04-16] MEDS: SILVER SULFADIAZINE 1% CR 50 GM JAR TOP SCH ×2 (09:06→20:00)
[2022-04-16] MEDS: NITROGLYCERIN 2% OINTMENT 30GM TUBE EXT SCH ×3 (09:12→19:53)
[2022-04-16] MEDS: MoRPHine SULFATE CR 60 MG TABCR PO SCH ×2 (09:12→20:01)
--- NOTE | 2022-04-16 14:20 | Cardiology Progress Note ---
Date of Service April 16, 2022 Assessment & Plan (1) Paroxysmal atrial fibrillation: Plan: With recurrence (2) CHF (congestive heart failure): Plan: Superimposed on chronic emphysematous lung disease (3) Mitral regurgitation: Plan: Secondary to systolic anterior mitral valve leaflet motion and with hypertrophic cardiomyopathy obstructive (4) Left ventricular outflow tract obstruction: (5) Anemia: Plan 1. Paroxysmal atrial fibrillation: Maintaining sinus on current medications. Recommendations: We will reduce amiodarone to 200 mg twice per day. Would continue at this dosing for 2 weeks then go to once per day 2. Hypokalemia. Improved on laboratory testing today. Would discharge on potassium chloride 10 mg p.o. daily in addition to low-dose spironolactone being used No further recommendations: We will sign off call with question Admission and Anticipated Discharge Date Admission Date: April 09, 2022 Subjective Patient seen and examined, chart, medications, telemetry reviewed. No acute complaints this morning, awake and answering questions. Taking in p.o. No arrhythmias on telemetry Review of Systems Review of Systems: All systems reviewed & are unremarkable except as noted in Subjective Physical Exam 2 Constitutional: + frail appearing Eyes: PERRL, conjunctivae normal, anicteric sclerae ENMT: external ear and nose normal, oropharynx normal Neck: trachea midline, no thyromegaly Respiratory: Auscultation: + diminished lung sounds Cardiovascular: Rate/Rhythm: + tachycardic and + irregularly irregular Results & Data ([facility]) Vital Signs (Past 12 Hours) Vital Signs Temp Pulse Pulse Resp BP Pulse Ox O2 Del Method 04/16/22 11:31 36.7 C 59 L 18 125/70 96 Room Air 04/16/22 07:52 62 04/16/22 07:52 Room Air 04/16/22 07:35 36.7 C 61 18 133/61 94 Room Air 04/16/22 03:51 55 L 04/16/22 03:21 36.4 C L 62 20 131/73 93 Room Air Laboratory Results Laboratory Results - last 24 hr 04/16/22 05:35 Sodium 137 Potassium 4.1 D Chloride 110 H Carbon Dioxide 23 Anion Gap 4 BUN 20 Creatinine 0.55 L Est Cr Clr Drug Dosing 71.5 Est GFR ( Amer) 103.4 Est GFR (Non-Af Amer) 89.2 BUN/Creatinine Ratio 36.4 H Glucose 98 Calcium 7.4 L (1) Anemia Anemia type: unspecified type Qualified Code(s): D64.9 - Anemia, unspecified
--- NOTE | 2022-04-16 15:55 | Hospitalist Progress Note ---
Date of Service April 16, 2022 Assessment & Plan (1) CHF (congestive heart failure): (2) Confusion: (3) Anemia: Plan Confusion -multifactorial. In setting of illness, possibly delirium. Currently appears back to her baseline mental status Awake today clinically improved acute on chronic diastolic CHF -seen on CXR and portion of CT A/P -BNP elevated - lasix 20mg IV daily -repeat TTE shows grade 2 diastolic CHF, again severe MR, pulmonary hypertension - Since she is having multiple episode of vomiting and diarrhea, will start on gentle IVF x 1 liter only -CT chest 1. Cardiomegaly with pulmonary edema and bilateral pleural effusions. 2. Patchy airspace opacities most pronounced within the upper lobes are nonspecific but could be due to the pulmonary edema or a pneumonia. 3. There is a focal irregular density within the right lung apex measuring 2.8 cm. This could represent a focal pneumonia or a pulmonary lesion. [address] follow-up recommended to ensure resolution. Repeat CXR today improved Acute hypoxic respiratory failure Questionable pneumonia CXR showed persistent multifocal airspace opacities, including a 3 cm right apical opacity. procalcitonin negative x 2 -s/p ceftriaxone in ER. d/c zosyn. then transition to azithromycin and cefdinir. -Blood culture negative -Saturated well on RA PAF Rate control with amiodaroneand beta puja Eliquis on hold. plan to resume once vomiting improved Cardiology on board Continue metoprolol succinate Amiodarone drip was discontinued then transition to oral amiodarone Cardiology recommended Amiodarone 200mg BID for 2 weeks, then 200mg PO daily Severe protein-calorie malnutrition. BMI 20.5 and she has been losing weight Poor intake due to Nausea and vomiting Will need to increase protein intake Nausea/vomiting/diarrhea stool for C. difficile negative Continue monitor electrolyte Tolerated her diet today Clinically improved Hypokalemia Mostly due to vomiting and diarrhea Potassium 4.1 today Continue K 10meq supplement on discharge continue monitor BMP HTN BP elevated today Continue topical nitrate We will try to avoid IV hydralazine due to hypertrophic cardiomyopathy Continue monitor BP Anemia -likely due to anemia of chronic disease, rectal cancer -s/p 2 unit RBC 04/09/22 with appropriate response. Transfuse to Keep Hb >7. Hb remains stable. No evidence of blood in stool Rectal cancer, stage 3 -OP follow up with oncology, finished course of chemo/XRT 03/15/2023. Palliative care on board DVT ppx SCD for now due to low hgb Disposition Waiting for placement Admission and Anticipated Discharge Date Admission Date: April 09, 2022 Subjective Patient was seen and evaluated for follow-up Sitting in chair with no acute distress watching TV Pt said that she feels alot better today So far she continues to have no diarrhea and vomiting She tolerated her diet Denies any chest pain, palpitation, dizziness, shortness of breath. Review of Systems Review of Systems: All systems reviewed & are unremarkable except as noted in Subjective Physical Exam Physical Exam: General- No acute distress Head- atraumatic Eyes- PERRL, EOMI, ENT- oropharynx clear Neck- supple, no JVD Lungs- clear to auscultation Heart- irregular rhythm Abdomen- normal bowel sounds, soft, nontender Extremities- no calf tenderness Neuro- alert, awake, PERRL, EOMI; no facial palsy; no dysarthria Skin- warm & dry Results & Data Results & Data ([facility]) Vital Signs (Past 12 Hours) Vital Signs Temp Pulse Pulse Resp BP Pulse Ox O2 Del Method 04/16/22 15:37 36.5 C 62 18 138/68 92 Room Air 04/16/22 11:31 36.7 C 59 L 18 125/70 96 Room Air 04/16/22 07:52 62 04/16/22 07:52 Room Air 04/16/22 07:35 36.7 C 61 18 133/61 94 Room Air 04/16/22 03:51 55 L (1) Anemia Anemia type: unspecified type Qualified Code(s): D64.9 - Anemia, unspecified
[2022-04-17] MEDS: NITROGLYCERIN 2% OINTMENT 30GM TUBE EXT SCH ×4 (00:07→19:06)
[2022-04-17] MEDS: MEGESTROL ACETATE SUSP 400 MG/10 ML UDC PO SCH (08:18)
[2022-04-17] MEDS: AMIODARONE 200 MG TAB PO SCH ×2 (08:19→20:22)
[2022-04-17] MEDS: MAGNESIUM OXIDE 400 MG TAB PO SCH (08:19)
[2022-04-17] MEDS: PANTOprazole 40 MG TAB PO SCH (08:19)
[2022-04-17] MEDS: METOPROLOL SUCC 25MG EXT REL TAB PO SCH (08:19)
[2022-04-17] MEDS: dexAMETHasone 4 MG in SYRINGE 0 ML IV SCH ×2 (08:19→20:22)
[2022-04-17] MEDS: CEFDINIR 300 MG CAP PO SCH ×2 (08:19→20:22)
[2022-04-17] MEDS: LOPERAMIDE HCL 2 MG CAP PO SCH (08:19)
[2022-04-17] MEDS: SERTRALINE HCL 100 MG TABLET PO SCH (08:19)
[2022-04-17] MEDS: MULTIVITAMIN TAB PO SCH (08:19)
[2022-04-17] MEDS: SILVER SULFADIAZINE 1% CR 50 GM JAR TOP SCH ×2 (08:21→20:23)
[2022-04-17] MEDS: MoRPHine SULFATE CR 60 MG TABCR PO SCH ×2 (08:26→20:22)
[2022-04-17 09:19] LABS: Hematocrit (blood only) 26.4 % (34.1-44.9); Hemoglobin 8.4 g/dl (12.0-16.0); Mean Corpuscular Hemoglobin 30.1 pg (25.0-34.0); Mean Corpuscular Hgb Conc 31.8 g/dL (32.0-36.0); Mean Corpuscular Volume 94.6 fL (80.0-100.0); Mean Platelet Volume 9.7 fL (9.4-12.3); Platelet Count 224 K/uL (130-400); RDW Coefficient of Variation 18.6 % (11.5-14.5); RDW Standard Deviation 64.6 fL (36.4-46.3); Red Blood Count 2.79 M/uL (3.93-5.22); White Blood Count 6.24 K/ul (4.8-10.8)
[2022-04-17 09:58] LABS: BUN Creatinine Ratio 35.4 (10-20); Creatinine Clr Calc Pharmacy 59.8 ml/min; Est GFR (African American) 97.9 ml/min; Est GFR (Non-African American) 84.4 ml/min; Potassium 3.5 mmol/L (3.5-5.1)
[2022-04-17] MEDS ORDERED: POTASSIUM CHLORIDE CRTAB 20 MEQ TABCR PO STA (10:27)
[2022-04-17] MEDS ORDERED: POTASSIUM CHLORIDE / WTR 10 MEQ/100 ML PLCT IV ONE (11:05)
--- NOTE | 2022-04-17 17:44 | Hospitalist Progress Note ---
Date of Service April 17, 2022 Assessment & Plan (1) CHF (congestive heart failure): (2) Confusion: (3) Anemia: Plan Confusion -multifactorial. In setting of illness, possibly delirium. Currently appears back to her baseline mental status Awake today clinically improved acute on chronic diastolic CHF -seen on CXR and portion of CT A/P -BNP elevated - lasix 20mg IV daily -repeat TTE shows grade 2 diastolic CHF, again severe MR, pulmonary hypertension - Since she is having multiple episode of vomiting and diarrhea, will start on gentle IVF x 1 liter only -CT chest 1. Cardiomegaly with pulmonary edema and bilateral pleural effusions. 2. Patchy airspace opacities most pronounced within the upper lobes are nonspecific but could be due to the pulmonary edema or a pneumonia. 3. There is a focal irregular density within the right lung apex measuring 2.8 cm. This could represent a focal pneumonia or a pulmonary lesion. [address] follow-up recommended to ensure resolution. Repeat CXR today improved Acute hypoxic respiratory failure Questionable pneumonia CXR showed persistent multifocal airspace opacities, including a 3 cm right apical opacity. procalcitonin negative x 2 -s/p ceftriaxone in ER. d/c zosyn. then transition to azithromycin and cefdinir. -Blood culture negative -Saturated well on RA PAF Rate control with amiodaroneand beta puja Eliquis on hold. plan to resume once vomiting improved Cardiology on board Continue metoprolol succinate Amiodarone drip was discontinued then transition to oral amiodarone Cardiology recommended Amiodarone 200mg BID for 2 weeks, then 200mg PO daily Severe protein-calorie malnutrition. BMI 20.5 and she has been losing weight Poor intake due to Nausea and vomiting Will need to increase protein intake Nausea/vomiting/diarrhea stool for C. difficile negative Continue monitor electrolyte Tolerated her diet today Clinically improved Hypokalemia Mostly due to vomiting and diarrhea Potassium 3.5 today Continue K 10meq supplement on discharge continue monitor BMP HTN BP elevated today Continue topical nitrate We will try to avoid IV hydralazine due to hypertrophic cardiomyopathy Continue monitor BP Anemia -likely due to anemia of chronic disease, rectal cancer hgb 8.4 today -s/p 2 unit RBC 04/09/22 with appropriate response. Transfuse to Keep Hb >7. Hb remains stable. No evidence of blood in stool Rectal cancer, stage 3 -OP follow up with oncology, finished course of chemo/XRT 03/15/2023. Palliative care on board DVT ppx SCD for now due to low hgb Disposition Waiting for placement Admission and Anticipated Discharge Date Admission Date: April 09, 2022 Subjective Patient was seen and evaluated for follow-up Sitting in chair with no acute distress watching TV No diarrhea and vomiting for about 72hrs She tolerated her diet Denies any chest pain, palpitation, dizziness, shortness of breath. Review of Systems Review of Systems: All systems reviewed & are unremarkable except as noted in Subjective Physical Exam Physical Exam: General- No acute distress Head- atraumatic Eyes- PERRL, EOMI, ENT- oropharynx clear Neck- supple, no JVD Lungs- clear to auscultation Heart- irregular rhythm Abdomen- normal bowel sounds, soft, nontender Extremities- no calf tenderness Neuro- alert, awake, PERRL, EOMI; no facial palsy; no dysarthria Skin- warm & dry Results & Data Results & Data ([facility]) Vital Signs (Past 12 Hours) Vital Signs Temp Pulse Pulse Resp BP Pulse Ox O2 Del Method 04/17/22 15:20 36.6 C 61 18 138/63 94 Room Air 04/17/22 11:12 36.6 C 57 L 17 135/63 94 Room Air 04/17/22 07:56 36.6 C 61 18 134/72 94 Room Air 04/17/22 07:56 Room Air 04/17/22 06:52 47 L 04/17/22 05:49 69 132/56 L (1) Anemia Anemia type: unspecified type Qualified Code(s): D64.9 - Anemia, unspecified
[2022-04-18] MEDS: NITROGLYCERIN 2% OINTMENT 30GM TUBE EXT SCH ×4 (00:56→19:22)
[2022-04-18 07:19] LABS: Hematocrit (blood only) 25.9 % (34.1-44.9); Hemoglobin 8.3 g/dl (12.0-16.0); Mean Corpuscular Hemoglobin 30.5 pg (25.0-34.0); Mean Corpuscular Volume 95.2 fL (80.0-100.0); Mean Platelet Volume 9.9 fL (9.4-12.3); Platelet Count 220 K/uL (130-400); RDW Coefficient of Variation 18.7 % (11.5-14.5); RDW Standard Deviation 64.8 fL (36.4-46.3); Red Blood Count 2.72 M/uL (3.93-5.22); White Blood Count 7.68 K/ul (4.8-10.8)
[2022-04-18 07:39] LABS: BUN Creatinine Ratio 41.4 (10-20); Calcium 7.6 mg/dl (8.5-10.1); Creatinine Clr Calc Pharmacy 68.5 ml/min; Est GFR (African American) 101.6 ml/min; Est GFR (Non-African American) 87.7 ml/min; Potassium 3.2 mmol/L (3.5-5.1)
[2022-04-18] MEDS ORDERED: POTASSIUM CHLORIDE CRTAB 20 MEQ TABCR PO STA (08:01)
[2022-04-18] MEDS: SERTRALINE HCL 100 MG TABLET PO SCH (08:48)
[2022-04-18] MEDS: METOPROLOL SUCC 25MG EXT REL TAB PO SCH (08:48)
[2022-04-18] MEDS: MULTIVITAMIN TAB PO SCH (08:48)
[2022-04-18] MEDS: PANTOprazole 40 MG TAB PO SCH (08:48)
[2022-04-18] MEDS: CEFDINIR 300 MG CAP PO SCH (08:49)
[2022-04-18] MEDS: MAGNESIUM OXIDE 400 MG TAB PO SCH (08:49)
[2022-04-18] MEDS: AMIODARONE 200 MG TAB PO SCH ×2 (08:49→21:24)
[2022-04-18] MEDS: MEGESTROL ACETATE SUSP 400 MG/10 ML UDC PO SCH (08:49)
[2022-04-18] MEDS: dexAMETHasone 4 MG in SYRINGE 0 ML IV SCH (08:53)
[2022-04-18] MEDS: MoRPHine SULFATE CR 60 MG TABCR PO SCH ×2 (08:56→21:19)
[2022-04-18] MEDS: SILVER SULFADIAZINE 1% CR 50 GM JAR TOP SCH ×2 (08:56→21:24)
[2022-04-18] MEDS: POTASSIUM CHLORIDE / WTR 10 MEQ/100 ML PLCT IV SCH ×3 (09:57→11:57)
--- NOTE | 2022-04-18 14:55 | Palliative Care Progress Note ---
Date of Service April 18, 2022 Assessment & Plan (1) Palliative care encounter: (2) Diarrhea: Plan: Her diarrhea has completely resolved and she is eating regular diet with no issues, no nausea no vomiting no diarrhea. Loperamide has been stopped. Zofran can continue as a as needed medication but she does not need this on a regular basis. I would use stool softeners and a bowel regimen as an as needed regimen only for now. Should her GI symptomology returned i.e. diarrhea that is especially loose or runny, I would resume the use of some Decadron orally for 5 days and then taper down to the lowest effective dose. Palliative Management of persistent/refractory diarrhea: Evaluate for potential causes of diarrhea common in palliative care and correct/treat when feasible: medications (overuse of laxatives, antibiotics, magnesium, chemotherapy), infection, diet, herbal products (e.g., milk thistle, cayenne, marisol) fecal impaction, malabsorption syndromes from surgery or tumor, radiotherapy that includes abdomen in treatment field, inflammatory bowel disease and other comorbid disorders Medications: Loperamide (Imodium) 2 mg PO start with 4 mg, followed by 2 mg after each BM, not to exceed 8 capsules/24 hours but can go up to 54mg/day for palliative management Diphenoxylate/atropine (Lomotil) 1-2 tabs PO QID, maximum 8 per 24 hours Tincture of opium 0.6 mL PO q 4-6 hours prn Methylcellulose (e.g. Metamucil?) or pectin can help provide bulk to liquid stools Octreotide (Sandostatin) 50 mcg SQ/IV q 8 hours, maximum 1500 mcg/day Cholestyramine 2-4 g PO/day before meals (especially for c. 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 She is hopeful this will enable her to recover her strength so she can return home and resume independent living. I have provided her with my contact information for ongoing palliative medicine assistance if needed once an outpatient. She is extremely appreciative and thankful for the time we spent with her while she was here in the hospital. Her family also expresses the same. Senia John DNP Clinical Director, Palliative Medicine Admission and Anticipated Discharge Date Admission Date: April 09, 2022 Subjective Arnol is feeling much improved and she is seen today with her family at the bedside: Daughters x2 son x1. She tells me that she will be going back to the custodial today. She is able to tolerate and eat solid foods, has had no diarrhea, no nausea as long as she paces herself and is keeping everything down. She has been walking as often as she can with therapy, nursing and her family. She is able to use her rolling walker without any issues. She is hopeful that she will regain her strength relatively quick at the custodial with the aim to still return home when stable. She denies any other symptoms or concerns at this time. Review of Systems Review of Systems: All systems reviewed & are unremarkable except as noted in Subjective Physical Exam Physical Exam: Deferred, patient is eating lunch at the time of my visit Results & Data ([facility]) Vital Signs (Past 12 Hours) Vital Signs Temp Pulse Pulse Resp BP Pulse Ox O2 Del Method 04/18/22 11:30 36.5 C 64 18 135/72 94 Room Air 04/18/22 07:46 36.8 C 60 17 146/56 H 93 Room Air 04/18/22 07:12 54 L 04/18/22 06:32 61 128/65 PG Care Time/CCT Total # of Minutes Spent Total Time Spent: 32 Total Time Spent with Patient: Total time spent is greater than 50% in coordination of care (as documented) at patient's floor/unit and/or counseling patient: Prolonged Care Time Prolonged Care Time: No Critical Care Time: No Critical Care Time Critical Care Time: No Coding [place] [address] SUB INP/OBS CARE 1/25MIN Patient Type Established History Expanded Problem Focused Medical Decision Making Low Complexity Diagnoses Palliative care encounter Z51.5 Diarrhea R19.7 Radiation enteritis K52.0 Nausea & vomiting R11.2 Anal cancer C21.0
[2022-04-19] MEDS: NITROGLYCERIN 2% OINTMENT 30GM TUBE EXT SCH ×3 (00:02→12:49)
--- NOTE | 2022-04-19 02:37 | Hospitalist Progress Note ---
Date of Service April 18, 2022 Assessment & Plan (1) CHF (congestive heart failure): (2) Confusion: (3) Anemia: Plan Confusion -multifactorial. In setting of illness, possibly delirium. Currently appears back to her baseline mental status Awake today clinically improved acute on chronic diastolic CHF -seen on CXR and portion of CT A/P -BNP elevated - lasix 20mg IV daily -repeat TTE shows grade 2 diastolic CHF, again severe MR, pulmonary hypertension - Since she is having multiple episode of vomiting and diarrhea, will start on gentle IVF x 1 liter only -CT chest 1. Cardiomegaly with pulmonary edema and bilateral pleural effusions. 2. Patchy airspace opacities most pronounced within the upper lobes are nonspecific but could be due to the pulmonary edema or a pneumonia. 3. There is a focal irregular density within the right lung apex measuring 2.8 cm. This could represent a focal pneumonia or a pulmonary lesion. [address] follow-up recommended to ensure resolution. Repeat CXR today improved Acute hypoxic respiratory failure Questionable pneumonia CXR showed persistent multifocal airspace opacities, including a 3 cm right apical opacity. procalcitonin negative x 2 -s/p ceftriaxone in ER. d/c zosyn. then transition to azithromycin and cefdinir. -Blood culture negative -Saturated well on RA PAF Rate control with amiodaroneand beta puja Eliquis on hold. plan to resume once vomiting improved Cardiology on board Continue metoprolol succinate Amiodarone drip was discontinued then transition to oral amiodarone Cardiology recommended Amiodarone 200mg BID for 2 weeks, then 200mg PO daily Severe protein-calorie malnutrition. BMI 20.5 and she has been losing weight Poor intake due to Nausea and vomiting Will need to increase protein intake Nausea/vomiting/diarrhea stool for C. difficile negative Continue monitor electrolyte Tolerated her diet today Clinically improved Hypokalemia Potassium 3.2 today Potassium replaced continue monitor BMP HTN BP elevated today Continue topical nitrate We will try to avoid IV hydralazine due to hypertrophic cardiomyopathy Continue monitor BP Anemia -likely due to anemia of chronic disease, rectal cancer hgb 8.3 today -s/p 2 unit RBC 04/09/22 with appropriate response. Transfuse to Keep Hb >7. Hb remains stable. No evidence of blood in stool Rectal cancer, stage 3 -OP follow up with oncology, finished course of chemo/XRT 03/15/2023. Palliative care on board DVT ppx SCD for now due to low hgb Disposition Waiting for placement Admission and Anticipated Discharge Date Admission Date: April 09, 2022 Subjective Patient was seen and evaluated for follow-up Sitting in chair with no acute distress watching TV with family member at bedside She tolerated her diet continue denies any diarrhea waiting for placement to discharge to [facility] Denies any chest pain, palpitation, dizziness, shortness of breath. Review of Systems Review of Systems: All systems reviewed & are unremarkable except as noted in Subjective Physical Exam Physical Exam: General- No acute distress Head- atraumatic Eyes- PERRL, EOMI, ENT- oropharynx clear Neck- supple, no JVD Lungs- clear to auscultation Heart- irregular rhythm Abdomen- normal bowel sounds, soft, nontender Extremities- no calf tenderness Neuro- alert, awake, PERRL, EOMI; no facial palsy; no dysarthria Skin- warm & dry Results & Data Results & Data ([facility]) Vital Signs (Past 12 Hours) Vital Signs Temp Pulse Pulse Resp BP Pulse Ox O2 Del Method 04/18/22 23:20 58 L 04/18/22 23:03 36.5 C 60 18 140/62 93 Room Air 04/18/22 20:00 Room Air 04/18/22 21:23 66 04/18/22 19:17 36.5 C 57 L 18 126/54 L 96 Room Air 04/18/22 15:44 51 L 04/18/22 15:31 36.5 C 57 L 18 129/57 L 94 Room Air (1) Anemia Anemia type: unspecified type Qualified Code(s): D64.9 - Anemia, unspecified
[2022-04-19 07:35] LABS: Hematocrit (blood only) 26.5 % (34.1-44.9); Hemoglobin 8.5 g/dl (12.0-16.0); Mean Corpuscular Hemoglobin 30.4 pg (25.0-34.0); Mean Corpuscular Hgb Conc 32.1 g/dL (32.0-36.0); Mean Corpuscular Volume 94.6 fL (80.0-100.0); Mean Platelet Volume 9.7 fL (9.4-12.3); Nucleated RBC # (auto) 0.02 K/uL (0-0); Nucleated RBC % (auto) 0.3 %; Platelet Count 203 K/uL (130-400); RDW Coefficient of Variation 18.8 % (11.5-14.5); RDW Standard Deviation 64.7 fL (36.4-46.3); White Blood Count 7.81 K/ul (4.8-10.8)
[2022-04-19 08:02] LABS: BUN Creatinine Ratio 33.3 (10-20); Calcium 7.9 mg/dl (8.5-10.1); Creatinine Clr Calc Pharmacy 57.5 ml/min; Est GFR (Non-African American) 82.8 ml/min; Potassium 3.4 mmol/L (3.5-5.1)
[2022-04-19] MEDS: AMIODARONE 200 MG TAB PO SCH (08:58)
[2022-04-19] MEDS: SILVER SULFADIAZINE 1% CR 50 GM JAR TOP SCH (08:59)
[2022-04-19] MEDS: SERTRALINE HCL 100 MG TABLET PO SCH (08:59)
[2022-04-19] MEDS: MEGESTROL ACETATE SUSP 400 MG/10 ML UDC PO SCH (08:59)
[2022-04-19] MEDS: MAGNESIUM OXIDE 400 MG TAB PO SCH (08:59)
[2022-04-19] MEDS: MULTIVITAMIN TAB PO SCH (08:59)
[2022-04-19] MEDS: PANTOprazole 40 MG TAB PO SCH (08:59)
[2022-04-19] MEDS: METOPROLOL SUCC 25MG EXT REL TAB PO SCH (08:59)
[2022-04-19] MEDS: MoRPHine SULFATE CR 60 MG TABCR PO SCH (09:05)
[2022-04-19] MEDS ORDERED: POTASSIUM CHLORIDE PWD 20 MEQ PACK PO ONE (09:15)
[2022-04-19] MEDS: POTASSIUM CHLORIDE / WTR 10 MEQ/100 ML PLCT IV SCH ×3 (10:32→12:40)
[2022-04-19 10:45] VITALS: BP 127/62; PULSE 52; TEMP 97.3; O2SAT 94
== END 2022-04-19 14:40 | DRG 291 ==
LOC: ED 15:26 → EDINP 20:23 → SUATTDRO 20:23 → 2S 22:28